=== PATIENT | female | born 1935 | race Caucasian/White ===

== ENCOUNTER 2019-01-19 15:52 | Inpatient (IN) | payer MEDICARE ==
[2019-01-19] MEDS ORDERED: Ondansetron INJ* 2 MG/ML VIAL IV ONE (16:10)
[2019-01-19] MEDS ORDERED: NS 0.9% 1000 ML** 1,000 ML IV ONE (16:10)
--- NOTE | 2019-01-19 16:13 | ED ---
GI/ HPI - HPI Summary HPI Summary: An 83 y/o F sent from PCP to r/o SBO presents to ED with c/o nausea without vomiting onset 3-4 days ago. Pt had been having intermittent episodes of constipation since 2017, which she believes she is having now. She travelled 3-4 days ago to [place], and went out to dinner, eating a lot of plain pasta. She felt it got "stuck." Associated sx: gas, distended abd. Denies abd pain. Her last normal BM was 4 days ago, but she's been passing hard, small lumps of stool since. She took a suppository this afternoon, and after approx an hour, some brown liquid came out, but she is still having abd distention. Abd surgeries include hysterectomy, bowel surgery. She takes two baby aspirins daily. - History of Current Complaint Chief Complaint: EDGeneral Time Seen by Provider: 01/19/19 16:03 Stated Complaint: "DRLara THINKS POSS BOWEL OBS" PER PT Hx Obtained From: Patient Onset/Duration: Started Days Ago, Still Present Timing: Constant, Lasting Days Severity: Moderate Current Severity: Moderate Pain Intensity: 4 - out of 10 Associated Signs and Symptoms: Positive: Nausea, Constipation, Other: - pos: gas , distended abd. Negative: Vomiting, Abdominal Pain - Allergy/Home Medications Allergies/Adverse Reactions: Allergies Allergy/AdvReac Type Severity Reaction Status Date / Time No Known Allergies Allergy Verified 01/19/19 16:19 Home Medications: Home Medications Aspirin [Aspirin EC] 162 mg PO DAILY 01/19/19 [History Confirmed 01/19/19] Fluticasone NASAL SPRAY 50MCG* 1 spray BOTH NARES BEDTIME 01/19/19 [History Confirmed 01/19/19] Ibandronate Sodium 1,560 mg PO MONTHLY 01/19/19 [History Confirmed 01/19/19] Levothyroxine TAB* [Synthroid 88 MCG TAB*] 88 mcg PO QAM 01/19/19 [History Confirmed 01/19/19] Lisinopril/HCTZ 20/25(NF) [Zestoretic 20/25(NF)] 1 tab PO DAILY 01/19/19 [ History Confirmed 01/19/19] PMH/Surg Hx/FS Hx/Imm Hx Previously Healthy: No Endocrine/Hematology History: Reports: Hx Thyroid Disease - HYPO Cardiovascular History: Reports: Hx Hypertension Musculoskeletal History: Reports: Other Musculoskeletal History - Surgical History Surgery Procedure, Year, and Place: left shoulder replacement Infectious Disease History: No Infectious Disease History: Denies: Traveled Outside the [place] in Last 30 Days - Social History Occupation: Retired Lives: With Family Review of Systems Negative: Fever Positive: Nausea, Other - pos: gassy, constipation, distended abd. Negative: Abdominal Pain, Vomiting All Other Systems Reviewed And Are Negative: Yes Physical Exam - Summary Physical Exam Summary: VITAL SIGNS: Reviewed. GENERAL: Patient is a well-developed and nourished female who is lying comfortable in the stretcher. Patient is not in any acute respiratory distress. HEAD AND FACE: Normocephalic and atraumatic. EYES: PERRLA, EOMI x 2, No injected conjunctiva. EARS: Hearing grossly intact. Ear canals and tympanic membranes are WNL. MOUTH: Oropharynx within normal limits. NECK: Supple, trachea is midline, no adenopathy, no JVD. CHEST: Symmetric, no tenderness at palpation LUNGS: Clear to auscultation bilaterally. No wheezing or crackles. CVS: RRR, S1 and S2 present, no murmurs or gallops appreciated. ABDOMEN: Soft, non-tender. Distended abd. Decreased bowel sounds. No rebound, no guarding, and no masses palpated. No abdominal bruit or pulsations. Nausea without vomiting. EXTREMITIES: FROM in all major joints, no edema, no cyanosis or clubbing. NEURO: Alert and oriented x 3. No acute neurological deficits. Speech is normal. SKIN: Dry and warm RECTAL: Nurse Shelbie chaperoned. The vault is empty, small hemorrhoid at 12 o clock, good sphincter tone Triage Information Reviewed: Yes Vital Signs On Initial Exam: Initial Vitals Temp Pulse Resp BP Pulse Ox 99 F 76 16 176/104 97 01/19/19 16:03 01/19/19 16:03 01/19/19 16:03 01/19/19 16:03 01/19/19 16:03 Vital Signs Reviewed: Yes Diagnostics - Vital Signs Vital Signs Temp Pulse Resp BP Pulse Ox 01/19/19 16:03 99 F 76 16 176/104 97 - Laboratory Result Diagrams: 01/19/19 16:16 01/19/19 16:16 Lab Statement: Any lab studies that have been ordered have been reviewed, and results considered in the medical decision making process. - Radiology ABD XR Radiology Interpretation Completed By: Radiologist Summary of Radiographic Findings: IMPRESSION: Dilated loops of small bowel for which small bowel obstruction is not excluded. ED provider has reviewed this report. - CT A/P CT CT Interpretation Completed By: Radiologist Summary of CT Findings: IMPRESSION: Findings of sigmoid volvulus. No perforation. ED provider has reviewed this report. - EKG 1621 Cardiac Rate: NL - 64 bpm EKG Rhythm: Sinus Rhythm Summary of EKG Findings: No ST elevation. GIGU Course/Dx - Course Assessment/Plan: Patient is an 83-year-old female who presents to the emergency room with abdominal distention. Patient has nausea without vomiting. Test results without any significant abnormality except for sodium 131, potassium 3.1 , chloride 95, glucose 117, urinalysis is negative for UTI. Rectal exam: The patient has an small hemorrhoid, vault is w/o stool. X-ray of the abdomen impression: Dilated loops of the small bowel for which is small bowel obstruction is not excluded.Occult blood is negative. I discussed the case with Darin WEST from the surgery and he recommends an abdominal and pelvic CT. The patient is unable to tolerate oral contrast therefore we placed an NG tube and did a CT without oral contrast, only IV contrast. The CT abdomen and pelvis impression: sigmoid volvulus. At this time I discussed my physical exam and findings with Dr. Villalobos from GI and he will, consult for this patient. Patient continues to be hemodynamically stable. Patient will be signed out to Dr. Cardoso to follow-up with Dr. Villalobos assessment and plan. - Diagnoses Provider Diagnoses: Sigmoid volvulus - Physician Notifications Discussed Care Of Patient With: Raman Ballard - surgery Time Discussed With Above Provider: 19:47 Instructed by Provider To: Other - Recommends NG tube prior to CT. Consulted again at 2121: Reviewed the CT, before official report, feels it is a sigmoid volvulus, recommends consulting GI. - Critical Care Time Critical Care Time: 30-74 min - 45 mins CC time. Discharge - Sign-Out/Discharge Documenting (check all that apply): Sign-Out Patient Signing out patient TO: Fahad Cardoso - pending Dr. Villalobos seeing pt in ED - Discharge Plan Referrals: Vanna Mello MD [Primary Care Provider] - - Attestation Statements Document Initiated by Robin: Yes Documenting Scribe: Prashant Lance Provider For Whom Robin is Documenting (Include Credential): Dr. David Garcia MD Scribe Attestation: I, Prashant Lance, scribed for Dr. David Garcia MD on 01/19/19 at 2225. Scribe Documentation Reviewed: Yes Provider Attestation: The documentation as recorded by the robin, Prashant Lance accurately reflects the service I personally performed and the decisions made by me, Dr. David Garcia MD Status of Scribe Document: Viewed Consult Consult: 2139: Consult with JEROD Garza Will see patient in ED.
[2019-01-19 16:24] LABS: ABS Basophils 0.1 10^3/ul (0-0.2); ABS Eosinophils 0 10^3/ul (0-0.6); ABS Lymphocytes 1.1 10^3/ul (1.0-4.8); ABS Monocytes 0.7 10^3/ul (0-0.8); ABS Neutrophils 8.2 10^3/ul (1.5-7.7); ABS Nucleated RBC 0 10^3/ul; Eosinophil % 0.2 %; Hematocrit 40 % (35-47); Hemoglobin 13.6 g/dl (12.0-16.0); Lymphocyte % 10.8 %; Mean Corpuscular HGB Conc 34 g/dl (31-36); Mean Corpuscular Hemoglobin 33 pg (27-31); Mean Corpuscular Volume 97 fL (80-97); Mean Platelet Volume 7.3 fL (7.4-10.4); Nucleated Red Blood Cells % 0.1; Platelet Count 304 10^3/ul (150-450); Red Blood Count 4.14 10^6/ul (4.00-5.40); Red Cell Distribution Width 13 % (10.5-15); White Blood Count 10.1 10^3/ul (3.5-10.8)
[2019-01-19 16:40] LABS: Albumin 4.4 g/dL (3.2-5.2); Albumin/Globulin Ratio 1.8 (1-3); BUN/Creatinine Ratio 12.5 (8-20); C Reactive Protein 3.42 mg/L (<8.01); Calcium 9.7 mg/dL (8.6-10.3); EGFR African American 83.3 (>60); EGFR Non-African American 68.8 (>60); Globulin 2.4 g/dL (2-4); Magnesium 2.1 mg/dL (1.9-2.7); Potassium 3.1 mmol/L (3.5-5.0); Total Bilirubin 0.6 mg/dL (0.2-1.0); Total Protein 6.8 g/dL (6.4-8.9)
[2019-01-19 16:44] LABS: Urine Appearance Cloudy; Urine Bilirubin Negative (Negative); Urine Blood Negative (Negative); Urine Color Yellow; Urine Glucose Negative (Negative); Urine Ketones 1+ (Negative); Urine Nitrite Negative (Negative); Urine Protein Negative (Negative); Urine Urobilinogen Negative (Negative)
[2019-01-19] MEDS ORDERED: Iohexol 300* (CONTRAST) 10 ML SDV IV ONE (19:42)
[2019-01-19] MEDS ORDERED: fentaNYL* 50 MCG/ML 2 ML VIAL (100 MCG VIAL) ONE (22:48)
[2019-01-19] MEDS ORDERED: Midazolam* 1 MG/ML 10 ML VIAL (10 MG) ONE (22:49)
--- NOTE | 2019-01-19 22:53 | ED ---
Progress - Progress Note Progress Note: The patient was signed out to Dr. Cardoso from Dr. Garcia upon provider shift change pending consultation with Dr. Villalobos and disposition. Course/Dx - Course Course Of Treatment: The patient was signed out to Dr. Cardoso from Dr. Garcia upon provider shift change pending consultation with Dr. Villalobos and disposition. Dx sigmoid volvulus. Discussed patient care with Dr. Villalobos, radio announcer, after he came to see the patient in the ED and he advised the patient be admitted to [facility]. We discussed patient care with Dr. Huddleston, hospitalist, and they agreed to admit the patient to [facility]. Patient will be admitted to [facility]. The patient is agreeable with this plan. - Diagnoses Provider Diagnoses: Sigmoid volvulus - Provider Notifications Discussed Care Of Patient With: Krzysztof Villalobos Time Discussed With Above Provider: 00:33 Instructed by Provider To: Other - Dr. Villalobos advised the patient be admitted to [facility]. Discussed patient care at 00:[address] Huddleston, hospitalist, who agreed to admit the patient to [facility]. Discharge - Sign-Out/Discharge Documenting (check all that apply): Patient Departure - admit to [facility], Receiving Sign-Out Receiving patient FROM: David Garcia Patient Received Moderate/Deep Sedation with Procedure: No - Discharge Plan Condition: Stable Disposition: ADMITTED TO [facility] Referrals: Vanna Mello MD [Primary Care Provider] - - Attestation Statements Document Initiated by Scribe: Yes Documenting Scribe: Teresa Newton Provider For Whom Scribe is Documenting (Include Credential): Fahad Cardoso MD Scribe Attestation: Teresa Jo, donnaibed for Fahad Cardoso MD on 01/20/19 at 0032. Status of Scribe Document: Ready
--- NOTE | 2019-01-20 00:29 | PN ---
Progress Note - Progress Note Date of Service: 01/20/19 Note: GI Flex Sig Brief Note: no sedation indication: sig volvulus. Flex sig to distal transverse 1st whirl noted at 12-15cm, mucosa pink and healthy advanced to sigmoid, cavernous with air/stool suctioned advanced to proximal whirl and passed. air suctioned again Cook guidewire advanced while removing scope and suctioning. 14F colonic decompression advanced over guidewire past both whirls. Rectal tube taped rec: IVF observation, serial abdominal exams Will likely need definitive surgical therapy Discussed with Dr. Nellie Villalobos DO 01/20/19 12:28
[2019-01-20] MEDS ORDERED: Ondansetron INJ* 2 MG/ML VIAL IV PRN (01:10)
--- NOTE | 2019-01-20 01:20 | CONS ---
CONSULTATION REPORT: DATE OF CONSULT: 01/19/19 REASON FOR CONSULTATION: Sigmoid volvulus. HISTORY OF PRESENT ILLNESS: An 83-year-old female who was sent from the primary care physician to rule out bowel obstruction, to the emergency room. She states that her bowels have been off since roughly 2017. Prior to this, she moved her bowels every day to every other day after that she was moving her bowels every 3 to 4 days, having to take MiraLAX over-the- counter. However, over the last 3 to 4 days, she has noted increasing abdominal distention and gas and then over the last day has noticed an absence of flatulence and has not had any bowel movements. She admits to a full abdomen. She states it is slightly uncomfortable globally but without a significant focal area of pain. She denies any black or blood in the stool. She had a colonoscopy she believes in 1999, which was negative. She has a history of a complicated hysterectomy and possible bowel repair. She admits to nausea. She denies emesis. No dysphagia or odynophagia. No skin rash or lesions. Denies significant weight loss. A 14-point review of systems is grossly negative. PAST MEDICAL HISTORY: 1. Hypothyroidism. 2. Hypertension. PAST SURGICAL HISTORY: Complicated hysterectomy possibly involving bowel repair as well. HOME MEDICATIONS: Include: 1. Aspirin 162 mg daily. 2. Fluticasone. 3. Ibandronate. 4. Levothyroxine. 5. Lisinopril. 6. Hydrochlorothiazide. FAMILY HISTORY: Denies family history of GI cancer or IBD. SOCIAL HISTORY: Retired. Lives with family. Denies significant alcohol use. REVIEW OF SYSTEMS: The remainder of the 14-point review of systems was grossly negative. PHYSICAL EXAMINATION: Vital Signs: Blood pressure is 160/93, pulse is 70, respiratory rate 16, temperature is 99. She is 97% on room air. In general, alert and oriented x3, mild distress. HEENT: Atraumatic, normocephalic. Pupils equal, round, reactive to light. Conjunctivae are pink. The sclerae are injected. Cardiovascular: Regular rate and rhythm. S1, S2. Respiratory: Clear to auscultation bilaterally. Abdomen is distended. High-pitched with hypoactive bowel sounds. Mild guarding. No rebound. Extremities: No clubbing. No cyanosis. No edema. Neurologic: Nonfocal. Skin: Without rash or lesions. Psych is appropriate mood and affect. DIAGNOSTIC STUDIES/LAB DATA: WBC count 10.1, hemoglobin 13.6. Sodium 131, potassium 3.1, chloride is 95, glucose is 117. Lactic acid 0.7. AST 34, ALT is 28. She had an abdominal x-ray at 1611, revealed dilated loops of small bowel for which small bowel obstruction is not excluded. She then had abdomen and pelvis CT, noncontrast at 1920 with findings of sigmoid volvulus, no perforation. ASSESSMENT AND PLAN: This is an 83-year-old with suspected sigmoid volvulus. Suspected sigmoid volvulus. Extensive discussion with the patient regarding management options and preference would be for endoscopic decompression followed by definitive surgical therapy. I discussed the high risk of perforation in volvulus decompression secondary to ischemia to the bowel. I discussed the anesthetic risks including blood pressure, heart rate, breathing problems. Given that she had attempted contrast recently, we will plan on attempting on sedated and giving mild sedation if absolutely necessary given the emergence of the situation. I discussed the plan with the son-in-law at bedside, answered all questions and they wished to proceed with endoscopic decompression of the potential sigmoid volvulus. They understand that she likely will need definitive surgical therapy in the near future. The patient was seen and examined in the ER. [id number]/[facility] #: [id number] NOHELIA
--- NOTE | 2019-01-20 01:53 | PRO ---
CC: Dr. Ballard; primary care physician.* FLEXIBLE SIGMOIDOSCOPY REPORT: DATE OF PROCEDURE: 01/19/19 INDICATION FOR PROCEDURE: Sigmoid volvulus. PROCEDURE PERFORMED: Sigmoid volvulus decompression with colonic tube decompression placement. MEDICATIONS GIVEN: None. DESCRIPTION OF PROCEDURE: After the flexible sigmoidoscopy procedure including the risks, benefits, and alternatives with the risks not limited to perforation , surgery, missed lesions, and/or were explained to the patient, written informed consent was obtained. IV medication was not given. A rectal exam was performed. The rectal exam revealed no stool. The pediatric Olympus colonoscope was then inserted into the patient's rectum and advanced very carefully through the rectum to about 10 cm to 15 cm where the first sigmoid volvulus whirl was noted. The mucosa at this area was pink without any necrosis or inflammation. The scope advanced through this area with gentle pressure and relative ease. Upon entering the sigmoid colon, the area with large cavernous with retained stool and air. The air was rapidly suctioned out and liquid was suctioned out as well. Rapid improvement to the patient's abdominal distention was identified. The scope was continued to be transversed through the sigmoid colon to the distal transverse colon through the second whirl and at this time, the reminder of the air was suctioned out of the proximal colon with relative ease. No further advancement was able to be done secondary to sold formed stool. Next, a Cook guidewire was advanced through the colonoscope and then the colonoscope was slowly retrieved while advancing the guidewire. Next, a 14 [place] Cook decompression tube was placed over the guidewire into the colon and taped to the patient's gluteus cheek. The patient tolerated the procedure well. At the conclusion of the procedure, her abdomen was flat and nondistended. IMPRESSION: 1. Flexible sigmoidoscopy through transverse colon. 2. Sigmoid volvulus decompression successful with derotation. 3. Colonic decompression tube placed into colon successfully as above. RECOMMENDATIONS: Admit and monitor to the hospital. The patient will need definitive surgery therapy likely in the near future. [id number]/[facility] #: [id number] [facility]
[2019-01-20] MEDS: NS 0.9% w/ 20 Meq KCL 1000 ML* 1,000 ML IV SCH ×2 (02:25→14:27)
--- NOTE | 2019-01-20 03:40 | HP ---
CC: Vanna Mello MD * HISTORY AND PHYSICAL: DATE OF ADMISSION: 01/20/19 TIME OF EVALUATION: 0100 PRIMARY CARE PHYSICIAN: Vanna Mello MD CHIEF COMPLAINT: Abdominal distention and pain. HISTORY OF PRESENT ILLNESS: This is an 83-year-old female who presents to the emergency room for worsening abdominal pain and distention. The patient states around Antoinette time, she began having issues with constipation, which was new for her and she lost the urge to have a bowel movement. She increased fiber in her diet. She went to see her primary care physician for her annual visit in November and she discussed her issues. She recommended continuing high-fiber diet and adding Metamucil, which seemed to make things worse for her. She states on the evening of 01/15/19, she noticed she was having increasing gas pains and distention, feeling more bloated. She tried to increase her prunes and fiber intake with no relief and this was the last time she had a bowel movement. She states she has been having small stool worms with other stuff coming out. The following day, she went out to dinner with her family, she ate pasta which seemed to make her situation worse. She went to see the nurse practitioner in her primary care physician office on 01/18/19, who noted her abdomen was significantly distended. She ordered suppositories. She tried that earlier yesterday when they arrived with no relief. She called her primary care physician for concern for her distention and then primary recommended she go to the emergency room. The patient has been nauseated for the past 2 days. She was dry heaving in triage, and she vomited up the contrast when they attempted to do a CAT scan of her abdomen. She has had no bowel movements since 01/15/19. No flatus. She states she had a colonoscopy in early 1999 that was normal. Otherwise, review of systems negative. In the emergency room, the patient had labs and imaging. She was seen by Surgery and also GI doctor, Dr. Villalobos evaluated her, performed a flex sig with decompression and a rectal tube in place. The patient also has NG tube in place. On my encounter, the patient states she feels significantly better. Her abdominal distention has improved. She still has not passed any gas, but her symptoms have dramatically improved since the procedure in the emergency room by Dr. Griselda. In the emergency room, the patient had a liter of fluid, Zofran 4 mg, fentanyl and Versed for the procedure. PAST MEDICAL HISTORY: 1. Hypothyroidism. 2. Hypertension. 3. Osteoporosis. PAST SURGICAL HISTORY: 1. History of laparoscopic hysterectomy, complicated by suture rupture and bowel coming out of her vagina, status post repair for that. 2. History of shoulder surgery. She also has plans to have her shoulder replaced on 02/02/19. MEDICATIONS: 1. Cranberry 6 tabs p.o. daily. 2. Aspirin 162 mg p.o. daily. 3. Flonase 1 spray both nares at bedtime. 4. Lisinopril/hydrochlorothiazide 1 tab daily. 5. Synthroid 88 mcg p.o. daily. 6. Ibandronate monthly. ALLERGIES: No known drug allergies. FAMILY HISTORY: Mother from stroke. Father from lung cancer. SOCIAL HISTORY: The patient lives at [facility]. She ambulates independently. No history of tobacco. She drinks 1 glass of wine per week. Healthcare proxy is Brii Jasmine, her daughter. 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 Code status is full code. REVIEW OF SYSTEMS: A 14-point review of systems as mentioned in the HPI, otherwise negative. PHYSICAL EXAMINATION GENERAL: No acute distress. Resting comfortably on her side. VITAL SIGNS: Temp is 99, pulse rate is 72, respiratory rate is 18, oxygen saturation is 97% on room air, blood pressure 145/82. HEENT: Head: Normocephalic. Pupils are equal and reactive. Oropharynx: Mucous membranes moist. She does have an NG tube in place. NECK: Supple. RESPIRATORY: Diminished breath sounds. No wheezes, rhonchi, or rales. CARDIAC: Regular rate and rhythm. Soft systolic murmur heard throughout. ABDOMEN: Distended, mildly firm. Hypoactive bowel sounds. Diffuse tenderness. No rebound or guarding. EXTREMITIES: No clubbing, cyanosis, or edema. +1 DPs. NEUROLOGICAL: Alert and oriented x3. No gross focal neurologic deficits. LABORATORY DATA: White count 10.1, hemoglobin 13.6, hematocrit 40, platelets 304. Sodium 131, potassium 3.1, chloride 95, bicarb 28, BUN 10, creatinine 0.8. Glucose 117. Lactic acid 0.7. CRP is 3. RADIOGRAPHIC DATA: Abdominal and pelvis CT, findings of sigmoid volvulus, no perforation. Abdominal x-ray, dilated loops of small bowel for which small bowel obstruction is not excluded. EKG shows normal sinus rhythm. ASSESSMENT AND PLAN: This is an 83-year-old female with unremarkable past medical history, presents to the emergency room with worsening abdominal distention and pain, 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 1. Sigmoid volvulus. Assessment: The patient had her volvulus decompressed with rectal tube in place by Dr. Villalobos in the emergency room. Recommendation is to keep her n.p.o. with IV fluids. Follow up in GI and Surgery in the morning to discuss definitive surgical repair. 2. Chronic medical problems. a. Hypothyroidism. The patient will remain n.p.o. for now. If she remains n.p.o. for several days, she will need IV Synthroid. b. Hypertension. Hold her p.o. medications and hold her aspirin in the setting of potential upcoming surgery. 3. DVT prophylaxis. The patient scores high risk. We will place her on heparin subcu t.i.d. 4. Code status. Full code. 5. FEN. NPO with IV fluids. PATIENT TIME: Greater than 45 minutes was spent doing the history and physical , more than half the time was spent in direct patient contact. [id number]/[facility] #: [id number] NOHELIA
[2019-01-20 05:23] LABS: ABS Basophils 0 10^3/ul (0-0.2); ABS Eosinophils 0 10^3/ul (0-0.6); ABS Lymphocytes 1.1 10^3/ul (1.0-4.8); ABS Monocytes 0.6 10^3/ul (0-0.8); ABS Neutrophils 7.8 10^3/ul (1.5-7.7); ABS Nucleated RBC 0 10^3/ul; Eosinophil % 0.1 %; Hematocrit 41 % (35-47); Lymphocyte % 11.9 %; Mean Corpuscular HGB Conc 34 g/dl (31-36); Mean Corpuscular Hemoglobin 33 pg (27-31); Mean Corpuscular Volume 96 fL (80-97); Mean Platelet Volume 7.2 fL (7.4-10.4); Nucleated Red Blood Cells % 0; Platelet Count 298 10^3/ul (150-450); Red Blood Count 4.25 10^6/ul (4.00-5.40); Red Cell Distribution Width 13 % (10.5-15); White Blood Count 9.6 10^3/ul (3.5-10.8)
[2019-01-20] MEDS: Heparin VIAL(*) 5000 UNITS/ML VIAL (FIVE THOUSAND) SUBCUT SCH ×3 (05:29→21:43)
[2019-01-20 05:39] LABS: BUN/Creatinine Ratio 10.8 (8-20); Calcium 8.8 mg/dL (8.6-10.3); EGFR African American 91.1 (>60); EGFR Non-African American 75.3 (>60); Potassium 3.2 mmol/L (3.5-5.0)
--- NOTE | 2019-01-20 10:58 | PN ---
Subjective Date of Service: 01/20/19 Interval History: Patient is feeling much improved today. She notes discomfort at the back of her throat due to NG tube and some abdominal discomfort. The abdominal discomfort is improved when sitting upright in chair on top of a pillow. She had two small , loose BMs overnight into this morning. Nursing notes that these BMs occurred around the rectal tube. She has not noticed flatus. Denies chest pain, SOB, and emesis. Objective Active Medications: Heparin Sodium (Porcine) (Heparin Vial(*)) 5,000 units SUBCUT Q8HR [facility] Last Admin: 01/20/19 05:29 Dose: 5,000 units Potassium Chloride/Sodium Chloride (Ns 0.9% W/ 20 Meq Kcl 1000 Ml*) 1,000 mls @ 100 mls/hr IV PER RATE [facility] Last Admin: 01/20/19 02:25 Dose: 100 mls/hr Ondansetron HCl (Zofran Inj*) 4 mg IV Q4H PRN PRN Reason: NAUSEA/VOMITING Vital Signs - 8 hr 01/20/19 01/20/19 01/20/19 03:16 04:06 07:27 Temperature 99.0 F 98.5 F Pulse Rate 65 65 Respiratory 18 17 Rate Blood Pressure 135/75 137/57 (mmHg) O2 Sat by Pulse 100 98 Oximetry Oxygen Devices in Use Now: None Appearance: Elderly woman, appearing in NAD Eyes: No Scleral Icterus, PERRLA Ears/Nose/Mouth/Throat: Mucous Membranes Moist, - - NG tube present Neck: NL Appearance and Movements; NL JVP, Trachea Midline Respiratory: Symmetrical Chest Expansion and Respiratory Effort, Clear to Auscultation Cardiovascular: NL Sounds; No Murmurs; No JVD, RRR Abdominal: - - Normoactive BS x 4 quadrants; diffuse minimal tenderness to palpation in LUQ and LLQ; abdomen minimally distended but without rigidity; rectal tube present Extremities: No Edema, No Clubbing, Cyanosis Skin: No Rash or Ulcers Neurological: Alert and Oriented x 3, NL Muscle Strength and Tone Result Diagrams: 01/20/19 04:48 01/20/19 04:48 Microbiology and Other Data: Microbiology 01/19/19 17:20 Stool Occult Blood (LOUANN) - Final Stool Assess/Plan/Problems-Billing Assessment: 83 yo female with PMHx of hypothyroidism and osteoporosis presents with abdominal pain and distension, 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 - Patient Problems (1) Sigmoid volvulus Comment: -pt feeling much relief, though still has minimal abd pain -flex sig performed night of 01/[address] rectal tube -GI suspecting surgery necessary for definitive tx; gen surg is consulted -NG tube outputting nonbilious, nonbloody fluid -stool hemoccult negative (2) Hypothyroidism Code(s): E03.9 - HYPOTHYROIDISM, UNSPECIFIED SNOMED Code(s): 98323451 Comment: -pt remains NPO as expecting surgery -will consider IV synthroid in future (3) HTN (hypertension) Code(s): I10 - ESSENTIAL (PRIMARY) HYPERTENSION SNOMED Code(s): 50524936 Comment: -BP controlled -holding home lisinopril/hctz in setting of expectant surgery (4) DVT prophylaxis Code(s): PKO5799 - SNOMED Code(s): 979578451 Comment: -continue heparin subQ TID -home aspirin held in setting of expectant surgery (5) Full code status Code(s): Z78.9 - OTHER SPECIFIED HEALTH STATUS SNOMED Code(s): 114249952
--- NOTE | 2019-01-20 17:59 | CONS ---
CC: Dr. Krzysztof Villalobos; Dr. Vanna Mello; [facility] SURGICAL CONSULTATION REPORT: DATE OF CONSULT: 01/20/19 PRIMARY CARE DOCTOR: Dr. Vanna Mello. HISTORY OF PRESENT ILLNESS: I was contacted last night regarding Ms. Peterson, an 83- year-old female who presented with diffuse abdominal pain and distended abdomen, who was felt to be likely suffering with a small-bowel obstruction. Discussion with ER doctor led to a CT scan and a diagnosis of sigmoi d volvulus. Recommended GI evaluation and this was performed last night. The patient underwent urge nt decompressive sigmoidoscopy. The full colon was not evaluated, but no lesions were identified. T he mucosa appeared intact. The opinion of the risk consultant was that this was significantly floppy sigm oid colon and would likely twist again and a decompression tube was placed. I saw the patient as the procedure was happening and made a brief discussion with her, but then again this morning when I saw her with her daughter, the patient describes that she last felt well around [facility] last year. At about that time, the patient was starting to suffer with intermittent co nstipation. She at first changed her diet, loading it with fiber and prunes to try to help with norm alizing her bowel movements, then adding a Metamucil. This cocktail seemed to work intermittently, b ut then she would undergo periods of time when she would become distended and having persistent const ipation. She denied any significant abdominal pain during these times, but rather had distention and constipation and was treating herself for this. On this episode, which just started approximately 2 days ago, the patient states that the distention occurred and she also suffered with nausea. She vomited only once after attempting oral contrast loren or to CT scan. Currently, she feels better, but still is distended. She does have appetite. The NG tube is bothers ome, but otherwise she is sitting in bed and comfortable. PAST MEDICAL HISTORY: Hypothyroidism, hypertension. PAST SURGICAL HISTORY: Laparoscopic hysterectomy complicated with likely vaginal cuff dehiscence and subsequent repair with reduction of bowel coming through the vaginal cuff. MEDICATIONS: List reviewed. ALLERGIES: No known drug allergies. FAMILY HISTORY: Noncontributory. SOCIAL HISTORY: She lives at [place]. She just got there about 4 months ago. Her daughter is her h ealthcare proxy. She can walk up a flight of stairs with ease. She drinks wine on occasion. REVIEW OF SYSTEMS: No fevers or chills. No shortness of breath or chest pain. Abdominal distention and discomfort as described above. No dysuria. Colonoscopy about 10 years ago, the patient states w as within normal limits. No family history of colon cancer. No endocrine disorders other than hypot hyroidism. No bleeding or clotting disorders. No psychiatric illnesses. The patient denies chronic constipation. If anything, she had more frequent bowel movements during her life and suffered more with diarrhea. Carotid stenosis on the left according to the patient from workup done in [place]. PHYSICAL EXAM: On physical exam today, she was afebrile. Vital signs are stable. Alert and oriented x3, in no apparent distress. Head, Ears, Eyes, Nose and Throat: Normocephalic, atraumatic. Sclerae anicteric. Mucous membranes are moist. NG tube in place. Neck: No lymphadenopathy. Abdomen: So ft, distended, nontender, tympanic. Rectal Exam: Not performed, but rectal tube in place. Extremit ies within normal limits. DIAGNOSTIC STUDIES/LAB DATA: Labs reviewed. Normal white count. CT scan from yesterday reviewed, consistent with sigmoid volvulus. No free air; however, the patient did have free fluid. IMPRESSION AND PLAN: First episode of sigmoid volvulus that has resolved with endoscopic decompressi on and detorsion. Concern by the specialist is that this will reoccur. The patient describes a 2-1/ 2-month history of intermittent constipation and significant bloating and likely has had small episod es of this volvulus during these times that may have spontaneously reduced. She is at risk for recur rence and would like intervention to prevent which she suffered with yesterday. I outlined the detai ls of the procedure of a sigmoid colectomy, going over the risks, benefits, and alternatives. I spok e about the possible complications which include, but not limited to bleeding, infection, GI leak, ne ed for urgent surgery, potential for colostomy both temporary and permanent, stroke, and even . The alternatives I discussed were watchful waiting and seeing if this reoccurs. The patient is frig htened about this at this point. We will see how she does in the coming days and after additional di scussion which we will resume tomorrow, I will potentially consider her for surgical intervention aft er only 1 episode given the 2-month prodrome leading to this event. The patient is aware of my plan to hold off on urgent surgery at this time. We will watch her closely. I recommend NG tube removal. We can start her diet later today or tomorrow waiting for additional decrease of distention and pos sibly additional bowel movements. The patient understands this plan and I will follow her closely. [id number]/[facility] #: [id number]
[2019-01-21] MEDS: NS 0.9% w/ 20 Meq KCL 1000 ML* 1,000 ML IV SCH (00:13)
[2019-01-21] MEDS: Heparin VIAL(*) 5000 UNITS/ML VIAL (FIVE THOUSAND) SUBCUT SCH ×3 (05:42→21:55)
[2019-01-21 07:31] LABS: Hematocrit 40 % (35-47); Hemoglobin 13.4 g/dl (12.0-16.0); Mean Corpuscular HGB Conc 34 g/dl (31-36); Mean Corpuscular Hemoglobin 33 pg (27-31); Mean Corpuscular Volume 97 fL (80-97); Mean Platelet Volume 7.4 fL (7.4-10.4); Platelet Count 291 10^3/ul (150-450); Red Cell Distribution Width 13 % (10.5-15); White Blood Count 7.9 10^3/ul (3.5-10.8)
[2019-01-21 07:46] LABS: BUN/Creatinine Ratio 19.7 (8-20); Potassium 3.4 mmol/L (3.5-5.0)
[2019-01-21 09:05] LABS: Lymphocytes % 12 %; Monocytes % 6 %; Neutrophil % 81 %
[2019-01-21 09:07] LABS: ABS Neutrophils 6.4 10^3/ul (1.5-7.7)
[2019-01-21 09:08] LABS: ABS Basophils 0.08 10^3/ul (0-0.2)
--- NOTE | 2019-01-21 11:39 | PN ---
Subjective Date of Service: 01/21/19 Interval History: Patient received full liquid diet this morning, which has since been changed to clear liquid. She tolerated breakfast. She had a "liquid" bowel movement overnight and has had no BM or flatus since then. She has intermittent, mild abdominal pain which she describes as "gas pain." Denies nausea, vomiting, and chest pain. Objective Active Medications: Heparin Sodium (Porcine) (Heparin Vial(*)) 5,000 units SUBCUT Q8HR [facility] Last Admin: 01/21/19 05:42 Dose: 5,000 units Potassium Chloride/Sodium Chloride (Ns 0.9% W/ 20 Meq Kcl 1000 Ml*) 1,000 mls @ 100 mls/hr IV PER RATE [facility] Last Admin: 01/21/19 00:13 Dose: 100 mls/hr Ondansetron HCl (Zofran Inj*) 4 mg IV Q4H PRN PRN Reason: NAUSEA/VOMITING Vital Signs - 8 hr 01/21/19 01/21/19 01/21/19 03:52 07:49 08:00 Temperature 98.3 F 98.6 F Pulse Rate 81 84 Respiratory 16 16 16 Rate Blood Pressure 134/67 149/84 (mmHg) O2 Sat by Pulse 97 100 Oximetry Oxygen Devices in Use Now: None Appearance: Eldery female, appearing in NAD Eyes: No Scleral Icterus, PERRLA Ears/Nose/Mouth/Throat: Mucous Membranes Moist Neck: NL Appearance and Movements; NL JVP, Trachea Midline Respiratory: Symmetrical Chest Expansion and Respiratory Effort, Clear to Auscultation Cardiovascular: NL Sounds; No Murmurs; No JVD, RRR, No Edema Abdominal: No Hepatosplenomegaly, - - Abdomen distended; firm in LUQ and LLQ; high pitch bowel sounds in RLQ, otherwise normoactive; minimal tenderness throughout; rectal tube present Extremities: No Edema, No Clubbing, Cyanosis, - - no calf tenderness Skin: No Rash or Ulcers Neurological: Alert and Oriented x 3, NL Gait, NL Muscle Strength and Tone Result Diagrams: 01/21/19 07:12 01/21/19 07:12 Microbiology and Other Data: Microbiology 01/19/19 17:20 Stool Occult Blood (LOUANN) - Final Stool Assess/Plan/Problems-Billing Assessment: 83 yo female with PMHx of hypothyroidism and osteoporosis presents with abdominal pain and distension, 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 - Patient Problems (1) Sigmoid volvulus Comment: -pt with intermittent, mild abd pain. -diarrhea overnight and no BM since -abdominal distension worsened from yesterday, with high pitched bowel sounds occasionally -NG tube removed. No nausea/vomiting -Abdomen plan film today with dilated bowel loops -flex sig performed night of 01/[address] rectal tube. Rectal tube still present. -GI suspecting surgery necessary for definitive tx; gen surg is recommending clear fluids and expecting surgery in coming days (2) Hypothyroidism Code(s): E03.9 - HYPOTHYROIDISM, UNSPECIFIED SNOMED Code(s): 16962692 Comment: -restarted home levothyroxine (3) HTN (hypertension) Code(s): I10 - ESSENTIAL (PRIMARY) HYPERTENSION SNOMED Code(s): 41662250 Comment: -BP elevated today -restarted home lisinopril and HCTZ (4) Osteoporosis Code(s): M81.0 - AGE-RELATED OSTEOPOROSIS W/O CURRENT PATHOLOGICAL FRACTURE SNOMED Code(s): 98978493 Comment: -pt takes ibandronate monthly at home. Not ordered because dose is not due. (5) DVT prophylaxis Code(s): NYR6327 - SNOMED Code(s): 283778483 Comment: -continue heparin subQ TID -home aspirin held in setting of expectant surgery (6) Full code status Code(s): Z78.9 - OTHER SPECIFIED HEALTH STATUS SNOMED Code(s): 271811154
[2019-01-21] MEDS: Lisinopril TAB* 10 MG PO SCH (13:50)
[2019-01-21] MEDS: Hydrochlorothiazide TAB* 25 MG PO SCH (13:50)
[2019-01-21] MEDS: Levothyroxine TAB* 88 MCG TAB PO SCH (14:50)
[2019-01-22] MEDS: Heparin VIAL(*) 5000 UNITS/ML VIAL (FIVE THOUSAND) SUBCUT SCH ×3 (06:11→21:28)
[2019-01-22] MEDS: Levothyroxine TAB* 88 MCG TAB PO SCH (06:12)
[2019-01-22 06:25] LABS: ABS Basophils 0.1 10^3/ul (0-0.2); ABS Eosinophils 0 10^3/ul (0-0.6); ABS Monocytes 0.9 10^3/ul (0-0.8); ABS Neutrophils 12.2 10^3/ul (1.5-7.7); ABS Nucleated RBC 0 10^3/ul; Eosinophil % 0.1 %; Hematocrit 36 % (35-47); Hemoglobin 11.9 g/dl (12.0-16.0); Lymphocyte % 7.1 %; Mean Corpuscular HGB Conc 34 g/dl (31-36); Mean Corpuscular Hemoglobin 32 pg (27-31); Mean Corpuscular Volume 97 fL (80-97); Mean Platelet Volume 7.8 fL (7.4-10.4); Nucleated Red Blood Cells % 0; Platelet Count 269 10^3/ul (150-450); Red Blood Count 3.68 10^6/ul (4.00-5.40); Red Cell Distribution Width 13 % (10.5-15); White Blood Count 14.2 10^3/ul (3.5-10.8)
[2019-01-22 07:31] LABS: Albumin 3.5 g/dL (3.2-5.2); Albumin/Globulin Ratio 1.7 (1-3); BUN/Creatinine Ratio 13.4 (8-20); Calcium 8.8 mg/dL (8.6-10.3); EGFR African American 102.2 (>60); EGFR Non-African American 84.5 (>60); Globulin 2.1 g/dL (2-4); Indirect Bilirubin 0.7 mg/dL (0.3-1.0); Total Bilirubin 0.9 mg/dL (0.2-1.0); Total Protein 5.6 g/dL (6.4-8.9)
[2019-01-22 07:56] LABS: Potassium 2.7 mmol/L (3.5-5.0)
[2019-01-22] MEDS ORDERED: Potassium Chloride LIQUID* 20 MEQ PACKET PO ONE (08:13)
[2019-01-22] MEDS ORDERED: CRANBERRY FRUIT PO SCH (09:00)
[2019-01-22] MEDS: Hydrochlorothiazide TAB* 25 MG PO SCH (09:13)
[2019-01-22] MEDS: Lisinopril TAB* 10 MG PO SCH (09:13)
[2019-01-22] MEDS: KCL 20 MEQ/100 ML IVPREMIX* 20 MEQ/100 ML BAG IV SCH ×2 (09:42→11:53)
[2019-01-22 13:01] LABS: Magnesium 1.9 mg/dL (1.9-2.7)
[2019-01-22] MEDS: Artificial Tears* 15 ML BTL BOTH EYES SCH ×2 (14:39→21:28)
[2019-01-22] MEDS: CRANBERRY FRUIT PO SCH ×2 (14:50→21:28)
--- NOTE | 2019-01-22 15:37 | PN ---
Subjective Date of Service: 01/22/19 Interval History: Called by nursing staff for critical low potassium of 2.7 Patient reports that she is feeling well , no abd pain at this time. Denies chest pain or shortness of breath. denies n/v/d. denies fever or chills Family History: Unchanged from Admission Social History: Unchanged from Admission Past Medical History: Unchanged from Admission Objective Active Medications: Heparin Sodium (Porcine) (Heparin Vial(*)) 5,000 units SUBCUT Q8HR [facility] Last Admin: 01/22/19 14:51 Dose: 5,000 units Hydrochlorothiazide (Hydrodiuril Tab*) 25 mg PO DAILY [facility] Last Admin: 01/22/19 09:13 Dose: 25 mg Levothyroxine Sodium (Synthroid Tab*) 88 mcg PO DAILY@0600 [facility] Last Admin: 01/22/19 06:12 Dose: 88 mcg Lisinopril (Prinivil Tab*) 20 mg PO DAILY [facility] Last Admin: 01/22/19 09:13 Dose: 20 mg Pto -Cranberry Fruit ([Cranberry] 2 Cap) 2 cap PO TID [facility] Last Admin: 01/22/19 14:50 Dose: 2 cap Pto:* (Refresh Gel (Eye Gel 1 Drop)) 1 drop BOTH EYES BEDTIME [facility] Ondansetron HCl (Zofran Inj*) 4 mg IV Q4H PRN PRN Reason: NAUSEA/VOMITING Polyvinyl Alcohol (Polyvinyl Alcohol 1.4% Opth*) 2 drop BOTH EYES TID [facility] Last Admin: 01/22/19 14:39 Dose: Not Given Vital Signs - 8 hr 01/22/19 01/22/19 01/22/19 07:37 08:00 12:03 Temperature 98.2 F 97.9 F Pulse Rate 61 63 Respiratory 14 14 14 Rate Blood Pressure 112/57 132/74 (mmHg) O2 Sat by Pulse 97 100 Oximetry Oxygen Devices in Use Now: None Appearance: appears comportable sittingin the chair . no acute distress Eyes: No Scleral Icterus Ears/Nose/Mouth/Throat: Clear Oropharnyx, Mucous Membranes Moist Neck: NL Appearance and Movements; NL JVP, Trachea Midline Respiratory: Symmetrical Chest Expansion and Respiratory Effort, Clear to Auscultation Cardiovascular: NL Sounds; No Murmurs; No JVD Abdominal: - - mild distention, soft, non tender BS +x4 Extremities: No Edema, No Clubbing, Cyanosis Skin: No Rash or Ulcers Neurological: Alert and Oriented x 3 Nutrition: Taking PO's Result Diagrams: 01/23/19 05:53 01/23/19 05:53 Microbiology and Other Data: Microbiology 01/19/19 17:20 Stool Occult Blood (LOUANN) - Final Stool Assess/Plan/Problems-Billing Assessment: 83 yo female with PMHx of hypothyroidism, HTN and osteoporosis presents with abdominal pain and distension, 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 - Patient Problems (1) Sigmoid volvulus Current Visit: Yes Status: Acute Comment: -c/o mild distension - No nausea/vomiting -flex sig performed night of 01/[address] rectal tube. -GI suspecting surgery necessary for definitive tx; gen surg is recommending clear fluids and surgery in coming days (2) HTN (hypertension) Current Visit: Yes Status: Acute Code(s): I10 - ESSENTIAL (PRIMARY) HYPERTENSION SNOMED Code(s): 72041751 Comment: -BP stable -will stop HCTZ as this coul dbe contributing to her hypokalemia - will need to stop lisinopril before surgery as well (3) Hypothyroidism Current Visit: Yes Status: Acute Code(s): E03.9 - HYPOTHYROIDISM, UNSPECIFIED SNOMED Code(s): 90913711 Comment: -restarted home levothyroxine (4) Hypokalemia Current Visit: Yes Status: Acute Code(s): E87.6 - HYPOKALEMIA SNOMED Code( s): 50416883 Comment: K+ 2.7 - will give 40 meq po and 40 meq IV - repeat BMP in the AM (5) DVT prophylaxis Current Visit: Yes Status: Acute Code(s): XBW0091 - SNOMED Code(s): 847627588 Comment: -continue heparin subQ TID -home aspirin held in setting of expectant surgery (6) Full code status Current Visit: Yes Status: Acute Code(s): Z78.9 - OTHER SPECIFIED HEALTH STATUS SNOMED Code(s): 962501755 Status and Disposition: discharge home when medically stable
--- NOTE | 2019-01-22 21:00 | PN ---
Progress Note - Progress Note Date of Service: 01/22/19 Note: Surgery Progress Note S: Patient is doing well. She has no complaints. Is tolerating CLD well and is comfortable. No nausea or emesis. O: Vital Signs: Temp Pulse Resp BP Pulse Ox 97.8 F 54 20 110/61 98 01/22/19 19:30 01/22/19 19:30 01/22/19 19:30 01/22/19 19:30 01/22/19 19:30 Laboratory Last Values WBC 14.2 10^3/ul (3.5-10.8) H 01/22/19 05:55 RBC 3.68 10^6/ul (4.00-5.40) L 01/22/19 05:55 Hgb 11.9 g/dl (12.0-16.0) L 01/22/19 05:55 Hct 36 % (35-47) 01/22/19 05:55 MCV 97 fL (80-97) 01/22/19 05:55 MCH 32 pg (27-31) H 01/22/19 05:55 MCHC 34 g/dl (31-36) 01/22/19 05:55 RDW 13 % (10.5-15) 01/22/19 05:55 Plt Count 269 10^3/ul (150-450) 01/22/19 05:55 MPV 7.8 fL (7.4-10.4) 01/22/19 05:55 Neut % (Auto) 86.2 % 01/22/19 05:55 Lymph % (Auto) 7.1 % 01/22/19 05:55 [place] % (Auto) 6.1 % 01/22/19 05:55 Eos % (Auto) 0.1 % 01/22/19 05:55 Baso % (Auto) 0.5 % 01/22/19 05:55 Absolute Neuts (auto) 12.2 10^3/ul (1.5-7.7) H 01/22/19 05:55 Absolute Lymphs (auto) 1.0 10^3/ul (1.0-4.8) 01/22/19 05:55 Absolute Monos (auto) 0.9 10^3/ul (0-0.8) H 01/22/19 05:55 Absolute Eos (auto) 0 10^3/ul (0-0.6) 01/22/19 05:55 Absolute Basos (auto) 0.1 10^3/ul (0-0.2) 01/22/19 05:55 Absolute Nucleated RBC 0 10^3/ul 01/22/19 05:55 Neutrophils % 81 % 01/21/19 07:12 Lymphocytes % 12 % 01/21/19 07:12 Monocytes % 6 % 01/21/19 07:12 Basophils % 1 % 01/21/19 07:12 Nucleated RBC % 0 01/22/19 05:55 Abs Neuts (Manual) 6.4 10^3/ul (1.5-7.7) 01/21/19 07:12 Abs Lymphs (Manual) 0.94 10^3/ul (1.0-4.8) L 01/21/19 07:12 Abs Monocytes (Manual) 0.47 10^3/ul (0-0.8) 01/21/19 07:12 Abs Basophils (Manual) 0.08 10^3/ul (0-0.2) 01/21/19 07:12 Normal RBC Morphology Normal (Normal) 01/21/19 07:12 Hem Pathologist Commnt 01/21/19 07:12 Sodium 136 mmol/L (135-145) 01/22/19 05:55 Potassium 2.7 mmol/L (3.5-5.0) L* 01/22/19 05:55 Chloride 102 mmol/L (101-111) 01/22/19 05:55 Carbon Dioxide 25 mmol/L (22-32) 01/22/19 05:55 Anion Gap 9 mmol/L (2-11) 01/22/19 05:55 BUN 9 mg/dL (6-24) 01/22/19 05:55 Creatinine 0.67 mg/dL (0.51-0.95) 01/22/19 05:55 Est GFR ( Amer) 102.2 (>60) 01/22/19 05:55 Est GFR (Non-Af Amer) 84.5 (>60) 01/22/19 05:55 BUN/Creatinine Ratio 13.4 (8-20) 01/22/19 05:55 Glucose 94 mg/dL (70-100) 01/22/19 05:55 Lactic Acid 0.7 mmol/L (0.5-2.0) 01/19/19 16:16 Calcium 8.8 mg/dL (8.6-10.3) 01/22/19 05:55 Magnesium 1.9 mg/dL (1.9-2.7) 01/22/19 05:55 Total Bilirubin 0.90 mg/dL (0.2-1.0) 01/22/19 05:55 Direct Bilirubin 0.20 mg/dL (0.03-0.18) H 01/22/19 05:55 Indirect Bilirubin 0.7 mg/dL (0.3-1.0) 01/22/19 05:55 AST 24 U/L (13-39) 01/22/19 05:55 ALT 19 U/L (7-52) 01/22/19 05:55 Alkaline Phosphatase 50 U/L (34-104) 01/22/19 05:55 C-Reactive Protein 3.42 mg/L (<8.01) 01/19/19 16:16 B-Natriuretic Peptide 40 pg/mL (<=100) 01/19/19 16:16 Total Protein 5.6 g/dL (6.4-8.9) L 01/22/19 05:55 Albumin 3.5 g/dL (3.2-5.2) 01/22/19 05:55 Globulin 2.1 g/dL (2-4) 01/22/19 05:55 Albumin/Globulin Ratio 1.7 (1-3) 01/22/19 05:55 Lipase 58 U/L (11.0-82.0) 01/19/19 16:16 Urine Color Yellow 01/19/19 16:29 Urine Appearance Cloudy 01/19/19 16:29 Urine pH 7.0 (5-9) 01/19/19 16:29 Ur Specific [place] 1.010 (1.010-1.030) 01/19/19 16:29 Urine Protein Negative (Negative) 01/19/19 16:29 Urine Ketones 1+ (Negative) A 01/19/19 16:29 Urine Blood Negative (Negative) 01/19/19 16:29 Urine Nitrate Negative (Negative) 01/19/19 16:29 Urine Bilirubin Negative (Negative) 01/19/19 16:29 Urine Urobilinogen Negative (Negative) 01/19/19 16:29 Ur Leukocyte Esterase Negative (Negative) 01/19/19 16:29 Urine Glucose Negative (Negative) 01/19/19 16:29 Urine Ascorbic Acid * (Negative) A 01/19/19 16:29 Intake & Output 01/22/19 01/22/19 01/22/19 06:59 14:59 22:59 Intake Total 100 670 Output Total 900 1000 300 Balance -800 -330 -300 Intake: Oral 100 670 Output: Urine 900 1000 300 Other: # Bowel Movements 1 Estimated Stool Amount Small Abd: distended, non tender A/P: 83 F with sigmoid volvulus, s/p sigmoidoscopy and placement of rectal tube - Plan for OR on Thursday for sigmoid resection with Dr. Abdi - Please continue CLD and start prep with 4 L golytely beginning 01/23 - Patient should be NPO after midnight on Thursday
[2019-01-22] MEDS: REFRESH EYE BOTH EYES SCH (21:28)
[2019-01-23] MEDS: Levothyroxine TAB* 88 MCG TAB PO SCH (05:54)
[2019-01-23] MEDS: Heparin VIAL(*) 5000 UNITS/ML VIAL (FIVE THOUSAND) SUBCUT SCH ×3 (05:55→21:31)
[2019-01-23 06:19] LABS: Hematocrit 34 % (35-47); Hemoglobin 11.5 g/dl (12.0-16.0); Mean Corpuscular HGB Conc 34 g/dl (31-36); Mean Corpuscular Hemoglobin 33 pg (27-31); Mean Corpuscular Volume 96 fL (80-97); Red Blood Count 3.52 10^6/ul (4.00-5.40); Red Cell Distribution Width 13 % (10.5-15); White Blood Count 5.7 10^3/ul (3.5-10.8)
[2019-01-23 06:38] LABS: BUN/Creatinine Ratio 9.2 (8-20); Calcium 8.8 mg/dL (8.6-10.3); EGFR African American 105.9 (>60); EGFR Non-African American 87.5 (>60); Potassium 2.9 mmol/L (3.5-5.0)
[2019-01-23 06:39] LABS: ABS Basophils 0.1 10^3/ul (0-0.2); ABS Eosinophils 0.1 10^3/ul (0-0.6); ABS Lymphocytes 1.4 10^3/ul (1.0-4.8); ABS Monocytes 0.6 10^3/ul (0-0.8); ABS Neutrophils 3.5 10^3/ul (1.5-7.7); ABS Nucleated RBC 0 10^3/ul; Eosinophil % 1.1 %; Lymphocyte % 24.9 %; Nucleated Red Blood Cells % 0.1; Platelet Count Platelets clumped. 10^3/ul (150-450)
[2019-01-23] MEDS: CRANBERRY FRUIT PO SCH ×3 (08:24→21:30)
[2019-01-23] MEDS: Lisinopril TAB* 10 MG PO SCH (08:24)
[2019-01-23] MEDS: Hydrochlorothiazide TAB* 25 MG PO SCH (08:24)
[2019-01-23] MEDS ORDERED: Potassium Chloride LIQUID* 20 MEQ PACKET PO ONE (08:36)
[2019-01-23] MEDS: KCL 20 MEQ/100 ML IVPREMIX* 20 MEQ/100 ML BAG IV SCH ×2 (09:24→14:11)
[2019-01-23] MEDS: Artificial Tears* 15 ML BTL BOTH EYES SCH ×2 (09:24→14:50)
[2019-01-23] MEDS ORDERED: PEG 3000 GI LAVAGE* 1 GALLON PO ONE (14:30)
--- NOTE | 2019-01-23 14:30 | PN ---
Progress Note - Progress Note Date of Service: 01/23/19 Note: Surgery Progress Note S: Patient is doing well. No new events. Feel slightly more distended than yesterday. O: Vital Signs: Temp Pulse Resp BP Pulse Ox 98.5 F 52 18 135/74 98 01/23/19 07:53 01/23/19 07:53 01/23/19 08:00 01/23/19 07:53 01/23/19 07:53 Laboratory Last Values WBC 5.7 10^3/ul (3.5-10.8) 01/23/19 05:53 RBC 3.52 10^6/ul (4.00-5.40) L 01/23/19 05:53 Hgb 11.5 g/dl (12.0-16.0) L 01/23/19 05:53 Hct 34 % (35-47) L 01/23/19 05:53 MCV 96 fL (80-97) 01/23/19 05:53 MCH 33 pg (27-31) H 01/23/19 05:53 MCHC 34 g/dl (31-36) 01/23/19 05:53 RDW 13 % (10.5-15) 01/23/19 05:53 Plt Count Platelets clumped. 10^3/ul (150-450) H 01/23/19 05:53 MPV Not Reportable 01/23/19 05:53 Neut % (Auto) 61.4 % 01/23/19 05:53 Lymph % (Auto) 24.9 % 01/23/19 05:53 [place] % (Auto) 11.3 % 01/23/19 05:53 Eos % (Auto) 1.1 % 01/23/19 05:53 Baso % (Auto) 1.3 % 01/23/19 05:53 Absolute Neuts (auto) 3.5 10^3/ul (1.5-7.7) 01/23/19 05:53 Absolute Lymphs (auto) 1.4 10^3/ul (1.0-4.8) 01/23/19 05:53 Absolute Monos (auto) 0.6 10^3/ul (0-0.8) 01/23/19 05:53 Absolute Eos (auto) 0.1 10^3/ul (0-0.6) 01/23/19 05:53 Absolute Basos (auto) 0.1 10^3/ul (0-0.2) 01/23/19 05:53 Absolute Nucleated RBC 0 10^3/ul 01/23/19 05:53 Neutrophils % 81 % 01/21/19 07:12 Lymphocytes % 12 % 01/21/19 07:12 Monocytes % 6 % 01/21/19 07:12 Basophils % 1 % 01/21/19 07:12 Nucleated RBC % 0.1 01/23/19 05:53 Abs Neuts (Manual) 6.4 10^3/ul (1.5-7.7) 01/21/19 07:12 Abs Lymphs (Manual) 0.94 10^3/ul (1.0-4.8) L 01/21/19 07:12 Abs Monocytes (Manual) 0.47 10^3/ul (0-0.8) 01/21/19 07:12 Abs Basophils (Manual) 0.08 10^3/ul (0-0.2) 01/21/19 07:12 Normal RBC Morphology Normal (Normal) 01/21/19 07:12 Hem Pathologist Commnt 01/21/19 07:12 Sodium 137 mmol/L (135-145) 01/23/19 05:53 Potassium 2.9 mmol/L (3.5-5.0) L 01/23/19 05:53 Chloride 105 mmol/L (101-111) 01/23/19 05:53 Carbon Dioxide 25 mmol/L (22-32) 01/23/19 05:53 Anion Gap 7 mmol/L (2-11) 01/23/19 05:53 BUN 6 mg/dL (6-24) 01/23/19 05:53 Creatinine 0.65 mg/dL (0.51-0.95) 01/23/19 05:53 Est GFR ( Amer) 105.9 (>60) 01/23/19 05:53 Est GFR (Non-Af Amer) 87.5 (>60) 01/23/19 05:53 BUN/Creatinine Ratio 9.2 (8-20) 01/23/19 05:53 Glucose 91 mg/dL (70-100) 01/23/19 05:53 Lactic Acid 0.7 mmol/L (0.5-2.0) 01/19/19 16:16 Calcium 8.8 mg/dL (8.6-10.3) 01/23/19 05:53 Magnesium 1.9 mg/dL (1.9-2.7) 01/22/19 05:55 Total Bilirubin 0.90 mg/dL (0.2-1.0) 01/22/19 05:55 Direct Bilirubin 0.20 mg/dL (0.03-0.18) H 01/22/19 05:55 Indirect Bilirubin 0.7 mg/dL (0.3-1.0) 01/22/19 05:55 AST 24 U/L (13-39) 01/22/19 05:55 ALT 19 U/L (7-52) 01/22/19 05:55 Alkaline Phosphatase 50 U/L (34-104) 01/22/19 05:55 C-Reactive Protein 3.42 mg/L (<8.01) 01/19/19 16:16 B-Natriuretic Peptide 40 pg/mL (<=100) 01/19/19 16:16 Total Protein 5.6 g/dL (6.4-8.9) L 01/22/19 05:55 Albumin 3.5 g/dL (3.2-5.2) 01/22/19 05:55 Globulin 2.1 g/dL (2-4) 01/22/19 05:55 Albumin/Globulin Ratio 1.7 (1-3) 01/22/19 05:55 Lipase 58 U/L (11.0-82.0) 01/19/19 16:16 Urine Color Yellow 01/19/19 16:29 Urine Appearance Cloudy 01/19/19 16:29 Urine pH 7.0 (5-9) 01/19/19 16:29 Ur Specific [place] 1.010 (1.010-1.030) 01/19/19 16:29 Urine Protein Negative (Negative) 01/19/19 16:29 Urine Ketones 1+ (Negative) A 01/19/19 16:29 Urine Blood Negative (Negative) 01/19/19 16:29 Urine Nitrate Negative (Negative) 01/19/19 16:29 Urine Bilirubin Negative (Negative) 01/19/19 16:29 Urine Urobilinogen Negative (Negative) 01/19/19 16:29 Ur Leukocyte Esterase Negative (Negative) 01/19/19 16:29 Urine Glucose Negative (Negative) 01/19/19 16:29 Urine Ascorbic Acid * (Negative) A 01/19/19 16:29 Intake & Output 01/22/19 01/23/19 01/23/19 21:59 06:59 14:59 Intake Total 1020 Output Total 600 Balance 420 Intake: Oral 1020 Output: Urine 600 Other: # Bowel Movements Estimated Stool Amount Physical exam: Abd: distended, non tender A/P: 83 yo F with sigmoid volvulus, sp endoscopic detorsion with GI and placement of rectal tube. - OR for open sigmoidectomy 01/[address] Abdi - For pre op please: -Administer 3-4L golytey as tolerated and erythromycin. -Type and screen -Aggressively replace K -Hold lisinopril -NPO after midnight -I discussed plan of care with hospitalist team and patient
--- NOTE | 2019-01-23 15:29 | PN ---
Subjective Date of Service: 01/23/19 Interval History: c/o mild increased abd fullness today. denies abd pain n/v/d. denies chest pain or shortness of breath. Potassium remain low at 2.9 will continue to replace . Family History: Unchanged from Admission Social History: Unchanged from Admission Past Medical History: Unchanged from Admission Objective Active Medications: Erythromycin (Erythromycin Tab*) 1,000 mg PO 15,16,00 [facility] Stop: 01/24/19 00:01 Heparin Sodium (Porcine) (Heparin Vial(*)) 5,000 units SUBCUT Q8HR [facility] Stop: 01/23/19 23:00 Last Admin: 01/23/19 14:39 Dose: 5,000 units Levothyroxine Sodium (Synthroid Tab*) 88 mcg PO DAILY@0600 [facility] Last Admin: 01/23/19 05:54 Dose: 88 mcg Neomycin Sulfate (Neomycin Tab*) 1,000 mg PO 1500,1600,0000 [facility] Stop: 01/24/19 00:01 Pto -Cranberry Fruit ([Cranberry] 2 Cap) 2 cap PO TID [facility] Last Admin: 01/23/19 14:39 Dose: 2 cap Pto:* (Refresh Gel (Eye Gel 1 Drop)) 1 drop BOTH EYES BEDTIME [facility] Last Admin: 01/22/19 21:28 Dose: 1 drop Pto - Refresh Tears (Eye Drops) 2 dose BOTH EYES TID [facility] Vital Signs - 8 hr 01/23/19 01/23/19 07:53 08:00 Temperature 98.5 F Pulse Rate 52 Respiratory 14 18 Rate Blood Pressure 135/74 (mmHg) O2 Sat by Pulse 98 Oximetry Oxygen Devices in Use Now: None Appearance: alert and oreinted female sitting in the chair no acute distress Eyes: No Scleral Icterus Ears/Nose/Mouth/Throat: Clear Oropharnyx, Mucous Membranes Moist Neck: NL Appearance and Movements; NL JVP, Trachea Midline Respiratory: Symmetrical Chest Expansion and Respiratory Effort, Clear to Auscultation Cardiovascular: NL Sounds; No Murmurs; No JVD, No Edema Abdominal: NL Sounds; No Tenderness; No Distention Extremities: No Edema, No Clubbing, Cyanosis Skin: No Rash or Ulcers Neurological: Alert and Oriented x 3 Nutrition: Taking PO's Result Diagrams: 01/23/19 05:53 01/23/19 18:31 Microbiology and Other Data: Microbiology 01/19/19 17:20 Stool Occult Blood (LOUANN) - Final Stool Assess/Plan/Problems-Billing Assessment: 83 yo female with PMHx of hypothyroidism, HTN and osteoporosis presents with abdominal pain and distension, 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 - Patient Problems (1) Sigmoid volvulus Current Visit: Yes Status: Acute Comment: -c/o mild distension - No nausea/vomiting -flex sig performed night of 01/20 to decompress and placed rectal tube. - rectal tube fell out this afternoon- spoke to Dr. Anthony - can leave tube out- if patient develops severe pain - will need to contact GI -GI suspecting surgery necessary for definitive tx; gen surg is recommending clear fluids and surgery thursday afternoon - will start colon prep today golytely per Dr. Hamilton request - Per Dr. Hamilton patient will need prop erythromycin and neomycin 1 gram each x 3 doses - will add type and screen - NPO after midnight (2) HTN (hypertension) Current Visit: Yes Status: Acute Code(s): I10 - ESSENTIAL (PRIMARY) HYPERTENSION SNOMED Code(s): 53952973 Comment: -BP stable -will stop HCTZ as this could be contributing to her hypokalemia - will need to stop lisinopril before surgery as well- stopped today (3) Hypothyroidism Current Visit: Yes Status: Acute Code(s): E03.9 - HYPOTHYROIDISM, UNSPECIFIED SNOMED Code(s): 98950747 Comment: -continue levothyroxine (4) Hypokalemia Current Visit: Yes Status: Acute Code(s): E87.6 - HYPOKALEMIA SNOMED Code( s): 02378985 Comment: K+ 2.9 - will give 40 meq po and 40 meq IV - repeat BMP at 1500 and in the AM (5) DVT prophylaxis Current Visit: Yes Status: Acute Code(s): HRV9801 - SNOMED Code(s): 924962016 Comment: -continue heparin subQ TID- will hold after midnight -home aspirin held in setting of surgery thursday (6) Full code status Current Visit: Yes Status: Acute Code(s): Z78.9 - OTHER SPECIFIED HEALTH STATUS SNOMED Code(s): 904001988 Status and Disposition: discharge home when medically stable
[2019-01-23] MEDS: REFRESH TEARS EYE BOTH EYES SCH ×2 (15:31→21:27)
[2019-01-23] MEDS: Neomycin TAB* 500 MG PO SCH ×3 (15:47→23:42)
[2019-01-23] MEDS: Erythromycin TAB* 250 MG PO SCH ×3 (15:48→23:42)
[2019-01-23] MEDS: NS 0.9% 1000 ML** 1,000 ML IV SCH (17:39)
[2019-01-23] MEDS ORDERED: NS 0.9% w/ 40 Meq KCL 1000 ML* 1,000 ML IV SCH (21:00)
[2019-01-23] MEDS: REFRESH EYE BOTH EYES SCH (21:28)
[2019-01-24] MEDS ORDERED: Lactated Ringers 1000 ML Bag* 1,000 ML IV ONE (04:00)
[2019-01-24] MEDS: Levothyroxine TAB* 88 MCG TAB PO SCH (05:45)
[2019-01-24 06:17] LABS: Hematocrit 37 % (35-47); Hemoglobin 12.4 g/dl (12.0-16.0); Mean Corpuscular HGB Conc 34 g/dl (31-36); Mean Corpuscular Hemoglobin 33 pg (27-31); Mean Corpuscular Volume 98 fL (80-97); Mean Platelet Volume 8.1 fL (7.4-10.4); Platelet Count 285 10^3/ul (150-450); Red Blood Count 3.77 10^6/ul (4.00-5.40); Red Cell Distribution Width 14 % (10.5-15); White Blood Count 4.2 10^3/ul (3.5-10.8)
[2019-01-24 06:42] LABS: BUN/Creatinine Ratio 6.3 (8-20); Calcium 8.7 mg/dL (8.6-10.3); EGFR African American 107.8 (>60); EGFR Non-African American 89.1 (>60); Magnesium 1.8 mg/dL (1.9-2.7); Potassium 3.8 mmol/L (3.5-5.0)
[2019-01-24] MEDS: NS 0.9% 1000 ML** 1,000 ML IV SCH ×2 (07:19→17:32)
[2019-01-24] MEDS: CRANBERRY FRUIT PO SCH ×3 (08:40→22:58)
--- NOTE | 2019-01-24 10:17 | PN ---
Subjective Date of Service: 01/24/19 Interval History: Patient is feeling well today. She had one loose BM overnight in addition to flatus. She denies nausea, vomiting, and abdominal pain. She is scheduled for the OR this afternoon for sigmoid resection. Family History: Unchanged from Admission Social History: Unchanged from Admission Past Medical History: Unchanged from Admission Objective Active Medications: Sodium Chloride (Ns 0.9% 1000 Ml) 1,000 mls @ 75 mls/hr IV PER RATE [facility] Last Admin: 01/24/19 07:19 Dose: 75 mls/hr Levothyroxine Sodium (Synthroid Tab*) 88 mcg PO DAILY@0600 [facility] Last Admin: 01/24/19 05:45 Dose: 88 mcg Pto -Cranberry Fruit ([Cranberry] 2 Cap) 2 cap PO TID [facility] Last Admin: 01/24/19 08:40 Dose: Not Given Pto:* (Refresh Gel (Eye Gel 1 Drop)) 1 drop BOTH EYES BEDTIME [facility] Last Admin: 01/23/19 21:28 Dose: 1 drop Pto - Refresh Tears (Eye Drops) 2 dose BOTH EYES TID [facility] Last Admin: 01/23/19 21:27 Dose: Not Given Vital Signs - 8 hr 01/24/19 03:57 Temperature 98.1 F Pulse Rate 58 Respiratory 18 Rate Blood Pressure 140/75 (mmHg) O2 Sat by Pulse 100 Oximetry Oxygen Devices in Use Now: None Appearance: Elderly female, laying comfortably in bed with daughter at bedside, appearing in NAD Eyes: No Scleral Icterus, PERRLA Ears/Nose/Mouth/Throat: Mucous Membranes Moist Neck: NL Appearance and Movements; NL JVP, Trachea Midline Respiratory: Symmetrical Chest Expansion and Respiratory Effort, Clear to Auscultation Cardiovascular: NL Sounds; No Murmurs; No JVD, RRR, No Edema Abdominal: - - Normoactive BS x 4 quadrants; abdomen minimally distended but quite soft; no tenderness to palp Extremities: No Edema, No Clubbing, Cyanosis, - - no calf tenderness Skin: No Rash or Ulcers Neurological: Alert and Oriented x 3, NL Muscle Strength and Tone Result Diagrams: 01/24/19 05:45 01/24/19 05:45 Microbiology and Other Data: Microbiology 01/19/19 17:20 Stool Occult Blood (LOUANN) - Final Stool Assess/Plan/Problems-Billing Assessment: 83 yo female with PMHx of hypothyroidism, HTN and osteoporosis presents with abdominal pain and distension, 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 - Patient Problems (1) Sigmoid volvulus Comment: -no abd pain or N/V today, only minimally distended -pt has been on clear liquid diet until NPO at midnight today for surgery this afternoon -golytely prep completed - Per Dr. Hamilton, patient received erythromycin and neomycin 1 gram each x 3 doses -flex sig performed night of 01/20 to decompress and placed rectal tube (fell out 01/23, ok to leave out per GI) - type and screen completed (2) Hypokalemia Current Visit: Yes Status: Acute Code(s): E87.6 - HYPOKALEMIA SNOMED Code( s): 55872661 Comment: -resolved today, K of 3.8 (3) Hypothyroidism Code(s): E03.9 - HYPOTHYROIDISM, UNSPECIFIED SNOMED Code(s): 07430406 Comment: -continue levothyroxine (4) HTN (hypertension) Code(s): I10 - ESSENTIAL (PRIMARY) HYPERTENSION SNOMED Code(s): 94715695 Comment: -BP stable -stopped HCTZ as this could be contributing to her hypokalemia -lisinopril stopped before surgery (5) Osteoporosis Code(s): M81.0 - AGE-RELATED OSTEOPOROSIS W/O CURRENT PATHOLOGICAL FRACTURE SNOMED Code(s): 10487643 Comment: -pt takes ibandronate monthly at home. Not ordered because dose is not due. (6) DVT prophylaxis Code(s): BCY6693 - SNOMED Code(s): 481553880 Comment: -continue heparin subQ TID- will hold after midnight -home aspirin held in setting of surgery thursday (7) Full code status Code(s): Z78.9 - OTHER SPECIFIED HEALTH STATUS SNOMED Code(s): 669607680 Status and Disposition: discharge home when medically stable
[2019-01-24] MEDS: REFRESH TEARS EYE BOTH EYES SCH ×3 (10:33→22:57)
[2019-01-24] MEDS ORDERED: Buffered Lidocaine 1% SYRIN* 1 ML/SYRINGE INTRADERM ONE (12:04)
[2019-01-24] MEDS ORDERED: fentaNYL* 50 MCG/ML 2 ML VIAL (100 MCG VIAL) ONE (12:39)
[2019-01-24] MEDS ORDERED: Midazolam* 1 MG/ML 2 ML VIAL (2 MG) ONE (12:39)
[2019-01-24] MEDS ORDERED: Famotidine IV* 10 MG/ML 2 ML (20 mg) ONE (13:32)
[2019-01-24] MEDS ORDERED: Ertapenem* 1 GM in NS 0.9% 50 ML* 50 ML IVPB ONE (14:00)
[2019-01-24] MEDS ORDERED: Lidocaine 2% EPI 1:200000 MPF*10-20 ML VIAL ONE (14:00)
[2019-01-24] MEDS ORDERED: Propofol* 10 MG/ML 20 ML BTL ONE (14:02)
[2019-01-24] MEDS ORDERED: Rocuronium* 10 MG/ML VIAL ONE (14:02)
[2019-01-24] MEDS ORDERED: Lidocaine 2% PF * 5 ML VIAL ONE (14:02)
[2019-01-24] MEDS ORDERED: Dexamethasone IV* 4 MG/ML 1 ML (4 MG) ONE (14:02)
[2019-01-24] MEDS ORDERED: HYDROmorphone INJ1* 1 MG/ML SYRINGE ONE (15:05)
[2019-01-24] MEDS ORDERED: Ondansetron INJ* 2 MG/ML VIAL ONE (15:24)
[2019-01-24] MEDS ORDERED: Bupivacaine 0.5%* 50 ML VIAL ONE (15:25)
[2019-01-24] MEDS ORDERED: fentaNYL* 50 MCG/ML 2 ML VIAL (100 MCG VIAL) IV PRN (16:05)
[2019-01-24] MEDS ORDERED: HYDROmorphone INJ1* 1 MG/ML SYRINGE IV PRN (16:05)
[2019-01-24] MEDS ORDERED: Naloxone* 0.4 MG/ML 1 ML VIAL IV PRN (16:05)
[2019-01-24] MEDS ORDERED: PROCHLORPERAZINE INJ 5 MG/ML 2 ML VIAL IV PRN (16:05)
[2019-01-24] MEDS ORDERED: Ondansetron INJ* 2 MG/ML VIAL IV PRN (16:05)
[2019-01-24] MEDS ORDERED: DiMENhydriNATE IV* 50 MG/ML VIAL IV PUSH PRN (16:05)
[2019-01-24] MEDS ORDERED: diPHENhydraMINE IV* 50 MG/ML 1 ml VIAL (BENADRYL) IV PRN (16:05)
[2019-01-24] MEDS ORDERED: Naloxone* 0.4 MG/ML 1 ML VIAL IV PUSH PRN ×2 (16:24→16:59)
--- NOTE | 2019-01-24 16:29 | BRIEFOPN ---
Brief Operative Note - Surgery Procedures: OPERATIVE NOTE Pre-Operative Diagnosis: Sigmoid colon volvulus Post-Operative Diagnosis: Same Procedure:Sigmoid colectomy, open Surgeon: Abrasive Coating Machine Operator: Stephen Recio MD Anesthesia: Local with General with Dr. Chan IVF:1500 cc crystalloid EBL:50 cc Specimen:Sigmoid colon Drain: none Wound Class:3 TO PACU
[2019-01-24] MEDS ORDERED: Metoprolol Tartrate IV* 1 MG/ML 5 ML VIAL IV PRN (16:59)
[2019-01-24] MEDS ORDERED: HYDROmorphone PCA* 20 MG/20 ML PCA.SYRING ONE (16:59)
[2019-01-24] MEDS ORDERED: Morphine PCA ADULT* 5 MG/ML 30 ML PCA SCH (17:00)
[2019-01-24] MEDS ORDERED: HYDROmorphone PCA* 20 MG/20 ML PCA.SYRING PCA SCH (17:00)
[2019-01-24] MEDS ORDERED: hydrALAZINE IV* 20 MG/ML VIAL IV SLOW PU PRN (17:00)
[2019-01-24] MEDS ORDERED: Metoprolol Tartrate IV* 1 MG/ML 5 ML VIAL ONE (17:04)
[2019-01-24] MEDS ORDERED: hydrALAZINE IV* 20 MG/ML VIAL ONE (17:04)
[2019-01-24] MEDS ORDERED: PROCHLORPERAZINE INJ 5 MG/ML 2 ML VIAL ONE (17:34)
[2019-01-24] MEDS: REFRESH EYE BOTH EYES SCH (22:56)
[2019-01-24] MEDS: Heparin VIAL(*) 5000 UNITS/ML VIAL (FIVE THOUSAND) SUBCUT SCH (22:59)
--- NOTE | 2019-01-24 23:54 | OP ---
CC: Dr. Isaías Avery, [facility] in [place].* DATE OF OPERATION: 01/24/19 - ROOM #337 DATE OF : 39 SURGEON: Gabino Abdi MD. BECK TENDER: Sudhakar Recio MD. ANESTHESIOLOGIST: Dr. Chan. ANESTHESIA: General with epidural and local. PRE-OP DIAGNOSIS: Sigmoid colon volvulus. POST-OPERATIVE DIAGNOSIS: Sigmoid colon volvulus. OPERATIVE PROCEDURE: Descending and sigmoid colon resection with primary anastomosis. ESTIMATED BLOOD LOSS: Less than 50 cc. IV FLUIDS: 1500 cc of crystalloid. URINE OUTPUT: 600 cc. SPECIMENS: Portion of descending and the sigmoid colon. WOUND CLASSIFICATION: 3. DRAINS: None. COMPLICATIONS: None. BRIEF HISTORY: Ms. Kemi Peterson is an 83-year-old woman who had presented to the hospital last week with abdominal distention, nausea and vomiting, and discomfort. A CT scan showed findings consistent with an acute sigmoid colon volvulus and she underwent endoscopic decompression. She has recovered nicely without further recurrence and after discussing the findings on the endoscopy as well as what was felt to be the high risk of recurrence, the plan is to be taken to the operating room today for a sigmoid colectomy with anastomosis. The procedure was discussed with the patient and her daughter and the risks of, but not limited to, bleeding, infection, intraabdominal abscess formation, injury to peritoneal or retroperitoneal structures, abscess formation, possibility of a diverting ileostomy and/or colostomy were all explained. An alternative of observation without surgery at this time as this was her first occurrence was also discussed. However, she would like to proceed with surgery after consideration of this option as well. DESCRIPTION OF PROCEDURE: Written informed consent was obtained, the abdomen was marked with indelible ink and preoperative antibiotics were administered. The patient was taken to the operating room and an epidural catheter was placed by Anesthesia. She was placed in a supine position and general anesthesia was administered. Zavala catheter was inserted. The abdomen and perineum and were prepped and draped in the usual sterile fashion. A time-out verification was completed. A vertical incision was made just above the umbilicus and carried down to the midline to the pubic bone. The peritoneal cavity was entered under direct vision without difficulty. There were no prior surgical adhesions. There was a small amount of serosanguineous fluid in the pelvis. It was obvious that there was a largely redundant sigmoid colon that had a redundant mesentery as well and that was easily seen where the site of the volvulus in the mesentery. There was some distension of the colon somewhat more distally. The rectum was palpated, was unremarkable. We also palpated the more proximal descending colon, splenic flexor, transverse colon, the right colon as well as the cecum. The appendix was also normal. No masses or other serosal abnormalities were noted in any of the sigmoid. The rectum was unremarkable. The small bowel was unremarkable. A decision at this point was then made to proceed with resection of the distal half of the descending colon and what appeared to be almost the majority of the sigmoid colon. This proximal portion was divided with the RANDEE 80 blue load stapler and the distal sigmoid was divided likewise with the stapler. The mesentery was then taken with the hand-held LigaSure. We then performed an anastomosis of the proximal descending colon to the very distal sigmoid colon just above the rectum and this was fashioned in a side-to- side anastomosis with a RANDEE 80 blue load stapler. The common rent was closed with a TA 90 blue load. The staple lines were oversewn in places with a 3-0 single silk suture. The mesenteric rent was closed with a running 3-0 Vicryl suture. The anastomosis was then placed back in the left lower quadrant. It appeared without twisting or narrowing and was under no tension. Small bowel was then placed back in the abdominal cavity in pelvis. There was no omentum to cover the anterior bowel and the midline incision was closed with interrupted #1 fascial Vicryl suture. The skin was approximated with stapling device. A wound VAC Prevena was placed to 125 mmHg. The patient tolerated the procedure well and was taken to the recovery room in stable condition. [id number]/[facility] #: [id number] [facility]ITALShare[facility]
[2019-01-25] MEDS: Levothyroxine TAB* 88 MCG TAB PO SCH (06:03)
[2019-01-25] MEDS: Heparin VIAL(*) 5000 UNITS/ML VIAL (FIVE THOUSAND) SUBCUT SCH ×3 (06:03→21:17)
[2019-01-25] MEDS: NS 0.9% 1000 ML** 1,000 ML IV SCH ×2 (06:13→20:41)
[2019-01-25 07:05] LABS: Hematocrit 38 % (35-47); Hemoglobin 12.9 g/dl (12.0-16.0); Mean Corpuscular HGB Conc 34 g/dl (31-36); Mean Corpuscular Hemoglobin 33 pg (27-31); Mean Corpuscular Volume 97 fL (80-97); Platelet Count 287 10^3/ul (150-450); Red Blood Count 3.91 10^6/ul (4.00-5.40); Red Cell Distribution Width 14 % (10.5-15); White Blood Count 17.5 10^3/ul (3.5-10.8)
[2019-01-25 07:17] LABS: Albumin 3.3 g/dL (3.2-5.2); Albumin/Globulin Ratio 1.6 (1-3); BUN/Creatinine Ratio 11.3 (8-20); Calcium 8.8 mg/dL (8.6-10.3); EGFR African American 111.8 (>60); EGFR Non-African American 92.4 (>60); Globulin 2.1 g/dL (2-4); Magnesium 1.6 mg/dL (1.9-2.7); Potassium 3.8 mmol/L (3.5-5.0); Total Bilirubin 0.5 mg/dL (0.2-1.0); Total Protein 5.4 g/dL (6.4-8.9)
[2019-01-25 08:24] LABS: Lymphocytes % 1 %; Monocytes % 2 %; Neutrophil % 97 %
--- NOTE | 2019-01-25 08:44 | PN ---
Subjective Date of Service: 01/25/19 Interval History: Patient excited to start walking later today as per Dr. Abdi's orders. She is feeling well. No abdominal pain, only occasional discomfort at incision site. Denies fever, chills, chest pain, SOB, nausea, flatus, or BM Family History: Unchanged from Admission Social History: Unchanged from Admission Past Medical History: Unchanged from Admission Objective Active Medications: Heparin Sodium (Porcine) (Heparin Vial(*)) 5,000 units SUBCUT Q8H [facility] Last Admin: 01/25/19 06:03 Dose: 5,000 units Sodium Chloride (Ns 0.9% 1000 Ml) 1,000 mls @ 75 mls/hr IV PER RATE [facility] Last Admin: 01/25/19 06:13 Dose: 75 mls/hr Hydromorphone HCl (Dilaudid Dog Food Shredder Operator*) 20 mg in 20 mls @ 0 mls/hr [employer] .change Q24H [facility]; Protocol Levothyroxine Sodium (Synthroid Tab*) 88 mcg PO DAILY@0600 [facility] Last Admin: 01/25/19 06:03 Dose: 88 mcg Naloxone HCl (Narcan*) 0.08 mg IV PUSH .Q2MIN PRN PRN Reason: OVERSEDATION Pto -Cranberry Fruit ([Cranberry] 2 Cap) 2 cap PO TID [facility] Last Admin: 01/24/19 22:58 Dose: 2 cap Pto:* (Refresh Gel (Eye Gel 1 Drop)) 1 drop BOTH EYES BEDTIME [facility] Last Admin: 01/24/19 22:56 Dose: 1 drop Pto - Refresh Tears (Eye Drops) 2 dose BOTH EYES TID [facility] Last Admin: 01/24/19 22:57 Dose: Not Given Vital Signs - 8 hr 01/25/19 01/25/19 01/25/19 02:00 03:35 04:00 Temperature 98.5 F Pulse Rate 68 Respiratory 16 17 16 Rate Blood Pressure 132/72 (mmHg) O2 Sat by Pulse 98 100 100 Oximetry 01/25/19 01/25/19 06:00 07:31 Temperature 98.6 F Pulse Rate 65 Respiratory 16 16 Rate Blood Pressure 129/68 (mmHg) O2 Sat by Pulse 97 98 Oximetry Oxygen Devices in Use Now: None Appearance: Patient sitting upright in bed comfortably, appearing in NAD Eyes: No Scleral Icterus, PERRLA Ears/Nose/Mouth/Throat: Mucous Membranes Moist Neck: NL Appearance and Movements; NL JVP, Trachea Midline, - - Neck supple Respiratory: Symmetrical Chest Expansion and Respiratory Effort, Clear to Auscultation Cardiovascular: NL Sounds; No Murmurs; No JVD, RRR Abdominal: - - Wound VAC in place almost midline; abdomen is soft and nontender to palp; no distension; normoactive BS x 4quadrants Extremities: No Edema, No Clubbing, Cyanosis, - - no calf tenderness Skin: No Rash or Ulcers Neurological: Alert and Oriented x 3, NL Muscle Strength and Tone Result Diagrams: 01/25/19 06:46 01/25/19 06:46 Microbiology and Other Data: Microbiology 01/19/19 17:20 Stool Occult Blood (LOUANN) - Final Stool Assess/Plan/Problems-Billing Assessment: 83 yo female with PMHx of hypothyroidism, HTN and osteoporosis presents with abdominal pain and distension, 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 - Patient Problems (1) Sigmoid volvulus Comment: -s/p descending colon and sigmoid resection with primary anastomosis post-op day 1 -wound VAC in place, tea-colored fluid draining to pressure -pt reports no pain, mostly discomfort; no flatus or BM at this time -pt has dilaudid MANAGER INSURANCE though has been reluctant to use, added tylenol 975mg q6h prn pain -diet per surgery recommendation, currently tolerating sips of water (2) Hypothyroidism Code(s): E03.9 - HYPOTHYROIDISM, UNSPECIFIED SNOMED Code(s): 40138545 Comment: -continue levothyroxine (3) HTN (hypertension) Code(s): I10 - ESSENTIAL (PRIMARY) HYPERTENSION SNOMED Code(s): 44626943 Comment: -BP stable -stopped HCTZ as this could be contributing to her hypokalemia -home lisinopril 20mg restarted, was previously held prior to surgery (4) Osteoporosis Code(s): M81.0 - AGE-RELATED OSTEOPOROSIS W/O CURRENT PATHOLOGICAL FRACTURE SNOMED Code(s): 38257136 Comment: -pt takes ibandronate monthly at home. Not ordered because dose is not due. (5) Hypomagnesemia Current Visit: Yes Status: Acute Code(s): E83.42 - HYPOMAGNESEMIA SNOMED Code(s): 994327026 Comment: -Mg 1.6 today -replacing with 2gm IV and monitoring (6) DVT prophylaxis Code(s): GHU4363 - SNOMED Code(s): 180874642 Comment: -continue heparin subQ TID -home ASA held s/p surgery (7) Full code status Code(s): Z78.9 - OTHER SPECIFIED HEALTH STATUS SNOMED Code(s): 490040140 Status and Disposition: discharge home when medically stable
[2019-01-25 09:08] LABS: ABS Neutrophils 16.9 10^3/ul (1.5-7.7)
[2019-01-25] MEDS: CRANBERRY FRUIT PO SCH ×3 (09:09→21:15)
[2019-01-25] MEDS: REFRESH TEARS EYE BOTH EYES SCH ×3 (09:10→21:20)
--- NOTE | 2019-01-25 09:52 | PN ---
Progress Note - Progress Note Date of Service: 01/25/19 SOAP: Subjective: Doing well-minimal pain No SOB Objective: Temp Pulse Resp BP Pulse Ox 98.6 F 65 18 129/68 98 01/25/19 07:31 01/25/19 07:31 01/25/19 08:00 01/25/19 07:31 01/25/19 08:00 Intake & Output 01/23/19 01/24/19 01/25/19 01/26/19 06:59 06:59 06:59 06:59 Intake Total 3040 3710 Output Total 4150 2850 300 Balance -1110 860 -300 Weight 130 lb Intake: IV Fluids 3180 NS 50ML, Ertopenin 1G 50 NS WITH 20 KCL 1530 lr 1600 Oral 3040 530 Output: Urine 4150 750 0 Lozano 2050 300 Estimated Blood Loss 50 Other: Date of Last Bowel 01/23/2019 Movement # Bowel Movements 0 Estimated Stool Amount Medium PEX: Comfortable Lungs clear Abd is soft and slightly distended. Wound dressing in place. Few bowel sounds. Laboratory Results - last 24 hr 01/25/19 01/25/19 06:46 06:46 WBC 17.5 H RBC 3.91 L Hgb 12.9 Hct 38 MCV 97 MCH 33 H MCHC 34 RDW 14 Plt Count 287 MPV 8.0 Neut % (Auto) Not Reportable Lymph % (Auto) Not Reportable [place] % (Auto) Not Reportable Eos % (Auto) Not Reportable Baso % (Auto) Not Reportable Absolute Neuts (auto) Not Reportable Absolute Lymphs (auto) Not Reportable Absolute Monos (auto) Not Reportable Absolute Eos (auto) Not Reportable Absolute Basos (auto) Not Reportable Absolute Nucleated RBC Not Reportable Neutrophils % 97 Lymphocytes % 1 Monocytes % 2 Nucleated RBC % Not Reportable Abs Neuts (Manual) 16.9 H Abs Lymphs (Manual) 0.2 L Abs Monocytes (Manual) 0.4 Normal RBC Morphology Normal Sodium 136 Potassium 3.8 Chloride 103 Carbon Dioxide 25 Anion Gap 8 BUN 7 Creatinine 0.62 Est GFR ( Amer) 111.8 Est GFR (Non-Af Amer) 92.4 BUN/Creatinine Ratio 11.3 Glucose 140 H Calcium 8.8 Magnesium 1.6 L Total Bilirubin 0.50 AST 21 ALT 24 Alkaline Phosphatase 49 Total Protein 5.4 L Albumin 3.3 Globulin 2.1 Albumin/Globulin Ratio 1.6 Assessment: POD# 1 s/p sigmoid colon resection for sigmoid volvulus Plan: D/C lozano Increase activity Sub q heparin Pulmonary toilet Sips of clears po
[2019-01-25] MEDS: Acetaminophen TAB* 325 MG PO PRN ×2 (10:46→18:21)
[2019-01-25] MEDS ORDERED: Magnesium Sulfate 2 GM IV* 2 GM/50 ML BAG IVPB ONE (11:23)
[2019-01-25] MEDS: Lisinopril TAB* 10 MG PO SCH (12:15)
[2019-01-25] MEDS: REFRESH EYE BOTH EYES SCH (21:14)
[2019-01-26] MEDS: Acetaminophen TAB* 325 MG PO PRN ×2 (00:22→08:17)
[2019-01-26] MEDS: Levothyroxine TAB* 88 MCG TAB PO SCH (06:19)
[2019-01-26] MEDS: Heparin VIAL(*) 5000 UNITS/ML VIAL (FIVE THOUSAND) SUBCUT SCH ×3 (06:20→22:01)
[2019-01-26] MEDS: REFRESH TEARS EYE BOTH EYES SCH ×3 (08:18→20:22)
[2019-01-26] MEDS ORDERED: Aspirin TAB* 325 MG PO SCH (09:00)
[2019-01-26 09:10] LABS: Hematocrit 39 % (35-47); Hemoglobin 13.1 g/dl (12.0-16.0); Mean Corpuscular HGB Conc 34 g/dl (31-36); Mean Corpuscular Hemoglobin 33 pg (27-31); Mean Corpuscular Volume 97 fL (80-97); Red Blood Count 3.98 10^6/ul (4.00-5.40); Red Cell Distribution Width 14 % (10.5-15); White Blood Count 12.2 10^3/ul (3.5-10.8)
[2019-01-26 09:23] LABS: BUN/Creatinine Ratio 15.2 (8-20); Calcium 8.9 mg/dL (8.6-10.3); Potassium 3.6 mmol/L (3.5-5.0)
[2019-01-26 09:30] LABS: ABS Basophils 0 10^3/ul (0-0.2); ABS Eosinophils 0.1 10^3/ul (0-0.6); ABS Lymphocytes 1.1 10^3/ul (1.0-4.8); ABS Monocytes 0.6 10^3/ul (0-0.8); ABS Neutrophils 10.4 10^3/ul (1.5-7.7); ABS Nucleated RBC 0 10^3/ul; Eosinophil % 0.4 %; Lymphocyte % 8.9 %; Mean Platelet Volume 8.3 fL (7.4-10.4); Nucleated Red Blood Cells % 0; Platelet Count 313 10^3/ul (150-450)
--- NOTE | 2019-01-26 09:35 | PN ---
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 No nausea, but not much appetite Ambulated in the halls yesterday Objective: Temp Pulse Resp BP Pulse Ox 99.0 F 63 18 156/81 96 01/26/19 07:27 01/26/19 07:27 01/26/19 08:00 01/26/19 07:27 01/26/19 08:00 Intake & Output 01/24/19 01/25/19 01/26/19 01/27/19 06:59 06:59 06:59 06:59 Intake Total 3040 3710 2096 Output Total 4150 2850 1640 0 Balance -1110 860 456 0 Weight 130 lb Intake: IV Fluids 3180 NS 50ML, Ertopenin 1G 50 NS WITH 20 KCL 1530 lr 1600 IVPB 586 NS (0.9%) 531 magnesium 55 Oral 3040 530 1510 Output: Urine 4150 750 1340 0 Zavala 2050 300 Estimated Blood Loss 50 Other: Date of Last Bowel 01/23/2019 Movement # Bowel Movements 0 0 Estimated Stool Amount Medium PEX: Comfortable in chair Abd is distended and tympanitic-few bowel sounds present, quite Wound vac in place. Appropriate incisional tenderness Laboratory Results - last 24 hr 01/25/19 01/26/19 01/26/19 15:38 08:52 08:52 WBC 12.2 H RBC 3.98 L Hgb 13.1 Hct 39 MCV 97 MCH 33 H MCHC 34 RDW 14 Plt Count 313 MPV 8.3 Neut % (Auto) 85.4 Lymph % (Auto) 8.9 [place] % (Auto) 5.0 Eos % (Auto) 0.4 Baso % (Auto) 0.3 Absolute Neuts (auto) 10.4 H Absolute Lymphs (auto) 1.1 Absolute Monos (auto) 0.6 Absolute Eos (auto) 0.1 Absolute Basos (auto) 0 Absolute Nucleated RBC 0 Nucleated RBC % 0 Sodium 137 Potassium 3.6 Chloride 102 Carbon Dioxide 27 Anion Gap 8 BUN 10 Creatinine 0.66 Est GFR ( Amer) 104.0 Est GFR (Non-Af Amer) 86.0 BUN/Creatinine Ratio 15.2 Glucose 93 Calcium 8.9 Magnesium 2.4 Assessment: POD# 2 s/p open sigmoid colectomy for sigmoid volvulus Post-op ileus Labs noted Plan: Continue present care-minimal po as she remains distended. Pul toilet Sub q heparin Ambulate
[2019-01-26] MEDS: Lisinopril TAB* 10 MG PO SCH (09:52)
[2019-01-26] MEDS: CRANBERRY FRUIT PO SCH ×3 (09:53→20:22)
[2019-01-26] MEDS: NS 0.9% 1000 ML** 1,000 ML IV SCH ×2 (09:54→23:24)
--- NOTE | 2019-01-26 12:05 | PN ---
Subjective Date of Service: 01/26/19 Interval History: Patient feeling tired today. She walked around the unit yesterday and today. She has not yet passed flatus or BM. Her abdominal pain is controlled, but worse with movement. She is feeling bloated. Tolerating diet of sips of water. She has only used dilaudid once. Denies chest pain, SOB, fever, chills, nausea, vomiting. Family History: Unchanged from Admission Social History: Unchanged from Admission Past Medical History: Unchanged from Admission Objective Active Medications: Acetaminophen (Tylenol Tab*) 975 mg PO Q6H PRN PRN Reason: PAIN Last Admin: 01/26/19 08:17 Dose: 975 mg Heparin Sodium (Porcine) (Heparin Vial(*)) 5,000 units SUBCUT Q8H [facility] Last Admin: 01/26/19 06:20 Dose: 5,000 units Sodium Chloride (Ns 0.9% 1000 Ml) 1,000 mls @ 75 mls/hr IV PER RATE [facility] Last Admin: 01/26/19 09:54 Dose: 75 mls/hr Hydromorphone HCl (Dilaudid Inspector Filter Tip*) 20 mg in 20 mls @ 0 mls/hr PIPE INSULATOR .change Q24H [facility]; Protocol Levothyroxine Sodium (Synthroid Tab*) 88 mcg PO DAILY@0600 [facility] Last Admin: 01/26/19 06:19 Dose: 88 mcg Lisinopril (Prinivil Tab*) 30 mg PO DAILY [facility] Naloxone HCl (Narcan*) 0.08 mg IV PUSH .Q2MIN PRN PRN Reason: OVERSEDATION Pto -Cranberry Fruit ([Cranberry] 2 Cap) 2 cap PO TID [facility] Last Admin: 01/26/19 09:53 Dose: 2 cap Pto:* (Refresh Gel (Eye Gel 1 Drop)) 1 drop BOTH EYES BEDTIME [facility] Last Admin: 01/25/19 21:14 Dose: 1 drop Pto - Refresh Tears (Eye Drops) 2 dose BOTH EYES TID [facility] Last Admin: 01/26/19 08:18 Dose: 2 dose Vital Signs - 8 hr 01/26/19 01/26/19 01/26/19 04:04 06:00 07:27 Temperature 99.0 F Pulse Rate 63 Respiratory 16 16 Rate Blood Pressure 156/81 (mmHg) O2 Sat by Pulse 98 97 99 Oximetry 03/13/19 08:00 Temperature Pulse Rate Respiratory 16 Rate Blood Pressure (mmHg) O2 Sat by Pulse 96 Oximetry Oxygen Devices in Use Now: None Appearance: Patient laying comfortably in bed, appearing in NAD Eyes: No Scleral Icterus, PERRLA Ears/Nose/Mouth/Throat: Mucous Membranes Moist Neck: NL Appearance and Movements; NL JVP, Trachea Midline Respiratory: Symmetrical Chest Expansion and Respiratory Effort, Clear to Auscultation Cardiovascular: NL Sounds; No Murmurs; No JVD, RRR Abdominal: - - Abdomen significantly distended with minimal tenderness to palpation throughout; normactive BS x4 quadrants Lymphatic: No Cervical Adenopathy Extremities: No Edema, No Clubbing, Cyanosis, - - no calf tenderness Skin: No Rash or Ulcers Neurological: Alert and Oriented x 3, NL Muscle Strength and Tone Result Diagrams: 01/26/19 08:52 01/26/19 08:52 Microbiology and Other Data: Microbiology 01/19/19 17:20 Stool Occult Blood (LOUANN) - Final Stool Assess/Plan/Problems-Billing Assessment: 83 yo female with PMHx of hypothyroidism, HTN and osteoporosis presents to the ED with abdominal pain and distension and 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 s/p descending colon and sigmoid resection with anastomosis on 01/24/19. - Patient Problems (1) Sigmoid volvulus Comment: -s/p descending colon and sigmoid resection with primary anastomosis post-op day 2 -wound VAC in place, tea-colored fluid draining to pressure -no flatus or BM; patient is significantly distended today --encouraged more walking on unit today, patient agrees -pain controlled with current mgmt, per neurosurgery -diet per surgery recommendation, currently tolerating sips of water (2) Ileus, postoperative Current Visit: Yes Status: Acute Code(s): K91.89 - OTH POSTPROCEDURAL COMPLICATIONS AND DISORDERS OF DGSTV SYS; K56.7 - ILEUS, UNSPECIFIED SNOMED Code(s): 642452348 Comment: -post op day 2 as above -pt distended and has not passed flatus or BM, but no n/v at this time -encouraged more walking today -continue diet of sips of water and pain mgmt (3) Hypothyroidism Code(s): E03.9 - HYPOTHYROIDISM, UNSPECIFIED SNOMED Code(s): 27007396 Comment: -continue levothyroxine (4) Hypomagnesemia Current Visit: Yes Status: Acute Code(s): E83.42 - HYPOMAGNESEMIA SNOMED Code(s): 138255317 Comment: -continuing to monitor -additionaly repleting K today as remains below 4 (5) HTN (hypertension) Code(s): I10 - ESSENTIAL (PRIMARY) HYPERTENSION SNOMED Code(s): 76095003 Comment: -BP has been elevated, SBP to 156 -stopped HCTZ as this could be contributing to her hypokalemia -increasing lisinopril to 30 mg (takes 20mg at home) (6) Osteoporosis Code(s): M81.0 - AGE-RELATED OSTEOPOROSIS W/O CURRENT PATHOLOGICAL FRACTURE SNOMED Code(s): 07123263 Comment: -pt takes ibandronate monthly at home. Not ordered because dose is not due. (7) DVT prophylaxis Code(s): KLX1244 - SNOMED Code(s): 259192103 Comment: -continue heparin subQ TID -home ASA held s/p surgery (8) Full code status Code(s): Z78.9 - OTHER SPECIFIED HEALTH STATUS SNOMED Code(s): 431874636 Status and Disposition: discharge home when medically stable
[2019-01-26] MEDS ORDERED: Potassium Chlor TAB* 20 MEQ TAB.ER PO ONE (12:09)
[2019-01-26 16:43] LABS: BUN/Creatinine Ratio 14.8 (8-20); Calcium 8.9 mg/dL (8.6-10.3); EGFR African American 113.9 (>60); EGFR Non-African American 94.1 (>60); Potassium 3.5 mmol/L (3.5-5.0)
[2019-01-26] MEDS ORDERED: Ondansetron INJ* 2 MG/ML VIAL IV PRN (16:45)
[2019-01-26] MEDS ORDERED: Ondansetron INJ* 2 MG/ML VIAL ONE (16:50)
--- NOTE | 2019-01-26 17:34 | PN ---
Hospitalist Progress Note Date of Service: 01/26/19 HOSPITALIST ADDENDUM Called by RN because patient was c/o nausea and was found to have irregular HB and HR in the 40s. EKG showed sinus arrhythmia with HR 76 bpm with no acute ischemic changes and no significant change from prior. Suspect transient bradycardia is secondary to increased vagal stimulation secondary to ileus/nausea. Will monitor on Telemetry. Zofran for nausea.
[2019-01-26] MEDS: REFRESH EYE BOTH EYES SCH (20:21)
[2019-01-27] MEDS: Phenol 1.4% Spray* 177 ML BTL MT PRN ×3 (03:09→19:37)
[2019-01-27] MEDS: Heparin VIAL(*) 5000 UNITS/ML VIAL (FIVE THOUSAND) SUBCUT SCH ×3 (05:40→21:36)
[2019-01-27] MEDS: Levothyroxine TAB* 88 MCG TAB PO SCH (05:40)
[2019-01-27 06:57] LABS: Hematocrit 43 % (35-47); Hemoglobin 14.4 g/dl (12.0-16.0); Mean Corpuscular HGB Conc 34 g/dl (31-36); Mean Corpuscular Hemoglobin 33 pg (27-31); Mean Corpuscular Volume 97 fL (80-97); Mean Platelet Volume 8.2 fL (7.4-10.4); Platelet Count 341 10^3/ul (150-450); Red Blood Count 4.38 10^6/ul (4.00-5.40); Red Cell Distribution Width 14 % (10.5-15); White Blood Count 11.9 10^3/ul (3.5-10.8)
[2019-01-27 07:13] LABS: BUN/Creatinine Ratio 20.3 (8-20); Calcium 9.1 mg/dL (8.6-10.3); EGFR African American 98.8 (>60); EGFR Non-African American 81.7 (>60); Potassium 3.6 mmol/L (3.5-5.0)
[2019-01-27] MEDS ORDERED: Potassium Chlor TAB* 20 MEQ TAB.ER PO ONE ×2 (07:39→11:40)
[2019-01-27] MEDS ORDERED: HYDROmorphone INJ1* 1 MG/ML SYRINGE IV SLOW PU PRN (07:59)
[2019-01-27] MEDS: REFRESH TEARS EYE BOTH EYES SCH ×3 (08:45→21:35)
[2019-01-27] MEDS: Acetaminophen TAB* 325 MG PO PRN (08:46)
--- NOTE | 2019-01-27 08:51 | PN ---
Subjective Date of Service: 01/27/19 Interval History: NG tube placed overnight. Patient denies nausea this morning and has not received zofran since yesterday evening. Reports flatus once overnight, but no BM yet. Reports her abdominal pain tolerable without movement, but much worse with movement. Agreeable to walk on unit today. Denies dizziness, SOB, chest pain, or palpitations. Family History: Unchanged from Admission Social History: Unchanged from Admission Past Medical History: Unchanged from Admission Objective Active Medications: Acetaminophen (Tylenol Tab*) 975 mg PO Q6H PRN PRN Reason: PAIN Last Admin: 01/26/19 08:17 Dose: 975 mg Heparin Sodium (Porcine) (Heparin Vial(*)) 5,000 units SUBCUT Q8H [facility] Last Admin: 01/27/19 05:40 Dose: 5,000 units Hydromorphone HCl (Dilaudid Inj1s*) 0.2 mg IV SLOW PU Q2H PRN PRN Reason: PAIN Potassium Chloride/Dextrose (D5w 1/2 Ns Kcl 20 Meq 1000 Ml*) 1,000 mls @ 125 mls/hr IV PER RATE [facility] Levothyroxine Sodium (Synthroid Tab*) 88 mcg PO DAILY@0600 [facility] Last Admin: 01/27/19 05:40 Dose: 88 mcg Lisinopril (Prinivil Tab*) 40 mg PO DAILY [facility] Last Admin: 01/27/19 08:45 Dose: 40 mg Naloxone HCl (Narcan*) 0.08 mg IV PUSH .Q2MIN PRN PRN Reason: OVERSEDATION Pto:* (Refresh Gel (Eye Gel 1 Drop)) 1 drop BOTH EYES BEDTIME [facility] Last Admin: 01/26/19 20:21 Dose: 1 drop Pto - Refresh Tears (Eye Drops) 2 dose BOTH EYES TID [facility] Last Admin: 01/27/19 08:45 Dose: 2 dose Ondansetron HCl (Zofran Inj*) 4 mg IV Q6H PRN PRN Reason: NAUSEA/VOMITING Phenol/Menthol (Chloroseptic Throat [place]*) 1 spray MT TID PRN PRN Reason: SORE THROAT Last Admin: 01/27/19 03:09 Dose: 1 spray Potassium Chloride (Klor Con Er Tab*) 20 meq PO ONCE ONE Stop: 01/27/19 11:41 Vital Signs - 8 hr 01/27/19 01/27/19 01/27/19 02:00 03:36 03:46 Temperature 99.8 F Pulse Rate 88 Respiratory 16 18 18 Rate Blood Pressure 166/92 (mmHg) O2 Sat by Pulse 97 95 95 Oximetry 01/27/19 01/27/19 01/27/19 06:00 07:07 07:32 Temperature 99.4 F Pulse Rate 89 Respiratory 16 18 18 Rate Blood Pressure 156/87 (mmHg) O2 Sat by Pulse 95 97 97 Oximetry Oxygen Devices in Use Now: None Appearance: Patient laying in hospital bed appearing in NAD Eyes: No Scleral Icterus, PERRLA Ears/Nose/Mouth/Throat: Mucous Membranes Moist, - - NG tube in place Neck: NL Appearance and Movements; NL JVP, Trachea Midline Respiratory: Symmetrical Chest Expansion and Respiratory Effort, Clear to Auscultation Cardiovascular: - - irregular rhythm, regular rate, without murmurs Abdominal: - - hyperactive bowel sounds x 4 quadrants; abdomen significantly distended; tenderness to palpation throughout; wound VAC in place Skin: No Rash or Ulcers Neurological: Alert and Oriented x 3, NL Muscle Strength and Tone Result Diagrams: 01/27/19 06:27 01/27/19 06:27 Microbiology and Other Data: Microbiology 01/19/19 17:20 Stool Occult Blood (LOUANN) - Final Stool Assess/Plan/Problems-Billing Assessment: 83 yo female with PMHx of hypothyroidism, HTN and osteoporosis presents to the ED with abdominal pain and distension and 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 s/p descending colon and sigmoid resection with anastomosis on 01/24/19. - Patient Problems (1) Bigeminy Current Visit: Yes Status: Acute Code(s): I49.9 - CARDIAC ARRHYTHMIA, UNSPECIFIED SNOMED Code(s): 52606259 Comment: -reports of bradycardia overnight, telemetry ordered; patient asymptomatic -rhythm irregular on exam, but regular rate -tele demonstrating atrial bigeminal rhythm -K 3.6 today. Repleting with 20meq in IVF as patient with NG, continuing to monitor -checking TSH and echo -pt has no hx of arrhythmia (2) Sigmoid volvulus Comment: -patient remains significantly distended today; NG tube in place -flatus once overnight; Nausea improved this morning -s/p descending colon and sigmoid resection with primary anastomosis post-op day 3 -wound VAC in place, tea-colored fluid draining to pressure -pain controlled with current mgmt, per neurosurgery -diet per surgery recommendation, currently tolerating sips of water (3) Ileus, postoperative Current Visit: Yes Status: Acute Code(s): K91.89 - OTH POSTPROCEDURAL COMPLICATIONS AND DISORDERS OF DGSTV SYS; K56.7 - ILEUS, UNSPECIFIED SNOMED Code(s): 025067608 Comment: -post op day 3 as above -NG tube in place -encouraged more walking today -continue diet and pain mgmt per surgery -home lisinopril po and synthroid po switched to enaliprilat IV and synthroid IV (4) HTN (hypertension) Code(s): I10 - ESSENTIAL (PRIMARY) HYPERTENSION SNOMED Code(s): 96337638 Comment: -BP has been elevated, SBP to 166 -enaliprilat IV initiated due to NG, continue to monitor -previously stopped home HCTZ as this could be contributing to her hypokalemia (5) Hypothyroidism Code(s): E03.9 - HYPOTHYROIDISM, UNSPECIFIED SNOMED Code(s): 27196017 Comment: -switched levothyroxine to IV due to NG in place (6) Hypomagnesemia Current Visit: Yes Status: Acute Code(s): E83.42 - HYPOMAGNESEMIA SNOMED Code(s): 877367263 Comment: -resolved (7) Osteoporosis Code(s): M81.0 - AGE-RELATED OSTEOPOROSIS W/O CURRENT PATHOLOGICAL FRACTURE SNOMED Code(s): 97155852 Comment: -pt takes ibandronate monthly at home. Not ordered because dose is not due until 02/02/19 per patient (8) DVT prophylaxis Code(s): RZZ2467 - SNOMED Code(s): 119419906 Comment: -continue heparin subQ TID -home ASA held s/p surgery (9) Full code status Code(s): Z78.9 - OTHER SPECIFIED HEALTH STATUS SNOMED Code(s): 995793136 Status and Disposition: discharge home when medically stable
[2019-01-27] MEDS: D5W 1/2 NS KCl 20 Meq 1000 ML* 1,000 ML IV SCH ×2 (08:53→16:52)
[2019-01-27] MEDS ORDERED: Lisinopril TAB* 10 MG PO SCH ×2 (09:00)
--- NOTE | 2019-01-27 16:32 | ECHO ---
Patient: FAVIO CARRERA [facility] Rec#: [id number] : 1935 Date: 01/27/2019 Age: 83y Height: 163 cm / 64.2 in Weight: 59 kg / 130.0 lbs Sex: F BSA: 1.6 Room#: [facility] Admit Date#: 01/20/2019 Type: Inpatient Referring: Irene Neil Reading: Fantasma Preciado MD Engineer Assistant: Belinda Whatley RN RDCS CC: Vanna Mello MD Transthoracic Echocardiogram Indication: Abnormal EKG BP: 156/87 HR: 79 Rhythm: NSR with PACs Findings History: HTN, hypothyroidism, S/P descending colon and sigmoid resection with anastamosis on 01/24/2019, atrial bigeminy on EKG Technical Comments: The study quality is fair. The study was technically limited due to the patient's inability to lay in the left lateral decubitus position. Completed at 1555. Left Ventricle: The left ventricular chamber size is decreased. Septal wall hypertrophy is observed. There is increased basal septal hypertrophy noted without evidence of an increased gradient across the left ventricular outflow tract. Global left ventricular wall motion and contractility are within normal limits. The left ventricle appears hyperdynamic. The estimated ejection fraction is greater than 65%. There is no consistent Doppler evidence of clinically significant diastolic dysfunction. Left Atrium: The left atrial chamber size is normal. Right Ventricle: The right ventricular chamber size and systolic function are within normal limits. Right Atrium: The right atrial cavity size is normal. Aortic Valve: The aortic valve structure is not well visualized. The aortic valve leaflets are mildly thickened. There is no evidence of aortic regurgitation. There is no evidence of aortic stenosis. Mitral Valve: The mitral valve leaflets are mildly thickened. There is a trace of mitral regurgitation. There is no evidence of mitral stenosis. Tricuspid Valve: The tricuspid valve structure is not well visualized. There is trace tricuspid regurgitation. Unable to estimate the right ventricular systolic pressure. There is no tricuspid stenosis. Pericardium: There is no significant pericardial effusion. Aorta: There is mild dilatation of the ascending aorta. The aortic arch is not well visualized. There is no dilation of the aortic root. Pulmonary Artery: The main pulmonary artery is not well visualized. Venous: The venous system is not well visualized. The inferior vena cava is not visualized. Summary: There was not any prior study for comparison. Conclusions The left ventricular chamber size is decreased. Septal wall hypertrophy is observed. There is increased basal septal hypertrophy noted without evidence of an increased gradient across the left ventricular outflow tract. The left ventricle appears hyperdynamic. The estimated ejection fraction is greater than 65%. There is no consistent Doppler evidence of clinically significant diastolic dysfunction. There is a trace of mitral regurgitation. There is trace tricuspid regurgitation. Unable to estimate the right ventricular systolic pressure. There is mild dilatation of the ascending aorta. Measurements Name Value Normal Range RVDdMajor (2D) 2.7 cm (2.2 - 4.4) RAd ISD 4CH 3.4 cm (3.4 - 4.9) RA (A4C)W 3.2 cm (2.9 - 4.6) IVSd (2D) 1.1 cm (0.6 - 1) LVPWd (2D) 0.9 cm (0.6 - 1) LVIDd (2D) 3.4 cm (3.6 - 5.4) LVIDs (2D) 2.2 cm - LV FS (2D) 35 % (25 - 45) Aortic Annulus 1.9 cm (1.4 - 2.6) Ao root diameter (2D) 3.5 cm (2.1 - 3.5) Ascending Ao 3.5 cm (2.1 - 3.4) LA dimension (AP) 2D 3 cm (2.3 - 3.8) LAd ISD 4CH 3.4 cm (2.9 - 5.3) LA ISD 4CH W 3.8 cm (2.5 - 4.5) Name Value Normal Range LA ESV BP (A/L) index 23 ml/m2 - Name Value Normal Range MV E-wave Vmax 1 m/sec - MV deceleration time 236 msec - MV A-wave Vmax 1.3 m/sec - MV E:A ratio 0.8 ratio - LV septal e' Vmax 0.08 m/sec - LV lateral e' Vmax 0.07 m/sec - LV E:e' septal ratio 12.5 ratio - LV E:e' lateral ratio 14.3 ratio - Name Value Normal Range AV Vmax 1.3 m/sec - AV VTI 27 cm - AV peak gradient 7 mmHg - AV mean gradient 4 mmHg - LVOT Vmax 1.6 m/sec - LVOT VTI 27 cm - LVOT peak gradient 10 mmHg - LVOT mean gradient 4 mmHg - Name Value Normal Range PV Vmax 1.3 m/sec -
--- NOTE | 2019-01-27 17:03 | PN ---
Progress Note - Progress Note Date of Service: 01/27/19 SOAP: Subjective: Patient seen at 0745 and again now Developed abdominal distension and N/V yesterday and had NGT placed One small BM with flatus and some blood this AM but nothing further Minimal pain, ambulated in halls Objective: Temp Pulse Resp BP Pulse Ox 98.3 F 46 18 155/78 98 01/27/19 16:02 01/27/19 16:04 01/27/19 16:04 01/27/19 16:04 01/27/19 16:04 Intake & Output 01/25/19 01/26/19 01/27/19 01/28/19 06:59 06:59 06:59 06:59 Intake Total 3710 2096 2600 990 Output Total 2850 1640 2050 650 Balance 860 456 550 340 Intake: IV Fluids 3180 2480 990 D51/2 NS 20KCL 990 NS (0.9%) 2480 NS 50ML, Ertopenin 1G 50 NS WITH 20 KCL 1530 lr 1600 IVPB 586 NS (0.9%) 531 magnesium 55 Oral 530 1510 120 0 Output: NG Tube Drainage Amount 350 350 Urine 750 1340 1700 300 [place] 2050 300 Estimated Blood Loss 50 Other: Estimated Void Large # Bowel Movements 0 0 Estimated Stool Amount Medium # Voids 2 PEX: Comfortable Abd is distended and firm, tympanitic to percussion. Bowel sounds present but hypoactive Dressing intact Labs noted Assessment: S/P sigmoid colon resection for sigmoid volvulus Ileus Plan: Continue NGT and IVF H2 yomi Pul toilet Check labs in AM Discussed with patient and her daughter.
[2019-01-27 17:14] LABS: BUN/Creatinine Ratio 23.5 (8-20); Calcium 9.3 mg/dL (8.6-10.3); EGFR African American 100.5 (>60); Magnesium 2.1 mg/dL (1.9-2.7); Potassium 3.6 mmol/L (3.5-5.0)
[2019-01-27] MEDS: Enalaprilat IV* 1.25 MG/ML 1 ML VIAL (1.25 MG) IV PRN (19:27)
[2019-01-27] MEDS: REFRESH EYE BOTH EYES SCH (21:35)
[2019-01-27] MEDS: Famotidine IV* 10 MG/ML 2 ML (20 mg) IV SLOW PU SCH (21:36)
[2019-01-28] MEDS: D5W 1/2 NS KCl 20 Meq 1000 ML* 1,000 ML IV SCH ×3 (01:04→20:28)
[2019-01-28] MEDS: Enalaprilat IV* 1.25 MG/ML 1 ML VIAL (1.25 MG) IV PRN (03:42)
[2019-01-28] MEDS: Heparin VIAL(*) 5000 UNITS/ML VIAL (FIVE THOUSAND) SUBCUT SCH ×3 (05:29→21:42)
[2019-01-28] MEDS ORDERED: Levothyroxine INJ* 100 MCG/5 ML VIAL IV SCH (06:00)
[2019-01-28 06:08] LABS: ABS Basophils 0.1 10^3/ul (0-0.2); ABS Eosinophils 0.1 10^3/ul (0-0.6); ABS Lymphocytes 1.2 10^3/ul (1.0-4.8); ABS Monocytes 0.8 10^3/ul (0-0.8); ABS Neutrophils 7.7 10^3/ul (1.5-7.7); ABS Nucleated RBC 0 10^3/ul; Eosinophil % 0.5 %; Hematocrit 42 % (33-41); Hemoglobin 14.1 g/dL (12.0-16.0); Lymphocyte % 11.8 %; Mean Corpuscular HGB Conc 34 g/dL (31-36); Mean Corpuscular Hemoglobin 33 pg (27-31); Mean Corpuscular Volume 97 fL (80-97); Mean Platelet Volume 8.2 fL (7.4-10.4); Nucleated Red Blood Cells % 0; Platelet Count 375 10^3/uL (150-450); Red Blood Count 4.31 10^6 /uL (3.70-4.87); Red Cell Distribution Width 14 % (10.5-15); White Blood Count 9.8 10^3/uL (3.5-10.8)
[2019-01-28 06:27] LABS: Albumin 3.4 g/dL (3.2-5.2); Albumin/Globulin Ratio 1.5 (1-3); BUN/Creatinine Ratio 19.4 (8-20); Calcium 8.8 mg/dL (8.6-10.3); EGFR African American 102.2 (>60); EGFR Non-African American 84.5 (>60); Globulin 2.3 g/dL (2-4); Potassium 3.6 mmol/L (3.5-5.0); Total Bilirubin 0.6 mg/dL (0.2-1.0); Total Protein 5.7 g/dL (6.4-8.9)
[2019-01-28] MEDS: Famotidine IV* 10 MG/ML 2 ML (20 mg) IV SLOW PU SCH ×2 (08:38→21:42)
[2019-01-28] MEDS: REFRESH TEARS EYE BOTH EYES SCH ×3 (08:40→21:42)
[2019-01-28] MEDS: Phenol 1.4% Spray* 177 ML BTL MT PRN (08:41)
[2019-01-28] MEDS ORDERED: Enalaprilat IV* 1.25 MG/ML 1 ML VIAL (1.25 MG) IV PRN (09:39)
--- NOTE | 2019-01-28 09:47 | PN ---
Subjective Date of Service: 01/28/19 Interval History: Patient is feeling more comfortable today since NG tube removed. No nausea or vomiting since then. She had a small, liquid BM yesterday and two more incidences of flatus since last visit. She states her abdominal pain is tolerable. Admits to some shortness of breath after walking this AM. Denies chest pain and palpitations. Family History: Unchanged from Admission Social History: Unchanged from Admission Past Medical History: Unchanged from Admission Objective Active Medications: Acetaminophen (Tylenol Tab*) 975 mg PO Q6H PRN PRN Reason: PAIN Last Admin: 01/27/19 08:46 Dose: 975 mg Enalaprilat (Vasotec Iv*) 0.625 mg IV Q6H PRN PRN Reason: SYSTOLIC BP GREATER THAN: Famotidine (Pepcid Iv*) 20 mg IV SLOW PU BID [facility] Last Admin: 01/28/19 08:38 Dose: 20 mg Heparin Sodium (Porcine) (Heparin Vial(*)) 5,000 units SUBCUT Q8H [facility] Last Admin: 01/28/19 05:29 Dose: 5,000 units Hydromorphone HCl (Dilaudid Inj1s*) 0.2 mg IV SLOW PU Q2H PRN PRN Reason: PAIN Potassium Chloride/Dextrose (D5w 1/2 Ns Kcl 20 Meq 1000 Ml*) 1,000 mls @ 125 mls/hr IV PER RATE [facility] Last Admin: 01/28/19 09:14 Dose: 125 mls/hr Levothyroxine Sodium (Synthroid Inj*) 40 mcg IV 0600 [facility] Naloxone HCl (Narcan*) 0.08 mg IV PUSH .Q2MIN PRN PRN Reason: OVERSEDATION Pto:* (Refresh Gel (Eye Gel 1 Drop)) 1 drop BOTH EYES BEDTIME [facility] Last Admin: 01/27/19 21:35 Dose: 1 drop Pto - Refresh Tears (Eye Drops) 2 dose BOTH EYES TID [facility] Last Admin: 01/28/19 08:40 Dose: 2 dose Ondansetron HCl (Zofran Inj*) 4 mg IV Q6H PRN PRN Reason: NAUSEA/VOMITING Last Admin: 01/27/19 16:26 Dose: 4 mg Phenol/Menthol (Chloroseptic Throat [place]*) 1 spray MT TID PRN PRN Reason: SORE THROAT Last Admin: 01/28/19 08:41 Dose: 1 spray Vital Signs - 8 hr 01/28/19 01/28/19 03:39 07:29 Temperature 99.7 F 98.3 F Pulse Rate 85 86 Respiratory 16 16 Rate Blood Pressure 165/97 140/93 (mmHg) O2 Sat by Pulse 95 95 Oximetry Oxygen Devices in Use Now: None Appearance: Patient sitting upright in hospital bed, appearing in NAD Eyes: No Scleral Icterus, PERRLA Ears/Nose/Mouth/Throat: Mucous Membranes Moist Neck: NL Appearance and Movements; NL JVP Respiratory: Symmetrical Chest Expansion and Respiratory Effort, Clear to Auscultation, - - Bases without adventitious lung sounds Cardiovascular: - - Regular rate with irregular rhythm; no murmurs appreciated Abdominal: - - Abdomen significantly distended; normoactive BS x 4 quadrants; tenderness to superficial palpation; wound VAC in place Extremities: No Edema, No Clubbing, Cyanosis, - - no calf tenderness Skin: No Rash or Ulcers Neurological: Alert and Oriented x 3, NL Muscle Strength and Tone Result Diagrams: 01/28/19 05:41 01/28/19 05:41 Microbiology and Other Data: Microbiology 01/19/19 17:20 Stool Occult Blood (LOUANN) - Final Stool Assess/Plan/Problems-Billing Assessment: 83 yo female with PMHx of hypothyroidism, HTN and osteoporosis presents to the ED with abdominal pain and distension and 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 s/p descending colon and sigmoid resection with anastomosis on 01/24/19. - Patient Problems (1) Bigeminy Current Visit: Yes Status: Acute Code(s): I49.9 - CARDIAC ARRHYTHMIA, UNSPECIFIED SNOMED Code(s): 84434979 Comment: -tele continutes demonstrating atrial bigeminal rhythm; pt remains asymptomatic at rest, admits to some SOB after walking this morning -K 3.6 today, goal >4. Repleting with 20meq in IVF, adding 3 runs of KCl 10 meq IV as well -TSH wnl -echo: EF >65%, septal wall hypertrophy, LV chamber size decreased, mild dilation of ascending aorta. Cardiac structural changes are unlikely to be cause of arrhythmia (2) Sigmoid volvulus Comment: -patient remains significantly distended today -NG tube removed this morning; no nausea/vomiting since removal --total NG output was 1200 mL -flatus x2-3 episodes yesterday with small, liquid BM -s/p descending colon and sigmoid resection with primary anastomosis post-op day 4 -wound VAC in place -pain controlled with current mgmt, per gen surg -diet per surgery recommendation, currently tolerating sips of water (3) Ileus, postoperative Current Visit: Yes Status: Acute Code(s): K91.89 - OTH POSTPROCEDURAL COMPLICATIONS AND DISORDERS OF DGSTV SYS; K56.7 - ILEUS, UNSPECIFIED SNOMED Code(s): 314087394 Comment: -post op day 4 as above -NG tube removed per Dr. Abdi -encouraged more walking today -continue diet and pain mgmt per surgery -home lisinopril po and synthroid po continue as enaliprilat IV and synthroid IV (4) HTN (hypertension) Code(s): I10 - ESSENTIAL (PRIMARY) HYPERTENSION SNOMED Code(s): 85231997 Comment: -BP has been elevated, SBP to 172 -continue enaliprilat IV, continue to monitor -previously stopped home HCTZ as this could be contributing to her hypokalemia (5) Hypothyroidism Code(s): E03.9 - HYPOTHYROIDISM, UNSPECIFIED SNOMED Code(s): 61348322 Comment: -continue levothyroxine IV (6) Osteoporosis Code(s): M81.0 - AGE-RELATED OSTEOPOROSIS W/O CURRENT PATHOLOGICAL FRACTURE SNOMED Code(s): 41696908 Comment: -pt takes ibandronate monthly at home. Not ordered because dose is not due until 02/02/19 per patient (7) DVT prophylaxis Code(s): OXF1535 - SNOMED Code(s): 828961122 Comment: -continue heparin subQ TID -home ASA held s/p surgery (8) Full code status Code(s): Z78.9 - OTHER SPECIFIED HEALTH STATUS SNOMED Code(s): 887748691 Status and Disposition: discharge home when medically stable
[2019-01-28] MEDS ORDERED: Lisinopril TAB* 10 MG PO SCH (10:00)
--- NOTE | 2019-01-28 10:13 | PN ---
Progress Note - Progress Note Date of Service: 01/28/19 SOAP: Subjective: Feels a little better-passed a little flatus and small loose BM Ambulating in halls Minimal incisional pain but having some crampy gas pain Objective: Temp Pulse Resp BP Pulse Ox 98.3 F 86 16 140/93 95 01/28/19 07:29 01/28/19 07:29 01/28/19 07:29 01/28/19 07:29 01/28/19 07:29 Intake & Output 01/26/19 01/27/19 01/28/19 01/29/19 06:59 06:59 06:59 06:59 Intake Total 2096 2600 2152 980 Output Total 1640 2050 1950 275 Balance 456 550 202 705 Intake: IV Fluids 2480 1976 980 D51/2 NS 20KCL 1976 980 NS (0.9%) 2480 IVPB 586 NS (0.9%) 531 magnesium 55 Oral 1510 120 175 Output: NG Tube Drainage Amount 350 850 Urine 1340 1700 1100 275 [place] 300 Other: Estimated Void Large Date of Last Bowel 01/27/2019 Movement # Bowel Movements 0 0 0 Estimated Stool Amount Medium Small # Voids 2 PEX: Comfortable-awake and alert Abd is distended. Wound vac in place. Bowel sounds present, some high pitched and slightly hyperactive. Minimal incisional pain Laboratory Results - last 24 hr 01/27/19 01/27/19 01/28/19 06:27 16:48 05:41 WBC 9.8 RBC 4.31 Hgb 14.1 Hct 42 H MCV 97 MCH 33 H MCHC 34 RDW 14 Plt Count 375 MPV 8.2 Neut % (Auto) 78.5 Lymph % (Auto) 11.8 [place] % (Auto) 8.6 Eos % (Auto) 0.5 Baso % (Auto) 0.6 Absolute Neuts (auto) 7.7 Absolute Lymphs (auto) 1.2 Absolute Monos (auto) 0.8 Absolute Eos (auto) 0.1 Absolute Basos (auto) 0.1 Absolute Nucleated RBC 0 Nucleated RBC % 0 Sodium 136 Potassium 3.6 Chloride 104 Carbon Dioxide 24 Anion Gap 8 BUN 16 Creatinine 0.68 Est GFR ( Amer) 100.5 Est GFR (Non-Af Amer) 83.0 BUN/Creatinine Ratio 23.5 H Glucose 142 H Calcium 9.3 Phosphorus 2.0 L Magnesium 2.1 Total Bilirubin AST ALT Alkaline Phosphatase Total Protein Albumin Globulin Albumin/Globulin Ratio Prealbumin TSH 1.80 01/28/19 05:41 WBC RBC Hgb Hct MCV MCH MCHC RDW Plt Count MPV Neut % (Auto) Lymph % (Auto) [place] % (Auto) Eos % (Auto) Baso % (Auto) Absolute Neuts (auto) Absolute Lymphs (auto) Absolute Monos (auto) Absolute Eos (auto) Absolute Basos (auto) Absolute Nucleated RBC Nucleated RBC % Sodium 136 Potassium 3.6 Chloride 104 Carbon Dioxide 25 Anion Gap 7 BUN 13 Creatinine 0.67 Est GFR ( Amer) 102.2 Est GFR (Non-Af Amer) 84.5 BUN/Creatinine Ratio 19.4 Glucose 152 H Calcium 8.8 Phosphorus Magnesium Total Bilirubin 0.60 AST 16 ALT 17 Alkaline Phosphatase 50 Total Protein 5.7 L Albumin 3.4 Globulin 2.3 Albumin/Globulin Ratio 1.5 Prealbumin 14 L TSH Assessment: POD#4 s/p sigmoid colectomy for sigmoid volvulus Post op ileus Plan: D/C NGT-minimal output, continue only with sips of water and ice chips Increase activity, pul toilet Subq heparin Pepcid Follow nutritional status for now-low pre-albumin, hopefully ileus will resolve in next several days and can start po. If no resolution over weekend, will plan PICC line and TPN on Thursday Discussed with patient and her son-in-law
[2019-01-28] MEDS: KCL 10 MEQ/50 ML IVPREMIX* 10 MEQ/50 ML BAG IV SCH ×3 (12:06→21:55)
[2019-01-28] MEDS: Enalaprilat IV* 1.25 MG/ML 1 ML VIAL (1.25 MG) IV SCH ×3 (12:06→23:59)
[2019-01-28 17:14] LABS: BUN/Creatinine Ratio 13.6 (8-20); Calcium 9.2 mg/dL (8.6-10.3); Potassium 3.7 mmol/L (3.5-5.0)
[2019-01-28] MEDS ORDERED: KCL 10 MEQ/50 ML IVPREMIX* 10 MEQ/50 ML BAG ONE ×2 (18:08→21:55)
[2019-01-28] MEDS: REFRESH EYE BOTH EYES SCH (21:53)
[2019-01-29] MEDS: D5W 1/2 NS KCl 20 Meq 1000 ML* 1,000 ML IV SCH ×3 (04:54→22:10)
[2019-01-29] MEDS ORDERED: Metoprolol Tartrate IV* 1 MG/ML 5 ML VIAL IV PRN (05:06)
[2019-01-29 05:34] LABS: Hematocrit 40 % (33-41); Hemoglobin 13.4 g/dL (12.0-16.0); Mean Corpuscular HGB Conc 34 g/dL (31-36); Mean Corpuscular Hemoglobin 33 pg (27-31); Mean Corpuscular Volume 97 fL (80-97); Mean Platelet Volume 8.2 fL (7.4-10.4); Platelet Count 337 10^3/uL (150-450); Red Blood Count 4.08 10^6 /uL (3.70-4.87); Red Cell Distribution Width 14 % (10.5-15)
[2019-01-29] MEDS: Enalaprilat IV* 1.25 MG/ML 1 ML VIAL (1.25 MG) IV SCH ×4 (05:36→22:09)
[2019-01-29] MEDS: Levothyroxine INJ* 100 MCG/5 ML VIAL IV SCH (05:36)
[2019-01-29] MEDS: Heparin VIAL(*) 5000 UNITS/ML VIAL (FIVE THOUSAND) SUBCUT SCH ×3 (05:39→22:18)
[2019-01-29 05:47] LABS: BUN/Creatinine Ratio 11.9 (8-20); Calcium 8.8 mg/dL (8.6-10.3); EGFR African American 118.4 (>60); EGFR Non-African American 97.8 (>60); Potassium 3.7 mmol/L (3.5-5.0)
[2019-01-29] MEDS ORDERED: Levothyroxine TAB* 88 MCG TAB PO SCH (06:00)
[2019-01-29] MEDS: REFRESH TEARS EYE BOTH EYES SCH ×3 (08:34→22:14)
[2019-01-29] MEDS: Famotidine IV* 10 MG/ML 2 ML (20 mg) IV SLOW PU SCH ×2 (08:35→22:08)
--- NOTE | 2019-01-29 09:13 | PN ---
Progress Note - Progress Note Date of Service: 01/29/19 Note: S/P rsxn volvulus, post-op ileus Afeb, VS OK Voiding well hudson sips, No N/V, Thirsty Still passing small amts flatus and lose stool Ambulating well No incisional pain Abd--Still quite distended, non-tender, vac in place Await GI function Poss TPN 01/31
--- NOTE | 2019-01-29 09:46 | PN ---
Subjective Date of Service: 01/29/19 Interval History: Patient feels better daily, still very distended but reports she is passing gas and had small liquid stool for the first time. She has been ambulating frequently around the unit. Denies pain reports more abdominal discomfort. No N/ V. Denies fever or chills. Denies CP or SOB. Denies palpitations. No dizziness Family History: Unchanged from Admission Social History: Unchanged from Admission Past Medical History: Unchanged from Admission Objective Active Medications: Acetaminophen (Tylenol Tab*) 975 mg PO Q6H PRN PRN Reason: PAIN Last Admin: 01/27/19 08:46 Dose: 975 mg Enalaprilat (Vasotec Iv*) 0.625 mg IV Q6H [facility] Last Admin: 01/29/19 05:36 Dose: 0.625 mg Famotidine (Pepcid Iv*) 20 mg IV SLOW PU BID [facility] Last Admin: 01/29/19 08:35 Dose: 20 mg Heparin Sodium (Porcine) (Heparin Vial(*)) 5,000 units SUBCUT Q8H [facility] Last Admin: 01/29/19 05:39 Dose: 5,000 units Hydromorphone HCl (Dilaudid Inj1s*) 0.2 mg IV SLOW PU Q2H PRN PRN Reason: PAIN Potassium Chloride/Dextrose (D5w 1/2 Ns Kcl 20 Meq 1000 Ml*) 1,000 mls @ 125 mls/hr IV PER RATE [facility] Last Admin: 01/29/19 04:54 Dose: 125 mls/hr Levothyroxine Sodium (Synthroid Inj*) 40 mcg IV 0600 [facility] Last Admin: 01/29/19 05:36 Dose: 40 mcg Metoprolol Tartrate (Lopressor Iv*) 5 mg IV Q6H PRN PRN Reason: HEART RATE/PULSE Naloxone HCl (Narcan*) 0.08 mg IV PUSH .Q2MIN PRN PRN Reason: OVERSEDATION Pto:* (Refresh Gel (Eye Gel 1 Drop)) 1 drop BOTH EYES BEDTIME [facility] Last Admin: 01/28/19 21:53 Dose: Not Given Pto - Refresh Tears (Eye Drops) 2 dose BOTH EYES TID [facility] Last Admin: 01/29/19 08:34 Dose: 2 dose Ondansetron HCl (Zofran Inj*) 4 mg IV Q6H PRN PRN Reason: NAUSEA/VOMITING Last Admin: 01/27/19 16:26 Dose: 4 mg Phenol/Menthol (Chloroseptic Throat [place]*) 1 spray MT TID PRN PRN Reason: SORE THROAT Last Admin: 01/28/19 08:41 Dose: 1 spray Vital Signs - 8 hr 01/29/19 01/29/19 01/29/19 04:22 07:19 08:00 Temperature 97.2 F 97.8 F Pulse Rate 73 84 Respiratory 16 18 18 Rate Blood Pressure 152/89 143/88 (mmHg) O2 Sat by Pulse 96 98 Oximetry Oxygen Devices in Use Now: None Appearance: 83 yo female A+O x3 in NAD, appears comfortable Eyes: No Scleral Icterus, PERRLA Ears/Nose/Mouth/Throat: NL Teeth, Lips, Gums, Mucous Membranes Moist Neck: NL Appearance and Movements; NL JVP Respiratory: Symmetrical Chest Expansion and Respiratory Effort, Clear to Auscultation Cardiovascular: NL Sounds; No Murmurs; No JVD, RRR, No Edema Abdominal: - - distended, soft, nontender - vac intact Extremities: No Edema, No Clubbing, Cyanosis Skin: No Rash or Ulcers, No Nodules or Sclerosis Neurological: Alert and Oriented x 3, NL Sensation, NL Muscle Strength and Tone Lines/Tubes/Other Access: Clean, Dry and Intact Peripheral IV Nutrition: - - NPO Result Diagrams: 01/29/19 05:15 01/29/19 05:15 Microbiology and Other Data: Microbiology 01/19/19 17:20 Stool Occult Blood (LOUANN) - Final Stool Assess/Plan/Problems-Billing Assessment: 83 yo female with PMHx of hypothyroidism, HTN and osteoporosis presents to the ED with abdominal pain and distension and 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 s/p descending colon and sigmoid resection with anastomosis on 01/24/19 with post op ileus - Patient Problems (1) Sigmoid volvulus Comment: -post op day 5 -s/p descending colon and sigmoid resection with primary anastomosis post-op day 4 -wound VAC in place -patient remains significantly distended today - passing flatulence and small amount of brown liquid stool -pain controlled with current mgmt -diet per surgery recommendation, currently tolerating sips of water (2) Ileus, postoperative Comment: -NG tube removed per Dr. Abdi- 01/28 - pt tolerating well -Pt is ambulating frequently -continue diet per surgery (3) SVT (supraventricular tachycardia) Comment: noted SVT overnight with heart rate 160s - asymptomatic - transferred to tele due to nursing staff uncomfortable on surgical unit. Given BB - no further episodes. - continue tele monitoring (4) Bigeminy Comment: -noted -echo: EF >65%, septal wall hypertrophy, LV chamber size decreased, mild dilation of ascending aorta. (5) HTN (hypertension) Comment: -Improving -stable -continue Vasotec IV, continue to monitor -Home llisinopril/HCTZ on hold (6) Hypokalemia Comment: - signifcaint on admission - HCTZ vs acute illness -resolved (7) Hypomagnesemia Comment: -resolved (8) Hypothyroidism Comment: - TSH normal -continue levothyroxine IV (9) Osteoporosis Comment: -pt takes ibandronate monthly at home. Due 02/02/19 per patient (10) DVT prophylaxis Comment: -continue heparin subQ TID -home ASA held s/p surgery (11) Full code status Status and Disposition: discharge home when medically stable
[2019-01-29] MEDS: REFRESH EYE BOTH EYES SCH (22:14)
[2019-01-30 05:49] LABS: Hematocrit 36 % (33-41); Hemoglobin 12.3 g/dL (12.0-16.0); Mean Corpuscular HGB Conc 34 g/dL (31-36); Mean Corpuscular Hemoglobin 33 pg (27-31); Mean Corpuscular Volume 97 fL (80-97); Mean Platelet Volume 8.1 fL (7.4-10.4); Platelet Count 319 10^3/uL (150-450); Red Blood Count 3.78 10^6 /uL (3.70-4.87); Red Cell Distribution Width 14 % (10.5-15); White Blood Count 5.8 10^3/uL (3.5-10.8)
[2019-01-30 06:03] LABS: BUN/Creatinine Ratio 7.1 (8-20); Calcium 8.7 mg/dL (8.6-10.3); EGFR African American 125.7 (>60); EGFR Non-African American 103.9 (>60); Potassium 3.5 mmol/L (3.5-5.0)
[2019-01-30 06:15] LABS: ABS Basophils 0 10^3/ul (0-0.2); ABS Eosinophils 0.1 10^3/ul (0-0.6); ABS Monocytes 0.7 10^3/ul (0-0.8); ABS Nucleated RBC 0 10^3/ul; Eosinophil % 1.9 %; Lymphocyte % 16.8 %; Nucleated Red Blood Cells % 0
[2019-01-30] MEDS: Enalaprilat IV* 1.25 MG/ML 1 ML VIAL (1.25 MG) IV SCH ×4 (06:38→23:17)
[2019-01-30] MEDS: Levothyroxine INJ* 100 MCG/5 ML VIAL IV SCH (06:39)
[2019-01-30] MEDS: Heparin VIAL(*) 5000 UNITS/ML VIAL (FIVE THOUSAND) SUBCUT SCH ×3 (06:45→21:51)
[2019-01-30] MEDS: D5W 1/2 NS KCl 20 Meq 1000 ML* 1,000 ML IV SCH (06:48)
[2019-01-30] MEDS: Famotidine IV* 10 MG/ML 2 ML (20 mg) IV SLOW PU SCH ×2 (07:52→21:51)
[2019-01-30] MEDS: REFRESH TEARS EYE BOTH EYES SCH ×3 (07:52→21:55)
--- NOTE | 2019-01-30 08:57 | PN ---
Subjective Date of Service: 01/30/19 Interval History: Pt reports she is doing well today and overall feels better with more energy, less abdominal distention and discomfort. Reports she is passing lots of gas and is having dark brown/aranda liquid BMs. Tolerating clear liquid diet well and feels that she could eat more. Family History: Unchanged from Admission Social History: Unchanged from Admission Past Medical History: Unchanged from Admission Objective Active Medications: Acetaminophen (Tylenol Tab*) 975 mg PO Q6H PRN PRN Reason: PAIN Last Admin: 01/27/19 08:46 Dose: 975 mg Enalaprilat (Vasotec Iv*) 0.625 mg IV Q6H [facility] Last Admin: 01/30/19 06:38 Dose: 0.625 mg Famotidine (Pepcid Iv*) 20 mg IV SLOW PU BID [facility] Last Admin: 01/30/19 07:52 Dose: 20 mg Heparin Sodium (Porcine) (Heparin Vial(*)) 5,000 units SUBCUT Q8H [facility] Last Admin: 01/30/19 06:45 Dose: 5,000 units Hydromorphone HCl (Dilaudid Inj1s*) 0.2 mg IV SLOW PU Q2H PRN PRN Reason: PAIN Potassium Chloride/Dextrose (D5w 1/2 Ns Kcl 20 Meq 1000 Ml*) 1,000 mls @ 125 mls/hr IV PER RATE [facility] Last Admin: 01/30/19 06:48 Dose: 125 mls/hr Levothyroxine Sodium (Synthroid Inj*) 40 mcg IV 0600 [facility] Last Admin: 01/30/19 06:39 Dose: 40 mcg Metoprolol Tartrate (Lopressor Iv*) 5 mg IV Q6H PRN PRN Reason: HEART RATE/PULSE Naloxone HCl (Narcan*) 0.08 mg IV PUSH .Q2MIN PRN PRN Reason: OVERSEDATION Pto:* (Refresh Gel (Eye Gel 1 Drop)) 1 drop BOTH EYES BEDTIME [facility] Last Admin: 01/29/19 22:14 Dose: Not Given Pto - Refresh Tears (Eye Drops) 2 dose BOTH EYES TID [facility] Last Admin: 01/30/19 07:52 Dose: 2 dose Ondansetron HCl (Zofran Inj*) 4 mg IV Q6H PRN PRN Reason: NAUSEA/VOMITING Last Admin: 01/27/19 16:26 Dose: 4 mg Phenol/Menthol (Chloroseptic Throat [place]*) 1 spray MT TID PRN PRN Reason: SORE THROAT Last Admin: 01/28/19 08:41 Dose: 1 spray Vital Signs - 8 hr 01/30/19 01/30/19 01/30/19 03:32 06:56 07:13 Temperature 98.6 F 97.7 F Pulse Rate 52 62 Respiratory 16 18 20 Rate Blood Pressure 154/71 141/72 (mmHg) O2 Sat by Pulse 97 Oximetry Oxygen Devices in Use Now: None Appearance: well developed 83 yo female sitting up in bed in NAD- A+O x3 Eyes: No Scleral Icterus, PERRLA Ears/Nose/Mouth/Throat: NL Teeth, Lips, Gums, Mucous Membranes Moist Neck: NL Appearance and Movements; NL JVP Respiratory: Clear to Auscultation Cardiovascular: NL Sounds; No Murmurs; No JVD, RRR, No Edema Abdominal: - - distended soft, BS noted, nontender - wound vac in place - no noted erythema, Extremities: No Edema, No Clubbing, Cyanosis Skin: No Rash or Ulcers, No Nodules or Sclerosis Neurological: Alert and Oriented x 3, NL Sensation, NL Gait, NL Muscle Strength and Tone Lines/Tubes/Other Access: Clean, Dry and Intact Peripheral IV Nutrition: Taking PO's Result Diagrams: 01/30/19 05:27 01/30/19 05:27 Microbiology and Other Data: Microbiology 01/19/19 17:20 Stool Occult Blood (LOUANN) - Final Stool Assess/Plan/Problems-Billing Assessment: 83 yo female with PMHx of hypothyroidism, HTN and osteoporosis presents to the ED with abdominal pain and distension and 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 s/p descending colon and sigmoid resection with anastomosis on 01/24/19 with post op ileus - Patient Problems (1) Sigmoid volvulus Comment: -post op day 6 - complicated by post-op ileus -s/p descending colon and sigmoid resection with primary anastomosis w/ wound VAC in place -Abdominal distention improving - passing flatulence and increase in brown liquid stool over the past 24 hours - overall improving daily -pain controlled with current mgmt -diet per surgery recommendation, currently tolerating sips of clears (2) Ileus, postoperative Comment: -NG tube removed per Dr. Abdi- 01/28 - pt tolerating well -Pt is ambulating frequently -continue diet per surgery (3) SVT (supraventricular tachycardia) Comment: noted SVT overnight 01/29 with heart rate 160s, was transferred to tele at that time, was given one IV dose BB, looking at her tele strips I think this is likely afib - asymptomatic - no previous hx. In the setting of post op and currently now in SR no plan to treat. Her CHADVASC2 is 2 - she should be referred to Cardiology outpatient for 30 days Holter monitoring. Dicussed with patient/daughter -echo: EF >65%, septal wall hypertrophy, LV chamber size decreased, mild dilation of ascending aorta - continue tele monitoring (4) HTN (hypertension) Comment: -Improving -stable -continue Vasotec IV, continue to monitor -Home lisinopril/HCTZ on hold until she is cleared to take pills (5) Hypokalemia Comment: - signifcaint on admission - HCTZ vs acute illness -resolved - Per surgery currently on D51/2NS with KCL (6) Hypomagnesemia Comment: -resolved (7) Hypothyroidism Comment: - TSH normal -continue levothyroxine IV (8) Osteoporosis Comment: -pt takes ibandronate monthly at home. Due 02/02/19 per patient (9) DVT prophylaxis Comment: -continue heparin subQ TID -home ASA held s/p surgery (10) Full code status Status and Disposition: discharge home when medically stable - ok to transfer back to [facility] today. Will continue tele monitoring on unit
--- NOTE | 2019-01-30 11:54 | PN ---
Progress Note - Progress Note Date of Service: 01/30/19 Note: POD#6 s/p sigmoid rsxn Afeb, VS noted Regi liqs, no N/V, passing a lot of flatus feels less distended, less pain voiding well ambulating And soft, less distended, tho' still some tympany Impr: Resolving ileus Advance diet Heplock Poss d/c tmrw.
[2019-01-30] MEDS: REFRESH EYE BOTH EYES SCH (21:53)
[2019-01-31] MEDS: Enalaprilat IV* 1.25 MG/ML 1 ML VIAL (1.25 MG) IV SCH ×2 (05:09→09:33)
[2019-01-31] MEDS: Heparin VIAL(*) 5000 UNITS/ML VIAL (FIVE THOUSAND) SUBCUT SCH ×3 (06:00→21:49)
[2019-01-31] MEDS: Levothyroxine INJ* 100 MCG/5 ML VIAL IV SCH (06:00)
[2019-01-31 06:20] LABS: ABS Basophils 0.1 10^3/ul (0-0.2); ABS Eosinophils 0.2 10^3/ul (0-0.6); ABS Lymphocytes 1.2 10^3/ul (1.0-4.8); ABS Monocytes 0.6 10^3/ul (0-0.8); ABS Neutrophils 4.2 10^3/ul (1.5-7.7); ABS Nucleated RBC 0 10^3/ul; Eosinophil % 2.5 %; Hematocrit 35 % (33-41); Hemoglobin 11.9 g/dL (12.0-16.0); Lymphocyte % 19.5 %; Mean Corpuscular HGB Conc 34 g/dL (31-36); Mean Corpuscular Hemoglobin 33 pg (27-31); Mean Corpuscular Volume 97 fL (80-97); Mean Platelet Volume 7.9 fL (7.4-10.4); Nucleated Red Blood Cells % 0; Platelet Count 313 10^3/uL (150-450); Red Blood Count 3.64 10^6 /uL (3.70-4.87); Red Cell Distribution Width 14 % (10.5-15); White Blood Count 6.3 10^3/uL (3.5-10.8)
--- NOTE | 2019-01-31 09:23 | PN ---
Progress Note - Progress Note Date of Service: 01/31/19 SOAP: Subjective:POD #7 S/P OPEN SIGMOID COLECTOMY ZOHRA FULL LIQS,HUNGRY FOR SOLIDS,PASSING FLATUS AND STOOL;NO N/V [] Objective:ABD:+BS,SOFTLY BLOATED;PREVEENA INTACT;NONTENDER Vital Signs Temp 98.2 F 01/31/19 03:44 Pulse 61 01/31/19 05:04 Resp 14 01/31/19 03:44 BP 125/70 01/31/19 04:56 Pulse Ox 98 01/31/19 04:56 Intake & Output 01/30/19 01/31/19 01/31/19 18:59 06:59 18:59 Intake Total 560 200 Output Total 0 1000 Balance 560 -800 Intake: Oral 560 200 Output: Urine 0 1000 Other: Estimated Void Medium # Voids 1 [] Assessment:DOING VERY WELL [] Plan:ADVANCE TO SOFT DIET AT LUNCH likely disch 02/01/19 []
[2019-01-31] MEDS: Famotidine IV* 10 MG/ML 2 ML (20 mg) IV SLOW PU SCH ×2 (09:34→21:49)
[2019-01-31] MEDS: REFRESH TEARS EYE BOTH EYES SCH ×3 (09:35→21:49)
--- NOTE | 2019-01-31 12:57 | PN ---
Subjective Date of Service: 01/31/19 Interval History: Ms. Peterson is feeling better today. She is still having some bloating, but no abd pain. She is passing gas and had some loose stool this morning. She has been tolerating clear liquids well. She is hopeful to be d/c'd tomorrow. No complaints or concerns from nursing. Family History: Unchanged from Admission Social History: Unchanged from Admission Past Medical History: Unchanged from Admission Objective Active Medications: Acetaminophen (Tylenol Tab*) 975 mg PO Q6H PRN PAIN Enalaprilat (Vasotec Iv*) 0.625 mg IV Q6H [facility] Famotidine (Pepcid Iv*) 20 mg IV SLOW PU BID [facility] Heparin Sodium (Porcine) (Heparin Vial(*)) 5,000 units SUBCUT Q8H [facility] Hydromorphone HCl (Dilaudid Inj1s*) 0.2 mg IV SLOW PU Q2H PRN PAIN Potassium Chloride/Dextrose (D5w 1/2 Ns Kcl 20 Meq 1000 Ml*) 1,000 mls @ 125 mls/hr IV PER RATE [facility] Levothyroxine Sodium (Synthroid Inj*) 40 mcg IV 0600 [facility] Metoprolol Tartrate (Lopressor Iv*) 5 mg IV Q6H PRN HEART RATE/PULSE Naloxone HCl (Narcan*) 0.08 mg IV PUSH .Q2MIN PRN OVERSEDATION Pto:* (Refresh Gel (Eye Gel 1 Drop)) 1 drop BOTH EYES BEDTIME [facility] Pto - Refresh Tears (Eye Drops) 2 dose BOTH EYES TID [facility] Ondansetron HCl (Zofran Inj*) 4 mg IV Q6H PRN NAUSEA/VOMITING Phenol/Menthol (Chloroseptic Throat [place]*) 1 spray MT TID PRN SORE THROAT Vital Signs - 8 hr 01/31/19 01/31/19 01/31/19 04:56 05:04 07:41 Temperature 97.9 F Pulse Rate 61 62 Respiratory 17 Rate Blood Pressure 125/70 140/75 (mmHg) O2 Sat by Pulse 98 96 Oximetry 01/31/19 01/31/19 08:00 11:31 Temperature 97.9 F Pulse Rate 63 Respiratory 18 16 Rate Blood Pressure 149/72 (mmHg) O2 Sat by Pulse 100 Oximetry Oxygen Devices in Use Now: None Appearance: Elderly female sitting in bed in NAD Eyes: No Scleral Icterus Ears/Nose/Mouth/Throat: Mucous Membranes Moist Neck: NL Appearance and Movements; NL JVP, Trachea Midline Respiratory: Symmetrical Chest Expansion and Respiratory Effort, Clear to Auscultation Cardiovascular: NL Sounds; No Murmurs; No JVD, RRR Abdominal: NL Sounds; No Tenderness; No Distention Extremities: No Edema Skin: No Rash or Ulcers Neurological: Alert and Oriented x 3 Lines/Tubes/Other Access: Clean, Dry and Intact Peripheral IV Nutrition: Taking PO's Result Diagrams: 01/31/19 06:05 01/30/19 05:27 Assess/Plan/Problems-Billing Assessment: MS. Peterson is an 83 yo F with PMH of hypothyroidism, HTN, and osteoporosis who presented to the ED with abdominal pain and distension and 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 S/p descending colon and sigmoid resection with anastomosis on 01/24/19 with post op ileus. - Patient Problems (1) Sigmoid volvulus Comment: - POD #7, s/p descending colon and sigmoid resection with primary anastomosis w / wound VAC in place - Complicated by post-op ileus - Abdominal distention improving; passing flatulence and increase in brown liquid stool - Management per Surgery (2) Ileus, postoperative Code(s): K91.89 - OTH POSTPROCEDURAL COMPLICATIONS AND DISORDERS OF DGSTV SYS; K56.7 - ILEUS, UNSPECIFIED Comment: - NG tube removed 01/28 - Ambulating frequently - Advance to soft diet per Surgery (3) Arrhythmia Code(s): I49.9 - CARDIAC ARRHYTHMIA, UNSPECIFIED Comment: - Questionable SVT overnight 01/29 with heart rate 160s; transferred to tele at that time, and was given one IV dose BB - Tele strips look more like afib; asymptomatic and no previous hx - In the setting of post op and currently now in NSR no plan to treat - CHADVASC2 is 2; she should be referred to Cardiology outpatient for 30 days Holter monitoring; this was previously dicussed with patient/daughter - Echo shows EF >65%, septal wall hypertrophy, LV chamber size decreased, mild dilation of ascending aorta - Continue tele monitoring (4) HTN (hypertension) Current Visit: Yes Status: Chronic Code(s): I10 - ESSENTIAL (PRIMARY) HYPERTENSION SNOMED Code(s): 21481188 Comment: - Slightly hypertensive, SBP 130-140s - Restart lisinopril, HCTZ (5) Hypothyroidism Code(s): E03.9 - HYPOTHYROIDISM, UNSPECIFIED Comment: - Restart levothyroxine PO (6) DVT prophylaxis Comment: - Heparin SQ (7) Full code status Code(s): Z78.9 - OTHER SPECIFIED HEALTH STATUS Comment: Status and Disposition: Inpatient. Anticipate d/c home when medically stable and cleared by Surgery, likely tomorrow as long as she is tolerating solids. Attending: Chinyere Pandya
[2019-01-31] MEDS: REFRESH EYE BOTH EYES SCH (21:49)
[2019-02-01] MEDS: Heparin VIAL(*) 5000 UNITS/ML VIAL (FIVE THOUSAND) SUBCUT SCH (05:58)
[2019-02-01] MEDS ORDERED: Levothyroxine TAB* 88 MCG TAB PO SCH (06:00)
[2019-02-01] MEDS ORDERED: Hydrochlorothiazide TAB* 25 MG PO SCH (09:00)
[2019-02-01] MEDS ORDERED: Lisinopril TAB* 10 MG PO SCH (09:00)
[2019-02-01] MEDS: Famotidine IV* 10 MG/ML 2 ML (20 mg) IV SLOW PU SCH (09:18)
[2019-02-01] MEDS: REFRESH TEARS EYE BOTH EYES SCH (09:19)
[2019-02-01 11:47] VITALS: BP 169/81
--- NOTE | 2019-02-01 12:31 | PN ---
Progress Note - Progress Note Date of Service: 02/01/19 SOAP: Subjective: Doing well-tolerating po and passing flatus No N/V Ambulating, pain well controlled Objective: Temp Pulse Resp BP Pulse Ox 98.1 F 84 17 169/81 100 02/01/19 11:30 02/01/19 11:30 02/01/19 11:30 02/01/19 11:30 02/01/19 11:30 PEX: Comfortable Lungs are clear Abd is soft and slightly distended. Incision CDI. Bowel sounds present and hyperactive. Assessment: S/P sigmoid colon resection for sigmoid volvulus Ileus-resolved Plan: D/C home today Follow up in office arranged Instructions given
--- NOTE | 2019-02-01 20:32 | DS ---
CC: Dr. Vanna Mello; Dr. Gabino Abdi * DISCHARGE SUMMARY: DATE OF ADMISSION: 01/20/19 DATE OF DISCHARGE: 02/01/19 PRIMARY CARE PROVIDER: Dr. Vanna Mello. ATTENDING PHYSICIAN: Dr. Chinyere Pandya * (dictated by Kati Villafuerte NP). PRIMARY DIAGNOSES: 1. 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 2. Postoperative ileus. 3. Cardiac arrhythmia. SECONDARY DIAGNOSES: 1. Hypertension. 2. Hypothyroidism. STUDIES WHILE IN THE HOSPITAL: 1. EKG on 01/19/19 shows normal sinus rhythm with a rate of 64, multiple PVCs, QTc 430, no ischemic changes. 2. Abdomen x-ray on 01/19/19 reads as dilated loops of small bowel for which the small bowel obstruction was not excluded. 3. Abdomen and pelvis CT on 01/19/19 reads as findings of sigmoid volvulus. No perforation. 4. Abdomen x-ray on 02/01/19 reads as rectal tube in place. Area of distended colon remains. 5. Carotid Doppler study on 01/21/19 reads as minimal atherosclerotic plaque at the carotid bifurcations without evidence for stenosis based on NASCET criteria. 6. EKG on 01/26/19 shows sinus arrhythmia with a rate of 76, QTc 437, no ischemic changes. 7. Transthoracic echocardiogram on 01/27/19 reads as the left ventricular chamber size is decreased. Septal wall hypertrophy is observed. There is increased nasal septal hypertrophy noted without evidence of an increased gradient across the left ventricular outflow tract. The left ventricle appears hyperdynamic. The estimated ejection fraction is greater than 65%. There is no consistent Doppler evidence of clinically significant diastolic dysfunction. There is trace mitral regurgitation. There is trace tricuspid regurgitation. Unable to estimate the right ventricular systolic pressure. There is mild dilation of the ascending aorta. 8. EKG on 01/29/19 shows sinus arrhythmia with a rate of 82, QTc 438, no ischemic changes. HISTORY OF PRESENT ILLNESS AND HOSPITAL COURSE: Ms. Peterson is an 83-year-old female with past medical history of hypothyroidism and hypertension, who presented to the emergency room on 01/20/19 with complaints of abdominal bloating and pain. Please see the history and physical by Dr. Huddleston for a complete summary of the events leading up to this hospitalization. In short, the patient reported experiencing problems with constipation since around . On 01/15/19, she began having increased pain and distention. She was having associated nausea and presented to the emergency room because of concern for her symptoms. She had not had any bowel movements since 01/15/19 and there was no flatus. In the emergency room, the patient was seen by Surgery and Gastroenterology. Dr. Villalobos performed a flex sigmoidoscopy with decompression and a rectal tube and NG tube was also placed due to the sigmoid volvulus noted on CT scan. The patient was admitted by the hospitalist service. The patient was seen by the Surgery on 01/21/19 and the plan at that point was to hold off on any surgery, though they suspected that surgery may be necessary. Ultimately due to little improvement in her symptoms, it was determined that the patient would undergo an open sigmoidectomy. She was medically optimized and went to the OR on 01/24/[address] Abdi. At that point, he performed a descending and sigmoid colon resection with primary anastomosis. A wound VAC was placed over the incision. Unfortunately, the patient did develop a postoperative ileus. She has had gradual improvement in her symptoms and as of yesterday was able to tolerate a soft diet. Dr. Abdi saw her this morning and felt as though she was stable for discharge. He removed the wound VAC and placed gauze over her surgical incision. I will additionally note that on 01/29/19, the patient was noted to have a questionable supraventricular tachycardia on telemetry with heart rate up to the 160s. The strips were reviewed by the hospitalist and it was felt that this more likely represented atrial fibrillation which the patient had no history of. She has been in normal sinus rhythm since that time. She does have a CHADS2-VASc score of 2 and ultimately will need to see Cardiology as an outpatient as she will require a Holter monitor. Her blood pressure has remained stable. This morning, she reports feeling well. She has no abdominal pain or tenderness on palpation. She is tolerating a soft diet with no nausea or vomiting, and she is passing some loose stool. She is anxious to return home. Ms. Peterson is stable for discharge today. Vital signs are as follows: Temp 98.1, heart rate 84, respiratory rate 17, oxygen saturation 100% on room air, blood pressure 140/67. DISCHARGE MEDICATIONS: Continued medications: 1. Aspirin 162 mg p.o. daily. 2. Cranberry 6 caps p.o. daily. 3. Fluticasone nasal spray 1 spray both nares daily. 4. Ibandronate 1,560 mg p.o. monthly. 5. Levothyroxine 88 mcg p.o. daily. 6. Lisinopril/hydrochlorothiazide 20/25 one tablet p.o. daily. 7. Refresh eye drops 1 drop both eyes t.i.d. DISCHARGE PLAN: Ms. Peterson will be discharged home. Activity will be as tolerated, though she has been given specific instructions from Surgery about some restrictions due to her abdominal incision. Diet will be soft as tolerated and she can advance as she feels fit. Medications are noted above. The patient can resume her usual medications. She does not require any pain medications or antiemetics at this time. She has been given specific wound care instructions from Dr. Abdi. She will need to follow up with Dr. Abdi in the office and has an appointment on 02/04/19 at 2:15 p.m. She additionally will need to follow up with her primary care provider in 4 to 7 days. As noted above, she was noted to have an arrhythmia which was concerning for atrial fibrillation and she will need to be referred to Cardiology by her primary care provider. I think that she would benefit from a 30- day Holter monitor to determine if she is having any paroxysmal atrial fibrillation. The patient should return to the emergency room or nearest hospital for any worsening of symptoms, shortness of breath, lightheadedness, dizziness, chest discomfort, high fevers, chills, night sweats, loss of consciousness, or any other worrisome signs or symptoms. DISCHARGE CONDITION: Good. DISCHARGE DISPOSITION: Home. This is a summarized report of a complex medical history and hospital stay. For further details, please see the entire medical record. TIME SPENT: Approximately 40 minutes was spent on this discharge. KATI VILLAFUERTE, [employer] [id number]/[facility] #: [id number] NOHELIA
== END 2019-02-01 12:09 | disposition home health service (06) | DRG 330 ==
LOC: ED 15:52 → SSU 01-20 01:10 → MEDTELE 01-29 03:00 → SSU 01-30 08:13
PROVIDERS: ADMIT Pediatrics; ATTEND Internal Medicine
PROC: 0D9N80Z Drainage of Sigmoid Colon with Drainage Device, Via Natural or Artificial Opening Endoscopic (ICD-10-PCS; 2019-01-20)
PROC: 0D9670Z Drainage of Stomach with Drainage Device, Via Natural or Artificial Opening (ICD-10-PCS; 2019-01-20)
PROC: 0DBN0ZZ Excision of Sigmoid Colon, Open Approach (ICD-10-PCS; 2019-01-24)
PROC: 0DBM0ZZ Excision of Descending Colon, Open Approach (ICD-10-PCS; principal; 2019-01-24 13:00)
DX: K56.2 Volvulus (principal); K91.89 Other postprocedural complications and disorders of digestive system; I47.1 Supraventricular tachycardia; I48.0 Paroxysmal atrial fibrillation; E83.42 Hypomagnesemia; K42.9 Umbilical hernia without obstruction or gangrene; K56.7 Ileus, unspecified; I49.9 Cardiac arrhythmia, unspecified; I10 Essential (primary) hypertension; E03.9 Hypothyroidism, unspecified; M81.0 Age-related osteoporosis without current pathological fracture; E87.6 Hypokalemia; R14.0 Abdominal distension (gaseous); Z79.82 Long term (current) use of aspirin; Z79.899 Other long term (current) drug therapy; Z82.3 Family history of stroke; Z80.1 Family history of malignant neoplasm of trachea, bronchus and lung
CPT/HCPCS: 36415; 74018; 74019; 74177; 80048; 80053; 80076; 81003; 82270; 83605; 83690; 83735; 83880; 84100; 84132; 84134; 84443; 85025; 85027; 85060; 86140; 86850; 86900; 86901; 87040; 88307; 93005; 93306; 93880; 99284; A9270-GY; A9272-GY; C1776; J0360; J0780; J1100; J1170; J1335; J1644; J2250; J2405; J2704; J3010; J3475; J3480; J3490; Q9967

== ENCOUNTER 2019-02-02 13:00 | Inpatient (IN) | payer MEDICARE ==
[2019-08-16] MEDS ORDERED: Buffered Lidocaine 1% SYRIN* 1 ML/SYRINGE INTRADERM ONE (08:52)
--- OUTSIDE RECORDS SUMMARY | 2019-08-17 05:42 | XMS REPORT | Continuity of Care Document ---
:1935 External Reference #:[id number] Author Name Rani Pereyra DNP, RN, REPORTER-BC (transmitted by agent of provider Felicia Montenegro) Address [address], [address] [place] [address] Care Team Providers Name Role Phone Vanna Mello MD - Internal Medicine Care Team Information Knapsack Sprayer [phone] Problems Active Problems Provider Date Localized, primary osteoarthritis of the Denise Paz MD Onset: 12/09/2018 shoulder region Localized, primary osteoarthritis of the Leesa Powell M.D. Onset: 12/10/2018 pelvic region and thigh Rectal prolapse Gabino Abdi MD Onset: 01/21/2019 Tachycardia Maddi Crawford M.D. Onset: 03/17/2019 Social History Type Date Description Comments Sex Unknown Tobacco Use Start: Unknown Never Smoked Cigarettes Smoking Status Reviewed: 07/20/19 Never Smoked Cigarettes ETOH Use Occasionally consumes alcohol Tobacco Use Start: Unknown Patient has never smoked Recreational Drug Use Never Used Drugs Exercise Type/Frequency Exercises regularly Allergies, Adverse Reactions, Alerts Description No Known Drug Allergies Medications Active Medications SIG Qnty Indications Ordering Provider Date Ibandronate Sodium 150 mg 1 tablet Unknown 01/05/2019 po monthly Levothyroxine Sodium 1 by mouth every 60tabs Unknown 01/05/2019 day 88mcg Tablets Fluticasone Propionate 1sprays each Unknown 09/29/2018 nostril qd. 50mcg/Act Suspension Niacinamide 1 by mouth 2 Unknown 09/08/2018 500mg Tablets times a day Preservision Areds 2 1 capsule by Unknown 09/08/2018 mouth twice Areds 2 Capsules daily Centrum Adults 1 tablet po Unknown 09/08/2018 Tablets daily Lisinopril-Hydrochloro 1 by mouth every Unknown thiazide day 20-25mg Tablets Aspir-81 1 by mouth every Unknown 81mg Tablets DR day Calcium 1 by mouth at 60tabs Unknown 600mg Tablets lunch and 1 by mouth after dinner Cranberry Super 2 cap po six Unknown Strength times daily Capsules Vitamin B-12 1 by mouth every Unknown 1000mcg day Tablets Vitamin D3 1 by mouth every Unknown 2000Unit day Capsules Glucosamine 1500 1 by mouth every Unknown Complex day 1500Com Capsules Refresh Liquigel 1 gtt both eyes Unknown 1% three times Solution daily Refresh Celluvisc 1 at bedtime Unknown 1% Gel Immunizations Description No Information Available Vital Signs Date Vital Result Comment 07/20/2019 1:24pm Height 63 inches 5'3" Weight 134.25 lb Heart Rate 70 /min BP Systolic Sitting 112 mmHg Lue reg cuff BP Diastolic Sitting 70 mmHg Lue reg cuff Respiratory Rate 20 /min O2 % BldC Oximetry 96 % On Ra BMI (Body Mass Index) 23.8 kg/m2 07/05/2019 1:00pm Height 63 inches 5'3" Weight 136.00 lb BP Systolic 120 mmHg BP Diastolic 70 mmHg Respiratory Rate 20 /min Pain Level 0 BMI (Body Mass Index) 24.1 kg/m2 Results Test Date Facility Test Result H/L Range Note Laboratory test 01/24/2019 [facility] Surgical SEE RESULT [address] [address] [phone] 1 SEE RESULT BELOW Name: KEMI PETERSON : [address]: Peggy Johnson MD Acct: [id number] Unit: [id number] AGE: 83 Location: [place] [address] Re01/20/19 SEX: F Status: ADM IN SPEC: [id number] NADIR: 01/24/19- SUBM DR: Gabino Abdi MD REQ: [id number] RECD: 01/24/19 STATUS: ERIC WELSH DR: Jodie [...] focal fibromembranous adhesions. There are a few wallaec-white ill-defined granular mucosal areas ranging from 0.3 cm to 1.0 cm, more predominate in the dilated specimen. The mucosa in this area is predominantly smooth with a few normal folds. The remaining mucosa is glistening wallace-pink with normal folds. Received separately in the same container is a 3.5 by up to 2.5 x 1.0 cm wallace-pink irregular intestinal tissue fragment. Jack Machine Operator sections are submitted in cassettes A through F as follows: A-margins, B-serosal adhesions , C through E-granularity and F-mucosa. Signed by and Reported on: Tashi Shah MD [address] END OF REPORT DEPARTMENT OF PATHOLOGY, [address] [place] [address] Tashi Shah M.D. Director [facility] # [id number] Procedures Date Code Description Status 03/17/2019 80722 EKG Tracing & Interpretation Completed 01/29/2019 22799 EKG, Interpretation Only Completed 01/27/2019 60898 ECHO Transthorasic Realtime 2D W Doppler & Color Flow Hosp Completed 01/26/2019 51631 EKG, Interpretation Only Completed 01/24/2019 86968 Colectomy Partial W/Anastomosis Completed 01/24/2019 24321 Colectomy Partial W/Anastomosis Completed Medical Devices Description No Information Available Encounters Type Date Location Provider Dx Diagnosis Office Visit 07/20/2019 Pulmonology And Rani Pereyra, G47.33 Obstructive sleep 1:30p [facility] CLARY CASTILLO FNP-BC apnea (adult) [facility] (pediatric) Office Visit 07/05/2019 Orthopedic Denise Paz MD M19.011 Primary 1:00p [facility] osteoarthritis, right shoulder Office Visit 04/19/2019 Pulmonology And Rani Pereyra, G47.33 Obstructive sleep 2:15p [facility] CLARY CASTILOL FNP-BC apnea (adult) [facility] (pediatric) Office Visit 03/17/2019 [facility] Maddi Crawford, R00.0 Tachycardia, 2:10p Of Venkatesh Holley unspecified R00.2 Palpitations G47.33 Obstructive sleep apnea (adult) (pediatric) Z01.810 Encounter for preprocedural cardiovascular examination M19.011 Primary osteoarthritis, right shoulder Office Visit 02/17/2019 2:00p Pulmonology And Karen G47.33 Obstructive sleep Sleep Services Of MD Tyson apnea (adult) [facility] (pediatric) Office Visit 02/01/2019 8:28a 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 Kati Noy, I49.9 Cardiac Assoc,pc BLADE OPERATOR arrhythmia, Hospitalists unspecified K56.2 [facility] I10 Essential (primary) hypertension K91.89 Oth postprocedural complications and disorders of dgstv sys K56.7 Ileus, unspecified E03.9 Hypothyroidism, unspecified Office Visit 01/30/2019 [facility] I47.1 Supraventricular 8:27a Assoc,pc Patel, BLADE OPERATOR tachycardia Hospitalists K56.2 [facility] K91.89 Oth postprocedural complications and disorders of dgstv sys K56.7 Ileus, unspecified [facility], K56.2 [facility],pc Hospitalists BLADE OPERATOR K91.89 Oth postprocedural complications and disorders of dgstv sys K56.7 Ileus, unspecified I49.9 Cardiac arrhythmia, unspecified I10 Essential (primary) hypertension Office Visit 01/28/2019 8:26a [facility] Irene I49.9 Cardiac Assoc,jamari Agarwal PA-C arrhythmia, Hospitalists unspecified K56.2 [facility] K91.89 Oth postprocedural complications and disorders of dgstv sys K56.7 Ileus, unspecified E03.9 Hypothyroidism, unspecified I10 Essential (primary) hypertension Office Visit 01/27/2019 8:26a [facility] Irene I49.9 Cardiac Assoc,jamari Agarwal PA-C arrhythmia, Hospitalists unspecified K56.2 [facility] K91.89 Oth postprocedural complications and disorders of dgstv sys K56.7 Ileus, unspecified I10 Essential (primary) hypertension Office Visit 01/26/2019 8:25a [facility] Irene Agarwal K56.2 [facility] Ass[facility],pc Hospitalists HORACE K91.89 Oth postprocedural complications and disorders of dgstv sys K56.7 Ileus, unspecified E83.42 Hypomagnesemia I10 Essential (primary) hypertension Office Visit 01/25/2019 8:25a [facility] Irene Agarwal K56.2 [facility],pc Hospitalists HORACE E03.9 Hypothyroidism, unspecified I10 Essential (primary) hypertension M81.0 Age-related osteoporosis w/o current pathological fracture Office Visit 01/24/2019 8:24a [facility] Irene Agarwal K56.2 [facility], Hospitalists PAAbelC E87.6 Hypokalemia E03.9 Hypothyroidism, unspecified I10 Essential (primary) hypertension Office Visit 01/23/2019 8:24a [facility] Danika Lai K56.2 [facility], Hospitalists BLADE OPERATOR E03.9 Hypothyroidism, unspecified E87.6 Hypokalemia I10 Essential (primary) hypertension Office Visit 01/23/2019 7:00a [facility] Hamilton MD K56.2 [facility] Cigarette Making Examiner Office Visit 01/22/2019 8:23a [facility] Danika Lai K56.2 [facility], Hospitalists BLADE OPERATOR E03.9 Hypothyroidism, unspecified I10 Essential (primary) hypertension E87.6 Hypokalemia Office Visit 01/22/2019 7:00a [facility]ena Hamilton MD K56.2 [facility] Cigarette Making Examiner Office Visit 01/21/2019 8:23a [facility] Irene Agarwal K56.2 [facility] Ass[facility], Hospitalists PAKenzie E03.9 Hypothyroidism, unspecified I10 Essential (primary) hypertension Office Visit 01/20/2019 8:22[facility] Jodie Huddleston DO K56.2 [facility] Assoc,pc Hospitalists E03.9 Hypothyroidism, unspecified I10 Essential (primary) hypertension Office Visit 01/20/2019 7:00a [facility] Raman Ballard, K56.2 [facility] Venkatesh LUGO, FACS Assessments Date Code Description Provider 07/20/2019 G47.33 Obstructive sleep apnea (adult) Rani Pereyra DNP, RN, (pediatric) [facility] 07/11/2019 M19.011 Primary osteoarthritis, right Denise Paz MD shoulder 07/05/2019 M19.011 Primary osteoarthritis, right Denise Paz MD shoulder 04/19/2019 G47.33 Obstructive sleep apnea (adult) Rani Pereyra DNP, RN, (pediatric) [facility] 03/17/2019 R00.0 Tachycardia, unspecified Maddi Crawford M.D. 03/17/2019 R00.2 Palpitations Maddi Crawford M.D. 03/17/2019 G47.33 Obstructive sleep apnea (adult) Maddi Crawford M.D. (pediatric) 03/17/2019 Z01.810 Encounter for preprocedural Maddi Crawford M.D. cardiovascular examination 03/17/2019 M19.011 Primary osteoarthritis, right Maddi Crawford M.D. shoulder 03/11/2019 K56.2 [facility] Gabino Abdi MD 02/17/2019 G47.33 Obstructive sleep apnea (adult) Karen Mehta MD (pediatric) 02/04/2019 K56.2 Voleduin Abdi MD 02/01/2019 K56.2 [facility] Gabino Abdi MD 02/01/2019 K56.2 [facility] Kati Noy, BLADE OPERATOR 02/01/2019 K91.89 Oth postprocedural complications and Kati Noy, BLADE OPERATOR disorders of dgstv sys 02/01/2019 K56.7 Ileus, unspecified Kati Noy, BLADE OPERATOR 02/01/2019 I49.9 Cardiac arrhythmia, unspecified Kati Noy, BLADE OPERATOR 02/01/2019 I10 Essential (primary) hypertension Kati Noy, BLADE OPERATOR 02/01/2019 E03.9 Hypothyroidism, unspecified Kati Noy, BLADE OPERATOR 01/31/2019 I49.9 Cardiac arrhythmia, unspecified Kati Noy, BLADE OPERATOR 01/31/2019 K56.2 [facility] Loretta Barboza, BLADE OPERATOR 01/31/2019 K56.2 [facility] Kati Noy, BLADE OPERATOR 01/31/2019 I10 Essential (primary) hypertension Kati Noy, BLADE OPERATOR 01/31/2019 K91.89 Oth postprocedural complications and Kati Noy, BLADE OPERATOR disorders of dgstv sys 01/31/2019 K56.7 Ileus, unspecified Kati Noy, BLADE OPERATOR 01/31/2019 E03.9 Hypothyroidism, unspecified Kati Noy, BLADE OPERATOR 01/30/2019 I47.1 Supraventricular tachycardia Lazara Burch, BLADE OPERATOR 01/30/2019 K56.2 [facility] Jt Bray M.D. 01/30/2019 K56.2 [facility] Lazara Patel, BLADE OPERATOR 01/30/2019 K91.89 Oth postprocedural complications and Lazara Patel, BLADE OPERATOR disorders of dgstv sys 01/30/2019 K56.7 Ileus, unspecified Lazara Patel, BLADE OPERATOR 01/29/2019 R00.0 Tachycardia, unspecified Stas Babcock M.D. 01/29/2019 K56.2 [facility] Lazara Patel, BLADE OPERATOR 01/29/2019 K56.2 [facility] Jt Bray M.D. 01/29/2019 K91.89 Oth postprocedural complications and Lazara Burch, BLADE OPERATOR disorders of dgstv sys 01/29/2019 K91.89 Oth postprocedural complications and Jt Bray M.D. disorders of dgstv sys 01/29/2019 K56.7 Ileus, unspecified Lazara Patel, BLADE OPERATOR 01/29/2019 I49.9 Cardiac arrhythmia, unspecified Lazara Patel, BLADE OPERATOR 01/29/2019 I10 Essential (primary) hypertension Lazara Patel, BLADE OPERATOR 01/28/2019 I49.9 Cardiac arrhythmia, unspecified Irene Harshil'sergio PA-C 01/28/2019 K56.2 [facility] Gabino Abdi MD 01/28/2019 K56.2 [facility] Irene O'sergio, JERRYC 01/28/2019 K91.89 Oth postprocedural complications and Irene Harshil'sergio, PA-C disorders of dgstv sys 01/28/2019 K56.7 Ileus, unspecified Irene O'sergio, PA-C 01/28/2019 E03.9 Hypothyroidism, unspecified Irene O'sergio, PA-C 01/28/2019 I10 Essential (primary) hypertension JERRY MillsC 01/27/2019 R94.31 Abnormal electrocardiogram [ECG] Fantasma Preciado M.D. [EKG] 01/27/2019 I49.9 Cardiac arrhythmia, unspecified Irene Harshil'JENNA hill-C 01/27/2019 K56.2 [facility] Irene Harshil'sergio, PA-C 01/27/2019 K56.2 Volvtremaine Abdi MD 01/27/2019 K91.89 Oth postprocedural complications and Irene O'sergio PA-C disorders of dgstv sys 01/27/2019 K56.7 Ileus, unspecified Irene Harshil'sergio, JERRYC 01/27/2019 I10 Essential (primary) hypertension JERRY MillsC 01/26/2019 I49.9 Cardiac arrhythmia, unspecified Fantasma Preciado M.D. 01/26/2019 K56.2 [facility] Irene Agarwal PA-C 01/26/2019 K56.2 Vololiviaulus Gabino Abdi MD 01/26/2019 K91.89 Oth postprocedural complications and Irene O'sergio PA-C disorders of dgstv sys 01/26/2019 K55.8 Other vascular disorders of intestine Gabino Abdi MD 01/26/2019 K56.7 Ileus, unspecified Irene Agarwal, JENNA-C 01/26/2019 E83.42 Hypomagnesemia JERRY MillsC 01/26/2019 I10 Essential (primary) hypertension JERRY MillsC 01/25/2019 K56.2 Volvulus JERRY MillsC 01/25/2019 K56.2 Volvulus Gabino Abdi MD 01/25/2019 E03.9 Hypothyroidism, unspecified Irene Agarwal, JERRYC 01/25/2019 K55.8 Other vascular disorders of intestine Gabino Abdi MD 01/25/2019 I10 Essential (primary) hypertension JERRY MillsC 01/25/2019 M81.0 Age-related osteoporosis w/o current Irene Agarwal PA-C pathological fracture 01/24/2019 K56.2 [facility] Irene Agarwal, JERRYC 01/24/2019 K56.2 Volvulus Sudhakar Recio MD 01/24/2019 E87.6 Hypokalemia JERRY MillsC 01/24/2019 K56.2 Volvulus Gabino Abdi MD 01/24/2019 E03.9 Hypothyroidism, unspecified Irene Agarwal, JERRYC 01/24/2019 K55.8 Other vascular disorders of intestine Sudhakar Recio MD 01/24/2019 I10 Essential (primary) hypertension JERRY MillsC 01/24/2019 K55.8 Other vascular disorders of intestine Gabino Abdi MD 01/23/2019 K56.2 [facility] Danika Lai, DEYSI 01/23/2019 K56.2 [facility]ulus Veena Hamilton MD 01/23/2019 E03.9 Hypothyroidism, unspecified Danika Lai, BLADE OPERATOR 01/23/2019 E87.6 Hypokalemia Danika Lai, DEYSI 01/23/2019 I10 Essential (primary) hypertension Danika Lai, BLADE OPERATOR 01/22/2019 K56.2 [facility] Danika Lai, BLADE OPERATOR 01/22/2019 K56.2 Vol[facility]ulus Veena Hamilton MD 01/22/2019 E03.9 Hypothyroidism, unspecified Danika Lai, BLADE OPERATOR 01/22/2019 I10 Essential (primary) hypertension Danika Lai, BLADE OPERATOR 01/22/2019 E87.6 Hypokalemia Danika Lai, BLADE OPERATOR 01/21/2019 K56.2 Volvulus JERRY MillsC 01/21/2019 K56.2 Volvulus Gabino Abdi MD 01/21/2019 E03.9 Hypothyroidism, unspecified JENNA Mills-C 01/21/2019 I10 Essential (primary) hypertension Irene Agarwal PA-C 01/20/2019 K56.2 [facility] Jodie Flaquito, DO 01/20/2019 K56.2 Volvulus Raman Ballard MD, FACS 01/20/2019 E03.9 Hypothyroidism, unspecified Jodie Rooth, DO 01/20/2019 I10 Essential (primary) hypertension Jodiekimberly Huddleston, DO Plan of Treatment Future Appointment(s):01/18/2020 1:45 pm - Rani Pereyra DNP, RN, REPORTER- at [facility]08/09/2019 1:15 pm - Denise Paz MD at [facility].08/17/2019 9:30 am - Denise Paz MD at [facility] .[facility].08/17/2019 1:45 pm - Nancy Cook MD at [facility] Tkonsudtpqe08/12/2019 1:00 pm - Maddi Crawford M.D. at [facility]12/20/2019 1:30 pm - Nancy Cook MD at [facility] Aoqmlveyyqe96/04/2019 - Rani Pereyra DNP, RN, [facility]-BCG47.33 Obstructive sleep apnea (adult) ( pediatric)New Orders:Sleep-Homecare, Ordered: 07/20/19Comments:Sleep Apnea - Aug 2017 08/25/17 NPSG- AHI 23.8/hour, O2 reema 84%. BMI 23.6On BiPAP auto AHI 4.3/hour (30-day), normalFollow up:6 monthsRecommendations:Continue PAP device, Benefitting and compliant with treatment. Cleaning Wipe off mask daily (baby wipe-no scent, or warm water) Clean mask, tubing, filter, and water chamber weekly in mild no scent dish soap and water. Hang to dry. If you have any sleepiness while driving you MUST avoid operating a vehicle or machinery. If you have difficulty with your equipment, or need to replace your mask or hoses, please contact your homecare agency. A weight change of 20 pounds or more may have an effect onyour equipment; if you are experiencing problems please call for an appointment. If you have any further questions, please call the [facility] at [phone]. Functional Status Description No Information Available Mental Status Description No Information Available Referrals Refer to Reason for Referral Status Appt Date Gabino Abdi MD FOR 01/24/19 ---04500--- INPATIENT Created [address] [place] [address] [place] [address] [phone]
--- OUTSIDE RECORDS SUMMARY | 2019-08-17 05:42 | XMS REPORT | Continuity of Care Document ---
:1935 External Reference #:[id number] Author Name Denise Paz MD (transmitted by agent of provider Kamran Brewer) Address [address], [place] [address] Care Team Providers Name Role Phone Vanna Mello MD - Internal Medicine Care Team Information Dirt Contractor [phone] Problems Active Problems Provider Date Localized, primary osteoarthritis of the Denise Paz MD Onset: 12/09/2018 shoulder region Localized, primary osteoarthritis of the Leesa Powell M.D. Onset: 12/10/2018 pelvic region and thigh Rectal prolapse Gabino Abdi MD Onset: 01/21/2019 Supraventricular premature beats Maddi Crawford M.D. Onset: 07/28/2019 Premature beats Maddi Crawford M.D. Onset: 07/28/2019 Preoperative cardiovascular examination Maddi Crawford M.D. Onset: 07/28/2019 Tachycardia Maddi Crawford M.D. Onset: 03/17/2019 Social History Type Date Description Comments Sex Unknown Tobacco Use Start: Unknown Never Smoked Cigarettes Smoking Status Reviewed: 08/09/19 Never Smoked Cigarettes ETOH Use Occasionally consumes alcohol Tobacco Use Start: Unknown Patient has never smoked Recreational Drug Use Never Used Drugs Exercise Type/Frequency Exercises regularly Allergies, Adverse Reactions, Alerts Description No Known Drug Allergies Medications Active Medications SIG Qnty Indications Ordering Date Provider Ibandronate Sodium 150 mg 1 tablet Unknown 01/05/2019 po monthly Levothyroxine Sodium 1 by mouth every 60tabs Unknown 01/05/2019 day 88mcg Tablets Fluticasone Propionate 1sprays each Unknown 09/29/2018 nostril qd. 50mcg/Act Suspension Niacinamide 1 by mouth 2 Unknown 09/08/2018 500mg Tablets times a day Preservision Areds 2 1 capsule by Unknown 09/08/2018 mouth twice daily Areds 2 Capsules Centrum Adults 1 tablet po daily Unknown 09/08/2018 Tablets Lisinopril-Hydrochloro 1 by mouth every Unknown thiazide [...] gtt both eyes Unknown 1% three times daily Solution Refresh Celluvisc 1 at bedtime Unknown 1% Gel Refresh Liquigel 1-2 drops in Unknown 1% Gel affected eye as needed Immunizations Description No Information Available Vital Signs Date Vital Result Comment 08/09/2019 1:03pm Height 63 inches 5'3" Weight 138.00 lb Heart Rate 74 /min BP Systolic 104 mmHg BP Diastolic 62 mmHg Body Temperature 97.0 F Pain Level 2 BMI (Body Mass Index) 24.4 kg/m2 07/28/2019 12:47pm Height 63 inches 5'3" Weight 140.00 lb with shoes Heart Rate 68 /min BP Systolic 104 mmHg rue reg cuff BP Diastolic 68 mmHg rue reg cuff BP Systolic Sitting 100 mmHg lue reg cuff BP Diastolic Sitting 54 mmHg lue reg cuff BP Systolic Standing 118 mmHg lue reg cuff BP Diastolic Standing 62 mmHg lue reg cuff Respiratory Rate 12 /min BMI (Body Mass Index) 24.8 kg/m2 Ejection Fraction >65% echo.01/27/19 Results Description No Information Available Procedures Date Code Description Status 07/28/2019 88484 EKG Tracing & Interpretation Completed 03/17/2019 20332 EKG Tracing & Interpretation Completed Medical Devices Description No Information Available Encounters Type Date Location Provider Dx Diagnosis Office Visit 07/28/2019 [facility] Maddi Crawford, Z01.810 Encounter for 1:00p Of Venkatesh Holley preprocedural cardiovascular examination I49.3 Ventricular premature depolarization I49.1 Atrial premature depolarization I10 Essential (primary) hypertension I47.1 Supraventricular tachycardia G47.33 Obstructive sleep apnea (adult) (pediatric) Office Visit 07/20/2019 Pulmonology And Rani G47.33 Obstructive sleep 1:30p Sleep Services Of ANNA Pereyra RN, apnea (adult) [facility] [employer]ER-BC (pediatric) Office Visit 07/05/2019 Orthopedic Denise Paz, M19.011 Primary 1:00p Services Of osteoarthritis, [facility] right shoulder Office Visit 04/19/2019 Pulmonology And Rani G47.33 Obstructive sleep 2:15p [facility] Of ANNA Pereyra RN, apnea (adult) [facility]- (pediatric) Office Visit 03/17/2019 [facility] Maddi Crawford, R00.0 Tachycardia, 2:10p Of Venkatesh Holley unspecified R00.2 Palpitations G47.33 Obstructive sleep apnea (adult) (pediatric) Z01.810 Encounter for preprocedural cardiovascular examination M19.011 Primary osteoarthritis, right shoulder Office Visit 02/17/2019 2:00p Pulmonology And Karen G47.33 Obstructive sleep Sleep Services Of MD Tyson apnea (adult) [facility] (pediatric) Assessments Date Code Description Provider 08/09/2019 M19.011 Primary osteoarthritis, right Denise Paz MD shoulder 08/09/2019 M25.511 Pain in right shoulder Denise Paz MD 07/28/2019 Z01.810 Encounter for preprocedural Maddi Crawford M.D. cardiovascular examination 07/28/2019 I49.3 Ventricular premature depolarization Maddi Crawford M.D. 07/28/2019 I49.1 Atrial premature depolarization Maddi Crawford M.D. 07/28/2019 I10 Essential (primary) hypertension Maddi Crawford M.D. 07/28/2019 I47.1 Supraventricular tachycardia Maddi Crawford M.D. 07/28/2019 G47.33 Obstructive sleep apnea (adult) Maddi Crawford M.D. (pediatric) 07/20/2019 G47.33 Obstructive sleep apnea (adult) Rani Pereyra DNP, RN, (pediatric) [facility] 07/11/2019 M19.011 Primary osteoarthritis, right Denise Paz MD shoulder 07/05/2019 M19.011 Primary osteoarthritis, right Denise Paz MD shoulder 04/19/2019 G47.33 Obstructive sleep apnea (adult) Rani Pereyra DNP, RN, (pediatric) [facility] 03/17/2019 R00.0 Tachycardia, unspecified Maddi Crawford M.D. 03/17/2019 R00.2 Palpitations Maddi Crawford M.D. 03/17/2019 G47.33 Obstructive sleep apnea (adult) Maddi Crawford M.D. (pediatric) 03/17/2019 Z01.810 Encounter for preprocedural Maddi Crawford M.D. cardiovascular examination 03/17/2019 M19.011 Primary osteoarthritis, right Maddi Crawford M.D. shoulder 03/11/2019 K56.2 Volvulus Gabino Abdi MD 02/17/2019 G47.33 Obstructive sleep apnea (adult) Karen Mehta MD (pediatric) Plan of Treatment Future Appointment(s):08/30/2019 11:30 am - Denise Paz MD at [facility]09/27/2019 2:00 pm - Nancy Cook MD at [facility] Tallevaynzi27/ 04/2020 1:45 pm - Rani Pereyra DNP, RN, [facility] at [facility]08/17/2019 7:30 am - Denise Paz MD at [facility] Of M.A12/20/2019 1:30 pm - Nancy Cook MD at [facility] Adosqlfhnpv64/24/2019 - Denise Paz, MDM19.011 Primary osteoarthritis, right shoulderFollow up:Follow up: 10-14 days post opM25.511 Pain in right shoulder Functional Status Description No Information Available Mental Status Description No Information Available Referrals Description No Information Available
--- OUTSIDE RECORDS SUMMARY | 2019-08-17 05:42 | XMS REPORT | Continuity of Care Document ---
:1935 External Reference #:[id number] Author Name Denise Paz MD (transmitted by agent of provider Pavithra Bass) Address [address] [facility], [place] [address] Care Team Providers Name Role Phone Vanna Mello MD - Internal Medicine Care Team Information Vel[employer]ooter [phone] Problems Active Problems Provider Date Localized, primary osteoarthritis of the Denise Paz MD Onset: 12/09/2018 shoulder region Localized, primary osteoarthritis of the Leesa Powell M.D. Onset: 12/10/2018 pelvic region and thigh Rectal prolapse Gabino Abdi MD Onset: 01/21/2019 Tachycardia Maddi Crawford M.D. Onset: 03/17/2019 Social History Type Date Description Comments Sex Unknown Tobacco Use Start: Unknown Never Smoked Cigarettes Smoking Status Reviewed: 07/05/19 Never Smoked Cigarettes ETOH Use Occasionally consumes [...] Calcium 1 by mouth at 60tabs Unknown 500mg Tablets lunch and 2 by mouth before dinner Cranberry Super 2 cap po six [...] Available Vital Signs Date Vital Result Comment 07/05/2019 1:00pm Height 63 inches 5'3" Weight 136.00 lb BP Systolic 120 mmHg BP Diastolic 70 mmHg Respiratory Rate 20 /min Pain Level 0 BMI (Body Mass Index) 24.1 kg/m2 04/19/2019 1:59pm Height 63 inches 5'3" Weight 136.00 lb Heart Rate 60 /min BP Systolic Sitting 108 mmHg Lue regular cuff BP Diastolic Sitting 60 mmHg Lue regular cuff Respiratory Rate 16 /min O2 % BldC Oximetry 98 % BMI (Body Mass Index) 24.1 kg/m2 Results Test Date Facility Test Result H/L Range Note Laboratory test 01/24/2019 [facility] Surgical SEE RESULT [address] [place] [address] [phone] 1 SEE RESULT BELOW Name: MIKAEL PETERSONBoris Kramer : [address]: Peggy Johnson MD Acct: [id number] Unit: [id number] AGE: 83 Location: [place] [address] Re01/20/19 SEX: F Status: ADM IN SPEC: [id number] NADIR: 01/24/19- SUBM DR: Gabino Abdi MD REQ: [id number] RECD: 01/24/19 STATUS: ERIC WELSH DR: Jodie [...] 1.0 cm wallace-pink irregular intestinal tissue fragment. Oil Deliverer sections are submitted in cassettes A through F as follows: A-margins, B-serosal adhesions , C through E-granularity and F-mucosa. Signed by and Reported on: Tashi Shah MD 1604 END OF REPORT DEPARTMENT OF PATHOLOGY, [address] [place] [address] Tashi Shah M.D. Director [facility] # [id number] Procedures Date Code Description Status 03/17/2019 24700 EKG Tracing & Interpretation Completed 01/29/2019 05723 EKG, Interpretation Only Completed 01/27/2019 99176 ECHO Transthorasic Realtime 2D W Doppler & Color Flow Hosp Completed 01/26/2019 86983 EKG, Interpretation Only Completed 01/24/2019 51759 Colectomy Partial W/Anastomosis Completed 01/24/2019 85275 Colectomy Partial W/Anastomosis Completed Medical Devices Description No Information Available Encounters Type Date Location Provider Dx Diagnosis Office Visit 04/19/2019 [facility] Rani Pereyra, G47.33 Obstructive sleep 2:15p [facility] RN, SALES PROMOTION DIRECTOR-BC apnea (adult) [facility] (pediatric) Office Visit 03/17/2019 [facility] Maddi Crawford, R00.0 Tachycardia, 2:10p Of Venkatesh Holley unspecified R00.2 Palpitations G47.33 Obstructive sleep apnea (adult) (pediatric) Z01.810 Encounter for preprocedural cardiovascular examination M19.011 Primary osteoarthritis, right shoulder Office Visit 02/17/2019 2:00p Pulmonology And Karen G47.33 Obstructive sleep [facility] MD Tyson apnea (adult) [facility] (pediatric) Office Visit 02/01/2019 8:28a [facility] Kati Noy, K56.2 [facility] PLANT FACILITIES TECHNICIAN Hospitalists K91.89 Oth postprocedural complications and disorders of dgstv sys K56.7 Ileus, unspecified I49.9 Cardiac arrhythmia, unspecified I10 Essential (primary) hypertension E03.9 Hypothyroidism, unspecified Office Visit 01/31/2019 8:27a [facility] Kati Noy, I49.9 Card[facility]oc[facility] PLANT FACILITIES TECHNICIAN arrhythmia, Hospitalists unspecified K56.2 [facility] I10 Essential (primary) hypertension K91.89 Oth postprocedural complications and disorders of dgstv sys K56.7 Ileus, unspecified E03.9 Hypothyroidism, unspecified Office Visit 01/30/2019 [facility] I47.1 Supraventricular 8:27a Assoc,pc Jorge, PLANT FACILITIES TECHNICIAN tachycardia Hospitalists K56.2 [facility] K91.89 Oth postprocedural complications and disorders of dgstv sys K56.7 Ileus, unspecified Office Visit 01/29/2019 8:27a [facility] Patel, K56.2 [facility] Hospitalists PLANT FACILITIES TECHNICIAN K91.89 Oth postprocedural complications and disorders of dgstv sys K56.7 Ileus, unspecified I49.9 Cardiac arrhythmia, unspecified I10 Essential (primary) hypertension Office Visit 01/28/2019 8:26a [facility] Irene I49.9 [facility]oc[facility] HORACE Agarwal arrhythmia, Hospitalists unspecified K56.2 [facility] K91.89 Oth postprocedural complications and disorders of dgstv sys K56.7 Ileus, unspecified E03.9 Hypothyroidism, unspecified I10 Essential (primary) hypertension Office Visit 01/27/2019 8:26a [facility] Irene I49.9 Cardiac Assoc,pc HORACE Agarwal arrhythmia, Hospitalists unspecified K56.2 [facility] K91.89 Oth postprocedural complications and disorders of dgstv sys K56.7 Ileus, unspecified I10 Essential (primary) hypertension Office Visit 01/26/2019 8:25a [facility] Irene Stefano, K56.2 [facility] Hospitalists PA-C K91.89 Oth postprocedural complications and disorders of dgstv sys K56.7 Ileus, unspecified E83.42 Hypomagnesemia I10 Essential (primary) hypertension Office Visit 01/25/2019 8:25a [facility] Irene Agarwal, K56.2 [facility] Hospitalists PA-C E03.9 Hypothyroidism, unspecified I10 Essential (primary) hypertension M81.0 Age-related osteoporosis w/o current pathological fracture Office Visit 01/24/2019 8:24a [facility] Irene Agarwal K56.2 [facility], Hospitalists PA-C E87.6 Hypokalemia E03.9 Hypothyroidism, unspecified I10 Essential (primary) hypertension Office Visit 01/23/2019 8:24a [facility] Danika Lai K56.2 [facility], Hospitalists PLANT FACILITIES TECHNICIAN E03.9 Hypothyroidism, unspecified E87.6 Hypokalemia I10 Essential (primary) hypertension Office Visit 01/23/2019 7:00a [facility] Hamilton MD K56.2 [facility] Link Knitting Machine Operator Office Visit 01/22/2019 8:23a [facility] Danika Lai K56.2 [facility], Hospitalists PLANT FACILITIES TECHNICIAN E03.9 Hypothyroidism, unspecified I10 Essential (primary) hypertension E87.6 Hypokalemia Office Visit 01/22/2019 7:00a [facility] Hamilton MD K56.2 [facility] [employer] Knitting Machine Operator Office Visit 01/21/2019 8:23a [facility] Irene Agarwal K56.2 [facility], Hospitalists PA-C E03.9 Hypothyroidism, unspecified I10 Essential (primary) hypertension Office Visit 01/20/2019 8:22a [facility] Jodie Huddleston DO K56.2 [facility], Hospitalists E03.9 Hypothyroidism, unspecified I10 Essential (primary) hypertension Office Visit 01/20/2019 7:00a [facility] Raman Ballard, K56.2 [facility] Link Knitting Machine Operator , FACS Assessments Date Code Description Provider 07/05/2019 M19.011 Primary osteoarthritis, right Denise Paz MD shoulder 04/19/2019 G47.33 Obstructive sleep apnea (adult) Rani Pereyra DNP, RN, (pediatric) [facility]- 03/17/2019 R00.0 Tachycardia, unspecified Maddi Crawford M.D. [...] 02/04/2019 K56.2 Voleduin Abdi MD 02/01/2019 K56.2 [facility] Gabino Abdi MD 02/01/2019 K56.2 [facility] Kati Noy, PLANT FACILITIES TECHNICIAN 02/01/2019 K91.89 Oth postprocedural complications and Kati Noy, PLANT FACILITIES TECHNICIAN disorders of dgstv sys 02/01/2019 K56.7 Ileus, unspecified Kati Noy, PLANT FACILITIES TECHNICIAN 02/01/2019 I49.9 Cardiac arrhythmia, unspecified Kati Noy, PLANT FACILITIES TECHNICIAN 02/01/2019 I10 Essential (primary) hypertension Kati Noy, PLANT FACILITIES TECHNICIAN 02/01/2019 E03.9 Hypothyroidism, unspecified Kati Noy, PLANT FACILITIES TECHNICIAN 01/31/2019 I49.9 Cardiac arrhythmia, unspecified Kati Noy, PLANT FACILITIES TECHNICIAN 01/31/2019 K56.2 [facility] Loretta Barboza, PLANT FACILITIES TECHNICIAN 01/31/2019 K56.2 [facility] Kati Noy, PLANT FACILITIES TECHNICIAN 01/31/2019 I10 Essential (primary) hypertension Kati Noy, PLANT FACILITIES TECHNICIAN 01/31/2019 K91.89 Oth postprocedural complications and Kati Noy, PLANT FACILITIES TECHNICIAN disorders of dgstv sys 01/31/2019 K56.7 Ileus, unspecified Kati Noy, PLANT FACILITIES TECHNICIAN 01/31/2019 E03.9 Hypothyroidism, unspecified Kati Noy, PLANT FACILITIES TECHNICIAN 01/30/2019 I47.1 Supraventricular tachycardia Lazara Patel, PLANT FACILITIES TECHNICIAN 01/30/2019 K56.2 [facility] Jt Bray M.D. 01/30/2019 K56.2 [facility] Lazaraarnie Patel, PLANT FACILITIES TECHNICIAN 01/30/2019 K91.89 Oth postprocedural complications and Lazara Patel, DEYSI disorders of dgstv sys 01/30/2019 K56.7 Ileus, unspecified Lazaraarnie Patel, PLANT FACILITIES TECHNICIAN 01/29/2019 R00.0 Tachycardia, unspecified Stas Babcock M.D. 01/29/2019 K56.2 [facility] Lazara Patel, PLANT FACILITIES TECHNICIAN 01/29/2019 K56.2 [facility] Jt Bray M.D. 01/29/2019 K91.89 Oth postprocedural complications and Lazara Patel NP disorders of dgstv sys 01/29/2019 K91.89 Oth postprocedural complications and Jt Bray M.D. disorders of dgstv sys 01/29/2019 K56.7 Ileus, unspecified Lazara Patel, PLANT FACILITIES TECHNICIAN 01/29/2019 I49.9 Cardiac arrhythmia, unspecified Lazara Patel, PLANT FACILITIES TECHNICIAN 01/29/2019 I10 Essential (primary) hypertension Lazara Patel, PLANT FACILITIES TECHNICIAN 01/28/2019 I49.9 Cardiac arrhythmia, unspecified Irene Agarwal PA-C 01/28/2019 K56.2 [facility] Gabino Abdi MD 01/28/2019 K56.2 [facility] Irene Agarwal PA-C 01/28/2019 K91.89 Oth postprocedural complications and Irene Agarwal PA-C disorders of dgstv sys 01/28/2019 K56.7 Ileus, unspecified Irene Agarwal PA-C 01/28/2019 E03.9 Hypothyroidism, unspecified Irene Agarwal PA-C 01/28/2019 I10 Essential (primary) hypertension Irene Agarwal PA-C 01/27/2019 R94.31 Abnormal electrocardiogram [ECG] Fantasma Preciado M.D. [EKG] 01/27/2019 I49.9 Cardiac arrhythmia, unspecified Irene Agarwal PA-C 01/27/2019 K56.2 [facility] Irene Agarwal PA-C 01/27/2019 K56.2 Volvtremaine Abdi MD 01/27/2019 K91.89 Oth postprocedural complications and Irene Agarwal PA-C disorders of dgstv sys 01/27/2019 K56.7 Ileus, unspecified Irene Agarwal PA-C 01/27/2019 I10 Essential (primary) hypertension Irene Agarwal PA-C 01/26/2019 I49.9 Cardiac arrhythmia, unspecified Fantasma Preciado M.D. 01/26/2019 K56.2 [facility] Irene Agarwal PA-C 01/26/2019 K56.2 Voleduin Abdi MD 01/26/2019 K91.89 Oth postprocedural complications and Irene Agarwal PA-C disorders of dgstv sys 01/26/2019 K55.8 Other vascular disorders of intestine Gabino Abdi MD 01/26/2019 K56.7 Ileus, unspecified Irene Agarwal PA-C 01/26/2019 E83.42 Hypomagnesemia Irene Agarwal PA-C 01/26/2019 I10 Essential (primary) hypertension Irene Agarwal PA-C 01/25/2019 K56.2 [facility] Irene Agarwal PA-C 01/25/2019 K56.2 Voleduin Abdi MD 01/25/2019 E03.9 Hypothyroidism, unspecified Irene Agarwal PA-C 01/25/2019 K55.8 Other vascular disorders of intestine Gabino Abdi MD 01/25/2019 I10 Essential (primary) hypertension Irene Agarwal PA-C 01/25/2019 M81.0 Age-related osteoporosis w/o current Irene Agarwal PA-C pathological fracture 01/24/2019 K56.2 [facility] Irene Agarwal PA-C 01/24/2019 K56.2 [facility] Sudhakar Recio MD 01/24/2019 E87.6 Hypokalemia Irene Agarwal PA-C 01/24/2019 K56.2 Voleduin Abdi MD 01/24/2019 E03.9 Hypothyroidism, unspecified Ierne Agarwal PA-C 01/24/2019 K55.8 Other vascular disorders of intestine Sudhakar Recio MD 01/24/2019 I10 Essential (primary) hypertension Irene Agarwal PA-C 01/24/2019 K55.8 Other vascular disorders of intestine Gabino Abid MD 01/23/2019 K56.2 [facility] Danika Joelle, PLANT FACILITIES TECHNICIAN 01/23/2019 K56.2 [facility] Veena Hamilton MD 01/23/2019 E03.9 Hypothyroidism, unspecified Danika [place], PLANT FACILITIES TECHNICIAN 01/23/2019 E87.6 Hypokalemia Danika [place], PLANT FACILITIES TECHNICIAN 01/23/2019 I10 Essential (primary) hypertension Danika [place], PLANT FACILITIES TECHNICIAN 01/22/2019 K56.2 [facility] Danika [place], PLANT FACILITIES TECHNICIAN 01/22/2019 K56.2 [facility] Veena Hamilton MD 01/22/2019 E03.9 Hypothyroidism, unspecified Danika Joelle, PLANT FACILITIES TECHNICIAN 01/22/2019 I10 Essential (primary) hypertension Danika [place], PLANT FACILITIES TECHNICIAN 01/22/2019 E87.6 Hypokalemia Danika Joelle, PLANT FACILITIES TECHNICIAN 01/21/2019 K56.2 [facility] JERRY MillsC 01/21/2019 K56.2 [facility] Gabino Abdi MD 01/21/2019 E03.9 Hypothyroidism, unspecified Irene Agarwal PA-C 01/21/2019 I10 Essential (primary) hypertension Irene Agarwal PA-C 01/20/2019 K56.2 [facility] Jodie Huddleston, DO 01/20/2019 K56.2 [facility] Raman Ballard MD, FACS 01/20/2019 E03.9 Hypothyroidism, unspecified Jodie Huddleston, DO 01/20/2019 I10 Essential (primary) hypertension Jodie Huddleston, DO Plan of Treatment Future Appointment(s):08/17/2019 1:45 pm - Nancy Cook MD at [facility] Lutkdekcrfk35/12/2019 1:00 pm - Maddi Crawford M.D. at [facility]07/20/2019 1:30 pm - Rani Pereyra DNP, RN, SALES PROMOTION DIRECTOR-BC at [facility]12/20/2019 1:30 pm - Nancy Cook MD at [facility] Zjwjnebpmny67/20/2019 - Denise Paz, MDM19.011 Primary osteoarthritis, right shoulderFollow up:Follow up: for h and p Functional Status Description No Information Available Mental Status Description No Information Available Referrals Refer to Dr Reason for Referral Status Appt Date Gabino Abdi MD FOR 01/24/19 ---[id number]--- INPATIENT Created [address] [facility] [place] [address] [place] [address] [phone]
--- OUTSIDE RECORDS SUMMARY | 2019-08-17 05:42 | XMS REPORT | Continuity of Care Document ---
:1935 External Reference #:[id number] Author Name Maddi Crawford M.D. (transmitted by agent of provider Nicole Low) Address [facility] [place] [address] Care Team Providers Name Role Phone Vanna Mello MD - Internal Medicine Care Team Information Nutrition Consultant [phone] Problems Active Problems Provider Date Localized, primary [...] Unknown Never Smoked Cigarettes Smoking Status Reviewed: 07/28/19 Never Smoked Cigarettes ETOH Use Occasionally consumes [...] Available Vital Signs Date Vital Result Comment 07/28/2019 12:47pm Height 63 inches 5'3" Weight [...] Index) 24.8 kg/m2 Ejection Fraction >65% echo.01/27/19 07/20/2019 1:24pm Height 63 inches 5'3" Weight 134.25 lb Heart Rate 70 /min BP Systolic Sitting 112 mmHg Lue reg cuff BP Diastolic Sitting 70 mmHg Lue reg cuff Respiratory Rate 20 /min O2 % BldC Oximetry 96 % On Ra BMI (Body Mass Index) 23.8 kg/m2 Results Description No Information Available Procedures Date Code Description Status 07/28/2019 56018 EKG Tracing & Interpretation Completed 03/17/2019 38522 EKG Tracing & Interpretation Completed 01/29/2019 69428 EKG, Interpretation Only Completed 01/27/2019 29757 ECHO Transthorasic Realtime 2D W Doppler & Color Flow Hosp Completed 01/26/2019 89095 EKG, Interpretation Only Completed Medical Devices Description No Information Available Encounters Type Date Location Provider Dx Diagnosis Office Visit 07/20/2019 Pulmonology And Rani Pereyra G47.33 Obstructive sleep 1:30p [facility]ST[facility], MARY ANN apnea (adult) [facility] (pediatric) Office Visit 07/05/2019 Orthopedic Denise Paz MD M19.011 Primary 1:00p Services Of [place] osteoarthritis, right shoulder Office Visit 04/19/2019 Pulmonology And Rani Pereyra G47.33 Obstructive sleep 2:15p [facility] CL[facility] CASTILLO FNP-BC apnea (adult) [facility] (pediatric) Office Visit 03/17/2019 [facility] Maddi Crawford, R00.0 Tachycardia, 2:10p Of Venkatesh Holley unspecified R00.2 Palpitations G47.33 Obstructive sleep apnea (adult) (pediatric) Z01.810 Encounter for preprocedural cardiovascular examination M19.011 Primary osteoarthritis, right shoulder Office Visit 02/17/2019 2:00p Pulmonology And Karen G47.33 Obstructive sleep Sleep Services Of MD Tyson apnea (adult) [facility] (pediatric) Office Visit 02/01/2019 8:28a [facility] Kati Noy, K56.2 [facility] [employer] Hospitalists K91.89 Oth postprocedural complications and disorders of dgstv sys K56.7 Ileus, unspecified I49.9 Cardiac arrhythmia, unspecified I10 Essential (primary) hypertension E03.9 Hypothyroidism, unspecified Office Visit 01/31/2019 8:27a [facility] Kati Noy, I49.9 Cardiac Assoc,[facility] [employer] arrhythmia, Hospitalists unspecified K56.2 [facility] I10 Essential (primary) hypertension K91.89 Oth postprocedural complications and disorders of dgstv sys K56.7 Ileus, unspecified E03.9 Hypothyroidism, unspecified Office Visit 01/30/2019 [facility] Lazara I47.1 Supraventricular 8:27a Assoc,pc DEYSI Patel tachycardia Hospitalists K56.2 [facility] K91.89 Oth postprocedural complications and disorders of dgstv sys K56.7 Ileus, unspecified Office Visit 01/29/2019 8:27a [facility] Lazara Patel, K56.2 [facility] Hospitalists [employer] K91.89 Oth postprocedural complications and disorders of dgstv sys K56.7 Ileus, unspecified I49.9 Cardiac arrhythmia, unspecified I10 Essential (primary) hypertension Office Visit 01/28/2019 8:26a [facility] Irene I49.9 Cardiac Assoc,pc Stefano, PA-C arrhythmia, Hospitalists unspecified K56.2 [facility] K91.89 Oth postprocedural complications and disorders of dgstv sys K56.7 Ileus, unspecified E03.9 Hypothyroidism, unspecified I10 Essential (primary) hypertension [facility]2019 [facility]a [facility] I49.9 Cardiac Assoc,jamari Agarwal, PA-C arrhythmia, Hospitalists unspecified K56.2 [facility] K91.89 Oth postprocedural complications and disorders of dgstv sys K56.7 Ileus, unspecified I10 Essential (primary) hypertension Office Visit 01/26/2019 8:25a [facility] Irene Stefano, K56.2 [facility], Hospitalists PA-C K91.89 Oth postprocedural complications and disorders of dgstv sys K56.7 Ileus, unspecified E83.42 Hypomagnesemia I10 Essential (primary) hypertension Assessments Date Code Description Provider 07/28/2019 Z01.810 Encounter for preprocedural Maddi Crawford M.D. cardiovascular examination 07/28/2019 I49.3 Ventricular premature depolarization Maddi Crawford M.D. 07/28/2019 I49.1 Atrial premature depolarization Maddi Crawford M.D. 07/28/2019 I10 Essential (primary) hypertension Maddi Crawford M.D. 07/28/2019 I47.1 Supraventricular tachycardia Maddi Crawford M.D. 07/28/2019 G47.33 Obstructive sleep apnea (adult) Maddi Crawford M.D. (pediatric) 07/20/2019 G47.33 Obstructive sleep apnea (adult) Rani Pereyra DNP, RN, (pediatric) [facility] 07/11/2019 M19.011 Primary osteoarthritis, right Denise Paz MD shoulder 07/05/2019 M19.011 Primary osteoarthritis, right Denise Paz MD shoulder 04/19/2019 G47.33 Obstructive sleep apnea (adult) Rani Pereyra DNP, RN, (pediatric) [facility] 03/17/2019 R00.0 Tachycardia, unspecified Maddi Crawford M.D. 03/17/2019 R00.2 Palpitations Maddi Crawford M.D. 03/17/2019 G47.33 Obstructive sleep apnea (adult) Maddi Crawford M.D. (pediatric) 03/17/2019 Z01.810 Encounter for preprocedural Maddi Crawford M.D. cardiovascular examination 03/17/2019 M19.011 Primary osteoarthritis, right Maddi Crawford M.D. shoulder 03/11/2019 K56.2 [facility] Gabino Abdi MD 02/17/2019 G47.33 Obstructive sleep apnea (adult) Karen Mehta MD (pediatric) 02/04/2019 K56.2 [facility] Gabino Abdi MD 02/01/2019 K56.2 [facility] Gabino Abdi MD 02/01/2019 K56.2 [facility] Kati Noy, [employer] 02/01/2019 K91.89 Oth postprocedural complications and Kati Noy, [employer] disorders of dgstv sys 02/01/2019 K56.7 Ileus, unspecified Kati Noy, [employer] 02/01/2019 I49.9 Cardiac arrhythmia, unspecified Kati Noy, [employer] 02/01/2019 I10 Essential (primary) hypertension Kati Noy, [employer] 02/01/2019 E03.9 Hypothyroidism, unspecified Kati Noy, [employer] 01/31/2019 I49.9 Cardiac arrhythmia, unspecified Kati Noy, [employer] 01/31/2019 K56.2 [facility] Loretta Barboza, [employer] 01/31/2019 K56.2 [facility] Kati Noy, [employer] 01/31/2019 I10 Essential (primary) hypertension Kati Noy, [employer]ENT 01/31/2019 K91.89 Oth postprocedural complications and Kati Noy, [employer] disorders of dgstv sys 01/31/2019 K56.7 Ileus, unspecified Kati Noy, [employer] 01/31/2019 E03.9 Hypothyroidism, unspecified Kati Noy, [employer] 01/30/2019 I47.1 Supraventricular tachycardia Lazaraarnie Patel, [employer] 01/30/2019 K56.2 [facility] Jt Bray M.D. 01/30/2019 K56.2 [facility] Lazara Jorge, [employer] 01/30/2019 K91.89 Oth postprocedural complications and Lazara Burch, [employer] disorders of dgstv sys 01/30/2019 K56.7 Ileus, unspecified Lazara Paetl, [employer] 01/29/2019 R00.0 Tachycardia, unspecified Stas Babcock M.D. 01/29/2019 K56.2 [facility] Lazara oJrge, [employer] 01/29/2019 K56.2 [facility] Jt Bray M.D. 01/29/2019 K91.89 Oth postprocedural complications and Lazara Patel, [employer] disorders of dgstv sys 01/29/2019 K91.89 Oth postprocedural complications and Jt Bray M.D. disorders of dgstv sys 01/29/2019 K56.7 Ileus, unspecified Lazara Patel, [employer]ENT 01/29/2019 I49.9 Cardiac arrhythmia, unspecified Lazara Patel, [employer] 01/29/2019 I10 Essential (primary) hypertension Lazara Burch, [employer] 01/28/2019 I49.9 Cardiac arrhythmia, unspecified Irene Agarwal PA-C 01/28/2019 K56.2 [facility] Gabino Abdi MD 01/28/2019 K56.2 [facility] Irene Agarwal PA-C 01/28/2019 K91.89 Oth postprocedural complications and Irene Harshil'sergio, PA-C disorders of dgstv sys 01/28/2019 K56.7 Ileus, unspecified Irene Harshil'sergio, PA-C 01/28/2019 E03.9 Hypothyroidism, unspecified Irene O'sergio, PA-C 01/28/2019 I10 Essential (primary) hypertension JENNA Mills-C 01/27/2019 R94.31 Abnormal electrocardiogram [ECG] Fantasma Preciado M.D. [EKG] 01/27/2019 I49.9 Cardiac arrhythmia, unspecified Irene Harshil'JENNA hill-C 01/27/2019 K56.2 [facility] JENNA Mills-C 01/27/2019 K56.2 [facility] Gabino Abdi MD 01/27/2019 K91.89 Oth postprocedural complications and Irene Stefano, PA-C disorders of dgstv sys 01/27/2019 K56.7 Ileus, unspecified Irene Harshil'sergio, PA-C 01/27/2019 I10 Essential (primary) hypertension JERRY MillsC 01/26/2019 I49.9 Cardiac arrhythmia, unspecified Fantasma Preciado M.D. 01/26/2019 K56.2 [facility] JERRY MillsC 01/26/2019 K56.2 [facility] Gabino Abdi MD 01/26/2019 K91.89 Oth postprocedural complications and Irenekunal Agarwal PA-C disorders of dgstv sys 01/26/2019 K55.8 Other vascular disorders of intestine Gabino Abdi MD 01/26/2019 K56.7 Ileus, unspecified Irene Harshil'sergio, PA-C 01/26/2019 E83.42 Hypomagnesemia Irene Agarwal PA-C 01/26/2019 I10 Essential (primary) hypertension Irene O'sergio, PA-C Plan of Treatment Future Appointment(s):08/10/2019 11:15 am - Nancy Cook MD at [facility] Nbytzdusbso27/04/2020 1:45 pm - Rani Pereyra DNP, RN, PIPE SUPERVISOR- at [facility]08/09/2019 1:15 pm - Denise Paz MD at [facility]08/17/2019 11:00 am - Denise Paz MD at [facility]12/20/2019 1:30 pm - Nancy Cook MD at [facility] Pcihuvhpvdc52/12/2019 - Maddi Crawford M.D.Z01.810 Encounter for preprocedural cardiovascular examinationComments:You are in good shape for your surgery, no additional cardiac testing is needed.I49.3 Ventricular premature depolarizationComments:Rare on khapwqeR37.1 Atrial premature depolarizationComments:Rare on monitor.I10 Essential (primary) hypertensionComments:Well controlled on Lisinopril-HCTZ.I47.1 Supraventricular tachycardiaComments:None seen on EM.Follow up:PRNG47.33 Obstructive sleep apnea (adult) (pediatric) Functional Status Description No Information Available Mental Status Description No Information Available Referrals Description No Information Available
--- OUTSIDE RECORDS SUMMARY | 2019-08-17 05:42 | XMS REPORT | Continuity of Care Document ---
:1935 External Reference #:[id number] Author Name Jose Francisco Robledo, OD Address [address] [place] [address] Care Team Providers Name Role Phone Vanna Mello MD Care Team Information Dry Cleaning Machine Operator Helper [phone] [facility] Care Team Information Dry Cleaning Machine Operator Helper Maddi Crawford MD Care Team Information Dry Cleaning Machine Operator Helper [phone] Problems Active Problems Provider Date Essential hypertension Aaron Hernandez M.D. Onset: 04/07/2019 Social History Type Date Description Comments Sex Unknown ETOH Use Consumes 1 glass of wine per week Tobacco Use Start: Unknown Patient has never smoked Smoking Status Reviewed: 07/07/19 Patient has never smoked Allergies, Adverse Reactions, Alerts Description No Known Drug Allergies Medications Active Medications SIG Qnty Indications Ordering Provider Date Fluticasone Propionate Vanna Mello MD 50mcg/Act Suspension Levothyroxine Sodium Take 1 Tablet By Unknown 88mcg Mouth Every Day Tablets Lisinopril-Hydrochlorot Take 1 Tablet By Unknown hiazide Mouth Every 20-25mg Tablets Morning Aspirin 81 twice a week Unknown 81mg Tablets DR History Medications Ketorolac Tromethamine 1 drop twice per 10ml Jose Francisco Robledo, OD 2018 - 0.5% day both eyes 07/08/2019 Solution Vigamox 1 drop left eye 6ml Aaron Hernandez, 05/11/2019 - 0.5% Solution four times a day, M.D. 06/08/2019 start drops morning of surgery Ketorolac Tromethamine 1 drops left eye 10ml Aaron Hernandez, 05/11/2019 - 0.5% twice a day M.D. 06/14/2019 Solution Pred Forte one drop four 20ml Aaron Hernandez, 05/11/2019 - 1% Suspension times a day left M.D. 07/08/2019 eye x 1 week, then taper as directed Immunizations Description No Information Available Vital Signs Date Vital Result Comment 06/08/2019 10:01am Intraocular Pressure Right Eye 15 mmHg Intraocular Pressure Left Eye 15 mmHg 06/01/2019 10:13am Intraocular Pressure Right Eye 15 mmHg Intraocular Pressure Left Eye 14 mmHg Results Description No Information Available Procedures Date Code Description Status 05/31/2019 26810 Extracapsular Cataract Extraction W/Intraocular Lens Completed 05/24/2019 93387 Extracapsular Cataract Extraction W/Intraocular Lens Completed 05/04/2019 31464 Ophthalmic Biometry By Partial Coherence Interferometry Completed W/Intra 05/04/2019 31058 Eye Exam Est Intermediate Completed 05/04/2019 72720 Corneal Pachymetry, Unilateral/Bilateral Completed 04/07/2019 34908 Fundus Photography W/Interpretation & Report Completed 04/07/2019 47380 Eye Exam New Comprehensive Completed Medical Devices Description No Information Available Encounters Description No Information Available Assessments Date Code Description Provider 07/08/2019 Z96.1 Presence of intraocular lens Jose Francisco Robledo, OD 07/08/2019 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 aftercare 05/31/2019 H25.11 Age-related nuclear cataract, right eye Aaron Hernandez M.D. 05/25/2019 Z48.89 Encounter for other specified surgical Aaron Hernandez M.D. aftercare 05/24/2019 H25.12 Age-related nuclear cataract, left eye Aaron Hernandez M.D. 05/04/2019 H25.13 Age-related nuclear cataract, bilateral Aaron Hernandez M.D. 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 04/07/2019 H25.13 Age-related nuclear cataract, bilateral Aaron Hernandez M.D. 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 Plan of Treatment 07/08/2019 - Jose Francisco Robledo, ODZ96.1 Presence of intraocular lensFollow up:2-[address] hernandezH40.1411 Capsular glaucoma with pseudoexfoliation of lens , right eye, Functional Status Description No Information Available Mental Status Description No Information Available Referrals Description No Information Available
[2019-08-17] MEDS ORDERED: Naloxone* 0.4 MG/ML 1 ML VIAL IV PRN (05:53)
[2019-08-17] MEDS ORDERED: HYDROmorphone INJ1* 1 MG/ML SYRINGE IV PRN (05:53)
[2019-08-17] MEDS ORDERED: oxyCODONE TAB* 5 MG TAB PO PRN ×2 (05:53→09:47)
[2019-08-17] MEDS ORDERED: DiMENhydriNATE IV* 50 MG/ML VIAL IV PUSH PRN (05:53)
[2019-08-17] MEDS ORDERED: PROCHLORPERAZINE INJ 5 MG/ML 2 ML VIAL IV PRN (05:53)
[2019-08-17] MEDS ORDERED: fentaNYL* 50 MCG/ML 2 ML VIAL (100 MCG VIAL) IV PRN (05:53)
[2019-08-17] MEDS ORDERED: Dexamethasone TAB* 4 MG PO ONE (06:00)
[2019-08-17] MEDS ORDERED: Famotidine IV* 10 MG/ML 2 ML (20 mg) IV ONE (06:00)
[2019-08-17] MEDS ORDERED: Lactated Ringers 1000 ML Bag* 1,000 ML IV SCH (06:00)
[2019-08-17] MEDS ORDERED: Ondansetron ODT TAB* 4 MG PO ONE (06:00)
[2019-08-17] MEDS ORDERED: Dexamethasone TAB* 4 MG ONE ×2 (06:07→06:08)
[2019-08-17] MEDS ORDERED: ceFAZolin 2 GM in NS PREMIX(*) 2 GM/100 ML BAG IVPB ONE (06:08)
[2019-08-17] MEDS ORDERED: Ondansetron ODT TAB* 4 MG ONE (06:08)
[2019-08-17] MEDS ORDERED: Famotidine IV* 10 MG/ML 2 ML (20 mg) ONE (06:08)
[2019-08-17] MEDS ORDERED: KETAMINE HCL* 50 MG/ML 10 ML VIAL ONE (07:13)
[2019-08-17] MEDS ORDERED: Midazolam* 1 MG/ML 5 ML VIAL (5 MG) ONE (07:13)
[2019-08-17] MEDS ORDERED: fentaNYL* 50 MCG/ML 2 ML VIAL (100 MCG VIAL) ONE (07:13)
[2019-08-17] MEDS ORDERED: Rocuronium* 10 MG/ML VIAL ONE (07:16)
[2019-08-17] MEDS ORDERED: Tranexamic Acid 1,000 MG in NS 0.9% 50 ML IV ONE (07:30)
[2019-08-17] MEDS ORDERED: Bupivacaine 0.5% SDV PF* 30ML VIAL ONE (08:29)
[2019-08-17] MEDS ORDERED: Norepinephrine VIAL* 1 MG/ML 4 ML VIAL ONE (08:29)
[2019-08-17] MEDS ORDERED: Bupivacaine 0.25% SDV PF* 10 ML VIAL INJ ONE (08:29)
[2019-08-17] MEDS ORDERED: Propofol* 10 MG/ML 20 ML BTL ONE (08:30)
[2019-08-17] MEDS ORDERED: Acetaminophen IV 1GM/100ML * 100 ML ONE (08:30)
[2019-08-17] MEDS ORDERED: Ketorolac INJ* 30 MG/ML 1 ML VIAL ONE (08:30)
[2019-08-17] MEDS ORDERED: Lidocaine 2% PF * 5 ML VIAL ONE (08:30)
[2019-08-17] MEDS ORDERED: Sugammadex * 200 MG/2 ML VIAL IV PUSH ONE (08:57)
[2019-08-17] MEDS ORDERED: hydrALAZINE IV* 20 MG/ML VIAL ONE (09:26)
[2019-08-17] MEDS ORDERED: Metoprolol Tartrate IV* 1 MG/ML 5 ML VIAL ONE (09:30)
[2019-08-17] MEDS ORDERED: Cyclobenzaprine TAB* 10 MG PO PRN (09:47)
[2019-08-17] MEDS ORDERED: Ondansetron ODT TAB* 4 MG PO PRN (09:47)
[2019-08-17] MEDS ORDERED: diPHENhydraMINE PO* 25 MG PO PRN (09:47)
[2019-08-17] MEDS ORDERED: Temazepam CAP* 15 MG PO PRN (09:47)
[2019-08-17] MEDS ORDERED: oxyCODONE/Acetamin 5/325 MG* TAB PO PRN ×2 (09:47)
[2019-08-17] MEDS ORDERED: Morphine INJ* 2 MG/ML 1 ML SYRINGE (TWO MG - NEW SYRINGE VERSION) IV PRN (09:47)
[2019-08-17] MEDS ORDERED: Magnesium Hydroxide LIQ* 30 ML UDC PO PRN (09:47)
[2019-08-17] MEDS ORDERED: Polyethylene Glycol 3350* 17 GM PACKET PO PRN (09:47)
[2019-08-17] MEDS ORDERED: traMADol TAB* 50 MG PO PRN (09:47)
[2019-08-17] MEDS ORDERED: diPHENhydraMINE IV* 50 MG/ML 1 ml VIAL (BENADRYL) IV PRN (09:47)
[2019-08-17] MEDS ORDERED: Ondansetron INJ* 2 MG/ML VIAL IV PRN (09:47)
[2019-08-17] MEDS: Lactated Ringers 1000 ML Bag* 1,000 ML IV SCH ×2 (11:49→22:09)
[2019-08-17] MEDS: Cholecalciferol TAB* 1000 UNITS PO SCH (12:26)
[2019-08-17] MEDS: Cyanocobalamin TAB* 500 MCG PO SCH (12:27)
[2019-08-17] MEDS ORDERED: Carboxymethylcellulose/Glyceri 10 ML OPHTH.GEL lubricant eye gel BOTH EYES SCH (14:00)
--- NOTE | 2019-08-17 14:45 | OP ---
CC: PCP OPERATIVE REPORT: DATE OF OPERATION: 08/17/19 DATE OF : 39 SURGEON: Denise Paz MD ASSISTANTS: JENNA Bennett and Shirin Sunshine. ANESTHESIOLOGIST: Dr. Olivas. ANESTHESIA: General with interscalene block. PRE-OP DIAGNOSIS: Right shoulder rotator cuff arthropathy. POST-OP DIAGNOSIS: Rotator cuff arthropathy. OPERATIVE PROCEDURE: Right shoulder reverse arthroplasty and open biceps tenodesis. COMPLICATION: None. ESTIMATED BLOOD LOSS: 150 cc. IMPLANTS USED: Tornier Aequalis Reversed II centered glenosphere 36 x 25 and a 25 x 40 threaded post baseplate, Flex shoulder system reverse tray centered and the size 4B stem, Ascend Flex stem and +6 reverse insert. OUTPUT: Drains x1. 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 She has failed conservative management, elected to proceed with surgical treatment. She was optimized by her medical team. Risks and benefits of surgery were discussed at length including but not limited to bleeding, infection, damage to nerves, vessels, surrounding structures, wound nonhealing, persistent pain, need for further surgery, scarring, stiffness, incomplete relief of symptoms, risk of anesthesia, fracture , dislocation, need for further surgery. DESCRIPTION OF PROCEDURE: The patient was greeted in the preoperative area by the attending surgeon. Correct extremity was marked and consent was confirmed. The patient underwent interscalene nerve block with anesthesiologist. The patient was brought back to the operating suite. She was placed in supine position on the operating table, underwent general anesthesia with endotracheal intubation after which she was appropriately positioned in the lazy beach chair position. The right shoulder was then prepped and draped in the usual sterile fashion, beginning with chlorhexidine soap scrub and alcohol wipe and final prep with ChloraPrep. After appropriate surgical pause indicating side, site, and procedure, administration of antibiotics, the deltopectoral incision was made using #15 blade. The soft tissues were carefully eased to expose the deltopectoral interval. The cephalic vein and deltoid were taken laterally. The CA ligament was released. The proximal 1 to 2 cm of the pec was released. The biceps was then tenodesed to the pec using heavy nonabsorbable sutures, tenotomized proximally and then traced into the joint. The vessels were suture ligated. The subscap was identified and tagged with #5 Ethibond suture and released unless there is large abnormal osteophytes that were present. The osteophytes were removed using rongeurs and osteotome to expose the penobscot neck, then a provisional neck cut was then made using a sagittal saw. There was evidence of a full tear of the supraspinatus. The head was exposed. There were grade 4 changes. The canal finder was then used to find the canal and broaching began and size 4B was found to be the appropriate stem. The calcar reamer was then used and a protection plate was placed. The attention was directed to the glenoid. The posterior retractor was placed and the labrum was removed, the biceps superior, anterior, posterior labrum was released. The superior middle and inferior glenohumeral ligaments were also released, subscap was mobilized. The inferior labrum was also released with care to prevent any damages to the neurovascular structures and once the whole glenoid was exposed, the guidewire was then placed inferiorly in the glenoid. The reaming then began with a 25 mm baseplate reamer, the hand reaming was done, the bone quality was okay. The centered 8 mm cannulated drill bit was used to drill and 6.5 was drilled and measured to about just under 40 mm, so a size 40 mm base plate was chosen. The screw hole was tapped into the glenoid, was secured with excellent purchase, 3 interlocking screws were then placed for backup fixation and then a 36 mm glenosphere was then placed and impacted into position, set screw was secured. After this was completed, attention was directed to the humerus. The stem was checked again and a size 4 was found to be appropriate. Trialing began with a + 6 poly and it was found to have a good amount of shuck, appropriate range of motion with forward flexion to about 170, abduction to about 90, external rotation to about 60 and good shuck. The final implants were then chosen, prepared at the back table by the attending surgeon and 2 transosseous tunnels were then made, #5 Ethibond sutures were then placed for subscap closure. The final implants were then impacted into good position and shoulder was reduced with symmetric range of motion. The wounds were then copiously irrigated with sterile saline. The subscap was closed with a previously passed sutures in horizontal mattress configuration. The wounds were then irrigated again. The intra-articular drain was then placed and then the wound was irrigated again and the deltopectoral interval was closed with #2 Ethibond. The wounds were irrigated and the skin was closed with 3-0 Monocryl subcutaneous, then in a running fashion. Sterile dressings were applied. Cryo/Cuff and UltraSling were placed. She was awoken from anesthesia and transferred to PACU in stable condition. POSTOPERATIVE PLAN: She will be on 24 hours postoperative antibiotics. She will be admitted overnight. Drain will be discontinued on postop day #1, heparin for DVT prophylaxis beginning tomorrow and home on nothing. I will see the patient back in 10 to 14 days. [id number]/[facility] #: [id number] NOHELIA
[2019-08-17] MEDS: Acetaminophen TAB* 325 MG PO SCH ×2 (15:24→22:10)
[2019-08-17] MEDS: Calcium/Vitamin D TAB 250/125* TAB PO SCH ×2 (15:25→22:11)
[2019-08-17] MEDS: ceFAZolin 1 GM ADVAN(*) 1 GM in NS 0.9% 50 ML* 50 ML IVPB SCH ×2 (15:30→23:32)
[2019-08-17] MEDS ORDERED: Polyethylene Glycol 3350* 17 GM PACKET PO SCH (18:30)
[2019-08-17] MEDS ORDERED: CARBOXYMETHYLCELLULOSE BOTH EYES PRN (21:00)
[2019-08-17] MEDS ORDERED: Carboxymethylcellulos 1% OPTH* 1 DROP AMP BOTH EYES SCH (21:00)
[2019-08-17] MEDS ORDERED: Fluticasone NASAL SPRAY 50MCG* 16 gm SPRAY BTL BOTH NARES SCH (21:00)
--- NOTE | 2019-08-17 21:31 | PN ---
Progress Note - Progress Note Date of Service: 08/17/19 Note: Pt seen and examined. Jose M ok. Pain is well controlled. Temp Pulse Resp BP Pulse Ox 97.8 F 72 18 109/64 96 08/17/19 19:42 08/17/19 19:42 08/17/19 19:42 08/17/19 19:42 08/17/19 19:42 NAD. AAOx3. sitting in chair, comfortable. RUE: sling in place, drain in place. able to flex/ext digits, block still in effect. brisk cap refill. A/P POD#0 from R shoulder reverse arthroplasty [facility] PT/OT tomorrow post op abx dvt ppx while in house dispo home tomorrow when stable
[2019-08-17] MEDS: Docusate CAP* 100 MG PO SCH (22:11)
[2019-08-17] MEDS: Magnesium Hydroxide LIQ* 30 ML UDC PO SCH (22:11)
[2019-08-17] MEDS: Multivitamins/Mins (NF) AREDS2 1 CAP CAP PO SCH (22:14)
[2019-08-17] MEDS: [UNRECOGNIZED DRUG - REMARK] PO SCH (22:14)
[2019-08-18] MEDS: Acetaminophen TAB* 325 MG PO SCH ×2 (05:06→12:20)
[2019-08-18 05:38] LABS: Hematocrit 35 % (35-47); Hemoglobin 11.9 g/dL (12.0-16.0); Mean Platelet Volume 8.3 fL (7.4-10.4); Platelet Count 245 10^3/uL (150-450)
[2019-08-18 05:53] LABS: BUN/Creatinine Ratio 14.9 (8-20); Calcium 8.9 mg/dL (8.6-10.3); EGFR African American 75.6 (>60); EGFR Non-African American 62.5 (>60)
[2019-08-18] MEDS ORDERED: Levothyroxine TAB* 88 MCG TAB PO SCH (06:00)
[2019-08-18 06:06] LABS: Potassium 4.2 mmol/L (3.5-5.0)
[2019-08-18] MEDS: Calcium/Vitamin D TAB 250/125* TAB PO SCH ×2 (08:25→12:13)
[2019-08-18] MEDS: ceFAZolin 1 GM ADVAN(*) 1 GM in NS 0.9% 50 ML* 50 ML IVPB SCH (08:25)
[2019-08-18] MEDS: Docusate CAP* 100 MG PO SCH (08:26)
[2019-08-18] MEDS: [UNRECOGNIZED DRUG - REMARK] PO SCH (08:27)
[2019-08-18] MEDS: Multivitamins/Mins (NF) AREDS2 1 CAP CAP PO SCH (08:27)
[2019-08-18] MEDS ORDERED: Lisinopril TAB* 10 MG PO SCH (09:00)
[2019-08-18] MEDS ORDERED: Vitamin THERAPEUTIC TAB PO SCH (09:00)
[2019-08-18] MEDS ORDERED: Hydrochlorothiazide TAB* 25 MG PO SCH (09:00)
[2019-08-18] MEDS: Magnesium Hydroxide LIQ* 30 ML UDC PO SCH (09:22)
--- NOTE | 2019-08-18 09:33 | PN ---
Progress Note - Progress Note Date of Service: 08/18/19 SOAP: Subjective: []Pt seen at bedside. She feels well with no shoulder pain. Her concerns about going home are related to completing ADLs, she has not yet worked with OT today..Denies CP, SOB, dizziness or nausea. Objective: []Gen: Appears well, NAD RLE: Sling in place, dressing CDI, drain with minimal output in cannister, drain removed with tip intact. Sensation intact to light touch distally, able to flex and extend at wrist and all digits. Okay, thumbs up intact. Radial pulse 2+, capillary refill less than two seconds distally. Assessment: []POD#1 from R shoulder reverse arthroplasty Plan: [facility] PT/OT post op abx x 3 doses Lovenox in house Work with OT, home if comfortable with ADLs. Otherwise discussed rehab placement to which patient is resistant but understands the recommendation Vital Signs Temp 98.2 F 08/18/19 08:00 Pulse 67 08/18/19 08:00 Resp 18 08/18/19 08:00 BP 123/59 08/18/19 08:00 Pulse Ox 98 08/18/19 08:00 Intake & Output 08/17/19 08/18/19 08/18/19 18:59 06:59 18:59 Intake Total 1900 1545 1090 Output Total 675 300 250 Balance 1225 1245 840 Intake: IV Fluids 3197 089 9614 ABX - CEFAZOLIN 110 LR 1000 990 980 NS 100ML, Cefazolin 2G 100 IVPB 55 ABX - CEFAZOLIN 55 Oral 800 500 Output: Hemovac Amount #1 25 Urine 650 300 250 Other: # Bowel Movements 1 Estimated Stool Amount Small Laboratory Last Values Hgb 11.9 g/dL (12.0-16.0) L 08/18/19 04:58 Hct 35 % (35-47) 08/18/19 04:58 Plt Count 245 10^3/uL (150-450) 08/18/19 04:58 MPV 8.3 fL (7.4-10.4) 08/18/19 04:58 Sodium 134 mmol/L (135-145) L 08/18/19 04:58 Potassium 4.2 mmol/L (3.5-5.0) 08/18/19 04:58 Chloride 104 mmol/L (101-111) 08/18/19 04:58 Carbon Dioxide 26 mmol/L (22-32) 08/18/19 04:58 Anion Gap 4 mmol/L (2-11) 08/18/19 04:58 BUN 13 mg/dL (6-24) 08/18/19 04:58 Creatinine 0.87 mg/dL (0.51-0.95) 08/18/19 04:58 Est GFR ( Amer) 75.6 (>60) 08/18/19 04:58 Est GFR (Non-Af Amer) 62.5 (>60) 08/18/19 04:58 BUN/Creatinine Ratio 14.9 (8-20) 08/18/19 04:58 Glucose 102 mg/dL (70-100) H 08/18/19 04:58 Calcium 8.9 mg/dL (8.6-10.3) 08/18/19 04:58
[2019-08-18] MEDS: CARBOXYMETHYLCELLULOSE BOTH EYES PRN ×2 (09:35→09:40)
--- NOTE | 2019-08-18 09:41 | DS ---
Orthopedic Discharge Summary - Discharge Summary Date of Admission:08/17/19 Date of Discharge: 08/18/19 Date of Surgery: 08/17/19 Attending Orthopedic Provider: Dr Paz Pre-operative Diagnosis: right shoulder osteoarthritis Operative Procedure: right reverse shoulder arthroplasty Disposition of Patient: home Condition of Patient: stable History: FAVIO CARRERA is a 83 year old F with years of increasingly severe right shoulder pain. Patient has failed conservative management and has elected to undergo a right reverse total shoulder replacement Hospital Course: FAVIO was admitted to [facility] on 08/17/19. Patient underwent a right reverse total shoulder replacement without complication followed by a brief recovery in PACU and transfer to the Short Stay Surgical Unit in stable condition. physical therapy and occupational therapy also participated in this patients care. Post-op day 1: patient was alert and in no acute distress. Dressing was clean, dry and intact. Operative extremity flexion and extension of wrist and digits intact, sensation intact to light touch distally, radial pulse+. Drain was removed. Patient was deemed to be medically and orthopedically stable for discharge. Physical therapy and occupational therapy goals were met. Home Medications Medication Instructions Recorded Confirmed Type Fluticasone NASAL SPRAY 50MCG* 1 spray BOTH NARES BEDTIME 01/19/19 08/17/19 History Ibandronate Sodium 150 mg PO MONTHLY 01/19/19 08/17/19 History Levothyroxine TAB* [Synthroid 88 88 mcg PO QAM 01/19/19 08/17/19 History MCG TAB*] Lisinopril/HCTZ 20/25(NF) 1 tab PO QAM 01/19/19 08/17/19 History [Zestoretic 20/25(NF)] Refresh Liquigel 1 drop BOTH EYES TID 01/21/19 08/17/19 History Refresh OPTIVE GEL EYE gel 1 drop BOTH EYES BEDTIME 01/22/19 08/17/19 History Aspirin EC TAB* [Ecotrin EC Low 1 tab PO 1200 05/20/19 08/17/19 History Dose 81 MG*] Calcium Carbonate/Vitamin D3 1 each PO TID 05/20/19 08/17/19 History [Calcium 500 mg Chewable Tablet] Cholecalciferol (Vitamin D3) 2,000 unit PO 1200 05/20/19 08/17/19 History [Vitamin D3] Cranberry Conc/Ascorbic Acid 2 cap PO TID 05/20/19 08/17/19 History [Cranberry Super Strength] Cyanocobalamin TAB* [Vitamin B12 1,000 mcg PO 1200 05/20/19 08/17/19 History TAB*] Glucosam/Chondr/Collagn/Hyalur [Th 1 cap PO 1830 05/20/19 08/17/19 History Glucosamine/Chondroiti] Multivit-Min/Iron/Folic/Lutein 1 each PO 1200 05/20/19 08/17/19 History [Centrum Silver Women Tablet] Niacin (Inositol Niacinate) 1 cap PO BID 05/20/19 08/17/19 History [Niacin Flush Free 500 mg Cap] Vit C/E/Zn/Coppr/Lutein/Zeaxan 1 each PO BID 05/20/19 08/17/19 History [Preservision Areds 2 Softgel] Carboxymethylcellulose Sodium 1 % BOTH EYES TID 08/09/19 08/17/19 History [Refresh] Polyethylene Glycol 3350* 17 gm PO 1830 08/09/19 08/17/19 History [Miralax*] Refresh Celluvisc 1% 1 applic BOTH EYES BEDTIME 08/09/19 08/17/19 History Discharge Instructions following Orthopedic Surgery: Orthopedic Total Shoulder Instruction Non-weight bearing for operative upper extremity. No active range of motion at the shoulder. Continue elbow, wrist, and hand pendulums shown by PT. Wound Care: OK to shower after third post- operative day, no bathing/ swimming / submerging wound. Use gentle soap, pat dry. Cover with gauze, BAUTISTA wrap or tape. Pain control with: oxycodone 5 mg 1 tab for moderate pain and 2 tabs for severe pain every 4 hours as needed, max 8 tabs in one day. Hold for sedation and wean off as soon as pain allows. Use tylenol for mild pain. Maximum daily dose of tylenol is 4000 mg from all sources. Diet: Regular diet, increase fluids and fiber to prevent constipation. Continue to use stool softeners, call office if no bowel motion within 48 hours. Call Orthopedic office for increased drainage, redness, increased pain, or fever. Go to ER with shortness of breath or chest pain. - Antibiotics required prior to any dental work Please call our office with any questions or concerns ([phone]) as well as to make an appt within 2 weeks have your sodium rechecked within 3 days, mildly low in the hospital
[2019-08-18] MEDS ORDERED: Acetaminophen TAB* 325 MG PO ONE (11:11)
[2019-08-18] MEDS ORDERED: Enoxaparin(*) 40 MG/0.4 ML SYR SUBCUT SCH (12:00)
[2019-08-18 12:12] VITALS: BP 124/65
[2019-08-18] MEDS: Cholecalciferol TAB* 1000 UNITS PO SCH (12:12)
[2019-08-18] MEDS: Cyanocobalamin TAB* 500 MCG PO SCH (12:13)
[2019-08-19] MEDS ORDERED: Bisacodyl SUPP* 10 MG SUPP PR PRN (09:47)
[2019-09-08] MEDS ORDERED: IBANDRONATE 150 MG PO SCH (10:00)
== END 2019-08-18 16:15 | disposition home or self-care (01) | DRG 483 ==
LOC: AA 08-17 05:39 → SSU 08-17 09:47
PROVIDERS: ADMIT Orthopaedic Surgery; ATTEND Orthopaedic Surgery
PROC: 0RRJ00Z Replacement of Right Shoulder Joint with Reverse Ball and Socket Synthetic Substitute, Open Approach (ICD-10-PCS; principal; 2019-08-17 07:30)
DX: M19.011 Primary osteoarthritis, right shoulder (principal); I10 Essential (primary) hypertension; E03.9 Hypothyroidism, unspecified; G47.33 Obstructive sleep apnea (adult) (pediatric); M81.0 Age-related osteoporosis without current pathological fracture; Z96.641 Presence of right artificial hip joint; Z96.612 Presence of left artificial shoulder joint; M85.80 Other specified disorders of bone density and structure, unspecified site; K59.01 Slow transit constipation; M25.711 Osteophyte, right shoulder; Z79.899 Other long term (current) drug therapy; Z79.82 Long term (current) use of aspirin; Z90.49 Acquired absence of other specified parts of digestive tract; Z85.42 Personal history of malignant neoplasm of other parts of uterus; Z90.710 Acquired absence of both cervix and uterus; Z83.3 Family history of diabetes mellitus; Z82.3 Family history of stroke; Z72.89 Other problems related to lifestyle; Z98.41 Cataract extraction status, right eye; Z98.42 Cataract extraction status, left eye; Z80.1 Family history of malignant neoplasm of trachea, bronchus and lung
CPT/HCPCS: 36415; 80048; 85014; 85018; 85049; 88304; 88311; A9270-GY; C1713; C1776; G8978-GP-CI; G8979-GP-CI; G8980-GP-CI; G8987-GO-CK; G8988-GO-CK; G8989-GO-CK; J0360; J0690; J1650; J1885; J2250; J2405; J2704; J3010; J3490; J8540

== ENCOUNTER 2019-04-15 03:35 | Emergency (ER) | payer MEDICARE ==
--- NOTE | 2019-04-15 03:55 | ED ---
Abdominal Pain/Female - HPI Summary HPI Summary: The patient is an 83 y/o F presenting to [facility] with a chief complaint of sudden onset left-sided flank pain tonight. The sharp pain is currently rated 5/10 in severity. She additionally c/o possible tick bite on the left buttock; she reports that she saw the tick on her toilet seat today, and she didn't remove the tick herself, but the site was pruritic. There is no bullseye rash. Recent surgery of resection of sigmoid colon in 01/2019 at [facility]. Nonsmoker, weekly EtOH , no substance use. - History of Current Complaint Chief Complaint: EDFlankPain Stated Complaint: FLANK PAIN PER PT Time Seen by Provider: 04/15/19 03:47 Hx Obtained From: Patient Onset/Duration: Sudden Onset, Lasting Hours, Still Present Timing: Hours Severity Initially: Moderate Severity Currently: Moderate Pain Intensity: 5 Pain Scale Used: 0-10 Numeric Location: Flank - left Radiates: No Character: Sharp Aggravating Factor(s): Nothing Alleviating Factor(s): Nothing Associated Signs and Symptoms: Positive: Other: - POSITIVE: tick bite on left buttock that was pruritic; NEGATIVE: bullseye rash Allergies/Adverse Reactions: Allergies Allergy/AdvReac Type Severity Reaction Status Date / Time No Known Allergies Allergy Verified 04/15/19 03:42 PMH/Surg Hx/FS Hx/Imm Hx Endocrine/Hematology History: Reports: Hx Thyroid Disease - HYPO Denies: Hx Diabetes Cardiovascular History: Reports: Hx Hypertension Musculoskeletal History: Reports: Other Musculoskeletal History - Left shoulder surgery Sensory History: Reports: Hx Contacts or Glasses - Glasses Denies: Hx Hearing Aid Opthamlomology History: Reports: Hx Contacts or Glasses - Glasses - Surgical History Surgery Procedure, Year, and Place: left shoulder replacement-[place] 10/2017; sigmoid colon resection in 01/2019 at [facility] Hx Anesthesia Reactions: No Infectious Disease History: No Infectious Disease History: Denies: Traveled Outside the [place] in Last 30 Days - Family History Known Family History: Negative: Renal Disease - Social History Alcohol Use: Weekly Alcohol Amount: wine Hx Substance Use: No Substance Use Type: Reports: None Hx Tobacco Use: No Smoking Status (MU): Never Smoked Tobacco Do You Chew or Dip Tobacco: No Have You Chewed or Dipped Tobacco in the LAST YEAR: No Have You Smoked in the Last Year: No Review of Systems Positive: Abdominal Pain - left flank pain Positive: Other - POSITIVE: tick bite on left buttock that was pruritic; NEGATIVE: bullseye rash All Other Systems Reviewed And Are Negative: Yes Physical Exam - Summary Physical Exam Summary: Appearance: Well appearing, no pain distress Skin: warm, dry, reflects adequate perfusion, tick puncture wound on the left buttock area Head/face: normal Eyes: EOMI, VANDANA ENT: normal Neck: supple, non-tender Respiratory: CTA, breath sounds present Cardiovascular: RRR, pulses symmetrical Abdomen: flank tenderness in the right , soft Musculoskeletal: normal, strength/ROM intact Neuro: normal, sensory motor intact, A&Ox3 Triage Information Reviewed: Yes Vital Signs On Initial Exam: Initial Vitals Temp Pulse Resp BP Pulse Ox 97.3 F 60 16 144/96 97 04/15/19 03:35 04/15/19 03:35 04/15/19 03:35 04/15/19 03:35 04/15/19 03:35 Vital Signs Reviewed: Yes Diagnostics - Vital Signs Vital Signs Temp Pulse Resp BP Pulse Ox 04/15/19 03:35 97.3 F 60 16 144/96 97 - Laboratory Result Diagrams: 04/15/19 04:00 04/15/19 04:00 Lab Statement: Any lab studies that have been ordered have been reviewed, and results considered in the medical decision making process. - CT Abd/Pel CT CT Interpretation Completed By: Radiologist Summary of CT Findings: 1. Status post sigmoid resection surgery. 2. Degenerative changes involving the lower lumbar spine, as described above. 3. Status post total right hip replacement surgery. 4. Degenerative changes involving the left femoral head. 5. Fluid in the cul-de-sac. ED physician has reviewed this radiology report. Re-Evaluation - Re-Evaluation First Eval Re-Evaluation Time: 06:35 Comment: I spoke with the patient concerning results and discharge home. Abdominal Pain Fem Course/Dx - Course Course Of Treatment: The patient is an 83 y/o F presenting to [facility] with a chief complaint of sudden onset left-sided flank pain tonight. She also reports tick bite on the left buttock. Upon physical exam, the patient exhibits flank tenderness in the right and a tick puncture wound on the left buttock area. Blood work and UA obtained. CT Abd/Pel impression reveals previous surgical hx and degenerative changes. Lyme screening is ordered and results will be relayed to patient when available. She is diagnosed with flank pain. She will be discharged home with follow up with PCP in 2-3 days for symptoms presented today. She agrees with this plan and understands the need for return to the ED for any new or worsening symptoms. - Diagnoses Differential Diagnosis: Positive: Renal Colic, Urinary Tract Infection Provider Diagnoses: Flank pain Discharge - Sign-Out/Discharge Documenting (check all that apply): Patient Departure - Patient will be discharged home. Patient Received Moderate/Deep Sedation with Procedure: No - Discharge Plan Condition: Stable Disposition: HOME Prescriptions: Tramadol HCl [Ultram] 50 mg PO BID #10 tablet MDD 2 Patient Education Materials: Flank Pain (ED) Referrals: Vanna Mello MD [Primary Care Provider] - 3 Days Additional Instructions: Follow up with your primary care provider in 2-3 days. RETURN TO THE EMERGENCY DEPARTMENT FOR ANY NEW OR WORSENING SYMPTOMS. - Billing Disposition and Condition Condition: STABLE Disposition: Home - Attestation Statements Document Initiated by Haleigh: Yes Documenting Scribe: Ashley Hackett Provider For Whom Haleigh is Documenting (Include Credential): Dr. Jd Burkett MD Scribe Attestation: Ashley Jo scribed for Dr. Jd Burkett MD on 04/15/19 at 0644. Scribe Documentation Reviewed: Yes Provider Attestation: The documentation as recorded by the Ashley kelly accurately reflects the service I personally performed and the decisions made by me, Dr. Jd Burkett MD Status of Scribe Document: Viewed
[2019-04-15 04:17] LABS: ABS Eosinophils 0.1 10^3/ul (0-0.6); ABS Lymphocytes 1.4 10^3/ul (1.0-4.8); ABS Monocytes 0.5 10^3/ul (0-0.8); ABS Neutrophils 3.1 10^3/ul (1.5-7.7); Eosinophil % 2.8 %; Hematocrit 39 % (35-47); Hemoglobin 13.1 g/dL (12.0-16.0); Lymphocyte % 27.3 %; Mean Corpuscular HGB Conc 34 g/dL (31-36); Mean Corpuscular Hemoglobin 33 pg (27-31); Mean Corpuscular Volume 97 fL (80-97); Mean Platelet Volume 6.7 fL (7.4-10.4); Platelet Count 321 10^3/uL (150-450); Red Blood Count 4.03 10^6 /uL (3.70-4.87); Red Cell Distribution Width 14 % (10.5-15); White Blood Count 5.1 10^3/uL (3.5-10.8)
[2019-04-15 04:20] LABS: Activated Partial Thrombo Time 33.4 seconds (26.0-38.0); INR 0.85 (0.82-1.09)
[2019-04-15 04:33] LABS: Albumin 4.1 g/dL (3.2-5.2); Albumin/Globulin Ratio 1.6 (1-3); BUN/Creatinine Ratio 18.3 (8-20); C Reactive Protein 2.21 mg/L (<8.01); Calcium 9.8 mg/dL (8.6-10.3); EGFR Non-African American 66.9 (>60); Globulin 2.5 g/dL (2-4); Potassium 3.7 mmol/L (3.5-5.0); Total Bilirubin 0.3 mg/dL (0.2-1.0); Total Protein 6.6 g/dL (6.4-8.9)
--- OUTSIDE RECORDS SUMMARY | 2019-04-15 04:44 | XMS REPORT | Continuity of Care Document ---
:1935 External Reference #:[id number] Author Name Nicole Low Care Team Providers Name Role Phone Vanna Mello MD Primary Care Physician Unavailable Payers Date Identification Numbers Payment Provider Subscriber Effective: 2018 Policy Number: [id number] A[employer] Medicare Kemi Peterson PayID: [id number] [address] [place] [address] Advance Directives Description No Information Available Problems Active Problems Provider Date Localized, primary osteoarthritis of the Denise Paz MD Onset: 12/09/2018 shoulder region Localized, primary osteoarthritis of the Leesa Powell M.D. Onset: 12/10/2018 pelvic region and thigh Rectal prolapse Gabino Abdi MD Onset: 01/21/2019 Family History Date Family Member(s) Observation Comments General Asthma General Arthritis General Lung Cancer General Breast Cancer Father due to Lung Cancer () Father Hypertension Mother Cerebrovascular Accident (CVA) possilble small strokes Mother due to fall () - fell, hit her head on sink and did not recover. First Daughter Hypertension First Sister Hypertension Paternal Grandmother Cerebrovascular Accident (CVA) Social History Type Date Description Comments Sex Unknown Marital Status Lives With Alone [place] Occupation Retired Tobacco Use Start: Unknown Never Smoked Cigarettes Smoking Status Reviewed: 03/17/19 Never Smoked Cigarettes ETOH Use Occasionally consumes alcohol Tobacco Use Start: Unknown Patient has never smoked Recreational Drug Use Never Used Drugs Exercise Type/Frequency Exercises regularly Allergies, Adverse Reactions, Alerts Description No Known Drug Allergies Medications Active Medications SIG Qnty Indications Ordering Provider Date Ibandronate Sodium 150 mg 1 tablet Unknown 01/05/2019 po daily Levothyroxine Sodium 1 by mouth every 60tabs Unknown 01/05/2019 day 88mcg Tablets Fluticasone Propionate 2 sprays each Unknown 09/29/2018 nostril qd. 50mcg/Act Suspension Niacinamide 1 by mouth three Unknown 09/08/2018 500mg Tablets times a day Preservision Areds 2 2 capsule by Unknown 09/08/2018 mouth twice Areds 2 Capsules daily Centrum Adults 1 tablet po Unknown 09/08/2018 Tablets daily Refresh Celluvisc 1 at bedtime Unknown 1% Gel Zpdkskx-Garjnocwt-Ulbs 1 po daily Unknown min D Boniva take 1 tablet Unknown 150mg Tablets monthly Refresh Liquigel 1 gtt both eyes Unknown 1% three times Solution daily Glucosamine 1500 1 by mouth every Unknown Complex day 1500Com Capsules Vitamin D3 1 by mouth every Unknown 2000Unit day Capsules Vitamin B-12 1 by mouth every Unknown 1000mcg day Tablets Cranberry Super 2 cap po six Unknown Strength times daily Capsules Calcium 1 by mouth twice 60tabs Unknown 500mg Tablets a day Aspir-81 1 by mouth every Unknown 81mg Tablets DR day Lisinopril-Hydrochloro 1 by mouth every Unknown thiazide day 20-25mg Tablets Immunizations Description No Information Available Vital Signs Date Vital Result Comment 03/17/2019 2:32pm Height 63 inches 5'3" Weight 132.00 lb w/shoes Heart Rate 62 /min reg BP Systolic 120 mmHg Lue reg cuff BP Diastolic 70 mmHg Lue reg cuff BP Systolic Sitting 130 mmHg Rue reg cuff BP Diastolic Sitting 75 mmHg Rue reg cuff BP Systolic Standing 128 mmHg Lue reg cuff BP Diastolic Standing 72 mmHg Lue reg cuff Respiratory Rate 16 /min BMI (Body Mass Index) 23.4 kg/m2 03/11/2019 1:04pm Heart Rate 72 /min BP Systolic 116 mmHg BP Diastolic 68 mmHg Respiratory Rate 16 /min Body Temperature 98.6 F 02/17/2019 1:51pm Height 64.5 inches 5'4.50" Weight 130.38 lb Heart Rate 60 /min BP Systolic Sitting 118 mmHg Lue regular cuff BP Diastolic Sitting 76 mmHg Lue regular cuff Respiratory Rate 16 /min O2 % BldC Oximetry 98 % BMI (Body Mass Index) 22.0 kg/m2 Neck Circumference in inches 13 02/04/2019 2:01pm Height 64.5 inches 5'4.50" Weight 127.00 lb Heart Rate 72 /min BP Systolic 115 mmHg BP Diastolic 68 mmHg Respiratory Rate 16 /min Body Temperature 98.0 F BMI (Body Mass Index) 21.5 kg/m2 12/10/2018 11:28am Height 64.5 inches 5'4.50" Weight 134.00 lb Heart Rate 72 /min BP Systolic 124 mmHg BP Diastolic 80 mmHg BMI (Body Mass Index) 22.6 kg/m2 12/09/2018 2:36pm Height 63.5 inches 5'3.50" Weight 134.00 lb BP Systolic 116 mmHg BP Diastolic 74 mmHg Pain Level 1 BMI (Body Mass Index) 23.4 kg/m2 Results Test Date Facility Test Result H/L Range Note Laboratory test 01/24/2019 [facility] Surgical SEE RESULT [address] [place] [address] [phone] 1 SEE RESULT BELOW Name: KEMI PETERSON : [address]: Peggy Johnson MD Acct: [id number] Unit: [id number] AGE: 83 Location: [facility] 337-01 Re01/20/19 SEX: F Status: ADM IN SPEC: [id number] NADIR: 01/24/19- SUBM DR: Gabino Abdi MD REQ: [id number] RECD: 01/24/19 STATUS: ERIC WELSH DR: Jodie Huddleston DO _ ORDERED: LEVEL 5 FINAL DIAGNOSIS Colon, descending and partial sigmoid, partial colectomy: -- Segment of large bowel with marked passive vascular congestion and focal mucosal ischemic changes compatible with volvulus. -- No evidence of neoplasia is identified. -- No diverticuli are seen. -- Margins of resection are viable. PRE-OPERATIVE DIAGNOSIS Volvulus GROSS DESCRIPTION The specimen is received in formalin labeled, Descending Colon, Partial Sigmoid, and consists of a 30.2 cm unoriented length of intestinal tissue with a small amount of adherent yellow fat. The external diameter ranges from 3.8 cm to 11.2 cm; the dilation extends 17.5 cm to one margin. The serosa is predominantly glistening smooth wallace-red with rare focal fibromembranous adhesions. There are a few wallace-white ill-defined granular mucosal areas ranging from 0.3 cm to 1.0 cm, more predominate in the dilated specimen. The mucosa in this area is predominantly smooth with a few normal folds. The remaining mucosa is glistening wallace-pink with normal folds. Received separately in the same container is a 3.5 by up to 2.5 x 1.0 cm wallace-pink irregular intestinal tissue fragment. Ui Software Developer sections are submitted in cassettes A through F as follows: A-margins, B-serosal adhesions , C through E-granularity and F-mucosa. Signed by and Reported on: Tashi Shah MD 1604 END OF REPORT DEPARTMENT OF PATHOLOGY, [address] [place] [address] Tashi Shah M.D. Director [facility] # [id number] Procedures Date Code Description Status 03/17/2019 96645 EKG Tracing & Interpretation Completed 01/27/2019 76374 ECHO Transthorasic Realtime 2D W Doppler & Color Flow Hosp Completed 01/24/2019 67921 Colectomy Partial W/Anastomosis Completed 01/24/2019 86157 Colectomy Partial W/Anastomosis Completed 12/16/2018 53003 Dest Lesion Each Addl Lesion 2 Through 14 Each Completed 12/16/2018 88710 Destruction ALL Benign Or Premalignant Lesion (Other Than Completed [place] Encounters Type Date Location Provider Dx Diagnosis Office Visit 02/17/2019 [facility] Karen Mehta, G47.33 Obstructive sleep 2:00p Sleep Services Of apnea (adult) 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) Office Visit 02/01/2019 [facility] Kati Noy, 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 8:28a Assoc,pc MEDICAL CENTER REPRESENTATIVE Hospitalists K91.89 Oth postprocedural complications and disorders of dgstv sys K56.7 Ileus, unspecified I49.9 Cardiac arrhythmia, unspecified I10 Essential (primary) hypertension E03.9 Hypothyroidism, unspecified Office Visit 01/31/2019 8:27a [facility] Kati Noy, I49.9 Cardiac Assoc,pc MEDICAL CENTER REPRESENTATIVE arrhythmia, Hospitalists unspecified K56.2 Volvulus I10 Essential (primary) hypertension K91.89 Oth postprocedural complications and disorders of dgstv sys K56.7 Ileus, unspecified E03.9 Hypothyroidism, unspecified Office Visit 01/30/2019 [facility] Lazara I47.1 Supraventricular 8:27a Assoc,pc DEYSI Patel tachycardia Hospitalists K56.2 Volvulus K91.89 Oth postprocedural complications and disorders of dgstv sys K56.7 Ileus, unspecified Office Visit 01/29/2019 8:27a [facility] Lazara Patel, K56.2 Volvulus Assoc,pc Hospitalists MEDICAL CENTER REPRESENTATIVE K91.89 Oth postprocedural complications and disorders of dgstv sys K56.7 Ileus, unspecified I49.9 Cardiac arrhythmia, unspecified I10 Essential (primary) hypertension Office Visit 01/28/2019 8:26a [facility] Irene I49.9 Cardiac Assoc,pc Stefano, HORACE arrhythmia, Hospitalists unspecified K56.2 Volvulus K91.89 Oth postprocedural complications and disorders of dgstv sys K56.7 Ileus, unspecified E03.9 Hypothyroidism, unspecified I10 Essential (primary) hypertension [facility] Assoc,jamari Agarwal, HORACE arrhythmia, Hospitalists unspecified K56.2 Volvulus K91.89 Oth postprocedural complications and disorders of dgstv sys K56.7 Ileus, unspecified I10 Essential (primary) hypertension Office Visit 01/26/2019 8:25a [facility] Irene Vidae, K56.2 Volvulus Assoc,pc Hospitalists JERRYC K91.89 Oth postprocedural complications and disorders of dgstv sys K56.7 Ileus, unspecified E83.42 Hypomagnesemia I10 Essential (primary) hypertension Office Visit 01/25/2019 8:25a [facility] Irene Vidae, K56.2 Volvulus Assoc,pc Hospitalists PAAbelC E03.9 Hypothyroidism, unspecified I10 Essential (primary) hypertension M81.0 Age-related osteoporosis w/o current pathological fracture Office Visit 01/24/2019 8:24a [facility] Irene Agarwal, K56.2 Volvulus Assoc,pc Hospitalists PAAbelC E87.6 Hypokalemia E03.9 Hypothyroidism, unspecified I10 Essential (primary) hypertension Office Visit 01/23/2019 8:24a [facility] Danika Santosney, K56.2 Volvulus Assoc,pc Hospitalists MEDICAL CENTER REPRESENTATIVE E03.9 Hypothyroidism, unspecified E87.6 Hypokalemia I10 Essential (primary) hypertension Office Visit 01/23/2019 7:00a [facility] MD K56.2 Volvulus [facility] Office Visit 01/22/2019 7:00a [facility] MD K56.2 Volvulus [facility] Office Visit 01/22/2019 8:23a [facility] Danika Lai, K56.2 Volvulus Assoc,pc Hospitalists MEDICAL CENTER REPRESENTATIVE E03.9 Hypothyroidism, unspecified I10 Essential (primary) hypertension E87.6 Hypokalemia Office Visit 01/21/2019 8:23a [facility] Irene Harshil'sergio, K56.2 Volvulus Assoc,pc Hospitalists PA-C E03.9 Hypothyroidism, unspecified I10 Essential (primary) hypertension Office Visit 01/20/2019 8:22a [facility] Jodie HuddlestonDO K56.2 Volvulus Assoc,pc Hospitalists E03.9 Hypothyroidism, unspecified I10 Essential (primary) hypertension Office Visit 01/20/2019 7:00a [facility] Raman Henderson K56.2 Volvulus [facility] MD Nellie, FACS Office Visit 12/16/2018 10:40a [facility] Dermatology Nancy L72.0 Epidermal cyst MD Joey L82.1 Other seborrheic keratosis D18.01 Hemangioma of skin and subcutaneous tissue Z85.828 Personal history of other malignant neoplasm of skin L57.0 Actinic keratosis Office Visit 12/10/2018 11:00a Orthopedic Services Leesa Powell, M25.552 Pain in left Of C.M.A. M.D. hip M16.12 Unilateral primary osteoarthritis, left hip Office Visit 12/09/2018 Orthopedic Denise Paz, M19.011 Primary 2:30p Services Of MD lakhani, C.M.A. right shoulder Plan of Treatment Future Appointment(s):04/19/2019 2:15 pm - Rani Pereyra DNP, RN, SALT LIFTER-BC at [facility]12/20/2019 1:30 pm - Nancy Cook MD at [facility] Uqhhhyvojrr33/02/2019 - Maddi Crawford M.D.R00.0 Tachycardia, unspecifiedNew Orders:Event Monitor, Ordered: 03/17/19Comments:Concern that you might have had atrial fibrillation.This can lead to strokes and isn't always felt.Follow up:Release: telemetry strips from [facility] if available. OV after EM ( MD or MEDICAL CENTER REPRESENTATIVE)Recommendations:Option of checking a monitor to see if you are having asymptomatic rhythm issuses.R00.2 NjetubqzsqfjS91.33 Obstructive sleep apnea ( adult) (pediatric)Comments:Continue BiPap and follow up with Dr. Mehta.
--- OUTSIDE RECORDS SUMMARY | 2019-04-15 04:44 | XMS REPORT | Continuity of Care Document ---
:1935 External Reference #:[id number] Author Name Aaron Hernandez M.D. Address [address] [place] [address] Care Team Providers Name Role Phone Vanna Mello MD Care Team Information Compliance Advisor Unavailable Vanna Mello MD Primary Care Physician Unavailable Payers Date Identification Numbers Payment Provider Subscriber Policy Number: [id number] [employer] Ppo/Epo Kemi Peterson Group Number: [id number] [address] PayID: [id number] [place] [address] Problems Active Problems Provider Date Essential hypertension Aaron Hernandez M.D. Onset: 04/07/2019 Family History Date Family Member(s) Observation Comments Father High BP Father due to Lung Cancer () Mother due to Stroke () Social History Type Date Description Comments Sex Unknown ETOH Use Consumes 1 glass of wine per week Tobacco Use Start: Unknown Patient has never smoked Smoking Status Reviewed: 04/07/19 Patient has never smoked Allergies, Adverse Reactions, Alerts Description No Known Drug Allergies Medications Active Medications SIG Qnty Indications Ordering Provider Date Fluticasone Propionate Vanna Mello MD 50mcg/Act Suspension Levothyroxine Sodium Take 1 Tablet By Unknown 88mcg Mouth Every Day Tablets Lisinopril-Hydrochlorot Take 1 Tablet By Unknown hiazide Mouth Every 20-25mg Tablets Morning Vital Signs Date Vital Result Comment 04/07/2019 1:23pm Intraocular Pressure Right Eye 13 mmHg Intraocular Pressure Left Eye 13 mmHg Procedures Date Code Description Status 04/07/2019 20657 Fundus Photography W/Interpretation & Report Completed 04/07/2019 05069 Ophthalmoscopy Initial Completed 04/07/2019 20049 Eye Exam New Comprehensive Completed Plan of Treatment Future Appointment(s):05/04/2019 1:45 pm - Aaron Hernandez M.D. at Main Dedlku9104/07/2019 - Aaron Hernandez M.D.H25.13 Age-related nuclear cataract, bilateralFollow up:few wks oct neve, cct oct and qajbzmE05.1411 Capslr glaucoma w/pseudxf lens, right eye, mild stageFollow up:few wks oct neve, cct oct and sigusrH19.363 Drusen (degenerative) of macula, bilateralFollow up:few wks oct neve, cct oct and ascans
[2019-04-15 04:57] LABS: Urine Appearance Clear; Urine Bilirubin Negative (Negative); Urine Blood Negative (Negative); Urine Color Straw; Urine Glucose Negative (Negative); Urine Ketones Negative (Negative); Urine Nitrite Negative (Negative); Urine Protein Negative (Negative); Urine Specific Gravity 1.009 (1.010-1.030); Urine Urobilinogen Negative (Negative)
[2019-04-15] MEDS ORDERED: traMADol TAB* 50 MG PO ONE (06:39)
[2019-04-15 06:52] VITALS: BP 147/89
== END 2019-04-15 06:50 | disposition home or self-care (01) ==
LOC: ED 03:35
DX: S30.860A Insect bite (nonvenomous) of lower back and pelvis, initial encounter (principal); R10.84 Generalized abdominal pain; I10 Essential (primary) hypertension; W57.XXXA Bitten or stung by nonvenomous insect and other nonvenomous arthropods, initial encounter; Y92.9 Unspecified place or not applicable
CPT/HCPCS: 36415; 74176; 80053; 81003; 83690; 85025; 85610; 85730; 86140; 86618; 99283; A9270-GY

== ENCOUNTER 2019-05-24 08:54 | Day surgery (SDC) | payer MEDICARE ==
[~2019-05-24 08:54] MED LIST: Acetaminophen TAB* 325 MG PO PRN; Buffered Lidocaine 1% SYRIN* 1 ML/SYRINGE INTRADERM ONE
[2019-05-24] MEDS ORDERED: fentaNYL* 50 MCG/ML 2 ML VIAL (100 MCG VIAL) ONE (09:59)
[2019-05-24] MEDS ORDERED: Midazolam* 1 MG/ML 2 ML VIAL (2 MG) ONE (09:59)
[2019-05-24 11:09] VITALS: BP 119/65
--- NOTE | 2019-05-24 11:36 | OP ---
DATE OF OPERATION: 05/24/19 [facility] DATE OF : 39 SURGEON: Dr. Aaron Hernandez. PORTER SAMPLE CASE: None. ANESTHESIA: Topical with intravenous sedation. PRE-OP DIAGNOSIS: Cataract, left eye. POST-OP DIAGNOSIS: Cataract, left eye. OPERATIVE PROCEDURE: Phacoemulsification and cataract extraction with posterior chamber intraocular lens implant, left eye. COMPLICATIONS: None. BLOOD LOSS: None. DESCRIPTION OF PROCEDURE: The patient was brought to the operating room and received a small amount of intravenous sedation. A drop of Tetracaine was placed in her left eye. She was prepped and draped in the usual sterile fashion for ophthalmic surgery and attention was directed to the left eye where a speculum was placed. A paracentesis was created at the 5 o'clock position and 0.1 cc of 1 percent preservative-free Lidocaine was injected into the anterior chamber followed by DisCoVisc. The eye was digitally stabilized while a 2.75 mm keratome was used to create a triplanar clear corneal incision at the 3 o'clock position. A continuous curvilinear capsulorrhexis was created with a cystotome and Utrata forceps. BSS on a cannula was used to hydrodissect the lens from the capsule. Phacoemulsification was performed in a divide-and- conquer technique to create four fragments which were removed. Residual cortical material was removed with irrigation and aspiration. DisCoVisc was used to inflate the capsular bag and an AU00T0 19.0 diopter lens was folded and inserted into the capsular bag. DisCoVisc was removed using irrigation and aspiration. BSS on a cannula was used to hydrate the corneal stroma and seal the wound. At the end of the case the pupil was round and the lens was centered. The eye was of normal pressure and the wound was water tight. The speculum was removed and topical Maxitrol ointment was placed on the surface of the eye. The eye was closed, patched and shielded and the patient was sent to the recovery room in stable condition with post operative instructions and follow-up appointment given. [id number]/CPS #: [id number] MTDSharee
[2019-05-24] MEDS ORDERED: Neomycin/Polymy/Dex OPHTH.OIN* 3.5 GM ONE (15:35)
[2019-05-24] MEDS ORDERED: Lidocaine 1% MPF ** 5 ML VIAL ONE (15:35)
[2019-05-24] MEDS ORDERED: Phenylephrine OPHTH SOL 2.5%* 2 ML ONE (15:35)
[2019-05-24] MEDS ORDERED: Cyclopentolate 1% OPTH.SOL* 2 ML BTL ONE (15:35)
[2019-05-24] MEDS ORDERED: Tropicamide 1% OPTH.SOL* BTL ONE (15:35)
[2019-05-24] MEDS ORDERED: Ketorolac 0.5% OPHTH (NF) 0.5 % 5 ML BTL ONE (15:35)
[2019-05-24] MEDS ORDERED: Tetracaine 0.5% OPTH.SOL 4 ML* 1 DROP BTL ONE (15:35)
== END 2019-05-24 11:05 | disposition home or self-care (01) ==
LOC: OREAST 08:54
PROVIDERS: ATTEND Ophthalmology
DX: H25.12 Age-related nuclear cataract, left eye (principal); I10 Essential (primary) hypertension; G47.33 Obstructive sleep apnea (adult) (pediatric); E03.9 Hypothyroidism, unspecified
CPT/HCPCS: A9270-GY; J2250; J3010; V2632

== ENCOUNTER 2019-05-31 09:23 | Day surgery (SDC) | payer MEDICARE ==
[2019-05-31] MEDS ORDERED: Midazolam* 1 MG/ML 2 ML VIAL (2 MG) ONE (10:18)
[2019-05-31] MEDS ORDERED: fentaNYL* 50 MCG/ML 2 ML VIAL (100 MCG VIAL) ONE (10:18)
[2019-05-31 11:25] VITALS: BP 113/63
--- NOTE | 2019-05-31 12:01 | OP ---
DATE OF OPERATION: 05/31/19 [facility] DATE OF : 39 SURGEON: Dr. Aaron Hernandez SILK SCREEN FRAME ASSEMBLER: None. ANESTHESIA: Topical with intravenous sedation. PRE-OP DIAGNOSIS: Cataract, right eye. POST-OP DIAGNOSIS: Cataract, right eye. OPERATIVE PROCEDURE: Phacoemulsification and cataract extraction with posterior chamber intraocular lens implant, right eye. COMPLICATIONS: None. BLOOD LOSS: None. DESCRIPTION OF PROCEDURE: The patient was brought to the operating room and received a small amount of intra-venous sedation. A drop of Tetracaine was placed in her right eye. Her was prepped and draped in the usual sterile fashion for ophthalmic surgery and attention was directed to the right eye where a speculum was placed. A paracentesis was created at the 11 o'clock position and 0.1 cc of 1 percent preservative-free Lidocaine was injected into the anterior chamber followed by DisCoVisc. The eye was digitally stabilized while a 2.75 mm keratome was used to create a triplanar clear corneal incision at the 9 o'clock position. A continuous curvilinear capsulorrhexis was created with a cystotome and Utrata forceps. BSS on a cannula was used to hydrodissect the lens from the capsule. Phacoemulsification was performed in a divide-and- conquer technique to create four fragments which were removed. Residual cortical material was removed with irrigation and aspiration. DisCoVisc was used to inflate the capsular bag and an AU00T0 19.0 diopter lens was folded and inserted into the capsular bag. DisCoVisc was removed using irrigation and aspiration. BSS on a cannula was used to hydrate the corneal stroma and seal the wound. At the end of the case the pupil was round and the lens was centered. The eye was of normal pressure and the wound was water tight. The speculum was removed and topical Maxitrol ointment was placed on the surface of the eye. The eye was closed, patched and shielded and the patient was sent to the recovery room in stable condition with post operative instructions and follow-up appointment given. [id number]/CPS #: [id number] MTDSharee
[2019-05-31] MEDS ORDERED: Phenylephrine OPHTH SOL 2.5%* 2 ML ONE (12:10)
[2019-05-31] MEDS ORDERED: Phenylephr/Ketorolac 1%/0.3% OPH DROP BTL ONE (12:10)
[2019-05-31] MEDS ORDERED: Cyclopentolate 1% OPTH.SOL* 2 ML BTL ONE (12:10)
[2019-05-31] MEDS ORDERED: Neomycin/Polymy/Dex OPHTH.OIN* 3.5 GM ONE (12:10)
[2019-05-31] MEDS ORDERED: Ketorolac 0.5% OPHTH (NF) 0.5 % 5 ML BTL ONE (12:10)
[2019-05-31] MEDS ORDERED: Tropicamide 1% OPTH.SOL* BTL ONE (12:10)
[2019-05-31] MEDS ORDERED: Tetracaine 0.5% OPTH.SOL 4 ML* 1 DROP BTL ONE (12:10)
[2019-05-31] MEDS ORDERED: Lidocaine 1% MPF ** 5 ML VIAL ONE (12:10)
== END 2019-05-31 11:35 | disposition home or self-care (01) ==
LOC: OREAST 09:23
PROVIDERS: ATTEND Ophthalmology
DX: H25.11 Age-related nuclear cataract, right eye (principal); I10 Essential (primary) hypertension; G47.33 Obstructive sleep apnea (adult) (pediatric); E03.9 Hypothyroidism, unspecified; M81.0 Age-related osteoporosis without current pathological fracture; M19.90 Unspecified osteoarthritis, unspecified site
CPT/HCPCS: A9270-GY; C9447; J2250; J3010; V2632

== ENCOUNTER 2019-09-04 15:12 | Observation (INO) | payer MEDICARE ==
--- OUTSIDE RECORDS SUMMARY | 2019-09-04 15:27 | XMS REPORT | Continuity of Care Document ---
:1935 External Reference #:[id number] Author Name Denise Paz MD (transmitted by agent of provider Donna Dubois) Address [address], [place] [address] Care Team Providers Name Role Phone Vanna Mello MD - Internal Medicine Care Team Information Health Care Assistant Problems Active Problems Provider Date Localized, primary [...] Unknown Never Smoked Cigarettes Smoking Status Reviewed: 08/30/19 Never Smoked Cigarettes ETOH Use Occasionally consumes [...] Available Vital Signs Date Vital Result Comment 08/30/2019 11:12am Height 63 inches 5'3" Weight 138.00 lb Heart Rate 68 /min BP Systolic 130 mmHg BP Diastolic 70 mmHg Body Temperature 97.5 F Pain Level 2 BMI (Body Mass Index) 24.4 kg/m2 08/09/2019 1:03pm Height 63 inches 5'3" Weight 138.00 lb Heart Rate 74 /min BP Systolic 104 mmHg BP Diastolic 62 mmHg Body Temperature 97.0 F Pain Level 2 BMI (Body Mass Index) 24.4 kg/m2 Results Test Date Facility Test Result H/L Range Note CBC Auto 08/09/2019 [facility] White Blood 6.4 10^3/uL Normal 3.5-10.[address] [place] [address] [phone] Red Blood Count 4.22 10^6/uL Normal 3.70-4.87 Hemoglobin 13.8 g/dL Normal 12.0-16.0 Hematocrit 41 % Normal 35-47 Mean Corpuscular Volume 97 fL Normal 80-97 Mean Corpuscular Hemoglobin 33 pg High 27-31 Mean Corpuscular HGB Conc 34 g/dL Normal 31-36 Red Cell Distribution Width 14 % Normal 10-15 Platelet Count 321 10^3/uL Normal 150-450 Mean Platelet Volume 7.5 fL Normal 7.4-10.4 Abs Neutrophils 4.2 10^3/uL Normal 1.5-7.7 Abs Lymphocytes 1.5 10^3/uL Normal 1.0-4.8 Abs Monocytes 0.5 10^3/uL Normal 0-0.8 Abs Eosinophils 0.1 10^3/uL Normal 0-0.6 Abs Basophils 0.1 10^3/uL Normal 0-0.2 Abs Nucleated RBC 0.0 10^3/uL Granulocyte % 65.5 % Lymphocyte % 22.8 % Monocyte % 8.3 % Eosinophil % 2.3 % Basophil % 1.1 % Nucleated Red Blood Cells % 0.1 Urinalysis Profile 08/09/2019 [facility] Urine Color Straw [address] [place] [address] [phone] Urine Appearance Clear Urine Specific Benedict 1.009 Low 1.010-1.030 Urine pH 7.0 Normal 5-9 Urine Urobilinogen Negative Negative Urine Ketones Negative Negative Urine Protein Negative Negative Urine Leukocytes Negative Negative Urine Blood Negative Negative * * Abnormal Negative 1 Urine Nitrite Negative Negative Urine Bilirubin Negative Negative Urine Glucose Negative Negative Inr/Protime 08/09/2019 [facility] Inr 0.90 Normal 0.82-1.09 2 [address] [place] [address] [phone] Laboratory test 08/09/2019 [facility] Partial 31.6 Normal 26.0 -38.[address] [facility] [place] [address] Time PTT [phone] Basic Metabolic 08/09/2019 [facility] Sodium 135 mmol/L Normal 135-145 Panel [address] [place] [address] [phone] Potassium 3.6 mmol/L Normal 3.5-5.0 Chloride 99 mmol/L Low 101-111 Co2 Carbon Dioxide 30 mmol/L Normal 22-32 Anion Gap 6 mmol/L Normal 2-11 Glucose 95 mg/dL Normal 70-100 Blood Urea Nitrogen 20 mg/dL Normal 6-24 Creatinine 0.90 mg/dL Normal 0.51-0.95 BUN/Creatinine Ratio 22.2 High 8-20 Calcium 9.7 mg/dL Normal 8.6-10.3 Egfr Non- 60.1 >60 Egfr 72.7 >60 3 Laboratory 08/09/2019 [facility] TSH (Thyroid 1.24 Normal 0.34 -5.60 test finding [address] Stim Horm) mcIU/[place] [address] [phone] Free T4 (Free Thyroxine) 1.08 ng/dL Normal 0.61-1.12 Type & Screen 08/09/2019 [facility] Patient Blood Type B Positive [address] [place] [address] [phone] Antibody Screen NEGATIVE Urine Culture And 08/09/2019 [facility] Urine Culture SEE RESULT [address] [place] [address] [phone] 1 *Ascorbic acid is present which may interfere with detection of blood. 2 Standard intensity warfarin therapeutic range: 2.0-3.0 High intensity warfarin therapeutic range: 2.5-3.5 3 Because ethnic data is not always readily available, this report includes an eGFR for both -Americans and non- Americans. The National Kidney Disease Education Program (NKDEP) does not endorse the use of the MDRD equation for patients that are not between the ages of 18 and 70, are , have extremes of body size, muscle mass, or nutritional status, or are non- or non-. According to the National Kidney Foundation, irrespective of diagnosis, the stage of the disease is based on the level of kidney function: Stage Description GFR(mL/min/1.73 m(2)) 1 Kidney damage with normal or decreased GFR 90 2 Kidney damage with mild decrease in GFR 60-89 3 Moderate decrease in GFR 30-59 4 Severe decrease in GFR 15-29 5 Kidney failure <15 (or dialysis) 4 SEE RESULT BELOW Name: FAVIO PETERSON DOB: [address]: Denise Paz MD Acct: [id number] Unit: [id number] AGE: 83 Location: PAT Re08/09/19 SEX: F Status: REG REF SPEC: [id number] NADIR: 08/09/[address]: Denise Paz MD REQ: [id number] RECD: 08/09/19 STATUS: COMP _ SOURCE: URINE SPDESC: ORDERED: Urine Culture QUERIES: Urine Source: Clean Catch Procedure Result Reported Site Urine Culture Final 08/10/19- 1640 ML No growth of clinically significant organisms * ML - Main Lab . END OF REPORT DEPARTMENT OF PATHOLOGY, [address] [place] [address] Tashi Shah M.D. Director [facility] # [id number] Procedures Date Code Description Status 08/17/2019 62841 Arthroplasty,Total Shoulder Replacement (TSR) Completed 08/17/2019 98765 Arthroplasty,Total Shoulder Replacement (TSR) Completed 07/28/2019 15734 EKG Tracing & Interpretation Completed 03/17/2019 61269 EKG Tracing & Interpretation Completed Medical Devices Description No Information Available Encounters Type Date Location Provider Dx Diagnosis Office Visit 07/28/2019 [place] [facility] Maddi Crawford, Z01.810 Encounter for 1:00p Of Venkatesh M.DLara preprocedural cardiovascular examination I49.3 Ventricular premature depolarization I49.1 Atrial premature depolarization I10 Essential (primary) hypertension I47.1 Supraventricular tachycardia G47.33 Obstructive sleep apnea (adult) (pediatric) Office Visit 07/20/2019 [facility] G47.33 Obstructive sleep 1:30p [facility] Pereyra RN, apnea (adult) [facility] (pediatric) Office Visit 07/05/2019 Alicia Paz, M19.011 Primary 1:00p Orthopedics at osteoarthritis, [place] right shoulder Office Visit 04/19/2019 [facility] G47.33 Obstructive sleep 2:15p [facility] Pereyra RN, apnea (adult) [facility] (pediatric) Office Visit 03/17/2019 [facility] Maddi Crawford, R00.0 Tachycardia, 2:10p Of Venkatesh Holley unspecified R00.2 Palpitations G47.33 Obstructive sleep apnea (adult) (pediatric) Z01.810 Encounter for preprocedural cardiovascular examination M19.011 Primary osteoarthritis, right shoulder Assessments Date Code Description Provider 08/30/2019 M19.011 Primary osteoarthritis, right Denise Paz MD shoulder 08/17/2019 M19.011 Primary osteoarthritis, right Arpita Herbert PA-C shoulder 08/17/2019 M19.011 Primary osteoarthritis, right Denise Paz MD shoulder 08/09/2019 M19.011 Primary osteoarthritis, right Denise Paz [...] apnea (adult) Rani Pereyra DNP, RN, (pediatric) [facility] 07/11/2019 M19.011 Primary osteoarthritis, right Denise Paz MD shoulder 07/05/2019 M19.011 Primary osteoarthritis, right Denise Paz MD shoulder 04/19/2019 G47.33 Obstructive sleep apnea (adult) Rani Pereyra DNP, RN, (pediatric) [facility] 03/17/2019 R00.0 Tachycardia, unspecified Maddi Crawford M.D. 03/17/2019 R00.2 Palpitations Maddi Crawford M.D. 03/17/2019 G47.33 Obstructive sleep apnea (adult) Maddi Crawford M.D. (pediatric) 03/17/2019 Z01.810 Encounter for preprocedural Maddi Crawford M.D. cardiovascular examination 03/17/2019 M19.011 Primary osteoarthritis, right Maddi Crawford M.D. shoulder 03/11/2019 K56.2 Volvulus Gabino Abdi MD Plan of Treatment Future Appointment(s):09/27/2019 11:15 am - Denise Paz MD at [facility] at [facility]2709/27/2019 2:00 pm - Nancy Cook MD at [facility] Mkhuvbhvwlm18/04/2020 1:45 pm - Rani Pereyra DNP, RN, [employer]-[facility] at [facility]12/20/2019 1:30 pm - Nancy Cook MD at [facility] Dvzpkkduhpg81/15/2019 - Denise Paz, MDM19.011 Primary osteoarthritis, right shoulderNew Therapy:Physical TherapyFollow up:Follow up: 4 weeks Functional Status Description No Information Available Mental Status Description No Information Available Referrals Description No Information Available
--- NOTE | 2019-09-04 15:34 | ED ---
Lower Extremity - HPI Summary HPI Summary: Patient is an 84-year-old female who presents emergency department for an isolated right knee injury that occurred today. Patient states she was walking on uneven ground when she lost her balance while turning and twisted right knee. Patient denies head injury or any other injuries. Patient notes she chronically wears a race on her right knee. Denies numbness, tingling or weakness. Symptoms are mild in severity. Walking makes symptoms worse. Rest makes symptoms better. - History of Current Complaint Chief Complaint: EDExtremityLower Stated Complaint: FALL KNEE PAIN Time Seen by Provider: 09/04/19 15:23 Hx Obtained From: Patient Pain Intensity: 0 - Allergies/Home Medications Allergies/Adverse Reactions: Allergies Allergy/AdvReac Type Severity Reaction Status Date / Time monosodium glutamate AdvReac Severe Swelling Verified 08/17/19 11:16 PMH/Surg Hx/FS Hx/Imm Hx Previously Healthy: Yes Endocrine/Hematology History: Reports: Hx Thyroid Disease - HYPO, Hx Anemia Denies: Hx Diabetes Cardiovascular History: Reports: Hx Hypertension Respiratory History: Reports: Hx Sleep Apnea GI History: Reports: Other GI Disorders - COLON RESECTION IN JANUARY 2019 History: Reports: Hx Kidney Infection - 2 KIDNEY INFECTION IN THE PAST Musculoskeletal History: Reports: Hx Arthritis - OSTEO ARTHRITIS, Other Musculoskeletal History - Left shoulder surgery Sensory History: Reports: Hx Cataracts, Hx Contacts or Glasses - Glasses Denies: Hx Hearing Aid Opthamlomology History: Reports: Hx Cataracts, Hx Contacts or Glasses - Glasses Neurological History: Reports: 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 Psychiatric History: Reports: Hx Depression - AT TIMES - Cancer History Hx Chemotherapy: No - Surgical History Surgery Procedure, Year, and Place: left shoulder replacement-[place] 10/2017; sigmoid colon resection in 01/2019 at [facility] Hx Anesthesia Reactions: No Infectious Disease History: No Infectious Disease History: Denies: Traveled Outside the [place] in Last 30 Days - Family History Known Family History: Positive: Non-Contributory Negative: Renal Disease - Social History Occupation: Retired Lives: With Family Alcohol Use: Occasionally Alcohol Amount: wine Hx Substance Use: No Substance Use Type: Reports: None Hx Tobacco Use: No Smoking Status (MU): Never Smoked Tobacco Have You Smoked in the Last Year: No Review of Systems Positive: Other - Right knee pain. Skin: Negative Neurological: Negative Negative: Weakness, Paresthesia, Numbness All Other Systems Reviewed And Are Negative: Yes Physical Exam Triage Information Reviewed: Yes Vital Signs On Initial Exam: Initial Vitals Temp Pulse Resp BP Pulse Ox 99.1 F 68 16 128/67 97 09/04/19 15:17 09/04/19 15:17 09/04/19 15:17 09/04/19 15:17 09/04/19 15:17 Vital Signs Reviewed: Yes Appearance: Positive: Well-Appearing - Pt. sitting in wheelchair in NAD. Family present. Skin: Positive: Warm, Dry Head/Face: Positive: Normal Head/Face Inspection Eyes: Positive: Normal, EOMI Neck: Positive: Supple Musculoskeletal: Positive: Other - Good pedal pulse to right foot. Effusion to right knee. Pain proximal tibia. No hip or ankle pain. Neurological: Positive: Normal, CN Intact II-III Psychiatric: Positive: Affect/Mood Appropriate Procedures - Sedation Patient Received Moderate/Deep Sedation with Procedure: No Diagnostics - Vital Signs Vital Signs Temp Pulse Resp BP Pulse Ox 09/04/19 15:17 99.1 F 68 16 128/67 97 - Laboratory Result Diagrams: 09/04/19 17:59 Lab Statement: Any lab studies that have been ordered have been reviewed, and results considered in the medical decision making process. Lower Extremity Course/Dx - Course Course Of Treatment: Pt. right knee injury after mechanical fall. Pt. declines pain medication. Pt. has minimal right shoulder pain and is concerned given her recent surgery. Knee xray shows tibial plateau fx. CT obtained for further evaluation. CT per radiology: REPORT AND IMPRESSION: #. Moderate lipohemarthrosis with fat fluid level at the suprapatellar joint recess. #. Mildly impacted tibial plateau fracture with cortical disruption at the weightbearing. portion of the medial and lateral tibial plateau and cortical impaction greatest at the. medial metaphysis. Up to 0.3 cm articular surface incongruity at the medial tibial plateau. due to impaction. #. Predisposing decreased bone density. #. Subtle angulation at the lateral femoral condyle condyLOpatellar sulcus suggests a mild. osteochondral impaction fracture. #. Normal articular alignment. #. Osteoarthritis with moderately severe lateral joint space narrowing. #. No superficial soft tissue plane hematoma evident. Case discussed with Dr. Alvarez. He would like knee immobilizer and nonweight. Given pt. is nonweight bearing on right shoulder and right knee unsafe to dc home. Case discussed with Dr. Damon, hospitalist, who agrees to admission. Ortho will see pt. in the am. - Diagnoses Differential Diagnosis/HQI/PQRI: Positive: Fracture (Closed), Sprain, Strain Provider Diagnoses: Tibial plateau fracture, right Discharge ED - Sign-Out/Discharge Documenting (check all that apply): Patient Departure - Discharge Plan Condition: Good Disposition: ADMITTED TO [facility] Referrals: Vanna Mello MD [Primary Care Provider] - - Billing Disposition and Condition Condition: GOOD Disposition: Admitted to [facility] - Attestation Statements Provider Attestation: I was available for consult. This patient was seen by the [facility]. The patient was not presented to, seen by, or examined by me. Tam Mccormick MD
[2019-09-04 18:09] LABS: Hematocrit 38 % (35-47); Hemoglobin 12.8 g/dL (12.0-16.0); Mean Corpuscular HGB Conc 34 g/dL (31-36); Mean Corpuscular Hemoglobin 33 pg (27-31); Mean Corpuscular Volume 97 fL (80-97); Mean Platelet Volume 6.8 fL (7.4-10.4); Platelet Count 418 10^3/uL (150-450); Red Blood Count 3.92 10^6 /uL (3.70-4.87); Red Cell Distribution Width 13 % (10-15); White Blood Count 8.9 10^3/uL (3.5-10.8)
[2019-09-04 18:18] LABS: ABS Basophils 0.1 10^3/ul (0-0.2); ABS Lymphocytes 0.9 10^3/ul (1.0-4.8); ABS Monocytes 0.4 10^3/ul (0-0.8); ABS Neutrophils 7.8 10^3/ul (1.5-7.7); Eosinophil % 0.4 %; Lymphocyte % 9.8 %
[2019-09-04 18:21] LABS: Activated Partial Thrombo Time 33.4 seconds (26.0-38.0); INR 0.98 (0.82-1.09)
[2019-09-04 18:27] LABS: Albumin/Globulin Ratio 1.4 (1-3); BUN/Creatinine Ratio 15.7 (8-20); Calcium 9.6 mg/dL (8.6-10.3); EGFR African American 79.6 (>60); EGFR Non-African American 65.8 (>60); Globulin 2.9 g/dL (2-4); Potassium 3.8 mmol/L (3.5-5.0); Total Bilirubin 0.5 mg/dL (0.2-1.0); Total Protein 6.9 g/dL (6.4-8.9)
[2019-09-04] MEDS ORDERED: Ondansetron INJ* 2 MG/ML VIAL IV PRN (19:27)
[2019-09-04] MEDS ORDERED: oxyCODONE TAB* 5 MG TAB PO PRN (19:30)
[2019-09-04] MEDS ORDERED: Niacin ER CAP* 500 MG CAP.ER PO SCH ×2 (21:00→22:38)
[2019-09-04] MEDS: Polyethylene Glycol 3350* 17 GM PACKET PO SCH (22:32)
[2019-09-04] MEDS: Fluticasone NASAL SPRAY 50MCG* 16 gm SPRAY BTL BOTH NARES SCH (22:33)
[2019-09-04] MEDS: Acetaminophen TAB* 325 MG PO PRN (22:36)
[2019-09-04] MEDS: Enoxaparin(*) 40 MG/0.4 ML SYR SUBCUT SCH (22:38)
[2019-09-04] MEDS: Niacin ER CAP* 500 MG CAP.ER PO SCH (22:45)
--- NOTE | 2019-09-04 23:00 | HP ---
CC: Dr. Taj Mckoy * ADMISSION HISTORY AND PHYSICAL: DATE OF ADMISSION: 09/04/19 PRIMARY CARE PROVIDER: Dr. WING ATTENDING WHILE IN THE HOSPITAL: Dr. Jayme Boucher.* (DICTATED BY JENNA TAPIA) CONSULTING ORTHOPEDIST: Dr. Taj Mckoy. CHIEF COMPLAINT: Fall, leg pain. HISTORY OF PRESENT ILLNESS: Ms. Peterson is an 84-year-old female with a past medical history significant for hypothyroidism, hypertension, osteoporosis, obstructive sleep apnea, right hip replacement with revision, and chronic right leg weakness who today was walking on uneven ground, pivoted, did not have leg pain before her fall, but did have a mechanical fall hitting her right side, not hitting her right shoulder. She had mild pain in her leg, but it became severe with weightbearing. No numbness or tingling distal to the injury. The patient had been feeling her normal state of health, had been excelling with ADLs even with her right arm in a sling. The patient had no recent changes in her medications and no recent illnesses. The patient denied chest pain, palpitations, dizziness, nausea, vomiting, abdominal pain, dysuria before the incident. The patient did not hit her head or pass out. The patient has not had any recent falls. The patient's pain has been very well controlled. The patient has not been needing to take too much pain medication. The patient in the emergency department had a CT of her lower extremity and found to have a tibial plateau fracture and a fibular fracture. The patient was discussed with Dr. Taj Mckoy of orthopedics, who recommended nonweightbearing and a knee immobilizer and due to nonweightbearing on the entire right side, we were asked to evaluate the patient for admission to the hospital. PAST MEDICAL HISTORY: Osteoporosis, hypothyroidism, hypertension, sigmoid volvulus; status post resection, obstructive sleep apnea, osteoarthritis, history of endometrial cancer, history of squamous cell cancer, history of pelvic fracture, history of sacral fracture, and episode of equivocal AFib in the hospital postoperatively PAST SURGICAL HISTORY: Laparoscopic hysterectomy, left and right shoulder reverse replacements, right hip replacement with revision, lumpectomy, tonsillectomy, adenoidectomy, and wrist ORIF. MEDICATIONS: From previous discharge: 1. Levothyroxine 88 mcg p.o. daily. 2. Zestoretic one tab p.o. daily. 3. Ibandronate 150 mg p.o. monthly. 4. Fluticasone 1 spray both nares at bedtime. 5. Refresh Liquigel 1 drop both eyes t.i.d. 6. Refresh Optive 1 drop both eyes at bedtime. 7. Glucosamine chondroitin 1 cap p.o. at 18:30. 8. Cranberry concentrate 2 tabs p.o. t.i.d. 9. Multivitamin 1 tab p.o. daily. 10. Cyanocobalamin 1000 mcg p.o. daily. 11. Vitamin D3 at 2000 units p.o. daily. 12. PreserVision AREDS 1 tab p.o. b.i.d. 13. Niacin 400 mg b.i.d. 14. Aspirin 81 mg p.o. daily. 15. MiraLAX 17 mg p.o. nightly. 16. Refresh Celluvisc 1 application topical to both eyes at bedtime. 17. Tylenol 175 mg p.o. q.8 hours as needed. 18. Oxycodone 10 mg p.o. q.4 hours as needed. ALLERGIES: MSG. FAMILY HISTORY: The patient's father of metastatic lung cancer. The patient's mother of multiple CVAs and then had a traumatic accident at a retirement leading to her . The patient has a sister who of metastatic breast and a sister who is alive and well. SOCIAL HISTORY: The patient has never smoked. The patient drinks 1 alcoholic beverage a week. The patient denies illicit drug use. 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 The patient is and has 1 living child. The patient's surrogate decision maker will be her daughter, Analilia Conley. REVIEW OF SYSTEMS: A 12-point review of systems was reviewed with the patient and is negative, except as above in the HPI. PHYSICAL EXAMINATION GENERAL: The patient is an 84-year-old female who appears younger than stated age, who is sitting comfortably in the bed, in no acute distress. VITAL SIGNS: Temperature 99.1, pulse rate 68, respiratory rate 16, oxygen saturation 97% on room air, and blood pressure 128/67. HEENT: Head: Normocephalic, atraumatic. Sclerae anicteric. No conjunctival injection. Nasal mucosa moist. Oral mucosa moist. No pharyngeal erythema, discharge, or exudate. NECK: Supple, nontender. No lymphadenopathy. No carotid bruits auscultated. No JVD. RESPIRATORY: Clear to auscultation bilaterally. No wheezes, rales, or rhonchi. Good air exchange bilaterally. CARDIAC: Regular rate and rhythm. No clicks, murmurs, gallops, or rubs. Pulses are 2+ in the bilateral dorsalis pedis, posterior tibialis and radial areas. ABDOMEN: Soft, nontender, nondistended. Bowel sounds present and normoactive in all 4 quadrants. No hepatosplenomegaly. No abdominal bruits auscultated. No hepatojugular reflux. GENITOURINARY: No suprapubic or CVA tenderness. NEURO: Cranial nerves II through XII are intact. No focal deficits. Alert and oriented x3. MUSCULOSKELETAL: Right lower extremity and right upper extremity in immobilizer. Good pulses and sensation distally, distal to immobilizers. PSYCHIATRIC: Very pleasant and cooperative. SKIN: Clean, dry, and intact. No rash. DIAGNOSTIC STUDIES/LAB DATA: Laboratory Data: White blood cell count 8.9, hemoglobin 12.8, platelet count 418. INR 0.98, aPTT 33.7. Sodium 137, potassium 3.8, chloride 103, carbon dioxide 29, anion gap 6, BUN 13, creatinine 0.83, glucose 101, calcium 9.6. Bilirubin 0.5, AST 19, ALT 16, alkaline phosphatase 77. Protein 6.9, albumin 4.0, globulin 2.9. Studies: Knee x-ray read as likely hemarthrosis with fat to the level of the suprapatellar joint, reflex mildly impacted. Tibial plateau fracture with cortical disruption at the weightbearing portion of lateral tibial plateau and cortical impaction greatest at the medial metaphysis predisposing decreased bone density. No additional fracture evident. Normal articular alignment. Osteoarthritis. [id number] lateral joint space narrowing. No focal or soft tissue contour abnormality. Lower extremity CT read as mild hemarthrosis with fat to the level of the suprapatellar joint reflex, mildly impacted tibial plateau fracture with cortical disruption in the weightbearing portion of the medial and lateral tibial plateau, cortical impaction greatest at the medial metaphysis up to 0.3 cm articular surface, incongruity to the medial tibial plateau due to compression predisposing to decreased bone density, subtle angulation in the lateral femoral condylopatellar sulcus; which has some mild osteochondral impaction fracture, normal articular anatomy, and osteoarthritis with moderately severe lateral joint space narrowing. No superficial plain hematoma evident. Shoulder x-ray read as reverse glenohumeral joint prosthesis in place without evidence for component loosening or periprosthetic fracture, mild AC joint osteoarthritis, and large inferior acromial bone spur. No fracture evident. Bone density appears decreased throughout. Unremarkable soft tissue contours. ASSESSMENT AND PLAN: Impression: Ms. Peterson is an 84-year-old female with a past medical history significant for osteoarthritis, osteoporosis, hypothyroidism, hypertension, and recent right reverse shoulder fracture who today had a mechanical fall with a left-sided tibial plateau fracture. She will be admitted to the hospital for medical optimization, orthopedic consultation, and physical therapy for nonweightbearing status on the right leg. 1. Right tibial plateau fracture, possible right femoral fracture. The patient has a traumatic right tibial plateau fracture and possible femoral fracture. The patient's case has been discussed by the ED provider with the orthopedist, who will see the patient in the morning and requests a knee immobilizer and nonweightbearing status on that leg. The patient is 84 years old and though she has good functional capacity at baseline, she might very well have a large amount of difficulty with nonweightbearing status on both her right arm and leg. The patient will be seen in consultation by physical therapy and this should be continued at discharge. The patient would like to avoid if at all possible going to a facility for rehab, though this may not be avoidable. The patient will have pain control with her home oxycodone and Tylenol. Her pain is not particularly severe at the moment. The patient has no signs that this was a non-mechanical fall or that this was a pathologic fracture even given her low bone density. 2. Osteoporosis. Continue the patient's ibandronate and vitamin D and calcium supplementation. 3. Hypertension. The patient is currently normotensive. Continue the patient' s home medications. 4. Obstructive sleep apnea. Continue the patient's home CPAP in the hospital. 5. Hypothyroidism. Continue the patient's Synthroid. 6. History of atrial fibrillation. The patient has no known other episodes of atrial fibrillation and this was postoperative and has not been noted to have recurred. 7. DVT prophylaxis. Lovenox. 8. FEN. The patient will have a regular unrestricted diet. No fluids are indicated at this time. DISPOSITION: The patient is admitted to observation to the hospital. TIME SPENT: Approximately 60 minutes were spent on the admission of this patient, 30 of which were spent [id number] with the patient obtaining a history and physical and discussing treatment plan. This plan has been discussed with my attending, Dr. Jayme Boucher, and he is in agreement. JENNA TAPIA [id number]/[facility] #: [id number] NOHELIA
[2019-09-04 23:10] LABS: Urine Appearance Clear; Urine Bilirubin Negative (Negative); Urine Blood Negative (Negative); Urine Color Straw; Urine Glucose Negative (Negative); Urine Ketones Trace (Negative); Urine Nitrite Negative (Negative); Urine Protein Negative (Negative); Urine Specific Gravity 1.008 (1.010-1.030); Urine Urobilinogen Negative (Negative)
[2019-09-05 05:55] LABS: Hematocrit 37 % (35-47); Hemoglobin 12.4 g/dL (12.0-16.0)
[2019-09-05] MEDS: Levothyroxine TAB* 88 MCG TAB PO SCH (05:55)
[2019-09-05] MEDS: Hydrochlorothiazide TAB* 25 MG PO SCH (07:45)
[2019-09-05] MEDS: Acetaminophen TAB* 325 MG PO PRN ×2 (07:46→17:46)
[2019-09-05] MEDS: Niacin ER CAP* 500 MG CAP.ER PO SCH ×2 (08:48→21:01)
[2019-09-05] MEDS ORDERED: Lisinopril TAB* 10 MG PO SCH (09:00)
--- NOTE | 2019-09-05 09:47 | CONSULT ---
Consult Consult: Patient Name: Kemi Peterson : 1935 HPI: Pt is an 84 y/o female who was seen at bedside today. She presented to the ER for a right knee injury that occured yesterday. SHe states that she was in the garden working on uneven ground. She turned on her left knee and then fell onto the right knee. She states that the pain was instant and she was unable to bear weight on the leg at that time. She states that she was carried to the car by her son in law and daughter and brought to the ER. She states that weight bearing on the leg makes the symptoms worse and that resting alleviates the symptoms. She denies any numbness or tingling of the leg. PMH: 1. Hypothyroidism 2. Arthritis 3. HTN Allergies monosodium glutamate Adverse Reaction (Severe, Verified 08/17/19 11:16) Swelling red,swelling Hx Meds Fluticasone NASAL SPRAY 50MCG* 1 spray BOTH NARES BEDTIME 01/19/19 Ibandronate Sodium 150 mg PO MONTHLY 01/19/19 Levothyroxine TAB* [Synthroid 88 MCG TAB*] 88 mcg PO QAM 01/19/19 Lisinopril/HCTZ 20/25(NF) [Zestoretic 20/25(NF)] 1 tab PO QAM 01/19/19 Refresh Liquigel 1 drop BOTH EYES TID 01/21/19 Refresh OPTIVE GEL EYE gel 1 drop BOTH EYES BEDTIME 01/22/19 Aspirin EC TAB* [Ecotrin EC Low Dose 81 MG*] 1 tab PO 1200 05/20/19 Cholecalciferol (Vitamin D3) [Vitamin D3] 2,000 unit PO 1200 05/20/19 Cranberry Conc/Ascorbic Acid [Cranberry 6,000 mg Softgel] 2 cap PO TID 05/20/19 Cyanocobalamin TAB* [Vitamin B12 TAB*] 1,000 mcg PO 1200 05/20/19 Glucosam/Chondr/Collagn/Hyalur [Glucosamine & Chondroitin Cap] 1 cap PO 1830 04/03 Multivit-Min/Iron/Folic/Lutein [Centrum Silver Women Tablet] 1 each PO 1200 04/03 Niacin (Inositol Niacinate) [Niacin Flush Free 500 mg Cap] 1 cap PO BID Vit C/E/Zn/Coppr/Lutein/Zeaxan [Preservision Areds 2 Softgel] 1 each PO BID 04/03 Polyethylene Glycol 3350* [Miralax*] 17 gm PO 1830 08/09/19 Refresh Celluvisc 1% 1 applic BOTH EYES BEDTIME 08/09/19 Acetaminophen TAB* [Tylenol TAB*] 975 mg PO Q8HR tab 08/18/19 oxyCODONE TAB* [Roxycodone TAB 5 mg*] 10 mg PO Q4H PRN #50 tab MDD 8 08/18/19 PSH: 1. Left total shoulder arthroplasty 2016 2. Colon resection 2018 3. Right total shoulder arthroplasty 08/2019 SOCIAL HISTORY: The pt is retired. Lives with family. She admits to occasional alcohol use. She denies any smoking or illicit drug use. ROS: * General: Denies fevers, chills or night sweats * HEENT: denies LIU, lightheadedness or syncopal episodes * Cardiothoracic: Negative for chest pain, heart palpitations * Pulmonary: Negative for SOB with exertion, chronic cough * GI: admits to constipation. denies N/V/D * : Negative for nocturia, urinary frequency, urinary urgency * Musculoskeletal: negative for chronic or intermittent back pain or fractures * Neuro: Denies paresthesias, numbness * Integumentary: No abrasions, lesions, rashes, lumps or open sores PHYSICAL EXAM: Vital Signs Temp 97.8 F 09/05/19 07:37 Pulse 72 09/05/19 07:37 Resp 16 09/05/19 07:37 BP 118/59 09/05/19 07:37 Pulse Ox 97 09/05/19 07:37 * General: Alert & oriented, year old in no acute distress. Appropriate mood and affect * HEENT: Normocephalic, atraumatic, hearing and vision grossly intact * Musculoskeletal/Neurologic: Examination of the right knee reveals no erythema or ecchymosis at this point. Skin is warm, dry and intact. Given the presence of a fracture ROM was deferred at this point. She has no TTP along the calf. +df /pf of the ankle and able to wiggle toes. She is NVI distally and has a 2+ DP pulse. IMAGING: Xrays of the right knee were obtained and reviewed. Mildly impacted tibial plateau fracture with cortical disruption at the weightbearing portion of the lateral tibial plateau and cortical impaction greatest at the medial metaphysis. CT Scan was obtained and reviewed. Up to 0.3 cm articular surface incongruity at the medial tibial plateau due to impaction. IMPRESSION: Right tibial plateau fracture S/P Right total shoulder arthroplasty 2.5 weeks out PLAN and Recommendations: Continue with PT for the right total shoulder, Passive ROM of the shoulder only not to exceed 90 degrees of FF and ABduction, not to exceed 25 degrees of ER and no IR. We recommend non surgical treatment at this point. She should remain NWB on the right lower extremity and remain in the knee immobilizer. She should follow up with Dr. Paz within 2 weeks for follow up Given her NWB of the right upper and lower extremity we feel a rehab facility would be best for her at this point.
--- NOTE | 2019-09-05 10:37 | PN ---
Progress Note - Progress Note Date of Service: 09/05/19 Note: Pt seen and examined. Full consult note dictated. Pt with min displaced tibial plateau fx we will treat nonop. Right shoulder doing ok post op. Incision clean and intact. Will follow up in a week with repeat xrays. Will need rehab.
[2019-09-05] MEDS: Cyanocobalamin TAB* 500 MCG PO SCH (12:24)
[2019-09-05] MEDS: Aspirin EC TAB* 81 MG TAB.EC PO SCH (12:24)
--- NOTE | 2019-09-05 15:12 | CONS ---
CC: PCP, Dr. Mello * CONSULTATION REPORT: DATE OF CONSULT: 09/05/19 CHIEF COMPLAINT: Right knee pain. HISTORY OF PRESENT ILLNESS: Briefly, Kemi is an 84-year-old female who had a recent right shoulder reverse arthroplasty done by me approximately on . She did well with surgery but fell on uneven ground, pivoted and landed on the knee. She does not recall really injuring the shoulder, but she was nervous about that and she came to the ER. Her shoulder pain resolved and she started to have some right knee pain. She was unable to weight bear. She denies any loss of consciousness. They contacted my colleague, Dr. Mckoy last evening for a plateau fracture. CT scan was ordered and she has been admitted because of placement issues. She is nonweightbearing in the arm and nonweightbearing in the leg. She denies any numbness or tingling. No fevers or chills. PAST MEDICAL HISTORY: Osteoporosis, hypothyroidism, hypertension, sigmoid volvulus, EVIE, osteoarthritis, history of endometrial cancer, history of squamous cell cancer, history of pelvic fracture, sacral fracture, small episode of AFib in the hospital postoperatively. PAST SURGICAL HISTORY: Right hip replacement with revision, bilateral reverse shoulder arthroplasties, laparoscopic hysterectomy, lumpectomy, tonsillectomy, adenoidectomy, and wrist ORIF. MEDICATIONS ON ADMISSION: 1. Levothyroxine. 2. Zestoretic. 3. Ibandronate. 4. Fluticasone. 5. Refresh. 6. Glucosamine. 7. Cranberry. 8. Multivitamin. 9. Cyanocobalamin. 10. Vitamin D3. 11. AREDS. 12. Niacin. 13. Aspirin. 14. MiraLAX. 15. Refresh. 16. Tylenol. 17. Oxycodone. ALLERGIES: To MSG. FAMILY HISTORY: Father of metastatic lung cancer. Mother of multiple CVAs and a traumatic accident in a [facility]. Sister who of metastatic breast cancer and another sister who is alive and well. SOCIAL HISTORY: No history of smoking. She drinks 1 alcoholic beverage per week. She denies illicit drug use. 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 She has a daughter that lives close by. REVIEW OF SYSTEMS: A 14-point review of systems reviewed with the patient and significant for the above complaint and recent surgery on the right shoulder. PHYSICAL EXAM: She is in no acute distress. She is well developed and well nourished. She is alert and oriented x3. She has pleasant mood and normal affect. Good balance and coordination of the left extremities. Vitals: Temperature of 97.8, pulse of 72, respiratory rate 16, O2 saturation 97%, blood pressure 118/59. She is lying comfortably in the bed. Right shoulder: The skin is intact. The sling is in place. She is sensate to light touch grossly. She is able to flex and extend her digits. No erythema or warmth. Examination of the right knee demonstrates skin is intact. There is mild amount of swelling. Her calf is soft and nontender. She is able to dorsiflex and plantarflex her ankle. Sensate to light touch about the first dorsal webspace; medial, lateral, dorsal and plantar foot. Brisk cap refill. DIAGNOSTIC STUDIES: X-rays and CT were reviewed that demonstrate minimally displaced bicondylar tibial fracture. CT shows mild amount of depression medially and laterally appears to be split, but not displaced. She has some chronic osteoarthritis. ASSESSMENT AND PLAN: After discussion with the patient, she has a history of knee pain since her multiple right hip surgeries and she has used a brace for every day for the last 4 to 5 years. She states the knee does go into some valgus at baseline. She had some instability and the brace helps her quite a bit. She was wearing the brace when she fell. She does note that she has arthritis, but it is manageable. She is not interested in total knee replacement. We talked about different risks and benefits of surgery versus nonoperative treatment. She would like to try a course of nonoperative treatment, which we will do. I did discuss the case with Dr. Mckoy. I am happy to follow her as I am following her shoulder or she can follow up with Dr. Mckoy in a week to check x-rays, but she would likely need to be discharged to a fci as she is nonweightbearing on two extremities. I will see the patient back in 1 week. [id number]/[facility] #: [id number] [facility]
--- NOTE | 2019-09-05 16:48 | PN ---
Subjective Date of Service: 09/05/19 Interval History: Patient was seen sitting up in joint chair, in good spirits. At rest, denies pain. After taking tylenol, pain while moving is a 4/10, tolerable. Able to transfer from bed to commode and chair using two assist. Family History: Unchanged from Admission Social History: Unchanged from Admission Past Medical History: Unchanged from Admission Objective Active Medications: Acetaminophen (Tylenol Tab*) 975 mg PO Q8H PRN PRN Reason: MILD PAIN or TEMP > 100.4 Last Admin: 09/05/19 07:46 Dose: 975 mg Aspirin (Aspirin Ec Tab*) 81 mg PO 1200 [facility] Last Admin: 09/05/19 12:24 Dose: 81 mg Cyanocobalamin (Vitamin B12 Tab*) 1,000 mcg PO 1200 [facility] Last Admin: 09/05/19 12:24 Dose: 1,000 mcg Enoxaparin Sodium (Lovenox(*)) 40 mg SUBCUT Q24H [facility] Last Admin: 09/04/19 22:38 Dose: 40 mg Fluticasone Propionate (Flonase Nasal [place] 50mcg*) 1 spray BOTH NARES BEDTIME [facility] Last Admin: 09/04/19 22:33 Dose: 1 spray Hydrochlorothiazide (Hydrodiuril Tab*) 25 mg PO DAILY [facility] Last Admin: 09/05/19 07:45 Dose: 25 mg Levothyroxine Sodium (Synthroid Tab*) 88 mcg PO 0600 [facility] Last Admin: 09/05/19 05:55 Dose: 88 mcg Lisinopril (Prinivil Tab*) 5 mg PO QAM [facility] Niacin (Niaspan Er Cap*) 500 mg PO BID [facility] Last Admin: 09/05/19 08:48 Dose: Not Given Ondansetron HCl (Zofran Inj*) 4 mg IV Q6H PRN PRN Reason: NAUSEA Oxycodone HCl (Roxycodone Tab*) 10 mg PO Q4H PRN PRN Reason: PAIN - SEVERE Polyethylene Glycol/Electrolytes (Miralax*) 17 gm PO 1830 [facility] Last Admin: 09/04/19 22:32 Dose: 17 gm Vital Signs - 8 hr 09/05/19 09/05/19 11:25 15:49 Temperature 98.6 F 99.5 F Pulse Rate 74 73 Respiratory 16 18 Rate Blood Pressure 98/60 114/72 (mmHg) O2 Sat by Pulse 97 99 Oximetry Oxygen Devices in Use Now: None Appearance: This is a well developed older female debo lao in chair. No acute distress noted. Eyes: No Scleral Icterus, PERRLA Ears/Nose/Mouth/Throat: NL Teeth, Lips, Gums, Clear Oropharnyx, Mucous Membranes Moist Neck: NL Appearance and Movements; NL JVP, Trachea Midline Respiratory: Symmetrical Chest Expansion and Respiratory Effort, Clear to Auscultation Cardiovascular: NL Sounds; No Murmurs; No JVD, RRR Abdominal: NL Sounds; No Tenderness; No Distention Lymphatic: No Cervical Adenopathy Extremities: No Clubbing, Cyanosis, - - Sling to right upper extremity. Knee immobilizer to right leg. 2+ radial and pedal pulses. +2-3 non-pitting edema to right knee. Skin: No Rash or Ulcers, No Nodules or Sclerosis Neurological: Alert and Oriented x 3 Lines/Tubes/Other Access: Clean, Dry and Intact Peripheral IV Result Diagrams: 09/05/19 05:35 09/04/19 17:59 Assess/Plan/Problems-Billing Assessment: This is an 84 year old female with a past medical history of HTn, EVIE, OA and hypothyroidism who was admitted on 09/04/19 s/p fall with right tibial plateau fracture. Non surgical, will require placement in STR. - Patient Problems (1) Right medial tibial plateau fracture Current Visit: Yes Status: Acute Code(s): S82.131A - DISP FX OF MEDIAL CONDYLE OF RIGHT TIBIA, INIT FOR CLOS FX SNOMED Code(s): 949223946 Comment: -S/P fall after misplacing her feet on a slope in her garden. -Dr. Paz consulted, does not feel surgery is appropraite at this time. Patient to remain in knee immobilizer, non-weight bearing. -Difficulty managing non-weight bearing to right arm and leg. PT/OT ordered. Will require STR placement. (2) Status post reverse arthroplasty of right shoulder Current Visit: No Status: Acute Code(s): Z96.611 - PRESENCE OF RIGHT ARTIFICIAL SHOULDER JOINT SNOMED Code(s): 81454153148074144 Comment: -About 2.5 weeks out from surgery. To remain non-weight bearing to that extremity, sling in place at all times, though encourage movement of right elbow. -No evidence of damage to prosthesis after fall. (3) Hypothyroidism Current Visit: No Status: Chronic Code(s): E03.9 - HYPOTHYROIDISM, UNSPECIFIED SNOMED Code(s): 15021386 Comment: -Continue levothyroxine, asymptomatic. (4) HTN (hypertension) Current Visit: No Status: Chronic Code(s): I10 - ESSENTIAL (PRIMARY) HYPERTENSION SNOMED Code(s): 93753062 Comment: -Blood pressures on the softer side, 90's to 120's, asymptomatic. -Decreased lisinopril from 20mg to 5mg. Continue hydrochlorothiazide. (5) Obstructive sleep apnea Current Visit: Yes Status: Acute Code(s): G47.33 - OBSTRUCTIVE SLEEP APNEA ( ADULT) (PEDIATRIC) SNOMED Code(s): 04050484 Comment: -May use own cpap. (6) DVT prophylaxis Current Visit: No Status: Acute Code(s): CYY4078 - SNOMED Code(s): 175272583 Comment: -Continue lovenox. (7) Full code status Current Visit: No Status: Acute Code(s): Z78.9 - OTHER SPECIFIED HEALTH STATUS SNOMED Code(s): 472500411 Comment: Status and Disposition: Disposition: Admitted to [facility] to [facility]. Condition: Stable. Attending: Apolinar Day
[2019-09-05] MEDS: Polyethylene Glycol 3350* 17 GM PACKET PO SCH (17:45)
[2019-09-05] MEDS: Enoxaparin(*) 40 MG/0.4 ML SYR SUBCUT SCH (20:21)
[2019-09-05] MEDS: Fluticasone NASAL SPRAY 50MCG* 16 gm SPRAY BTL BOTH NARES SCH (21:00)
[2019-09-06] MEDS: Levothyroxine TAB* 88 MCG TAB PO SCH (06:09)
[2019-09-06] MEDS: Hydrochlorothiazide TAB* 25 MG PO SCH (08:59)
[2019-09-06] MEDS: Niacin ER CAP* 500 MG CAP.ER PO SCH ×2 (08:59→20:30)
[2019-09-06] MEDS ORDERED: Lisinopril TAB* 5 MG PO SCH ×2 (09:00→22:23)
--- NOTE | 2019-09-06 09:37 | PN ---
Subjective Date of Service: 09/06/19 Interval History: patient reports that ability to transfer is improving. Denies chest pain or shortness of breath. Denies fever or chills. Denies abd pain n/v/d. Family History: Unchanged from Admission Social History: Unchanged from Admission Past Medical History: Unchanged from Admission Objective Active Medications: Acetaminophen (Tylenol Tab*) 975 mg PO Q8H PRN PRN Reason: MILD PAIN or TEMP > 100.4 Last Admin: 09/05/19 17:46 Dose: 975 mg Aspirin (Aspirin Ec Tab*) 81 mg PO 1200 [facility] Last Admin: 09/05/19 12:24 Dose: 81 mg Cyanocobalamin (Vitamin B12 Tab*) 1,000 mcg PO 1200 [facility] Last Admin: 09/05/19 12:24 Dose: 1,000 mcg Enoxaparin Sodium (Lovenox(*)) 40 mg SUBCUT Q24H [facility] Last Admin: 09/05/19 20:21 Dose: 40 mg Fluticasone Propionate (Flonase Nasal [place] 50mcg*) 1 spray BOTH NARES BEDTIME [facility] Last Admin: 09/05/19 21:00 Dose: 1 spray Hydrochlorothiazide (Hydrodiuril Tab*) 25 mg PO DAILY [facility] Last Admin: 09/06/19 08:59 Dose: 25 mg Levothyroxine Sodium (Synthroid Tab*) 88 mcg PO 0600 [facility] Last Admin: 09/06/19 06:09 Dose: 88 mcg Lisinopril (Prinivil Tab*) 5 mg PO QAM [facility] Last Admin: 09/06/19 08:59 Dose: 5 mg Niacin (Niaspan Er Cap*) 500 mg PO BID [facility] Last Admin: 09/06/19 08:59 Dose: 500 mg Ondansetron HCl (Zofran Inj*) 4 mg IV Q6H PRN PRN Reason: NAUSEA Oxycodone HCl (Roxycodone Tab*) 10 mg PO Q4H PRN PRN Reason: PAIN - SEVERE Polyethylene Glycol/Electrolytes (Miralax*) 17 gm PO 1830 [facility] Last Admin: 09/05/19 17:45 Dose: 17 gm Vital Signs - 8 hr 09/06/19 09/06/19 09/06/19 03:47 07:27 08:00 Temperature 99.3 F 98.1 F Pulse Rate 76 81 Respiratory 18 20 20 Rate Blood Pressure 132/78 128/65 (mmHg) O2 Sat by Pulse 100 97 Oximetry Oxygen Devices in Use Now: None Appearance: appears comfortable sitting in the chair , no acute distress Eyes: No Scleral Icterus Ears/Nose/Mouth/Throat: Clear Oropharnyx, Mucous Membranes Moist Neck: NL Appearance and Movements; NL JVP, Trachea Midline Respiratory: Symmetrical Chest Expansion and Respiratory Effort, Clear to Auscultation Cardiovascular: NL Sounds; No Murmurs; No JVD, No Edema Extremities: No Edema, No Clubbing, Cyanosis, - - knee immobilizer intact Skin: No Rash or Ulcers Neurological: Alert and Oriented x 3 Nutrition: Taking PO's Result Diagrams: 09/05/19 05:35 09/04/19 17:59 Assess/Plan/Problems-Billing Assessment: This is an 84 year old female with a past medical history of HTn, EVIE, OA and hypothyroidism who was admitted on 09/04/19 s/p fall with right tibial plateau fracture. Non surgical, will require placement in STR. - Patient Problems (1) Right medial tibial plateau fracture Current Visit: Yes Status: Acute Code(s): S82.131A - DISP FX OF MEDIAL CONDYLE OF RIGHT TIBIA, INIT FOR CLOS FX SNOMED Code(s): 085623836 Comment: -S/P fall after misplacing her feet on a slope in her garden. -Dr. Paz consulted, does not feel surgery is appropraite at this time. Patient to remain in knee immobilizer, non-weight bearing. -Difficulty managing non-weight bearing to right arm and leg. - PT/OT ordered. Will require STR placement. (2) Status post reverse arthroplasty of right shoulder Current Visit: No Status: Acute Code(s): Z96.611 - PRESENCE OF RIGHT ARTIFICIAL SHOULDER JOINT SNOMED Code(s): 69991379905897517 Comment: -About 2.5 weeks out from surgery. To remain non-weight bearing to that extremity, sling in place at all times, though encourage movement of right elbow. -No evidence of damage to prosthesis after fall. (3) HTN (hypertension) Current Visit: No Status: Chronic Code(s): I10 - ESSENTIAL (PRIMARY) HYPERTENSION SNOMED Code(s): 89500906 Comment: -Blood pressures on the softer side, 102-120's, asymptomatic. -Continue lisinopril at 5mg. -stop hydrochlorothiazide. (4) Hypothyroidism Current Visit: No Status: Chronic Code(s): E03.9 - HYPOTHYROIDISM, UNSPECIFIED SNOMED Code(s): 80998177 Comment: -Continue levothyroxine (5) DVT prophylaxis Current Visit: No Status: Acute Code(s): LXF8571 - SNOMED Code(s): 292925525 Comment: -Continue lovenox. (6) Full code status Current Visit: No Status: Acute Code(s): Z78.9 - OTHER SPECIFIED HEALTH STATUS SNOMED Code(s): 939612387 Comment: Status and Disposition: Disposition: Admitted to [facility]. Condition: Stable.
--- NOTE | 2019-09-06 10:20 | PN ---
Progress Note - Progress Note Date of Service: 09/06/19 SOAP: Subjective: []Pt seen and examined at bedside. She is comfortable though feels her knee immobilizer is large. She has her right shoulder in a sling and physical therapy will be working with her momentarily Objective: []Gen: NAD, appears well RUE: Sling in place, incision is CDI, f/e at wrist and digits intact, sensation intact to light touch distally, cap refill less than two seconds distally RLE: Immobilizer in place, f/e ankle and digits intact. sensation intact to light touch distally, DP2+. Assessment: []SP R reverse shoulder arthroplasty R tibial plateau fracture Plan: []NWB RUE, RLE FU in clinic in [address] Paz for R shoulder. Okay to F/U Dr Paz or Dr Mckoy within 1 week for R tibial plateau fracture as well, repeat xrays at this time. Immobilizer R knee, nonoperative treatment of tibial plateau fracture. Wearing a large immobilizer, will get a medium Sling RUE CM made aware of rehab need Vital Signs Temp 98.1 F 09/06/19 07:27 Pulse 81 09/06/19 07:27 Resp 20 09/06/19 08:00 BP 128/65 09/06/19 07:27 Pulse Ox 97 09/06/19 07:27 Intake & Output 09/05/19 09/06/19 09/06/19 18:59 06:59 18:59 Intake Total 480 1210 Output Total 400 600 Balance 80 610 Intake: Oral 480 1210 Output: Urine 400 600 Other: Estimated Void Medium Large Date of Last Bowel 09/05/19 Movement # Bowel Movements 2 Estimated Stool Amount Large # Voids 1 1 Laboratory Last Values WBC 8.9 10^3/uL (3.5-10.8) 09/04/19 17:59 RBC 3.92 10^6 /uL (3.70-4.87) 09/04/19 17:59 Hgb 12.4 g/dL (12.0-16.0) 09/05/19 05:35 Hct 37 % (35-47) 09/05/19 05:35 MCV 97 fL (80-97) 09/04/19 17:59 MCH 33 pg (27-31) H 09/04/19 17:59 MCHC 34 g/dL (31-36) 09/04/19 17:59 RDW 13 % (10-15) 09/04/19 17:59 Plt Count 418 10^3/uL (150-450) 09/04/19 17:59 MPV 6.8 fL (7.4-10.4) L 09/04/19 17:59 Neut % (Auto) 84.3 % 09/04/19 17:59 Lymph % (Auto) 9.8 % 09/04/19 17:59 [place] % (Auto) 4.3 % 09/04/19 17:59 Eos % (Auto) 0.4 % 09/04/19 17:59 Baso % (Auto) 1.2 % 09/04/19 17:59 Absolute Neuts (auto) 7.8 10^3/ul (1.5-7.7) H 09/04/19 17:59 Absolute Lymphs (auto) 0.9 10^3/ul (1.0-4.8) L 09/04/19 17:59 Absolute Monos (auto) 0.4 10^3/ul (0-0.8) 09/04/19 17:59 Absolute Eos (auto) 0.0 10^3/ul (0-0.6) 09/04/19 17:59 Absolute Basos (auto) 0.1 10^3/ul (0-0.2) 09/04/19 17:59 Absolute Nucleated RBC 0.0 10^3/ul 09/04/19 17:59 Nucleated RBC % 0.0 09/04/19 17:59 INR (Anticoag Therapy) 0.98 (0.82-1.09) 09/04/19 17:59 APTT 33.4 seconds (26.0-38.0) 09/04/19 17:59 Sodium 137 mmol/L (135-145) 09/04/19 17:59 Potassium 3.8 mmol/L (3.5-5.0) 09/04/19 17:59 Chloride 103 mmol/L (101-111) 09/04/19 17:59 Carbon Dioxide 28 mmol/L (22-32) 09/04/19 17:59 Anion Gap 6 mmol/L (2-11) 09/04/19 17:59 BUN 13 mg/dL (6-24) 09/04/19 17:59 Creatinine 0.83 mg/dL (0.51-0.95) 09/04/19 17:59 Est GFR ( Amer) 79.6 (>60) 09/04/19 17:59 Est GFR (Non-Af Amer) 65.8 (>60) 09/04/19 17:59 BUN/Creatinine Ratio 15.7 (8-20) 09/04/19 17:59 Glucose 101 mg/dL (70-100) H 09/04/19 17:59 Calcium 9.6 mg/dL (8.6-10.3) 09/04/19 17:59 Total Bilirubin 0.50 mg/dL (0.2-1.0) 09/04/19 17:59 AST 19 U/L (13-39) 09/04/19 17:59 ALT 16 U/L (7-52) 09/04/19 17:59 Alkaline Phosphatase 77 U/L (34-104) 09/04/19 17:59 Total Protein 6.9 g/dL (6.4-8.9) 09/04/19 17:59 Albumin 4.0 g/dL (3.2-5.2) 09/04/19 17:59 Globulin 2.9 g/dL (2-4) 09/04/19 17:59 Albumin/Globulin Ratio 1.4 (1-3) 09/04/19 17:59 Urine Color Straw 09/04/19 21:10 Urine Appearance Clear 09/04/19 21:10 Urine pH 8.0 (5-9) 09/04/19 21:10 Ur Specific [place] 1.008 (1.010-1.030) L 09/04/19 21:10 Urine Protein Negative (Negative) 09/04/19 21:10 Urine Ketones Trace (Negative) A 09/04/19 21:10 Urine Blood Negative (Negative) 09/04/19 21:10 Urine Nitrate Negative (Negative) 09/04/19 21:10 Urine Bilirubin Negative (Negative) 09/04/19 21:10 Urine Urobilinogen Negative (Negative) 09/04/19 21:10 Ur Leukocyte Esterase Negative (Negative) 09/04/19 21:10 Urine Glucose Negative (Negative) 09/04/19 21:10
[2019-09-06] MEDS: Acetaminophen TAB* 325 MG PO PRN (10:50)
[2019-09-06] MEDS: Aspirin EC TAB* 81 MG TAB.EC PO SCH (12:49)
[2019-09-06] MEDS: Cyanocobalamin TAB* 500 MCG PO SCH (12:49)
[2019-09-06] MEDS: Polyethylene Glycol 3350* 17 GM PACKET PO SCH (18:23)
[2019-09-06] MEDS: Enoxaparin(*) 40 MG/0.4 ML SYR SUBCUT SCH (19:47)
[2019-09-06] MEDS: Fluticasone NASAL SPRAY 50MCG* 16 gm SPRAY BTL BOTH NARES SCH (20:30)
[2019-09-07] MEDS: Levothyroxine TAB* 88 MCG TAB PO SCH (05:45)
[2019-09-07] MEDS: Niacin ER CAP* 500 MG CAP.ER PO SCH ×2 (08:36→21:00)
[2019-09-07] MEDS: Cyanocobalamin TAB* 500 MCG PO SCH (11:29)
[2019-09-07] MEDS: Aspirin EC TAB* 81 MG TAB.EC PO SCH (11:29)
[2019-09-07] MEDS: Polyethylene Glycol 3350* 17 GM PACKET PO SCH (17:42)
[2019-09-07] MEDS ORDERED: Lisinopril TAB* 5 MG PO SCH (19:01)
--- NOTE | 2019-09-07 19:02 | PN ---
Subjective Date of Service: 09/07/19 Interval History: Patient with no complaints this AM. denies chest pain or shortness of breath . denies abd pain n/v/d. reports pain is controlled. Patient is pending insurance approval for transfer to [facility], [place] Family History: Unchanged from Admission Social History: Unchanged from Admission Past Medical History: Unchanged from Admission Objective Active Medications: Acetaminophen (Tylenol Tab*) 975 mg PO Q8H PRN PRN Reason: MILD PAIN or TEMP > 100.4 Last Admin: 09/06/19 10:50 Dose: 975 mg Aspirin (Aspirin Ec Tab*) 81 mg PO 1200 [facility] Last Admin: 09/07/19 11:29 Dose: 81 mg Cyanocobalamin (Vitamin B12 Tab*) 1,000 mcg PO 1200 [facility] Last Admin: 09/07/19 11:29 Dose: 1,000 mcg Enoxaparin Sodium (Lovenox(*)) 40 mg SUBCUT Q24H [facility] Last Admin: 09/06/19 19:47 Dose: 40 mg Fluticasone Propionate (Flonase Nasal [place] 50mcg*) 1 spray BOTH NARES BEDTIME [facility] Last Admin: 09/06/19 20:30 Dose: 1 spray Levothyroxine Sodium (Synthroid Tab*) 88 mcg PO 0600 [facility] Last Admin: 09/07/19 05:45 Dose: 88 mcg Lisinopril (Prinivil Tab*) 5 mg PO QAM [facility] Last Admin: 09/07/19 08:36 Dose: 5 mg Niacin (Niaspan Er Cap*) 500 mg PO BID [facility] Last Admin: 09/07/19 08:36 Dose: 500 mg Ondansetron HCl (Zofran Inj*) 4 mg IV Q6H PRN PRN Reason: NAUSEA Oxycodone HCl (Roxycodone Tab*) 10 mg PO Q4H PRN PRN Reason: PAIN - SEVERE Polyethylene Glycol/Electrolytes (Miralax*) 17 gm PO 1830 [facility] Last Admin: 09/07/19 17:42 Dose: Not Given Vital Signs - 8 hr 09/07/19 09/07/19 12:20 15:33 Temperature 98.4 F 98.8 F Pulse Rate 78 75 Respiratory 16 18 Rate Blood Pressure 110/57 113/57 (mmHg) O2 Sat by Pulse 98 99 Oximetry Oxygen Devices in Use Now: None Appearance: appears comfortable resting in bed , no acute distress Eyes: No Scleral Icterus Ears/Nose/Mouth/Throat: Clear Oropharnyx, Mucous Membranes Moist Neck: NL Appearance and Movements; NL JVP, Trachea Midline Respiratory: Symmetrical Chest Expansion and Respiratory Effort, Clear to Auscultation Cardiovascular: NL Sounds; No Murmurs; No JVD, No Edema Abdominal: NL Sounds; No Tenderness; No Distention Extremities: No Edema, No Clubbing, Cyanosis, - - right knee immobilzer in place Skin: No Rash or Ulcers Neurological: Alert and Oriented x 3 Nutrition: Taking PO's Result Diagrams: 09/05/19 05:35 09/04/19 17:59 Assess/Plan/Problems-Billing Assessment: This is an 84 year old female with a past medical history of HTn, EVIE, OA and hypothyroidism who was admitted on 09/04/19 s/p fall with right tibial plateau fracture. Non surgical, will require placement in STR. - Patient Problems (1) Right medial tibial plateau fracture Current Visit: Yes Status: Acute Code(s): S82.131A - DISP FX OF MEDIAL CONDYLE OF RIGHT TIBIA, INIT FOR CLOS FX SNOMED Code(s): 843705734 Comment: -S/P fall after misplacing her feet on a slope in her garden. -Dr. Paz consulted, does not feel surgery is appropraite at this time. Patient to remain in knee immobilizer, non-weight bearing. -Difficulty managing non-weight bearing to right arm and leg. - will go to STR when insurance approval is complete - PT/OT . (2) Status post reverse arthroplasty of right shoulder Current Visit: No Status: Acute Code(s): Z96.611 - PRESENCE OF RIGHT ARTIFICIAL SHOULDER JOINT SNOMED Code(s): 50184725862742769 Comment: -About 2.5 weeks out from surgery. To remain non-weight bearing to that extremity, sling in place at all times, though encourage movement of right elbow. -No evidence of damage to prosthesis after fall. (3) HTN (hypertension) Current Visit: No Status: Chronic Code(s): I10 - ESSENTIAL (PRIMARY) HYPERTENSION SNOMED Code(s): 88785167 Comment: -Blood pressures on the softer side, 102-120's, asymptomatic. -Continue lisinopril at 5mg with hold for SBP less than 110. -stop hydrochlorothiazide. (4) Hypothyroidism Current Visit: No Status: Chronic Code(s): E03.9 - HYPOTHYROIDISM, UNSPECIFIED SNOMED Code(s): 72892697 Comment: -Continue levothyroxine (5) DVT prophylaxis Current Visit: No Status: Acute Code(s): RHQ5899 - SNOMED Code(s): 665961957 Comment: -Continue lovenox. (6) Full code status Current Visit: No Status: Acute Code(s): Z78.9 - OTHER SPECIFIED HEALTH STATUS SNOMED Code(s): 306960541 Comment: Status and Disposition: Disposition: Admitted to [facility]. Condition: Stable.
[2019-09-07] MEDS: Enoxaparin(*) 40 MG/0.4 ML SYR SUBCUT SCH (21:01)
[2019-09-07] MEDS: Fluticasone NASAL SPRAY 50MCG* 16 gm SPRAY BTL BOTH NARES SCH (21:02)
[2019-09-08] MEDS: Levothyroxine TAB* 88 MCG TAB PO SCH (07:01)
[2019-09-08 07:19] VITALS: BP 116/63
[2019-09-08] MEDS: Niacin ER CAP* 500 MG CAP.ER PO SCH (08:38)
--- NOTE | 2019-09-08 10:55 | DS ---
DATE OF ADMISSION: 09/04/2019. DATE OF DISCHARGE: 09/08/2019. PROVIDER: Danika Lai NP. ATTENDING PHYSICIAN: Dr. Huber Mcrae* (dictated by Danika Lai NP) . PRIMARY DIAGNOSIS: Right tibial plateau fracture, status post right reversal shoulder arthroplasty. SECONDARY DIAGNOSES: 1. Hypothyroid. 2. Hypertension. 3. Obstructive sleep apnea. 4. History of endometrial and squamous cell cancer. 5. History of pelvic fracture. 6. History of one episode of atrial fibrillation. STUDIES COMPLETED WHILE IN THE HOSPITAL: 1. She had a CT of her lower extremity on 09/04/2019: Radiologist's impression : Moderate lipohemarthrosis with fat fluid level at the suprapatellar joint recess. Mildly impacted tibial plateau fracture with cortical disruption at the weightbearing portion of the medial and lateral tibial plateau and cortical impaction, greatest at the medial metaphysis. Up to 0.3 cm articular surface incongruity at the medial tibial plateau due to impaction. Predisposing decreased bone density. Subtle angulation at the lateral femoral condyle suggests a mild osteochondral impaction fracture. Normal articular alignment. Osteoarthritis with moderately severe lateral joint space narrowing. No superficial soft tissue plane hematoma was evident. 2. She had a right knee x-ray which showed a tibial plateau fracture, osteoarthritis with moderately severe lateral joint space narrowing. 3. She had a right shoulder x-ray: Reversed glenohumeral joint prosthesis in place without evidence of a component of loosening or periprosthetic fracture. Mild AC joint osteoarthritis and large inferior acromial bone spur. No fracture evident. DISCHARGE MEDICATIONS: New home medications. Eliquis 2.5 mg po BID - START 09/09/2019 in the morning Continued home medications: 1. Aspirin 81 mg p.o. daily. 2. Refresh Celluvisc 1% both eyes at bedtime. 3. MiraLax 17 gm p.o. daily prn. 4. Niacin one cap p.o. b.i.d. 5. Multivitamin one tab p.o. daily. 6. Levothyroxine 88 mcg p.o. daily. 7. Ibandronate Sodium 150 mg p.o. monthly. 8. Glucosamine one cap p.o. daily. 9. Fluticasone nasal spray one spray to both nares at bedtime. 10. Vitamin B12 1,000 mcg p.o. daily. 11. Cranberry two caps p.o. b.i.d. 12. Vitamin D3 2,000 units daily. 13. Oxycodone 10 mg p.o. q.4 hours as needed for pain. 14. PreserVision one tab p.o. b.i.d. 15. Refresh Optive Gel eye gel one drop both eyes at bedtime. 16. Refresh Liquigel one drop to both eyes 3 times a day. 17. Lisinopril 5 mg p.o. q.a.m. 18. Acetaminophen 975 mg p.o. q.8 hours as needed. Discontinued medications: Lisinopril/Hydrochlorothiazide 20/25 was changed to Lisinopril 5 mg. HISTORY OF PRESENT ILLNESS AND HOSPITAL COURSE: Ms. Peterson is an 84-year-old female with a past medical history significant for osteoporosis, hypothyroid, hypertension, history of obstructive sleep apnea, and a pelvic fracture who reports she was walking on uneven ground and fell. She did have a mechanical fall, hitting her right side. She did complain of mild pain in her right leg after the fall, but become severe with weightbearing. She had no chest pain, palpitations, or dizziness prior to her fall. While in the emergency room, the patient had a CT and an x-ray of her right knee which showed a tibial plateau fracture. She was seen in consultation by Orthopedics, Dr. Mckoy and Dr. Paz who have recommended a knee immobilizer with nonweightbearing to the entire right side due to her recent surgery on her right shoulder. Due to the patient's nonweightbearing status on the right side, it was recommended she go to short-term rehab for gait and strength training. At this time, Ms. Peterson is stable for discharge to [facility], [place]. REVIEW OF SYMPTOMS: The patient denies any fever, chills, or unintended weight loss. Denies any chest pain or edema. Denies any shortness of breath. Denies any nausea, vomiting, diarrhea. She denies any gross hematuria or dysuria. She does complain of mild pain to the right knee and shoulder. She does have a knee immobilizer intact to the right leg. PHYSICAL EXAMINATION: General: At this time, Ms. Peterson is alert and oriented , resting in her bed. She is in no acute distress. Vital Signs: Blood pressure 116/63, heart rate 61, respirations 16, O2 saturation 96 percent, temperature 97.8. HEENT: Head is atraumatic, normocephalic. Eyes: EOM's are intact. Sclerae anicteric and not pale. Oral mucosa appeared to be moist. Neck: Supple. Lungs: Clear to auscultation bilaterally. No wheezes, rales, or rhonchi. Cardiac: S1, S2. Regular rate and rhythm. No murmurs, rubs, or gallops. Abdomen: Soft and nontender. Bowel sounds are present times four. Extremities: She does have a knee immobilizer intact to her right leg and a sling on her right arm. She is nonweightbearing on this side. Skin: Intact. She does have a healing surgical incision to her right shoulder. Neurologic: She is awake, alert, oriented times three. Speech is clear. Thought process is intact. There are no gross focal deficits. DISCHARGE PLAN: At this time, Ms. Peterson is stable for discharge to [facility], [place]. Activity is nonweightbearing on the right side. 1. Status post right tibial plateau fracture: The patient is to have a knee immobilizer and nonweightbearing on the right side. She should follow-up with Orthopedics Dr. Paz in one week for further recommendations and management. She should continue with PT and OT at [facility], [place]. 2. Status post right reversal shoulder arthroplasty: The patient is to have her arm in a sling. She should follow-up with Dr. Paz in one week for further recommendations and management. She is nonweightbearing to the right arm. 3. Hypertension: She should continue on Lisinopril with holding parameter for systolic blood pressures less than 110. 4. Hypothyroid: She should continue on Levothyroxine as previously prescribed at 88 mcg. 5. FEN: She can have a regular diet. 6. Code status: She is a full code. 7. DVT prophylaxis: Eliquis 2.5 mg po BID - start 09/09/2019 FOLLOW-UP: The patient should follow-up with Dr. Paz in one week for her right shoulder. She is okay to follow-up with Dr. Paz or Dr. Mckoy again within one week for the right tibial plateau fracture. At that time, she will need repeat x-rays. She should continue with a right knee immobilizer with nonweightbearing. She should follow-up with her primary are provider in four to seven days. She should return to the emergency room if she develops any chest pain, shortness of breath, fevers, chills or any other concerning symptoms. I have discussed with this my attending Dr. Huber Mcrae. He is in agreement with my plan. DANIKA LAI, DEYSI [id number]/[facility] #: [id number] MTDSharee
[2019-09-08] MEDS: Aspirin EC TAB* 81 MG TAB.EC PO SCH (11:54)
[2019-09-08] MEDS: Cyanocobalamin TAB* 500 MCG PO SCH (11:54)
== END 2019-09-08 13:00 ==
LOC: ED 15:12 → SSU 19:27
PROVIDERS: ADMIT Hospitalist; ATTEND Internal Medicine
DX: S82.131A Displaced fracture of medial condyle of right tibia, initial encounter for closed fracture (principal); M97.11XA Periprosthetic fracture around internal prosthetic right knee joint, initial encounter; Z96.611 Presence of right artificial shoulder joint; W19.XXXA Unspecified fall, initial encounter; Y92.9 Unspecified place or not applicable; E03.9 Hypothyroidism, unspecified; I10 Essential (primary) hypertension; Z79.82 Long term (current) use of aspirin; Z79.899 Other long term (current) drug therapy; G47.33 Obstructive sleep apnea (adult) (pediatric); Z85.42 Personal history of malignant neoplasm of other parts of uterus; Z85.828 Personal history of other malignant neoplasm of skin; I48.91 Unspecified atrial fibrillation; Z87.81 Personal history of (healed) traumatic fracture; Z79.01 Long term (current) use of anticoagulants
CPT/HCPCS: 36415; 80053; 81003; 85014; 85018; 85025; 85610; 85730; 96372; 99283; A9270-GY; G0378; G8978-GP-CL; G8979-GP-CI; J1650

== ENCOUNTER 2019-10-11 19:30 | Inpatient (IN) | payer MEDICARE ==
--- OUTSIDE RECORDS SUMMARY | 2019-10-11 19:47 | XMS REPORT | Continuity of Care Document ---
:1935 External Reference #:[id number] Author Name Denise Paz MD (transmitted by agent of provider Natalia Louis) Address [address] [facility], [place] [address] Care Team Providers Name Role Phone Vanna Mello MD - Internal Medicine Care Team Information Telephone Services Sales Representative [phone] Problems Active Problems Provider Date Localized, primary [...] Unknown Never Smoked Cigarettes Smoking Status Reviewed: 09/27/19 Never Smoked Cigarettes ETOH Use Occasionally consumes [...] 1 tablet po daily Unknown 09/08/2018 Tablets Eliquis 1 tab by mouth Unknown 2.5mg Tablets every 12 hours for 30 days Polyethylene Glycol Unknown 3350 Oxycodone HCL 1 - 2 tabs by Unknown 5mg mouth every 12 Capsules hours as needed pain Refresh Liquigel 1-2 drops in Unknown 1% Gel affected eye as needed Refresh Celluvisc 1 at bedtime Unknown 1% Gel Refresh Liquigel 1 gtt both eyes Unknown 1% three times daily Solution Glucosamine 1500 1 by mouth every Unknown Complex day 1500Com Capsules Vitamin D3 1 by mouth every Unknown 2000Unit day Capsules Vitamin B-12 1 by mouth every Unknown 1000mcg day Tablets Cranberry Super 2 cap po six Unknown Strength times daily Capsules Calcium 1 by mouth at 60tabs Unknown 600mg Tablets lunch and 1 by mouth after dinner Aspir-81 1 by mouth every Unknown 81mg Tablets DR day Immunizations Description No Information Available Vital Signs Date Vital Result Comment 09/27/2019 11:13am Height 63 inches 5'3" Weight 138.00 lb Heart Rate 66 /min Body Temperature 97.9 F Pain Level 0 O2 % BldC Oximetry 90 % BMI (Body Mass Index) 24.4 kg/m2 09/16/2019 11:07am Height 63 inches 5'3" Weight 138.00 lb Heart Rate 68 /min Respiratory Rate 14 /min Pain Level 0 BMI (Body Mass Index) 24.4 kg/m2 Results Test Acquired Date Facility Test Result H/L Range Note CBC Auto 08/09/2019 [facility] White Blood 6.4 10^3/uL Normal 3.5-10.[address] [place] [address] [phone] Red Blood Count 4.22 10^6/uL Normal 3.70-4.87 [...] Blood Cells % 0.1 Urinalysis Profile 08/09/2019 [facility] Urine Color Straw [address] [place] [address] [phone] Urine Appearance Clear Urine Specific [place] 1.009 Low 1.010-1.030 Urine pH 7.0 Normal 5-9 Urine Urobilinogen Negative Negative Urine Ketones Negative Negative Urine Protein Negative Negative Urine Leukocytes Negative Negative Urine Blood Negative Negative * * Abnormal Negative 1 Urine Nitrite Negative Negative Urine Bilirubin Negative Negative Urine Glucose Negative Negative Inr/Protime 08/09/2019 [facility] Inr 0.90 Normal 0.82-1.[address] [place] [address] [phone] Laboratory test 08/09/2019 [facility] Partial 31.6 Normal 26.0 -38.[address] [place] [address] [place] [address] Time PTT [phone] Basic Metabolic 08/09/2019 [facility] Sodium 135 mmol/L Normal 135-[address] [place] [address] [phone] Potassium 3.6 mmol/L Normal 3.5-5.0 Chloride 99 mmol/L Low 101-111 Co2 Carbon Dioxide 30 mmol/L Normal 22-32 Anion Gap 6 mmol/L Normal 2-11 Glucose 95 mg/dL Normal 70-100 Blood Urea Nitrogen 20 mg/dL Normal 6-24 Creatinine 0.90 mg/dL Normal 0.51-0.95 BUN/Creatinine Ratio 22.2 High 8-20 Calcium 9.7 mg/dL Normal 8.6-10.3 Egfr Non- 60.1 >60 Egfr 72.7 >60 3 Laboratory 08/09/2019 [facility] TSH (Thyroid 1.24 Normal 0.34 -5.60 test finding [address] Stim Horm) mcIU/[place] [address] [phone] Free T4 (Free Thyroxine) 1.08 ng/dL Normal 0.61-1.12 Type & Screen 08/09/2019 [facility] Patient Blood Type B Positive [address] [place] [address] [phone] Antibody Screen NEGATIVE Urine Culture And 08/09/2019 [facility] Urine Culture SEE RESULT [address] [place] [address] [phone] 1 *Ascorbic acid is present which may [...] (or dialysis) 4 SEE RESULT BELOW Name: KEMI PETERSON : [address]: Denise Paz MD Acct: [id number] Unit: [id number] AGE: 83 Location: [facility] Re08/09/19 SEX: F Status: REG REF SPEC: [id number] NADIR: 08/09/[address]: Denise Paz MD REQ: [id number] RECD: 08/09/19 STATUS: COMP _ SOURCE: URINE SPDESC: ORDERED: Urine Culture QUERIES: Urine Source: Clean Catch Procedure Result Reported Site Urine Culture Final 08/10/19- 1640 ML No growth of clinically significant organisms * - Main Lab . END OF REPORT DEPARTMENT OF PATHOLOGY, [address] [place] [address] aTshi Shah M.D. Director [facility] # [id number] Procedures Date Code Description Status 08/17/2019 48649 Arthroplasty,Total Shoulder Replacement (TSR) Completed 08/17/2019 15142 Arthroplasty,Total Shoulder Replacement (TSR) Completed 07/28/2019 61100 EKG Tracing & Interpretation Completed Medical Devices Description No Information Available Encounters Type Date Location Provider Dx Diagnosis Office Visit 09/08/2019 [facility] Danika S82.131A Disp fx of 8:42a jamari Ulloa NP medial condyle Hospitalists of right tibia, init for clos fx I10 Essential (primary) hypertension E03.9 Hypothyroidism, unspecified Office Visit 09/05/2019 1:00p [facility] Denise Paz, S82.131A Disp fx of at [place] medial condyle of right tibia, init for clos fx M17.11 Unilateral primary osteoarthritis, right knee Office Visit 09/04/2019 10:34a [facility] Payam Crow S82.131A Disp fx of at [place] JENNA-C medial condyle of right tibia, init for clos fx Office Visit 09/04/2019 8:40a [facility] Raoul S82.131A Disp fx of jamari Ulloa PA medial Hospitalists condyle of right tibia, init for clos fx I10 Essential (primary) hypertension G47.33 Obstructive sleep apnea (adult) (pediatric) E03.9 Hypothyroidism, unspecified Office Visit 07/28/2019 [place] Maddi Crawford, Z01.810 Encounter for 1:00p Cardiology Scooter Holley preprocedural Medical Claims Representative cardiovascular examination I49.3 Ventricular premature depolarization I49.1 Atrial premature depolarization I10 Essential (primary) hypertension I47.1 Supraventricular tachycardia G47.33 Obstructive sleep apnea (adult) (pediatric) Office Visit 07/20/2019 [facility] G47.33 Obstructive sleep 1:30p [facility] Pereyra RN, apnea (adult) [facility] SOIL SCIENTIST-BC (pediatric) Office Visit 07/05/2019 [place] Denise Paz, M19.011 Primary 1:00p Orthopedics at [facility], [place] right shoulder Office Visit 04/19/2019 [facility] G47.33 Obstructive sleep 2:15p [facility] Pereyra RN, apnea (adult) [facility]-BC (pediatric) Assessments Date Code Description Provider 09/27/2019 S82.131C Displaced fracture of medial condyle Denise Paz MD of right tibia, initial encounter for open fracture type Iiia, Iiib, or Iiic 09/27/2019 M19.011 Primary osteoarthritis, right Denise Paz MD shoulder 09/27/2019 Z96.611 Presence of right artificial Denise Paz MD shoulder joint 09/16/2019 S82.131A Displaced fracture of medial condyle Denise Paz MD of right tibia, initial encounter for closed fracture 09/16/2019 M19.011 Primary osteoarthritis, right Denise Paz MD shoulder 09/08/2019 S82.131A Displaced fracture of medial condyle Danika Joelle, AGED OR DISABLED CARE WORKER of right tibia, initial encounter for closed fracture 09/08/2019 I10 Essential (primary) hypertension Danika Bob White, AGED OR DISABLED CARE WORKER 09/08/2019 E03.9 Hypothyroidism, unspecified Danika Joelle, AGED OR DISABLED CARE WORKER 09/07/2019 S82.131A Displaced fracture of medial condyle Danika Joelle, AGED OR DISABLED CARE WORKER of right tibia, initial encounter for closed fracture 09/07/2019 I10 Essential (primary) hypertension Danika Joelle, AGED OR DISABLED CARE WORKER 09/07/2019 E03.9 Hypothyroidism, unspecified Danika Bob White, AGED OR DISABLED CARE WORKER 09/07/2019 G47.30 Sleep apnea, unspecified Danika Bob White, AGED OR DISABLED CARE WORKER 09/06/2019 S82.131A Displaced fracture of medial condyle Danika Bob White, AGED OR DISABLED CARE WORKER of right tibia, initial encounter for closed fracture 09/06/2019 I10 Essential (primary) hypertension Danika Bob White, AGED OR DISABLED CARE WORKER 09/06/2019 E03.9 Hypothyroidism, unspecified Danika Bob White, AGED OR DISABLED CARE WORKER 09/06/2019 G47.33 Obstructive sleep apnea (adult) Danika Joelle, AGED OR DISABLED CARE WORKER (pediatric) 09/05/2019 S82.131A Displaced fracture of medial condyle Denise Paz MD of right tibia, initial encounter for closed fracture 09/05/2019 S82.131A Displaced fracture of medial condyle Kim Kline NP of right tibia, initial encounter for closed fracture 09/05/2019 M17.11 Unilateral primary osteoarthritis, Denise Paz MD right knee 09/05/2019 E03.9 Hypothyroidism, unspecified Kim Kline, DEYSI 09/05/2019 I10 Essential (primary) hypertension Kim Kline NP 09/05/2019 G47.33 Obstructive sleep apnea (adult) Kim Kline NP (pediatric) 09/04/2019 S82.131A Displaced fracture of medial condyle Payam Crow PA-C of right tibia, initial encounter for closed fracture 09/04/2019 S82.131A Displaced fracture of medial condyle JENNA Jessica of right tibia, initial encounter for closed fracture 09/04/2019 I10 Essential (primary) hypertension JENNA Jessica 09/04/2019 G47.33 Obstructive sleep apnea (adult) JENNA Jessica (pediatric) 09/04/2019 E03.9 Hypothyroidism, unspecified JENNA Jessica 08/30/2019 M19.011 Primary osteoarthritis, right Denise Paz MD shoulder 08/30/2019 Z47.1 Aftercare following joint Denise Paz MD replacement surgery 08/30/2019 Z96.611 Presence of right artificial Denise Paz MD shoulder joint 08/17/2019 M19.011 Primary osteoarthritis, right JENNA Bennett-Cooper shoulder 08/17/2019 M19.011 Primary osteoarthritis, right Denise [...] apnea (adult) Rani Pereyra DNP, RN, (pediatric) SOIL SCIENTIST-BC 07/11/2019 M19.011 Primary osteoarthritis, right Denise Paz MD shoulder 07/05/2019 M19.011 Primary osteoarthritis, right Denise Paz MD shoulder 04/19/2019 G47.33 Obstructive sleep apnea (adult) Rani Pereyra DNP, RN, (pediatric) [facility] Plan of Treatment Future Appointment(s):10/20/2019 10:30 am - Denise Paz MD at [facility] at Axskvi7701/18/2020 1:45 pm - Rani Pereyra DNP, RN, SOIL SCIENTIST-BC at [facility]12/20/2019 1:30 pm - Nancy Cook MD at [facility]09/27/2019 - Denise Paz MDS82.131C Displaced fracture of medial condyle of right tibia, initial encounter for open fracture type Iiia, Iiib, or IiicM19.011 Primary osteoarthritis, right erspzorxO40.611 Presence of right artificial shoulder jointNew Therapy:Physical TherapyFollow up:Follow up: 3 weeks Functional Status Description No Information Available Mental Status Description No Information Available Referrals Description No Information Available
--- OUTSIDE RECORDS SUMMARY | 2019-10-11 19:47 | XMS REPORT | Continuity of Care Document ---
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 Active Problems Provider Date Localized, primary [...] Unknown Never Smoked Cigarettes Smoking Status Reviewed: 09/16/19 Never Smoked Cigarettes ETOH Use Occasionally consumes [...] Available Vital Signs Date Vital Result Comment 09/16/2019 11:07am Height 63 inches 5'3" Weight 138.00 lb Heart Rate 68 /min Respiratory Rate 14 /min Pain Level 0 BMI (Body Mass Index) 24.4 kg/m2 08/30/2019 11:12am Height 63 inches 5'3" Weight 138.00 lb Heart Rate 68 /min BP Systolic 130 mmHg BP Diastolic 70 mmHg Body Temperature 97.5 F Pain Level 2 BMI (Body Mass Index) 24.4 kg/m2 Results Test Acquired Date Facility Test Result H/L Range Note CBC Auto 08/09/2019 [facility] White Blood 6.4 10^3/uL Normal 3.5-10.[address] [place] [address] [phone] Red Blood Count 4.22 10^6/uL Normal 3.70-4.87 [...] Blood Cells % 0.1 Urinalysis Profile 08/09/2019 [facility] Urine Color Straw [address] [place] [address] [phone] Urine Appearance Clear Urine Specific [place] 1.009 Low 1.010-1.030 Urine pH 7.0 Normal 5-9 Urine Urobilinogen Negative Negative Urine Ketones Negative Negative Urine Protein Negative Negative Urine Leukocytes Negative Negative Urine Blood Negative Negative * * Abnormal Negative 1 Urine Nitrite Negative Negative Urine Bilirubin Negative Negative Urine Glucose Negative Negative Inr/Protime 08/09/2019 [facility] Inr 0.90 Normal 0.82-1.[address] [place] [address] [phone] Laboratory test 08/09/2019 [facility] Partial 31.6 Normal 26.0 -38.[address] [place] [address] [place] [address] Time PTT [phone] Basic Metabolic 08/09/2019 [facility] Sodium 135 mmol/L Normal 135-[address] [place] [address] [phone] Potassium 3.6 mmol/L Normal 3.5-5.0 Chloride 99 mmol/L Low 101-111 Co2 Carbon Dioxide 30 mmol/L Normal 22-32 Anion Gap 6 mmol/L Normal 2-11 Glucose 95 mg/dL Normal 70-100 Blood Urea Nitrogen 20 mg/dL Normal 6-24 Creatinine 0.90 mg/dL Normal 0.51-0.95 BUN/Creatinine Ratio 22.2 High 8-20 Calcium 9.7 mg/dL Normal 8.6-10.3 Egfr Non- 60.1 >60 Egfr 72.7 >60 3 Laboratory 08/09/2019 [facility] TSH (Thyroid 1.24 Normal 0.34 -5.60 test finding [address] Stim Horm) mcIU/[place] [address] [phone] Free T4 (Free Thyroxine) 1.08 ng/dL Normal 0.61-1.12 Type & Screen 08/09/2019 [facility] Patient Blood Type B Positive [address] [place] [address] [phone] Antibody Screen NEGATIVE Urine Culture And 08/09/2019 [facility] Urine Culture SEE RESULT [address] [place] [address] [phone] 1 *Ascorbic acid is present which may [...] [address]: Denise Paz MD Acct: [id number] Unit: [id number] AGE: 83 Location: [facility] Re08/09/19 SEX: F Status: REG REF SPEC: [id number] NADIR: 08/09/[address]: Denise Paz MD REQ: [id number] RECD: 08/09/19 STATUS: COMP _ SOURCE: URINE SPDESC: ORDERED: Urine Culture QUERIES: Urine Source: Clean Catch Procedure Result Reported Site Urine Culture Final 08/10/19- 1640 ML No growth of clinically significant organisms * - Main Lab . END OF REPORT DEPARTMENT OF PATHOLOGY, [address] [place] [address] Tashi Shah M.D. Director [facility] # [id number] Procedures Date Code Description Status 08/17/2019 65578 Arthroplasty,Total Shoulder Replacement (TSR) Completed 08/17/2019 77239 Arthroplasty,Total Shoulder Replacement (TSR) Completed 07/28/2019 26495 EKG Tracing & Interpretation Completed 03/17/2019 11480 EKG Tracing & Interpretation Completed Medical Devices Description No Information Available Encounters Type Date Location Provider Dx Diagnosis Office Visit 09/08/2019 [facility] Danika S82.131A Disp fx of 8:42a jamari Ulloa NP medial condyle Hospitalists of right tibia, init for clos fx I10 Essential (primary) hypertension E03.9 Hypothyroidism, unspecified Office Visit 09/04/2019 8:40a [facility] Raoul S82.131A Disp fx of jamari Ulloa PA medial Hospitalists condyle of right tibia, init for clos fx I10 Essential (primary) hypertension G47.33 Obstructive sleep apnea (adult) (pediatric) E03.9 Hypothyroidism, unspecified Office Visit 07/28/2019 [place] Maddi Crawford, Z01.810 Encounter for 1:00p Cardiology Of [facility] preprocedural [facility] cardiovascular examination I49.3 Ventricular premature depolarization I49.1 Atrial premature depolarization I10 Essential (primary) hypertension I47.1 Supraventricular tachycardia G47.33 Obstructive sleep apnea (adult) (pediatric) Office Visit 07/20/2019 [facility] G47.33 Obstructive sleep 1:30p [facility] Pereyra, RN, apnea (adult) [facility] PRINCIPAL TRAINER-BC (pediatric) Office Visit 07/05/2019 [place] Denise Paz, M19.011 Primary 1:00p Orthopedics at [facility], [place] right shoulder Office Visit 04/19/2019 [facility] G47.33 Obstructive sleep 2:15p [facility] Pereyra, RN, apnea (adult) [facility] PRINCIPAL TRAINER-BC (pediatric) Office Visit 03/17/2019 [place] [facility] Maddi Ewing, R00.0 Tachycardia, 2:10p Of Venkatesh Holley unspecified R00.2 Palpitations G47.33 Obstructive sleep apnea (adult) (pediatric) Z01.810 Encounter for preprocedural cardiovascular examination M19.011 Primary osteoarthritis, right shoulder Assessments Date Code Description Provider 09/08/2019 S82.131A Displaced fracture of medial condyle Danika Lai, LIFTER DRIVER of right tibia, initial encounter for closed fracture 09/08/2019 I10 Essential (primary) hypertension Adnika Jeolle, LIFTER DRIVER 09/08/2019 E03.9 Hypothyroidism, unspecified Danika Joelle, LIFTER DRIVER 09/07/2019 S82.131A Displaced fracture of medial condyle Danika Joelle, LIFTER DRIVER of right tibia, initial encounter for closed fracture 09/07/2019 I10 Essential (primary) hypertension Danika Hubert, LIFTER DRIVER 09/07/2019 E03.9 Hypothyroidism, unspecified Danika Hubert, LIFTER DRIVER 09/07/2019 G47.30 Sleep apnea, unspecified Danika Joelle, LIFTER DRIVER 09/06/2019 S82.131A Displaced fracture of medial condyle Danika Lai, LIFTER DRIVER of right tibia, initial encounter for closed fracture 09/06/2019 I10 Essential (primary) hypertension Danika Hubert, LIFTER DRIVER 09/06/2019 E03.9 Hypothyroidism, unspecified Danika Hubert, LIFTER DRIVER 09/06/2019 G47.33 Obstructive sleep apnea (adult) Danika Lai, LIFTER DRIVER (pediatric) 09/05/2019 S82.131A Displaced fracture of medial condyle Kim Kline NP of right tibia, initial encounter for closed fracture 09/05/2019 E03.9 Hypothyroidism, unspecified Kim Kline, DEYSI 09/05/2019 I10 Essential (primary) hypertension Kim Kline, LIFTER DRIVER 09/05/2019 G47.33 Obstructive sleep apnea (adult) Kim Kline, DEYSI (pediatric) 09/04/2019 S82.131A Displaced fracture of medial [...] Crawford M.D. 07/28/2019 I49.1 Atrial premature depolarization aMddi Crawford M.D. 07/28/2019 I10 Essential (primary) hypertension Maddi Crawford M.D. 07/28/2019 I47.1 Supraventricular tachycardia Maddi Crawford M.D. 07/28/2019 G47.33 Obstructive sleep apnea (adult) Maddi Crawford M.D. (pediatric) 07/20/2019 G47.33 Obstructive sleep apnea (adult) Rani Pereyra DNP, RN, (pediatric) [facility] 07/11/2019 M19.011 Primary osteoarthritis, right Denise Paz MD shoulder 07/05/2019 M19.011 Primary osteoarthritis, right Denise Paz MD shoulder 04/19/2019 G47.33 Obstructive sleep apnea (adult) Rani Pereyra DNP, RN, (pediatric) [facility] 03/17/2019 R00.0 Tachycardia, unspecified Maddi Crawford M.D. 03/17/2019 R00.2 Palpitations Maddi Crawford M.D. 03/17/2019 G47.33 Obstructive sleep apnea (adult) Maddi Crawford M.D. (pediatric) 03/17/2019 Z01.810 Encounter for preprocedural Maddi Crawford M.D. cardiovascular examination 03/17/2019 M19.011 Primary osteoarthritis, right Maddi Crawford M.D. shoulder Plan of Treatment Future Appointment(s):10/20/2019 10:30 am - Denise Paz MD at [facility] at Wzlkxx3309/27/2019 11:15 am - Denise Paz MD at [facility] at Pirggj9609/27/2019 2:00 pm - Nancy Cook MD at [facility] Bnjevokwdgc89/04/2020 1:45 pm - Rani Pereyra DNP, RN, PRINCIPAL TRAINER- at [facility]12/20/2019 1:30 pm - Nancy Cook MD at [facility] Dermatology Functional Status Description No Information Available Mental Status Description No Information Available Referrals Description No Information Available
--- OUTSIDE RECORDS SUMMARY | 2019-10-11 19:47 | XMS REPORT | Continuity of Care Document ---
:1935 External Reference #:[id number] Author Name Jose Francisco Robledo, OD Address [address] [place] [address] Care Team Providers Name Role Phone Vanna Mello MD Care Team Information Art Objects Repairer [phone] [facility] Care Team Information Art Objects Repairer Maddi Crawford MD Care Team Information Art Objects Repairer [phone] Problems Active Problems Provider Date Essential hypertension Aaron Hernandez M.D. Onset: 04/07/2019 Social History Type Date Description Comments Sex Unknown ETOH Use Consumes 1 glass of wine per week Tobacco Use Start: Unknown Patient has never smoked Smoking Status Reviewed: 10/10/19 Patient has never smoked Allergies, Adverse Reactions, Alerts Description No Known Drug Allergies Medications Active Medications SIG Qnty Indications Ordering Provider Date Fluticasone Propionate Vanna Mello MD 50mcg/Act Suspension Levothyroxine Sodium Take 1 Tablet By Unknown 88mcg Mouth Every Day Tablets Aspirin 81 twice a week Unknown 81mg Tablets DR Galanprblanca Unknown 5mg Tablets History Medications Ketorolac Tromethamine 1 drop twice [...] Available Vital Signs Date Vital Result Comment 07/08/2019 10:34am Intraocular Pressure Right Eye 12 mmHg Intraocular Pressure Left Eye 12 mmHg 06/08/2019 10:01am Intraocular Pressure Right Eye 15 mmHg Intraocular Pressure Left Eye 15 mmHg Results Description No Information Available Procedures Date Code Description Status 05/31/2019 80255 Extracapsular Cataract Extraction W/Intraocular Lens Completed 05/24/2019 62608 Extracapsular Cataract Extraction W/Intraocular Lens Completed 05/04/2019 84903 Ophthalmic Biometry By Partial Coherence Interferometry Completed W/Intra 05/04/2019 35073 Eye Exam Est Intermediate Completed 05/04/2019 00410 Corneal Pachymetry, Unilateral/Bilateral Completed Medical Devices Description No Information Available Encounters Description No Information Available Assessments Date Code Description Provider 10/10/2019 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
--- OUTSIDE RECORDS SUMMARY | 2019-10-11 19:47 | XMS REPORT | Continuity of Care Document ---
:1935 External Reference #:[id number] Author Name Jose Francisco Robledo, OD Address [address] [place] [address] Care Team Providers Name Role Phone Vanna Mello MD Care Team Information Account Retention Representative [phone] [facility] Care Team Information Account Retention Representative [phone] Maddi Crawford MD Care Team Information Account Retention Representative [phone] Problems Active Problems Provider Date Essential hypertension Aaron Hernandez M.D. Onset: 04/07/2019 Social History Type Date Description Comments Sex Unknown ETOH Use Consumes 1 glass of wine per week Tobacco Use Start: Unknown Patient has never smoked Smoking Status Reviewed: 10/10/19 Patient has never smoked Allergies, Adverse Reactions, Alerts Description No Known Drug Allergies Medications Active Medications SIG Qnty Indications Ordering Date Provider Refresh P.M. 1/4" ribbon 3.500gm Jose Francisco Robledo, 10/10/2019 Ointment applied to OD ocular surface every night at bedtime right eye Fluticasone Propionate Vanna Mello, 50mcg/Act Suspension Levothyroxine Sodium Take 1 Tablet By Unknown Mouth Every Day 88mcg Tablets Aspirin 81 twice a week Unknown 81mg Tablets Lisinopril Unknown 5mg Tablets History Medications Ketorolac Tromethamine [...] Available Vital Signs Date Vital Result Comment 10/10/2019 12:12pm Intraocular Pressure Right Eye 13 mmHg tonopen Intraocular Pressure Left Eye 9 mmHg 07/08/2019 10:34am Intraocular Pressure Right Eye 12 mmHg Intraocular Pressure Left Eye 12 mmHg Results Description No Information Available Procedures Date Code Description Status 05/31/2019 00480 Extracapsular Cataract Extraction W/Intraocular Lens Completed 05/24/2019 40321 Extracapsular Cataract Extraction W/Intraocular Lens Completed 05/04/2019 92111 Ophthalmic Biometry By Partial Coherence Interferometry Completed W/Intra 05/04/2019 90675 Eye Exam Est Intermediate Completed 05/04/2019 02398 Corneal Pachymetry, Unilateral/Bilateral Completed Medical Devices Description No Information Available Encounters Type Date Location Provider Dx Diagnosis Office Visit 10/10/2019 Main Office Jose Francisco Robledo, OD 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, right eye, 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 Plan of Treatment Future Appointment(s):04/11/2020 1:30 pm - Aaron Hernandez M.D. 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
[2019-10-11] MEDS ORDERED: NS 0.9% 1000 ML** 2,000 ML IV ONE (20:05)
[2019-10-11] MEDS ORDERED: Morphine 4 MG/ML VIAL (1 ml) 4 MG/ML VIAL IV ONE (20:05)
[2019-10-11] MEDS ORDERED: Morphine 4 MG/ML VIAL (1 ml) 4 MG/ML VIAL IV PRN (20:05)
[2019-10-11] MEDS ORDERED: Ondansetron INJ* 2 MG/ML VIAL IV ONE (20:05)
--- NOTE | 2019-10-11 20:16 | ED ---
Abdominal Pain/Female - HPI Summary HPI Summary: Pt is an 84 y/o F presenting to the ED with a chief complaint of abd pain initially onset on the morning of 10/11 that gradually worsened throughout the day. Currently, she describes it as cramping and rates it at a 4/10. She reports nausea and about 4-5 episodes of emesis that started around 1600. She also notes that on 10/10, she was sneezing and had increased nasal discharge. She denies urinary symptoms, diarrhea, passing gas, or fever. Her last bowel movement was yesterday, 10/10. Hx of 15in of sigmoid colon removal in January 2019 that followed being constipated for an extended period of time, but had no pain during this episode. She also had her shoulder replaced on 08/17, and fractured her tibia. Because of this, she was at [facility] for about 4 weeks where she was concerned about her prior stomach issues, but she had an XR with unremarkable results. Hx hysterectomy that she had to have another reparative surgery for d/t a complication. Hx of HTN, AFib, and sleep apnea. - History of Current Complaint Chief Complaint: EDAbdPain Stated Complaint: CRAMPS,VOMINTING PER PT Time Seen by Provider: 10/11/19 19:53 Hx Obtained From: Patient Onset/Duration: Gradual Onset, Lasting Hours, Still Present Timing: Hours Severity Initially: Mild Severity Currently: Moderate Pain Intensity: 4 Pain Scale Used: 0-10 Numeric Location: Diffuse Radiates: No Character: Cramping Aggravating Factor(s): Nothing Alleviating Factor(s): Nothing Associated Signs and Symptoms: Positive: Nausea, Vomiting. Negative: Fever, Urinary Symptoms, Diarrhea Allergies/Adverse Reactions: Allergies Allergy/AdvReac Type Severity Reaction Status Date / Time monosodium glutamate AdvReac Severe Swelling Verified 10/11/19 19:43 PMH/Surg Hx/FS Hx/Imm Hx Previously Healthy: Yes Endocrine/Hematology History: Reports: Hx Thyroid Disease - HYPO, Hx Anemia Denies: Hx Diabetes Cardiovascular History: Reports: Hx Atrial Fibrillation, Hx Hypertension Respiratory History: Reports: Hx Sleep Apnea GI History: Reports: Other GI Disorders - COLON RESECTION IN JANUARY 2019 History: Reports: Hx Kidney Infection - 2 KIDNEY INFECTION IN THE PAST Musculoskeletal History: Reports: Hx Arthritis - OSTEO ARTHRITIS, Other Musculoskeletal History - Left shoulder surgery Sensory History: Reports: Hx Cataracts, Hx Contacts or Glasses - Glasses Denies: Hx Hearing Aid Opthamlomology History: Reports: Hx Cataracts, Hx Contacts or Glasses - Glasses Neurological History: Reports: 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 Psychiatric History: Reports: Hx Depression - AT TIMES - Cancer History Cancer Type, Location and Year: endometrial cancer, hyterectomy due to ca, 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, lump removed from breast for bx which was benign Hx Chemotherapy: No - Surgical History Surgery Procedure, Year, and Place: left shoulder replacement-[place] 10/2017; sigmoid colon resection in 01/2019 at [facility] Hx Anesthesia Reactions: No Infectious Disease History: No Infectious Disease History: Denies: Traveled Outside the [place] in Last 30 Days - Family History Known Family History: Negative: Renal Disease - Social History Alcohol Use: Weekly Alcohol Amount: wine Hx Substance Use: No Substance Use Type: Reports: None Hx Tobacco Use: No Smoking Status (MU): Never Smoked Tobacco Have You Smoked in the Last Year: No Review of Systems Negative: Fever Positive: Nasal Discharge Positive: Abdominal Pain, Vomiting, Nausea. Negative: Diarrhea, Other - passing gas Positive: no symptoms reported All Other Systems Reviewed And Are Negative: Yes Physical Exam - Summary Physical Exam Summary: Appearance: Well-appearing, Well-nourished, lying in bed comfortably Skin: Warm, dry, no obvious rash Eyes: sclera anicteric, no conjunctival pallor ENT: mucous membranes moist, pharynx appears normal Neck: Supple, nontender Respiratory: Clear to auscultation, no signs of respiratory distress Cardiovascular: Normal S1, S2. No murmurs. Normal distal pulses in tibial and radial bilaterally. Abdomen: Soft, nontender, normal active bowel sounds present Musculoskeletal: Normal, Strength/ROM Intact Neurological: A&Ox3, awake and alert, mentation is normal, speech is fluent and appropriate Psychiatric: affect is normal, does not appear anxious or depressed Triage Information Reviewed: Yes Vital Signs On Initial Exam: Initial Vitals Temp Pulse Resp BP Pulse Ox 98.3 F 78 16 157/99 97 10/11/19 19:35 10/11/19 19:35 10/11/19 19:35 10/11/19 19:35 10/11/19 19:35 Vital Signs Reviewed: Yes Procedures - Sedation Patient Received Moderate/Deep Sedation with Procedure: No Diagnostics - Vital Signs Vital Signs Temp Pulse Resp BP Pulse Ox 10/11/19 19:35 98.3 F 78 16 157/99 97 - Laboratory Result Diagrams: 10/11/19 20:19 10/11/19 20:19 Lab Statement: Any lab studies that have been ordered have been reviewed, and results considered in the medical decision making process. - CT CT a/p CT Interpretation Completed By: Radiologist Summary of CT Findings: Small bowel obstruction with focal transition point in the midabdomen and findings of the loops distal from the transition concerning for ischemia. No perforation. ED physician has reviewed this report. - EKG 2010 Cardiac Rate: NL - 70bpm EKG Rhythm: Sinus Rhythm ST Segment: Normal Ectopy: None Summary of EKG Findings: EKG at 2010 shows NSR at 70 BPM, P waves, QRS complex, and T waves are within normal limits, T waves and intervals are normal, no ischemic changes. This is a normal EKG. ED physician has reviewed and interpreted this EKG. Re-Evaluation - Re-Evaluation First Eval Re-Evaluation Time: 22:45 Change: Improved Comment: Pt's pain is controlled and her abdominal exam shows distention but no focal tenderness. CT findings noted, particularly concern over ischemia, however her lactate is normal and her clinical course does not make me overly concerned for that. I spoke to Dr. Goyal who agreed, but we will have to keep this in mind going forward. He also recommended NG drainage, IVF, supportive care and he or one of his surgical colleagues will see her in the morning. I will ask the hospitalist to admit the patient. Abdominal Pain Fem Course/Dx - Course Course Of Treatment: Pt is an 84 y/o F presenting to the ED with a chief complaint of abd pain initially onset on the morning of 10/11 that gradually worsened throughout the day. She reports nausea and about 4-5 episodes of emesis that started around 1600. She also notes that on 10/10, she was sneezing and had increased nasal discharge. She denies urinary symptoms, diarrhea, passing gas, or fever. Her last bowel movement was yesterday, 10/10. Pt's physical exam is nml. EKG at 2010 shows NSR at 70 BPM, P waves, QRS complex, and T waves are within normal limits, T waves and intervals are normal, no ischemic changes. This is a normal EKG. ED physician has reviewed and interpreted this EKG. CT a/p shows: Small bowel obstruction with focal transition point in the midabdomen and findings of the loops distal from the transition concerning for ischemia. No perforation. 2240 - Dr. Goyal will come to see the pt in the morning. We discussed the concern over ischemia mentioned on the CT scan, but pt's clinical course is not supportive of that and lactate is normal. My suspicion of ischemia is quite low but she will have to be monitored for that. 2245 Dr. Lorenz will come to evaluate the pt for admission. Pt will be admitted to [facility] for SBO. - Diagnoses Provider Diagnoses: SBO (small bowel obstruction) Discharge ED - Sign-Out/Discharge Documenting (check all that apply): Patient Departure - Discharge Plan Condition: Stable Disposition: ADMITTED TO [facility] - Billing Disposition and Condition Condition: STABLE Disposition: Admitted to [facility] - Attestation Statements Document Initiated by Markibe: Yes Documenting Scribe: Jodie Lopez Provider For Whom Haleigh is Documenting (Include Credential): Marcel Marie MD. Scribe Attestation: Jodie Jo, sammed for Marcel Marie MD. on 10/12/19 at 0151. Scribe Documentation Reviewed: Yes Provider Attestation: The documentation as recorded by the Jodie kelly accurately reflects the service I personally performed and the decisions made by , Marcel Marie MD. Status of Scribe Document: Viewed
[2019-10-11 20:25] LABS: ABS Eosinophils 0.1 10^3/ul (0-0.6); ABS Lymphocytes 0.6 10^3/ul (1.0-4.8); ABS Monocytes 0.2 10^3/ul (0-0.8); Eosinophil % 0.6 %; Hematocrit 45 % (35-47); Hemoglobin 15.1 g/dL (12.0-16.0); Mean Corpuscular HGB Conc 33 g/dL (31-36); Mean Corpuscular Hemoglobin 32 pg (27-31); Mean Corpuscular Volume 96 fL (80-97); Mean Platelet Volume 7.8 fL (7.4-10.4); Platelet Count 295 10^3/uL (150-450); Red Blood Count 4.74 10^6 /uL (3.70-4.87); Red Cell Distribution Width 13 % (10-15); White Blood Count 14.9 10^3/uL (3.5-10.8)
[2019-10-11 20:46] LABS: Albumin 4.5 g/dL (3.2-5.2); BUN/Creatinine Ratio 18.5 (8-20); Calcium 10.8 mg/dL (8.6-10.3); EGFR African American 81.9 (>60); EGFR Non-African American 67.7 (>60); Potassium 3.6 mmol/L (3.5-5.0); Total Protein 7.5 g/dL (6.4-8.9)
[2019-10-11 20:47] LABS: Albumin/Globulin Ratio 1.5 (1-3); Total Bilirubin 0.6 mg/dL (0.2-1.0)
[2019-10-11] MEDS ORDERED: Iohexol 300* (CONTRAST) 10 ML SDV IV ONE (20:52)
[2019-10-11 23:19] LABS: Urine Appearance Cloudy; Urine Bilirubin Negative (Negative); Urine Blood Negative (Negative); Urine Color Yellow; Urine Glucose Negative (Negative); Urine Ketones 2+ (Negative); Urine Nitrite Negative (Negative); Urine Protein Negative (Negative); Urine Urobilinogen Negative (Negative)
[2019-10-11] MEDS ORDERED: PROCHLORPERAZINE INJ 5 MG/ML 2 ML VIAL IV PRN (23:40)
[2019-10-11] MEDS ORDERED: Phenol 1.4% Spray* 177 ML BTL MT PRN (23:40)
[2019-10-11] MEDS ORDERED: hydrALAZINE IV* 20 MG/ML VIAL IV SLOW PU PRN (23:40)
[2019-10-12 00:04] LABS: C Reactive Protein 2.72 mg/L (<8.01)
[2019-10-12] MEDS: NS 0.9% 1000 ML** 1,000 ML IV SCH ×2 (01:01→20:31)
[2019-10-12] MEDS: Morphine INJ* 2 MG/ML 1 ML SYRINGE (TWO MG - NEW SYRINGE VERSION) IV PRN ×4 (01:13→12:45)
--- NOTE | 2019-10-12 01:51 | HP ---
CC: Dr. Mello * HISTORY AND PHYSICAL: DATE OF ADMISSION: 10/11/19 PRIMARY CARE PROVIDER: Dr. Mello. CHIEF COMPLAINT: Abdominal pain and vomiting. HISTORY OF PRESENT ILLNESS: Ms. Peterson has had a complicated past 1 year where she was treated for sigmoid volvulus with partial colon resection. She underwent shoulder replacement. Shortly thereafter, unfortunately, fell and developed tibial plateau fracture; this occurred in August. The sigmoid volvulus was treated in January 2019. The patient had spent approximately 1 month at [facility] for rehab due to the tibial plateau fracture. She states that while there she had fairly liquid bowel movements. Upon returning home, her stools became somewhat more formed, though she states that she does not have regular consistency bowel movement every time she goes. She states that yesterday she had cold-type symptoms. She woke up on the day of admission feeling poorly. She did manage to eat some lunch and keep that down; however, she had abdominal crampiness all morning and early afternoon. By 4 p.m., the pain in the abdomen was much more severe. She vomited for the first time around 4 p.m. She contacted her PCP's office where she was instructed to try to drink some dominick ranjana and see how she feels. Despite trying this, she continued to vomit 4 to 5 more times between hours of 4 and 7 p.m. The patient also continued with severe abdominal discomfort. The patient states that her last bowel movement was the day prior to admission. She has not had any flatus on the day of admission. Currently, she states that she is feeling poorly. Her throat is quite sore. She continues to also have abdominal pain. PAST MEDICAL HISTORY: 1. Hypothyroidism. 2. Hypertension. 3. Osteoporosis. 4. EVIE. 5. History of pelvic and sacral fracture in May 2018. 6. Right tibial plateau fracture in August 2019. 7. History of endometrial cancer. 8. Questionable atrial fibrillation during her hospital stay in January 2019. PAST SURGICAL HISTORY: 1. Partial colon resection with primary anastomosis for treatment of sigmoid volvulus. 2. Bilateral cataract extraction. 3. Left wrist surgery for fracture. 4. Right total hip arthroplasty with revision. 5. Laparoscopic hysterectomy. 6. Left and right shoulder replacements. MEDICATIONS: 1. Oxycodone 10 mg p.o. q.4 hours p.r.n. pain. 2. PreserVision AREDS 2 one cap p.o. b.i.d. 3. Refresh Optive Gel 1 application to both eyes at bedtime. 4. Refresh Liquigel 1 drop to both eyes 3 times daily. 5. Refresh Celluvisc 1% apply to both eyes at bedtime. 6. MiraLAX 17 g p.o. daily at 1830 p.r.n. constipation. 7. Niacin 500 mg p.o. b.i.d. 8. Multivitamin 1 tab p.o. daily. 9. Lisinopril 5 mg p.o. daily. 10. Synthroid 88 mcg p.o. daily. 11. Ibandronate 150 mg p.o. monthly. 12. Glucosamine chondroitin 1 cap p.o. daily at 1830. 13. Fluticasone 1 squirt to both nostrils at bedtime. 14. Vitamin B12 1000 mcg p.o. daily at noon. 15. Cranberry 2 caps p.o. t.i.d. 16. Vitamin D3 2000 units p.o. daily at noon. 17. Aspirin 81 mg p.o. daily at noon. 18. Eliquis 2.5 mg p.o. b.i.d. 19. Tylenol 975 mg p.o. q.8 hours p.r.n. pain. ALLERGIES: No known drug allergies. FAMILY HISTORY: The patient's mom had multiple CVAs. Dad of metastatic lung cancer. One sister had metastatic breast cancer and . One sister is living. SOCIAL HISTORY: The patient does not smoke. She drinks alcohol on rare occasions. 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 She is . She has 1 child. Her daughter, Analilai, is her healthcare proxy. REVIEW OF SYSTEMS: A complete 11-system review of systems is obtained. Pertinent positives and negatives are as per HPI and in addition, the patient does state that she feels as if she has had chills today. She also admits to chronic right lower extremity edema. She has been wearing lightweight compression stockings for this. The rest of the review of systems is negative. PHYSICAL EXAMINATION GENERAL: The patient is a well-developed, elderly female, seen sitting up in the stretcher, looking uncomfortable, but in no acute distress. VITAL SIGNS: Blood pressure 165/85, pulse 74, respirations 18, temp 98.3, O2 sat 95% on room air. HEENT: Pupils are equal. Extraocular muscles are intact. Oropharynx is clear. Oral mucosa is slightly dry. There is no submandibular, cervical, or supraclavicular adenopathy. PULMONARY: Lungs are clear to auscultation bilaterally. CARDIAC: Normal S1, S2. Regular rate and rhythm. I do not appreciate any murmurs. There is 1+ right lower extremity pitting edema and trace left lower extremity pitting edema. ABDOMEN: Bowel sounds present. Abdomen is soft. She is moderately distended. She is diffusely tender, but worse in the left mid abdomen between the upper and lower quadrants. MUSCULOSKELETAL: There is no cyanosis or clubbing of the digits. There is full active range of motion of all 4 extremities. NEURO: Cranial nerves II through XII are grossly intact. Sensation is intact to light touch throughout. Strength is 5/5 and symmetric to both upper and lower extremities bilaterally. PSYCH: The patient is alert. She is oriented x3. Affect appears appropriate. SKIN: Warm and dry. There are no rashes. DIAGNOSTIC STUDIES/LAB DATA: WBC 14.9, hemoglobin 15.1, hematocrit 45, platelets 295. Sodium 138, potassium 3.6, chloride 98, CO2 of 27, BUN 15, creatinine 0.81, glucose 147. Lactic acid 0.9. Calcium 10.8. Bilirubin 0.6, AST 23, ALT 18, alk phos 103. CRP 2.72. Albumin 4.5. Lipase 36. Urinalysis reveals specific gravity of 1.030, 2+ ketones and otherwise negative. EKG reveals normal sinus rhythm without any acute ST-T wave abnormalities. CT abdomen and pelvis: There is an incompletely distended grossly normal stomach. Multiple dilated fluid-filled small bowel loops are identified with a transition point in the mid abdomen. Small bowel loops past the transition are mostly collapsed, although small bowel loops immediately distal from the transition are thick walled with no wall enhancement and marked adjacent mesenteric edema. No pneumatosis is seen. The report from the radiologist appears to have typos. The impression ultimately states small bowel obstruction with focal transition point in the mid abdomen and findings of the loops distal from the transition concerning for ischemia. No perforation is noted. ASSESSMENT AND PLAN: Ms. Peterson is an 84-year-old female who has a history of sigmoid volvulus requiring partial colectomy and primary anastomosis in January 2019 who presents now to the emergency room with 1-day history of abdominal pain , nausea and vomiting and was found to have a small bowel obstruction on CT imaging. 1. Small bowel obstruction. At this point, the patient is going to be treated conservatively. She has an NG tube placed. She did not have any significant relief with this insertion. She will have morphine for pain and Zofran and Compazine for nausea. I am concerned about the reports from the CAT scan questioning possible bowel ischemia. Because of this, I am going to get a repeat lactic acid at 2 a.m. The patient's abdominal exam will need to be followed closely. She will have a followup x-ray in the morning to see if there has been any improvement in her overall small bowel obstruction. 2. Hypothyroidism. Continue Synthroid, but would change to IV formulation 40 mcg daily. 3. Hypertension. Blood pressures are moderately elevated at this time. As she is n.p.o., I will have p.r.n. hydralazine for systolic blood pressures greater than 175. 4. Osteoporosis. The patient's meds will be held for now. 5. Right tibial plateau fracture. The patient continues to wear the knee immobilizer throughout most of the day. She sleeps with them on as well. She does take it off from [id number] to have range of motion done to the right lower extremity. 6. The patient has been on Eliquis for DVT prophylaxis. This will be held as she is n.p.o. and she will be on heparin 5000 units subcutaneous q.8 hours. 7. Code status is full. TIME SPENT: Sixty five minutes was spent admitting this patient. [id number]/[facility] #: [id number] NOHELIA
[2019-10-12] MEDS ORDERED: Levothyroxine INJ* 100 MCG/5 ML VIAL IV SCH (06:00)
[2019-10-12 06:27] LABS: Calcium 9.4 mg/dL (8.6-10.3); Hematocrit 49 % (35-47); Hemoglobin 15.4 g/dL (12.0-16.0); Mean Corpuscular HGB Conc 32 g/dL (31-36); Mean Corpuscular Hemoglobin 33 pg (27-31); Mean Corpuscular Volume 103 fL (80-97); Mean Platelet Volume 7.4 fL (7.4-10.4); Platelet Count 241 10^3/uL (150-450); Potassium 3.8 mmol/L (3.5-5.0); Red Blood Count 4.73 10^6 /uL (3.70-4.87); Red Cell Distribution Width 15 % (10-15); White Blood Count 12.5 10^3/uL (3.5-10.8)
[2019-10-12 06:33] LABS: BUN/Creatinine Ratio 19.2 (8-20); EGFR African American 85.6 (>60); EGFR Non-African American 70.7 (>60)
[2019-10-12] MEDS: Heparin VIAL(*) 5000 UNITS/ML VIAL (FIVE THOUSAND) SUBCUT SCH ×2 (06:44→15:14)
--- NOTE | 2019-10-12 12:19 | CONS ---
CC: Dr. Mello * CONSULTATION REPORT: DATE OF CONSULT: 10/12/19 REFERRING PROVIDER: Dr. Bambi Lorenz. REASON FOR CONSULT: Abdominal pain and vomiting with small bowel obstruction. HISTORY OF PRESENT ILLNESS: Ms. Kemi Peterson is a very pleasant 84-year-old woman who I know, who had undergone a sigmoid resection for an acute sigmoid volvulus in January of this year. She did well with surgery; however, has had some orthopedic issues since that time including shoulder surgery, cataract replacement, and more recently a fall sustaining a tibial plateau fracture on her right leg which has been treated nonoperatively. She spent some time at [facility] for rehabilitation, but has been doing well. Bowels have been working, although she had some looser bowel movements while hospitalized, but that is becoming more regular. Yesterday, she developed some abdominal distention with some nausea and abdominal pain throughout. She felt she may have had a cold; however, this persisted and worsened and then started throwing up more volume later in the day and she presented to the emergency room. She states she has had no flatus in the last 24 hours. When seen in the emergency room, she was noted to be afebrile with stable vital signs. She had a white blood cell count of little under 15,000 with a slight shift. Electrolytes, BUN and creatinine as well as the lactic acid were normal. She underwent a CT scan of the abdomen and pelvis. I did review the studies with the radiologist here today. This shows portion of the small bowel which is distended with proximal collapsed bowel and distal collapsed bowel with some apparent mesenteric edema, but no evidence of pneumatosis and there does appear to be wall enhancement. There was really no free fluid. There was air and stool throughout the colon. The stomach was distended with fluid. She was admitted to the hospitalist service last night and a nasogastric tube was inserted, has had minimal drainage since insertion. Of note on review of her records, she had been on Eliquis for intermittent atrial fibrillation during her recent hospitalization, but she states she has not taken this since . PAST MEDICAL HISTORY: 1. Hypothyroidism. 2. Hypertension. 3. Osteoporosis. 4. Tibial plateau fracture. 5. History of endometrial cancer. 6. Questionable atrial fibrillation during hospital stay. PAST SURGICAL HISTORY: 1. Sigmoid colon resection, open, for sigmoid volvulus in January of this year. 2. Cataract extraction. 3. Left wrist surgery. 4. Right total hip arthroplasty. 5. Laparoscopic hysterectomy. MEDICATIONS: Include: 1. Oxycodone. 2. MiraLAX. 3. Lisinopril. 4. Synthroid. 5. Ibandronate. 6. Glucosamine. 7. Multivitamins. 8. Aspirin 81 mg daily. 9. Tylenol p.r.n. ALLERGIES: She has no known drug allergies. SOCIAL HISTORY: She does not smoke. She drinks alcohol on rare occasions. 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 She is . She has 1 daughter, who lives in the area. She is her healthcare proxy. She presently lives at [place]. REVIEW OF SYSTEMS: A complete 11-point review of systems was obtained. Positives and negatives per the HPI. She has required morphine for abdominal pain and her pain presently is adequately controlled. PHYSICAL EXAM: Temperature 99.4, pulse 69, blood pressure 137/66. In general, she is a slender, pleasant woman, appears to be in no apparent distress. She is awake, alert, and conversive. Her lungs were clear to auscultation with normal respiratory effort. Heart was regular rate and rhythm without murmurs, rubs, or gallops. Her abdomen is distended, but soft. She has a well-healed midline incision without hernia. She had some bowel sounds that were diminished throughout. These were not high-pitched or tinkling. She has tenderness mainly in the left side of the abdomen, but no peritoneal irritation , rebound, or rigidity. Psychiatric: She is awake, alert, and oriented x3. She has normal judgment and insight. LABORATORY DATA: Repeat lactic acid approximately 4 hours after admission was normal. White blood cell count 4 hours after admission had come down to 12.5. IMPRESSION AND PLAN: Small bowel obstruction. This is most likely secondary to adhesive disease. There was concern for possible internal closed loop obstruction with mesenteric edema and possible thickening of the wall. At present, she has no sign of peritonitis and white blood cell count is decreasing and she has no tachycardia or fever. I discussed these findings with the patient and her daughter at the bedside. She certainly is at risk for adhesive small bowel obstruction. The decision to be made as whether this can be watched and managed conservatively for the next 24 to 48 hours with the findings on the CT scan with mesenteric edema and the possible closed loop internal hernia and if this can progressively worsen with ischemia, it may require more urgent and expeditious exploration. At present, she shows no signs of sepsis or peritonitis. Fortunately, she has not taken her Eliquis since last . Plan will be to repeat her white blood cell count at noon as well as an INR. I will assess her clinically early this afternoon and we will make a decision regarding surgery. Thank you for the consultation. We will follow her with you. [id number]/[facility] #: [id number] NOHELIA
[2019-10-12 12:50] LABS: ABS Lymphocytes 0.7 10^3/ul (1.0-4.8); ABS Monocytes 0.7 10^3/ul (0-0.8); ABS Neutrophils 12.8 10^3/ul (1.5-7.7); Eosinophil % 0.1 %; Hematocrit 44 % (35-47); Hemoglobin 14.6 g/dL (12.0-16.0); Lymphocyte % 5.1 %; Mean Corpuscular HGB Conc 33 g/dL (31-36); Mean Corpuscular Hemoglobin 32 pg (27-31); Mean Corpuscular Volume 96 fL (80-97); Mean Platelet Volume 7.9 fL (7.4-10.4); Nucleated Red Blood Cells % 0.1; Platelet Count 291 10^3/uL (150-450); Red Blood Count 4.59 10^6 /uL (3.70-4.87); Red Cell Distribution Width 13 % (10-15); White Blood Count 14.2 10^3/uL (3.5-10.8)
[2019-10-12 12:54] LABS: INR 0.97 (0.82-1.09)
[2019-10-12] MEDS: Dextran 70/Hypromellose Tears Eye Drops 15 ml BTL (for Artificials Tears) BOTH EYES SCH ×3 (13:21→22:12)
--- NOTE | 2019-10-12 13:26 | PN ---
Subjective Date of Service: 10/12/19 Interval History: Patient stated suction was working well initially with about 200ml suctioned out , but not going so smoothly right now. Mild abdominal pain. She recalled she had no problems with surgery in the past, no allergy to anaesthesia. She had 3 surgeries this years, including colectomy and joint operations. She was unhappy that we asked her these questions while we have record on file. She states she had no problem brisk walking and climbing stairs. Daughter mentioned she went to meets recently and they had a good time. No SOB, chest pain, palpitation. She was using BIPAP at night usually. Objective Active Medications: Artificial Tears (Natural Balance Tears Eye Drop) 1 drop BOTH EYES TID [facility] Heparin Sodium (Porcine) (Heparin Vial(*)) 5,000 units SUBCUT Q8HR [facility] Last Admin: 10/12/19 06:44 Dose: 5,000 units Hydralazine HCl (Apresoline Iv*) 10 mg IV SLOW PU Q6H PRN PRN Reason: SBP>175 Sodium Chloride (Ns 0.9% 1000 Ml) 1,000 mls @ 75 mls/hr IV PER RATE [facility] Last Admin: 10/12/19 01:01 Dose: 75 mls/hr Levothyroxine Sodium (Synthroid Inj*) 40 mcg IV 0600 [facility] Last Admin: 10/12/19 06:44 Dose: 40 mcg Morphine Sulfate (Morphine 4 Mg/Ml Vial (1 Ml)) 4 mg IV Q1H PRN PRN Reason: PAIN - MODERATE Last Admin: 10/11/19 23:20 Dose: 4 mg Morphine Sulfate (Morphine Inj (Syringe))*) 2 mg IV Q3H PRN PRN Reason: PAIN - SEVERE Last Admin: 10/12/19 12:45 Dose: 2 mg Refresh Celluvisc 1% 1 applic BOTH EYES BEDTIME [facility] Refresh Optive Eye (Gel) 1 drop BOTH EYES BEDTIME [facility] Ondansetron HCl (Zofran Inj*) 4 mg IV Q6H PRN PRN Reason: NAUSEA Phenol/Menthol (Chloroseptic Throat [place]*) 2 spray MT Q4H PRN PRN Reason: SORE THROAT Prochlorperazine Edisylate (Compazine Inj*) 10 mg IV Q6H PRN PRN Reason: NAUSEA/VOMITING Vital Signs - 8 hr 10/12/19 10/12/19 10/12/19 06:47 06:48 07:33 Temperature 98.4 F Pulse Rate 77 Respiratory 17 17 17 Rate Blood Pressure 135/77 (mmHg) O2 Sat by Pulse 96 Oximetry 10/12/19 10/12/19 10/12/19 08:00 08:29 11:00 Temperature 99.4 F Pulse Rate 69 Respiratory 17 18 17 Rate Blood Pressure 137/66 (mmHg) O2 Sat by Pulse 97 Oximetry 10/12/19 12:45 Temperature Pulse Rate Respiratory 16 Rate Blood Pressure (mmHg) O2 Sat by Pulse Oximetry Oxygen Devices in Use Now: None Exam: Appearance: Well groomed white lady lying on the bed with ngt in situ, NAD Eyes: No Scleral Icterus, PERRLA Ears/Nose/Mouth/Throat: Mucous Membranes Moist Neck: NL Appearance and Movements; NL JVP, Trachea Midline Respiratory: Symmetrical Chest Expansion and Respiratory Effort, Clear to Auscultation, Clear to Percussion Cardiovascular: NL Sounds; early diastolic murmur in aorta area; No JVD, No Edema Abdominal: NL Sounds; RLQ pain, no rebound tendernss, no rigidity Neurological: Alert and Oriented x 3 Result Diagrams: 10/12/19 12:40 10/12/19 06:04 Assess/Plan/Problems-Billing Assessment: 84 y/o female with history of sigmoid volvulus with partial colon resection in January, hypothyroidism, hypertension, osteoporosis, presented with acute onset of abdominal pain with vomiting, found to have small bowel obstruction, concerning for ischemic nature. - Patient Problems (1) Small bowel obstruction Current Visit: Yes Status: Acute Code(s): K56.609 - UNSP INTESTNL OBST, UNSP TO PARTIAL VERSUS COMPLETE OBST SNOMED Code(s): 666227738 Comment: - could be due to adhesion, ischmic bowel was a concern based on CT scan however lactic acid low - ngt suctioning, npo - would continue conservative management for now, may need surgical intervention if not improving clinically. - symptomatic management: pain control (2) Osteoporosis Current Visit: No Status: Acute Code(s): M81.0 - AGE-RELATED OSTEOPOROSIS W/ O CURRENT PATHOLOGICAL FRACTURE SNOMED Code(s): 18524913 Comment: -pt takes ibandronate monthly at home. Due 02/02/19 per patient (3) HTN (hypertension) Current Visit: No Status: Chronic Code(s): I10 - ESSENTIAL (PRIMARY) HYPERTENSION SNOMED Code(s): 18215994 Comment: - hold off home med - iv hydralazine for now (4) Hypothyroidism Current Visit: No Status: Chronic Code(s): E03.9 - HYPOTHYROIDISM, UNSPECIFIED SNOMED Code(s): 47078690 Comment: -convert to iv levothyroxine, 80% of oral dose (5) DVT prophylaxis Current Visit: No Status: Acute Code(s): VUW2697 - SNOMED Code(s): 039783596 Comment: -Continue lovenox. Status and Disposition: Inpatient Medicine Attestation Documenting Resident: Angelika Hankins Supervising Physician: Smith Chavez Attending/Supervising Physician Comment: NGT without significant output after initial 100 cc. Continued pain. Pt with continued leukocytosis on recheck at noon and is being taken to the OR with Dr. Abraham. She had an ECHO in January 2019 with EF 65%. More active with walking before her tibial plateau fracture in August. No hx of CVA, CHF, IDDM or ANVIL WORKER >2. Anteroseptal q waves. RCRI is 2 for the Q waves and intraperitonal surgery. Class 2 risk with 10.1% risk of , [place] or cardiac arrest in 30 day post operative period. No modifiable risk factors and at risk of decompensation or with any delay. Recommend proceed with ex-lap. Attestation: This service has been performed in part by a resident under the direction of a teaching physician.I, Smith Chavez, performed the service, or was physically present during the critical, or watson portions of the service, furnished by the resident. I participated in the management of the patient.
[2019-10-12] MEDS ORDERED: ceFAZolin 2 GM in NS PREMIX(*) 2 GM/100 ML BAG IVPB ONE (16:02)
[2019-10-12] MEDS ORDERED: Ondansetron INJ* 2 MG/ML VIAL ONE (16:18)
[2019-10-12] MEDS: Ondansetron INJ* 2 MG/ML VIAL IV PRN (16:23)
[2019-10-12] MEDS ORDERED: Famotidine IV* 10 MG/ML 2 ML (20 mg) ONE (16:32)
[2019-10-12] MEDS ORDERED: Bupivacaine 0.25% SDV* 30 ML ONE (16:40)
[2019-10-12] MEDS ORDERED: Midazolam* 1 MG/ML 2 ML VIAL (2 MG) ONE (16:45)
[2019-10-12] MEDS ORDERED: fentaNYL* 50 MCG/ML 2 ML VIAL (100 MCG VIAL) ONE (16:45)
[2019-10-12] MEDS ORDERED: Cisatracurium* 2 MG/ML MDV 5 ML ONE (16:59)
[2019-10-12] MEDS ORDERED: Dexamethasone IV* 4 MG/ML 1 ML (4 MG) ONE (16:59)
[2019-10-12] MEDS ORDERED: Propofol* 10 MG/ML 20 ML BTL ONE (16:59)
[2019-10-12] MEDS ORDERED: Succinylcholine* 20 MG/ML 10 ML VIAL ONE (16:59)
[2019-10-12] MEDS ORDERED: EPHEDrine (Pressors)* 50 MG/ML VIAL ONE (17:22)
[2019-10-12] MEDS ORDERED: ceFOXitin 2 GM IVPREMIX* 2 GM/50 ML BAG ONE (17:24)
--- NOTE | 2019-10-12 18:37 | OP ---
Operative Report - Blank - Operative Report Date of Operation: 10/12/19 Note: OPERATIVE REPORT Pre-op: Small bowel obstruction Post-Op: Same, secondary to adhesive band Procedure:Exploratory laparotomy, lysis of adhesion Surgeon: MD Jin Asst: none Anes: general with local, Dr. Chan IVF:1 liter of crystalloid EBL:min Specimen: none Drain: none Wound: 1 Findings: Adhesive band causing complete obstruction, small bowel ischemia, bowel viable. To PACU
[2019-10-12] MEDS ORDERED: Morphine INJ* 4 MG/ML 1 ML SYRINGE (NEW SYRINGE VERSION) IV PRN (22:02)
[2019-10-12] MEDS: REFRESH OPTIVE EYE BOTH EYES SCH (22:13)
[2019-10-12] MEDS: SYSTANE NIGHTTIME EYE BOTH EYES SCH (22:13)
--- NOTE | 2019-10-12 23:10 | OP ---
CC: [facility]; [facility] * DATE OF OPERATION: 10/12/19 - ROOM #332 DATE OF : 39. SURGEON: Gabino Abdi MD. LENO SEWER: None. ANESTHESIOLOGIST: Dr. Chan. ANESTHESIA: General with local. PRE-OP DIAGNOSIS: Small bowel obstruction. POST-OP DIAGNOSIS: Small bowel obstruction, secondary to adhesive band. OPERATIVE PROCEDURE: Exploratory laparotomy with lysis of adhesion. ESTIMATED BLOOD LOSS: Minimal. IV FLUIDS: 1 L of crystalloids. SPECIMENS: None. COMPLICATIONS: None. WOUND CLASSIFICATION: I. DRAINS: None. FINDINGS: An adhesive band in the retroperitoneum causing complete obstruction and internal hernia with a loop of bowel, which was ischemic, although viable as well as the mesentery, which was quite edematous and hemorrhagic. All of this was viable after release of the band and no resection was necessary. No other abnormalities were noted. BRIEF HISTORY: Ms. Kemi Peterson is an 84-year-old woman, who has undergone several abdominal operations in the past, presented to the emergency room with 24 hours of severe abdominal pain with profuse nausea and vomiting. She had mild elevation of white blood cell count, but no tachycardia or fever. A CT scan showed a distended proximal bowel with transition point in the mid abdomen. There was what appeared to be edema in the mesentery with concern for possible bowel ischemia. A nasogastric tube was inserted, she was admitted to the medical service and surgical consultation was obtained. Over the course of the day, she has had progressively worsening abdominal pain and distention, passing no flatus. NG tube was put off minimally and the white blood cell count was slightly elevated on serial check. After examining her and discussing the findings with a concern on the CT scan as well as clinically, recommendation has been made to take her to the operating room for exploratory laparotomy. The procedure was discussed with the patient and her daughter, and the risks of but not limited to bleeding, infection, intraabdominal abscess formation, injury to peritoneal and retroperitoneal structures, the possibility of an ostomy, possible bowel resection with anastomosis, abscess, sepsis, and the risk of general anesthesia and blood clots were all explained. DESCRIPTION OF PROCEDURE: Written informed consent was obtained. The abdomen was marked with indelible ink and preoperative antibiotics were administered. The patient was taken to the operating room and placed in the supine position. Sequential compression devices and a warming blanket were applied. General anesthesia was administered. A Zavala catheter was inserted. The nasogastric tube had already been placed. The abdomen was then prepped and draped in the usual sterile fashion. Time-out verification was completed. A vertical incision several inches above the umbilicus was then made and carried inferiorly. The peritoneal cavity was entered under direct vision without difficulty. There were no intra-abdominal adhesions. There was a large amount of serous non-foul smelling fluid. Upon entering the abdomen, this was suctioned. The transverse colon was identified and retracted superiorly. It was viable. There was dilated small bowel and I was able to find a more proximal bowel and follow this down into an area in the left mid abdomen where the bowel was quite adherent and extended to the retroperitoneum. Here, there was identified a loop of ischemic and hemorrhagic bowel that was pinned to the retroperitoneum with a very tight band causing a complete obstruction. This band was lysed sharply and the bowel was freed up. All the bowel which included approximately a foot to a foot and a half, was hemorrhagic along with edematous mesentery, which was hemorrhagic, but it all appeared to be viable as we watched this over the next 4 to 5 minutes. It was peristalsing No other abnormalities were noted within the bowel. Hemostasis was assured. The bowel was placed back in the abdominal cavity in as anatomical position as possible. The midline fascia was closed with interrupted #1 Vicryl suture. The skin was approximated with a stapling device. Dry sterile dressings were applied. The patient tolerated the procedure well and was taken to the recovery room in stable condition. [id number]/[facility] #: [id number] NOHELIA
[2019-10-13 05:15] LABS: ABS Basophils 0.1 10^3/ul (0-0.2); ABS Lymphocytes 0.5 10^3/ul (1.0-4.8); ABS Monocytes 0.8 10^3/ul (0-0.8); ABS Neutrophils 8.8 10^3/ul (1.5-7.7); Eosinophil % 0.2 %; Hematocrit 39 % (35-47); Hemoglobin 13.3 g/dL (12.0-16.0); Lymphocyte % 4.6 %; Mean Corpuscular HGB Conc 34 g/dL (31-36); Mean Corpuscular Hemoglobin 32 pg (27-31); Mean Corpuscular Volume 95 fL (80-97); Mean Platelet Volume 8.5 fL (7.4-10.4); Platelet Count 264 10^3/uL (150-450); Red Blood Count 4.11 10^6 /uL (3.70-4.87); Red Cell Distribution Width 13 % (10-15); White Blood Count 10.2 10^3/uL (3.5-10.8)
[2019-10-13 05:30] LABS: BUN/Creatinine Ratio 24.7 (8-20); EGFR African American 86.8 (>60); EGFR Non-African American 71.8 (>60); Potassium 3.7 mmol/L (3.5-5.0)
[2019-10-13] MEDS: Levothyroxine INJ* 100 MCG/5 ML VIAL IV SCH (05:45)
[2019-10-13] MEDS: Famotidine IV* 10 MG/ML 2 ML (20 mg) IV SCH ×2 (10:22→22:14)
[2019-10-13] MEDS: Heparin VIAL(*) 5000 UNITS/ML VIAL (FIVE THOUSAND) SUBCUT SCH ×2 (10:22→22:16)
[2019-10-13] MEDS: Dextran 70/Hypromellose Tears Eye Drops 15 ml BTL (for Artificials Tears) BOTH EYES SCH ×3 (10:23→22:13)
[2019-10-13] MEDS: Morphine INJ* 2 MG/ML 1 ML SYRINGE (TWO MG - NEW SYRINGE VERSION) IV PRN (10:23)
[2019-10-13] MEDS ORDERED: NS 0.9% 500 ML* 500 ML IV ONE (11:01)
--- NOTE | 2019-10-13 11:04 | PN ---
Progress Note - Progress Note Date of Service: 10/13/19 SOAP: Subjective: Pt seen and examined. Feeling well. no flatus. thirsty Objective: Temp Pulse Resp BP Pulse Ox 99.4 F 77 16 132/67 95 10/13/19 07:43 10/13/19 07:43 10/13/19 10:23 10/13/19 07:43 10/13/19 07:43 Intake & Output 10/12/19 10/13/19 10/13/19 22:59 06:59 14:59 Intake Total 2500 990 Output Total 625 200 Balance 1875 790 NGT no output a and o x3, nad lungs clear abdo: soft/ distended/ tender dressing intact ext wnl labs noted Assessment: POD 1 ex lap joe Plan: d/c lozano d/c ngt npo ivf oob
--- NOTE | 2019-10-13 11:34 | PN ---
Subjective Date of Service: 10/13/19 Interval History: afebrile, no events overnight. POD #1 for bowel obstruction with significant mesenteric edema and hemorrhage but thought viable after release of adhesion still with NGT but no output. No N/V. abdominal pain well controlled. no BM or flatus npo with ice chips. mouth dry and admits to taking some sips of water. some mild left ear pain Objective Active Medications: Artificial Tears (Natural Balance Tears Eye Drop) 1 drop BOTH EYES TID [facility] Last Admin: 10/13/19 10:23 Dose: 1 drop Famotidine (Pepcid Iv*) 20 mg IV BID [facility] Last Admin: 10/13/19 10:22 Dose: 20 mg Heparin Sodium (Porcine) (Heparin Vial(*)) 5,000 units SUBCUT Q12HR [facility] Last Admin: 10/13/19 10:22 Dose: 5,000 units Hydralazine HCl (Apresoline Iv*) 10 mg IV SLOW PU Q6H PRN PRN Reason: SBP>175 Sodium Chloride (Ns 0.9% 1000 Ml) 1,000 mls @ 75 mls/hr IV PER RATE [facility] Last Admin: 10/12/19 20:31 Dose: 75 mls/hr Levothyroxine Sodium (Synthroid Inj*) 60 mcg IV 0600 [facility] Last Admin: 10/13/19 05:45 Dose: 60 mcg Morphine Sulfate (Morphine Inj (Syringe))*) 2 mg IV Q3H PRN PRN Reason: PAIN - SEVERE Last Admin: 10/13/19 10:23 Dose: 2 mg Morphine Sulfate (Morphine Inj (Syringe)*) 4 mg IV Q1H PRN PRN Reason: PAIN MODERATE Refresh Celluvisc 1% 1 applic BOTH EYES BEDTIME [facility] Last Admin: 10/12/19 22:13 Dose: Not Given Refresh Optive Eye (Gel) 1 drop BOTH EYES BEDTIME [facility] Last Admin: 10/12/19 22:13 Dose: Not Given Ondansetron HCl (Zofran Inj*) 4 mg IV Q6H PRN PRN Reason: NAUSEA Last Admin: 10/12/19 16:23 Dose: 4 mg Phenol/Menthol (Chloroseptic Throat [place]*) 2 spray MT Q4H PRN PRN Reason: SORE THROAT Prochlorperazine Edisylate (Compazine Inj*) 10 mg IV Q6H PRN PRN Reason: NAUSEA/VOMITING Vital Signs - 8 hr 10/13/19 10/13/19 07:43 10:23 Temperature 99.4 F Pulse Rate 77 Respiratory 16 16 Rate Blood Pressure 132/67 (mmHg) O2 Sat by Pulse 95 Oximetry Oxygen Devices in Use Now: None Appearance: NAD Eyes: No Scleral Icterus Neck: NL Appearance and Movements; NL JVP, Trachea Midline Respiratory: Clear to Auscultation Cardiovascular: NL Sounds; No Murmurs; No JVD Abdominal: - - midline incision covered by bandages, no drainage. some mild tenderness in RLQ. Extremities: No Edema Skin: No Rash or Ulcers Neurological: Alert and Oriented x 3 Lines/Tubes/Other Access: Clean, Dry and Intact Lozano Nutrition: - - npo Result Diagrams: 10/13/19 04:52 10/13/19 04:52 Additional Lab and Data: Laboratory Results - last 24 hr 10/12/19 10/12/19 10/13/19 12:40 12:40 04:52 WBC 14.2 H 10.2 RBC 4.59 4.11 Hgb 14.6 13.3 Hct 44 39 MCV 96 95 MCH 32 H 32 H MCHC 33 34 RDW 13 13 Plt Count 291 264 MPV 7.9 8.5 Neut % (Auto) 89.7 86.7 Lymph % (Auto) 5.1 4.6 [place] % (Auto) 4.8 8.0 Eos % (Auto) 0.1 0.2 Baso % (Auto) 0.3 0.5 Absolute Neuts (auto) 12.8 H 8.8 H Absolute Lymphs (auto) 0.7 L 0.5 L Absolute Monos (auto) 0.7 0.8 Absolute Eos (auto) 0.0 0.0 Absolute Basos (auto) 0.0 0.1 Absolute Nucleated RBC 0.0 0.0 Nucleated RBC % 0.1 0.0 INR (Anticoag Therapy) 0.97 Sodium Potassium Chloride Carbon Dioxide Anion Gap BUN Creatinine Est GFR ( Amer) Est GFR (Non-Af Amer) BUN/Creatinine Ratio Glucose Calcium 10/13/19 04:52 WBC RBC Hgb Hct MCV MCH MCHC RDW Plt Count MPV Neut % (Auto) Lymph % (Auto) [place] % (Auto) Eos % (Auto) Baso % (Auto) Absolute Neuts (auto) Absolute Lymphs (auto) Absolute Monos (auto) Absolute Eos (auto) Absolute Basos (auto) Absolute Nucleated RBC Nucleated RBC % INR (Anticoag Therapy) Sodium 138 Potassium 3.7 Chloride 105 Carbon Dioxide 29 Anion Gap 4 BUN 19 Creatinine 0.77 Est GFR ( Amer) 86.8 Est GFR (Non-Af Amer) 71.8 BUN/Creatinine Ratio 24.7 H Glucose 129 H Calcium 9.0 Assess/Plan/Problems-Billing Assessment: 84 y/o female with 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 Abdi 10/12. per surgery, npo and pull NGT and lozano pain control (2) Osteoporosis Current Visit: No Status: Acute Code(s): M81.0 - AGE-RELATED OSTEOPOROSIS W/ O CURRENT PATHOLOGICAL FRACTURE SNOMED Code(s): 39075266 Comment: -pt takes ibandronate monthly at home. Due 02/02/19 per patient (3) HTN (hypertension) Current Visit: No Status: Chronic Code(s): I10 - ESSENTIAL (PRIMARY) HYPERTENSION SNOMED Code(s): 15659252 Comment: - hold off home med - iv hydralazine for now (4) Hypothyroidism Current Visit: No Status: Chronic Code(s): E03.9 - HYPOTHYROIDISM, UNSPECIFIED SNOMED Code(s): 54235879 Comment: -convert to iv levothyroxine, 80% of oral dose (5) DVT prophylaxis Current Visit: No Status: Acute Code(s): QAF8177 - SNOMED Code(s): 068863638 Comment: -Continue heparin Status and Disposition: Had been Inpatient Medicine but primary service is now General Surgery since her laparotomy. I discussed with Dr. Ballard and medicine will sign off for now. Please call with any questions in the future.
[2019-10-13] MEDS: NS 0.9% 1000 ML** 1,000 ML IV SCH (14:06)
[2019-10-13] MEDS: REFRESH OPTIVE EYE BOTH EYES SCH (22:20)
[2019-10-13] MEDS: SYSTANE NIGHTTIME EYE BOTH EYES SCH (22:20)
[2019-10-14] MEDS: NS 0.9% 1000 ML** 1,000 ML IV SCH (03:43)
[2019-10-14] MEDS: Levothyroxine INJ* 100 MCG/5 ML VIAL IV SCH (05:43)
[2019-10-14 06:49] LABS: Hematocrit 38 % (35-47); Hemoglobin 12.5 g/dL (12.0-16.0); Mean Corpuscular HGB Conc 33 g/dL (31-36); Mean Corpuscular Hemoglobin 32 pg (27-31); Mean Corpuscular Volume 95 fL (80-97); Mean Platelet Volume 8.3 fL (7.4-10.4); Platelet Count 246 10^3/uL (150-450); Red Blood Count 3.94 10^6 /uL (3.70-4.87); Red Cell Distribution Width 14 % (10-15)
[2019-10-14 06:56] LABS: BUN/Creatinine Ratio 26.2 (8-20); Calcium 8.6 mg/dL (8.6-10.3); EGFR African American 113.6 (>60); EGFR Non-African American 93.9 (>60); Potassium 3.2 mmol/L (3.5-5.0)
[2019-10-14 07:17] LABS: ABS Basophils 0.1 10^3/ul (0-0.2); ABS Eosinophils 0.1 10^3/ul (0-0.6); ABS Lymphocytes 0.8 10^3/ul (1.0-4.8); ABS Monocytes 0.6 10^3/ul (0-0.8); ABS Neutrophils 6.5 10^3/ul (1.5-7.7); Eosinophil % 1.1 %; Lymphocyte % 9.9 %
[2019-10-14] MEDS ORDERED: oxyCODONE TAB* 5 MG TAB PO PRN (07:20)
--- NOTE | 2019-10-14 07:20 | PN ---
Progress Note - Progress Note Date of Service: 10/14/19 SOAP: Subjective: Pt seen and examined. Feeling well. no flatus. thirsty Objective: Temp Pulse Resp BP Pulse Ox 98 F 62 16 128/69 98 10/14/19 03:12 10/14/19 03:12 10/14/19 03:12 10/14/19 03:12 10/14/19 03:12 a and o x3, nad abdo: soft/ distended/ nontender dressing removed, staple line intact ext : R knee brace, no calf tenderness labs noted Assessment: POD 2 ex lap joe Plan: h2o change ivf oob ortho consult to evaluated weight-bearing status and R shoulder status SACMA to cover over weekend
[2019-10-14] MEDS: Lisinopril TAB* 5 MG PO SCH (08:28)
[2019-10-14] MEDS: D5W 1/2 NS KCl 20 Meq 1000 ML* 1,000 ML IV SCH ×2 (08:28→22:12)
[2019-10-14] MEDS: Apixaban* 2.5 MG TAB PO SCH ×2 (08:28→20:34)
[2019-10-14] MEDS: Famotidine IV* 10 MG/ML 2 ML (20 mg) IV SCH ×2 (08:29→20:34)
[2019-10-14] MEDS: Dextran 70/Hypromellose Tears Eye Drops 15 ml BTL (for Artificials Tears) BOTH EYES SCH ×5 (08:30→21:13)
[2019-10-14] MEDS: Levothyroxine TAB* 88 MCG TAB PO SCH (09:10)
[2019-10-14] MEDS: REFRESH OPTIVE EYE BOTH EYES SCH (23:10)
[2019-10-14] MEDS: SYSTANE NIGHTTIME EYE BOTH EYES SCH (23:36)
[2019-10-15] MEDS: Ondansetron INJ* 2 MG/ML VIAL IV PRN (01:22)
[2019-10-15 05:15] LABS: ABS Eosinophils 0.1 10^3/ul (0-0.6); ABS Lymphocytes 0.8 10^3/ul (1.0-4.8); ABS Monocytes 0.8 10^3/ul (0-0.8); ABS Neutrophils 6.2 10^3/ul (1.5-7.7); Eosinophil % 1.1 %; Hematocrit 37 % (35-47); Hemoglobin 12.2 g/dL (12.0-16.0); Lymphocyte % 9.9 %; Mean Corpuscular HGB Conc 33 g/dL (31-36); Mean Corpuscular Hemoglobin 32 pg (27-31); Mean Corpuscular Volume 95 fL (80-97); Mean Platelet Volume 8.7 fL (7.4-10.4); Platelet Count 244 10^3/uL (150-450); Red Blood Count 3.83 10^6 /uL (3.70-4.87); Red Cell Distribution Width 13 % (10-15); White Blood Count 7.9 10^3/uL (3.5-10.8)
[2019-10-15 05:31] LABS: BUN/Creatinine Ratio 17.2 (8-20); Calcium 8.7 mg/dL (8.6-10.3); EGFR African American 120.4 (>60); EGFR Non-African American 99.5 (>60); Potassium 3.1 mmol/L (3.5-5.0)
[2019-10-15] MEDS: Levothyroxine TAB* 88 MCG TAB PO SCH (05:40)
[2019-10-15] MEDS: Dextran 70/Hypromellose Tears Eye Drops 15 ml BTL (for Artificials Tears) BOTH EYES SCH ×3 (08:04→21:13)
[2019-10-15] MEDS: Lisinopril TAB* 5 MG PO SCH (08:04)
[2019-10-15] MEDS: Apixaban* 2.5 MG TAB PO SCH ×2 (08:04→21:12)
[2019-10-15] MEDS: Famotidine IV* 10 MG/ML 2 ML (20 mg) IV SCH (08:05)
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
[2019-10-15] MEDS ORDERED: Potassium Chlor TAB* 20 MEQ TAB.ER PO ONE (12:37)
[2019-10-15] MEDS: D5W 1/2 NS KCl 20 Meq 1000 ML* 1,000 ML IV SCH (17:40)
[2019-10-15] MEDS: SYSTANE NIGHTTIME EYE BOTH EYES SCH (21:21)
[2019-10-15] MEDS: REFRESH OPTIVE EYE BOTH EYES SCH (21:25)
[2019-10-16] MEDS: D5W 1/2 NS KCl 20 Meq 1000 ML* 1,000 ML IV SCH ×3 (03:38→17:33)
[2019-10-16] MEDS: Levothyroxine TAB* 88 MCG TAB PO SCH (05:51)
[2019-10-16 06:22] LABS: BUN/Creatinine Ratio 11.3 (8-20); Calcium 8.7 mg/dL (8.6-10.3); EGFR African American 133.6 (>60); EGFR Non-African American 110.4 (>60); Magnesium 1.9 mg/dL (1.9-2.7); Phosphorus 1.8 mg/dL (2.5-5.0); Potassium 3.4 mmol/L (3.5-5.0)
[2019-10-16] MEDS: Dextran 70/Hypromellose Tears Eye Drops 15 ml BTL (for Artificials Tears) BOTH EYES SCH ×3 (08:34→21:54)
[2019-10-16] MEDS: Apixaban* 2.5 MG TAB PO SCH ×2 (08:35→21:54)
[2019-10-16] MEDS: Famotidine TAB* 20 MG PO SCH (08:35)
[2019-10-16] MEDS: Lisinopril TAB* 5 MG PO SCH (08:35)
[2019-10-16] MEDS ORDERED: Potassium Chlor TAB* 10 MEQ TAB.ER PO ONE (12:32)
--- NOTE | 2019-10-16 12:38 | PN ---
Progress Note - Progress Note Date of Service: 10/16/19 Note: Surgery Progress Note S: Patient is doing very well this morning and is in excellent spirits. She has had a large flatus and BM yesterday evening and this morning. She tolerated CLD without difficulty. She has been up and out of bed with her orthopedic precautions. She denies pain. O: Vital Signs - 24 hr 10/15/19 10/15/19 10/15/19 15:30 19:47 20:14 Temperature 98.2 F 98.2 F Pulse Rate 56 50 Respiratory 16 18 16 Rate Blood Pressure 150/68 175/76 (mmHg) O2 Sat by Pulse 99 99 Oximetry 10/15/19 10/16/19 10/16/19 23:52 04:02 07:20 Temperature 97.7 F 98.0 F 98.3 F Pulse Rate 62 63 62 Respiratory 18 18 16 Rate Blood Pressure 104/47 110/60 131/73 (mmHg) O2 Sat by Pulse 97 93 97 Oximetry 10/16/19 10/16/19 08:00 11:24 Temperature 98.3 F Pulse Rate 65 Respiratory 18 16 Rate Blood Pressure 141/68 (mmHg) O2 Sat by Pulse 97 Oximetry Laboratory Results - last 24 hr 10/16/19 05:50 Sodium 137 Potassium 3.4 L Chloride 107 Carbon Dioxide 25 Anion Gap 5 BUN 6 Creatinine 0.53 Est GFR ( Amer) 133.6 Est GFR (Non-Af Amer) 110.4 BUN/Creatinine Ratio 11.3 Glucose 121 H Calcium 8.7 Phosphorus 1.8 L Magnesium 1.9 Intake & Output 10/15/19 10/16/19 10/16/19 22:59 06:59 14:59 Intake Total 1310 980 320 Output Total 500 600 600 Balance 810 380 -280 Intake: IV Fluids 960 980 D5 1/2 NS 20KCL 960 980 Oral 350 320 Output: Urine 500 600 600 Other: Estimated Void Large Date of Last Bowel 10/15/19 Movement # Bowel Movements 1 Estimated Stool Amount Medium # Voids 1 Physical exam: Abdomen- distended but softer, +BS, incision c/d/i, no surrounding erythema or drainage, minimal tenderness to palpation around incision A/P: 84 F with a history of afib, prior open sigmoidectomy for sigmoid volvulus who is POD 4 from exploratory laparotomy and lysis of adhesions, doing very well. - IVF: Decrease to D1/2 NS +20 KCL @ 50cc/hour - Diet: advance to full liquids, abdominal distension has improved slightly and patient is having excellent bowel function - Pain: patient is not requiring pain medications but is on oxycodone and morphine PRN - Replace electrolytes - Ppx: pepcid, Eliquis for afib - Patient is non weightbearing on RLE and has RUE precautions from ortho injuries in August. She is comfortable transferring herself from bed to wheelchair and continues to be able to do this independently, as she has been doing this at home. - Dispo: possible DC home tomorrow
[2019-10-16] MEDS ORDERED: Potassium Acid Phosphate TAB* 500 MG PO ONE (12:40)
[2019-10-16] MEDS: SYSTANE NIGHTTIME EYE BOTH EYES SCH (21:54)
[2019-10-16] MEDS: REFRESH OPTIVE EYE BOTH EYES SCH (21:55)
[2019-10-17] MEDS: Levothyroxine TAB* 88 MCG TAB PO SCH (05:44)
[2019-10-17 05:48] LABS: BUN/Creatinine Ratio 6.8 (8-20); Calcium 8.8 mg/dL (8.6-10.3); EGFR African American 118.1 (>60); EGFR Non-African American 97.6 (>60); Magnesium 1.8 mg/dL (1.9-2.7); Phosphorus 2.3 mg/dL (2.5-5.0); Potassium 3.7 mmol/L (3.5-5.0)
[2019-10-17] MEDS: Famotidine TAB* 20 MG PO SCH (08:38)
[2019-10-17] MEDS: Apixaban* 2.5 MG TAB PO SCH (08:38)
[2019-10-17] MEDS: Lisinopril TAB* 5 MG PO SCH (08:38)
[2019-10-17] MEDS: Dextran 70/Hypromellose Tears Eye Drops 15 ml BTL (for Artificials Tears) BOTH EYES SCH (08:39)
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
--- NOTE | 2019-10-17 11:04 | DS ---
CC: Dr. Vanna Mello * DISCHARGE SUMMARY: DATE OF ADMISSION: 10/11/19 DATE OF DISCHARGE: 10/17/19 ATTENDING SURGEON: Dr. Gabino Abdi * (DICTATED BY JENNA BURRELL) DISCHARGE DIAGNOSIS: Small bowel obstruction secondary to adhesions. HOSPITAL COURSE: Please refer to admission history and physical and operative note for details. The patient was taken to the operating room on 10/12/[address] Abdi for a clinical picture of small bowel obstruction. Findings at the time of surgery included adhesions, which were lysed. There was some small bowel and small bowel mesentery edema, which was felt to not require resection. The patient maintained NG-tube for the first couple of days postoperatively. She gradually had resumption of bowel function and as of the morning of discharge, is tolerating full liquid diet well. She is passing flatus and has had at least 1 bowel movement. She was seen in the morning of the discharge with Dr. Abdi (see separate progress note from today). Her lower midline incision is healing well with cristino intact and without evidence of infection. Instructions were reviewed regarding diet (no restrictions), wound care and activities, she will call the office for followup in 7 to 10 days. She was discharged to home in good condition. JENNA BURRELL [id number]/[facility] #: [id number] MTDD
[2019-10-17 11:21] VITALS: BP 137/83
== END 2019-10-17 13:23 | disposition home health service (06) | DRG 336 ==
LOC: ED 19:30 → SSU 23:32
PROVIDERS: ADMIT Hospitalist; ATTEND Surgery
PROC: 0D9670Z Drainage of Stomach with Drainage Device, Via Natural or Artificial Opening (ICD-10-PCS; 2019-10-11)
PROC: 0DN80ZZ Release Small Intestine, Open Approach (ICD-10-PCS; principal; 2019-10-12 20:15)
DX: K56.50 Intestinal adhesions [bands], unspecified as to partial versus complete obstruction (principal); K55.9 Vascular disorder of intestine, unspecified; I48.91 Unspecified atrial fibrillation; E03.9 Hypothyroidism, unspecified; I10 Essential (primary) hypertension; M19.90 Unspecified osteoarthritis, unspecified site; G62.9 Polyneuropathy, unspecified; F32.9 Major depressive disorder, single episode, unspecified; Z96.612 Presence of left artificial shoulder joint; K46.9 Unspecified abdominal hernia without obstruction or gangrene; M81.0 Age-related osteoporosis without current pathological fracture; G47.33 Obstructive sleep apnea (adult) (pediatric); Z96.611 Presence of right artificial shoulder joint; Z96.641 Presence of right artificial hip joint; K56.7 Ileus, unspecified; Z90.710 Acquired absence of both cervix and uterus; Z88.8 Allergy status to other drugs, medicaments and biological substances; Z85.828 Personal history of other malignant neoplasm of skin; Z85.42 Personal history of malignant neoplasm of other parts of uterus; Z80.3 Family history of malignant neoplasm of breast
CPT/HCPCS: 36415; 74019; 74177; 80048; 80053; 81003; 83605; 83690; 83735; 84100; 85025; 85027; 85610; 86140; 93005; 94660; 96361; 96374; 96375; 99284; A9270-GY; J0330; J0360; J0690; J0694; J1100; J1644; J2250; J2270; J2405; J2704; J3010; J3490; Q9967